=== PATIENT | female | born 1950 | race Caucasian/White ===

== ENCOUNTER 2022-11-22 09:28 | Outpatient (OUT) | payer MEDICARE, SELFPAY ==
--- NOTE | 2022-11-22 09:37 | CT_ITS ---
[address] [address] Patient Name: LEDA MEJIA MRN: [id number] date: 1950 Sex: F Assigned Patient Location: CT Current Patient Location: CT Accession/Order Number: [id number] Exam Date: 11/22/2022 09:48 Report Date: 11/22/2022 10:59 At the request of: CHARLES TAN Procedure: CT chest wo con EXAMINATION: CT chest wo con HISTORY: Lung Cavity Disease J98.4 COMPARISON: CT chest high-resolution 05/24/2022 TECHNIQUE: Multi-planar CT images were obtained without and/or with IV contrast as indicated by examination type. Axial, Coronal, and Sagittal images. Dose reduction techniques were achieved by using automated exposure control and/or adjustment of mA and/or kV according to patient size and/or use of iterative reconstruction technique. FINDINGS: LUNGS: A few tiny cavitary lesions versus cystic bronchiectasis scattered within the lungs, most notable within the lateral right lung base. Scattered areas of mild scarring. A few small patchy opacities which are new since prior study. PLEURA: No mass, effusion, or pneumothorax. VASCULATURE: No abnormality. JENNIFER: No mass or adenopathy. MEDIASTINUM: No mass or adenopathy. CARDIAC: No enlargement, pericardial thickening, or significant calcification. AORTA: No aneurysm or dissection. CHEST WALL: No mass or axillary adenopathy. BONES: No bone lesion or fracture. LIMITED ABDOMEN: No suspicious findings Limited images of the upper abdomen. OTHER: Negative. CT/CT chest wo con IMPRESSION: 1. Stable appearance of the small collections of scattered tiny air-filled cystic structures within the lungs; cavitary lesions versus cystic bronchiectasis. 2. Several new small patchy opacities; infectious etiology versus atelectasis. 3. No lymphadenopathy. Electronically authenticated by: AMBROSIO DUVALL Date: 11/22/2022 10:59
== END 2022-11-22 09:29 | disposition home or self-care (01) ==
LOC: CT 09:28
PROVIDERS: PCP Family Medicine; Visit Provider Internal Medicine
DX: J98.4 Other disorders of lung (principal); B44.89 Other forms of aspergillosis; R91.8 Other nonspecific abnormal finding of lung field
CPT/HCPCS: 71250

== ENCOUNTER 2022-12-10 13:57 | Outpatient (OUT) | payer MEDICARE, SELFPAY ==
--- NOTE | 2022-12-10 14:01 | XR_ITS ---
The [address] [address] Patient Name: LEDA MEJIA MRN: [id number] date: 1950 Sex: F Assigned Patient Location: RAD Current Patient Location: RAD Accession/Order Number: [id number] Exam Date: 12/10/2022 14:05 Report Date: 12/10/2022 14:32 At the request of: CHARLES TAN Procedure: XR chest 2V EXAMINATION: XR chest 2V HISTORY: Pneumonia J18.9 COMPARISON: No relevant comparison available. TECHNIQUE: PA and lateral FINDINGS: LUNGS: No significant pulmonary parenchymal abnormalities. VASCULATURE: No increased pulmonary vasculature. PLEURA: No pneumothorax, effusion, or pleural thickening. CARDIAC: No cardiomegaly or cardiac silhouette abnormality. MEDIASTINUM: No visible mass or adenopathy. Left pacemaker BONES: No fracture or visible bone lesion. OTHER: Negative. XR/XR chest 2V IMPRESSION: No acute cardiopulmonary process Electronically authenticated by: TERRIE ROGERS Date: 12/10/2022 14:32
== END 2022-12-10 13:58 | disposition home or self-care (01) ==
LOC: RAD 13:57
PROVIDERS: PCP Family Medicine; Visit Provider Internal Medicine
DX: J18.9 Pneumonia, unspecified organism (principal)
CPT/HCPCS: 71046

== ENCOUNTER 2022-12-27 08:25 | Outpatient (OUT) | payer MEDICARE, SELFPAY ==
[2022-12-27 08:59] LABS: Basophils Absolute Auto 0.1 10^3/uL (0.0-0.1); Basophils Percent Auto 1.1 % (0.2-2.0); Eosinophils Absolute Auto 0.4 10^3/uL (0.0-0.7); Eosinophils Percent Auto 6.7 % (0.9-7.0); Hematocrit 39.3 % (36.0-48.0); Hemoglobin 12.7 g/dL (12.0-16.0); Immature Granulocytes Abs Auto 0.03 10^3/uL (0.00-0.03); Immature Granulocytes Pct Auto 0.5 % (0.0-0.5); Lymphocytes Absolute Auto 0.8 10^3/uL (1.2-3.8); Lymphocytes Percent Auto 14.7 % (20.5-60.0); Mean Corpuscular HGB Conc 32.3 g/dL (29.9-35.2); Mean Corpuscular Hemoglobin 30.5 pg (26.7-34.0); Mean Corpuscular Volume 94.2 fL (81.0-99.0); Mean Platelet Volume 9.6 fL (9.5-13.5); Monocytes Absolute Auto 0.8 10^3/uL (0.3-0.8); Monocytes Percent Auto 13.8 % (1.7-12.0); Neutrophils Absolute Auto 3.5 10^3/uL (1.4-6.5); Neutrophils Percent Auto 63.2 % (43.0-75.0); Platelet Count 149 10^3/uL (150-450); Red Blood Count 4.17 10^6/uL (4.20-5.40); Red Cell Distribution Width 11.9 % (11.0-15.0); White Blood Count 5.5 10^3/uL (4.0-11.0)
== END 2022-12-27 08:26 | disposition home or self-care (01) ==
LOC: LAB 08:25
PROVIDERS: PCP Family Medicine; Visit Provider Family Medicine
DX: Z79.899 Other long term (current) drug therapy (principal); E78.5 Hyperlipidemia, unspecified
CPT/HCPCS: 36415; 85025

== ENCOUNTER 2022-12-27 08:26 | Outpatient (OUT) | payer MEDICARE, SELFPAY ==
[2022-12-27 09:28] LABS: Alanine Aminotransferase 22 U/L (14-59); Albumin Globulin Ratio 0.8; Albumin Level 3.1 g/dL (3.4-5.0); Alkaline Phosphatase 85 U/L (46-116); Anion Gap 9.5; Aspartate Amino Transferase 21 U/L (15-37); BUN Creatinine Ratio 18.4; Bilirubin Total 0.4 mg/dL (0.2-1.0); Calcium 8.6 mg/dL (8.5-10.1); Carbon Dioxide 29.4 mmol/L (21.0-32.0); Chloride 104 mmol/L (98-107); Chol HDL Ratio 2.3; Cholesterol 214 mg/dL (<=200); Estimated GFR (African America >60 (>=60); Estimated GFR (Non-African Ame >60 (>=60); Globulin 3.7 g/dL; Glucose 85 mg/dL (74-106); HDL Cholesterol 92 mg/dL (40-60); Potassium 3.9 mmol/L (3.5-5.1); Sodium 139 mmol/L (136-145); Total Protein 6.8 g/dL (6.4-8.2); Triglycerides 90 mg/dL (<=150)
== END 2022-12-27 08:27 | disposition home or self-care (01) ==
LOC: LAB 08:27
PROVIDERS: PCP Family Medicine; Visit Provider Nurse Practitioner
DX: Z79.899 Other long term (current) drug therapy (principal); E78.5 Hyperlipidemia, unspecified; I50.22 Chronic systolic (congestive) heart failure
CPT/HCPCS: 36415; 80053; 80061; 83880; 85025

== ENCOUNTER 2023-01-01 14:25 | Outpatient (OUT) | payer MEDICARE, SELFPAY ==
--- NOTE | 2023-01-01 14:27 | MM_ITS ---
Patient: LEDA MEJIA Exam Date: 01/01/2023 : 1950 Gender:F Ordering : DR Angel Griggs . Admission #: [id number] Family : Order #: [id number] CLICK HERE TO VIEW EXAM RADIOLOGY REPORT PROCEDURE: MM TOMOSYNTHESIS SCREENING BI COMPARISON: MG MAMM SCREEN FABBY W CAD, 02/06/2018. MG MAMM SCREEN FABBY W CAD, 02/10/2019. INDICATIONS: Screening Calculator Name NCI Breast Cancer Risk Assessment Tool 5 Year Breast Cancer Risk 3.20% Lifetime Breast Cancer Risk 8.70% Personal Breast Cancer No Personal Ovarian Cancer No Treatments None Family Cancers None LOCATION: The [facility] BREAST COMPOSITION: Heterogeneously dense,which may obscure small masses. FINDINGS: DIAGNOSTIC CATEGORY 2--BENIGN FINDING. NO CHANGE FROM COMPARISON. Scattered benign-appearing nodules are present. Scattered benign-appearing calcifications are present. Scattered benign-appearing lymph nodes are present. RIGHT BREAST: No significant suspicious finding. Linear scar markers LEFT BREAST: No significant suspicious finding. The axillary tail is obscured by a pacemaker RECOMMENDATIONS: ROUTINE MAMMOGRAM AND CLINICAL EVALUATION IN 12 MONTHS. PLEASE NOTE: A NORMAL MAMMOGRAM DOES NOT EXCLUDE THE POSSIBILITY OF BREAST CANCER. A CLINICALLY SUSPICIOUS PALPABLE LUMP SHOULD BE BIOPSIED. Dictated by: Chato Medina MD on 01/01/2023 at 15:42 Approved by: Chato Medina MD on 01/01/2023 at 15:43
--- NOTE | 2023-01-01 14:58 | XR_ITS ---
[address] [address] Patient Name: LEDA MEJIA MRN: [id number] date: 1950 Sex: F Assigned Patient Location: [facility] Current Patient Location: [facility] Accession/Order Number: [id number] Exam Date: 01/01/2023 14:50 Report Date: 01/01/2023 16:00 At the request of: NENA STEWART Procedure: XR DEXA axial skeleton EXAM: XR DEXA axial skeleton HISTORY: Osteopenia Of Multiple Sites M85.89 COMPARISON: None. TECHNIQUE: Routine DEXA scan lumbar spine and bilateral hips. FINDINGS: L2-L4: Bone mineral density 1.014 g/sq cm and T score -1.6 Left femoral neck: Bone mineral density 0.858 g/sq cm and T score -1.3 Left hip total: Bone mineral density 0.843 g/sq cm and T score -1.3 Right femoral neck: Bone density 0.812 g/sq cm and T score -1.6 Right hip total: Bone mineral density 0.863 g/sq cm and T score -1.1 XR/XR DEXA axial skeleton IMPRESSION: Osteopenia. Electronically authenticated by: VASYL BURTON Date: 01/01/2023 16:00
== END 2023-01-01 14:26 | disposition home or self-care (01) ==
LOC: RAD 14:25
PROVIDERS: PCP Family Medicine; Visit Provider Family Medicine
DX: Z12.31 Encounter for screening mammogram for malignant neoplasm of breast (principal); M85.89 Other specified disorders of bone density and structure, multiple sites
CPT/HCPCS: 77063; 77067; 77080

== ENCOUNTER 2023-01-04 14:28 | Outpatient (OUT) | payer MEDICARE, SELFPAY | END 2023-01-04 14:29 | disposition home or self-care (01) | LOC: LAB 14:31 | PROVIDERS: PCP Family Medicine; Visit Provider Internal Medicine | DX: R05.2 Subacute cough (principal) | CPT/HCPCS: 87070; 87205 ==

== ENCOUNTER 2023-01-08 08:03 | Outpatient (OUT) | payer MEDICARE, SELFPAY ==
--- NOTE | 2023-01-08 08:52 | ECG_ITS ---
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
[2023-01-08 09:15] LABS: Basophils Absolute Auto 0.1 10^3/uL (0.0-0.1); Basophils Percent Auto 2.2 % (0.2-2.0); Eosinophils Absolute Auto 0.4 10^3/uL (0.0-0.7); Eosinophils Percent Auto 8.1 % (0.9-7.0); Hematocrit 37.8 % (36.0-48.0); Hemoglobin 12.7 g/dL (12.0-16.0); Immature Granulocytes Abs Auto 0.03 10^3/uL (0.00-0.03); Immature Granulocytes Pct Auto 0.6 % (0.0-0.5); Lymphocytes Absolute Auto 0.7 10^3/uL (1.2-3.8); Lymphocytes Percent Auto 13.2 % (20.5-60.0); Mean Corpuscular HGB Conc 33.6 g/dL (29.9-35.2); Mean Corpuscular Hemoglobin 30.7 pg (26.7-34.0); Mean Corpuscular Volume 91.3 fL (81.0-99.0); Mean Platelet Volume 9.2 fL (9.5-13.5); Monocytes Absolute Auto 0.5 10^3/uL (0.3-0.8); Monocytes Percent Auto 10.8 % (1.7-12.0); Neutrophils Absolute Auto 3.2 10^3/uL (1.4-6.5); Neutrophils Percent Auto 65.1 % (43.0-75.0); Platelet Count 266 10^3/uL (150-450); Red Blood Count 4.14 10^6/uL (4.20-5.40); Red Cell Distribution Width 11.9 % (11.0-15.0); White Blood Count 4.9 10^3/uL (4.0-11.0)
[2023-01-08 09:47] LABS: Anion Gap 10.4; BUN Creatinine Ratio 17.6; Calcium 8.9 mg/dL (8.5-10.1); Carbon Dioxide 31.6 mmol/L (21.0-32.0); Chloride 103 mmol/L (98-107); Estimated GFR (African America >60 (>=60); Estimated GFR (Non-African Ame >60 (>=60); Glucose 61 mg/dL (74-106); Sodium 141 mmol/L (136-145)
[2023-01-08 10:12] LABS: INR 1.05; Partial Thromboplastin Time 33.6 sec (22.3-36.2); Prothrombin Time 11.1 sec (9.0-11.6)
== END 2023-01-08 08:04 | disposition home or self-care (01) ==
LOC: PST 08:06
PROVIDERS: PCP Family Medicine; Visit Provider Internal Medicine
DX: Z01.810 Encounter for preprocedural cardiovascular examination (principal); Z01.812 Encounter for preprocedural laboratory examination; R05.3 Chronic cough; J44.9 Chronic obstructive pulmonary disease, unspecified; I50.9 Heart failure, unspecified
CPT/HCPCS: 80048; 85025; 85610; 85730; 93005

== ENCOUNTER 2023-01-10 10:22 | Day surgery (SDC) | payer MEDICARE, SELFPAY ==
[2023-01-08 09:14] VITALS: BP 111/55; PULSE 76; RESP 20; TEMP 36.4; O2SAT 96; BMI 22.6
[2023-01-10] VITALS (10 sets, daily range): BP systolic 108–133; BP diastolic 56–74; PULSE 70–76; RESP 11–20; TEMP 36–36.5; O2SAT 91–97; BMI 22.3
[2023-01-10] MEDS: LACTATED RINGER'S SOLUTION 1,000 ML 50 ML IV (11:12)
[2023-01-10] MEDS: LIDOCAINE HCL 1% 100 MG/10 ML MDV INJ (11:41)
--- NOTE | 2023-01-10 12:10 | W.PM.PROCNOT ---
Date of procedure: 01/10/23 Pre-op diagnosis: Chronic cough Post-op diagnosis: same as pre-op (No endobronchial lesions or inflammation seen) Procedure: Procedure: Diagnostic flexible bronchoscopy with bronchoalveolar lavage and endobronchial biopsies Description: Informed consent was obtained after risks, benefits, and alternatives were discussed with the patient.? Time out was initiated to confirm the correct patient, site, and procedure with all present voicing in the affirmative. Patient was brought to the operating room suite where noninvasive monitoring was utilized.? Sedation & anesthesia were administered by the anesthesia department-please refer to their records for further information.? Tape was placed over the patient's eyes to prevent spillage of secretions.? A laryngeal mask airway was placed by anesthesia.? The vocal cords were observed without gross evidence of nodules, ulcers, or masses.? 5mL of 1% lidocaine were instilled topically to the vocal cords.? The bronchoscope was then passed between the vocal cords and advanced through the trachea without any gross tracheal lesions. The bronchoscope reached the distal trachea where an additional 5mL of 1% lidocaine were instilled topically to the main cisco.? The main cisco was sharp without splaying or evidence of underlying mass. The bronchoscope was then advanced through the right main bronchus to the right upper lobe, where the apical, posterior, and anterior segments were visualized.? The bronchoscope was advanced through the bronchus intermedius to the right middle lobe or the medial and lateral segments visualized.? The bronchoscope was then advanced to the right lower lobe superior, medial, anterior, lateral, and posterior basilar segments.? No endobronchial lesions, exudate, or other abnormalities were noted. The bronchoscope was retracted to the main cisco and advanced through the left main bronchus to the left upper lobe where the upper division apicoposterior and anterior, as well as lingular superior and inferior segments were visualized.? The bronchoscope was then advanced into the left lower lobe where the superior, anteromedial, lateral, and posterior basilar segments visualized.? No endobronchial lesions, exudate, or other abnormalities were noted. The bronchoscope was then inserted into the right lower lobe where a bronchoalveolar lavage was obtained. There were a few small mucus plugs noted in the lavage fluid. Once an adequate return was obtained, the trap was removed. The bronchoscope was then wedged into the lingula where a second bronchoalveolar lavage was obtained. There were slightly more secretions noted from this area. Once adequate fluid was returned, this second trap was removed. The bronchoscope was then positioned in the right main bronchus where 3 endobronchial biopsies were obtained for pathology. There was minimal bleeding. The bronchoscope was removed. The patient tolerated the procedure well. The was updated on the findings and the patient's condition. Anesthesia: MAC (LMA via anesthesia) and Local (Lidocaine 1%, 10mL topically) Surgeon: Vishnu Allen Estimated blood loss (mL): 0 Pathology: other (Right main bronchus endobronchial biopsies; RLL & lingular BAL) Condition: stable Disposition: PACU
[2023-01-10 16:18] LABS: Clarity Body Fluid CLOUDY; Color Body Fluid LIGHT PINK; RBC Body Fluid 1094 cubic mm; Red Blood Cell BF Side 1 936; Red Blood Cell BF Side 2 1034; WBC Body Fluid 53 cubic mm; White Blood Cell BF Side 1 45; White Blood Cell BF Side 2 52
[2023-01-10 16:19] LABS: Eosinophils Body Fluid 12 %; Lymphocytes Body Fluid 16 %; Monocytes Body Fluid 4 %; Neutrophils Body Fluid 68 %
[2023-01-10 16:20] LABS: Clarity Body Fluid SLIGHTLY CLOUDY; Color Body Fluid COLORLESS; RBC Body Fluid 10 cubic mm; Red Blood Cell BF Side 1 8; Red Blood Cell BF Side 2 11; WBC Body Fluid 43 cubic mm; White Blood Cell BF Side 1 36; White Blood Cell BF Side 2 43
[2023-01-10 16:23] LABS: Lymphocytes Body Fluid 4 %; Monocytes Body Fluid 8 %; Neutrophils Body Fluid 76 %
[2023-01-10 16:24] LABS: Eosinophils Body Fluid 12 %
== END 2023-01-10 13:33 | disposition home or self-care (01) ==
PROVIDERS: PCP Family Medicine; Visit Provider Internal Medicine
PROC: (CPT 31624; principal; 2023-01-10 11:30)
DX: R05.3 Chronic cough (principal); J44.9 Chronic obstructive pulmonary disease, unspecified; Z95.0 Presence of cardiac pacemaker; I50.9 Heart failure, unspecified; Z77.098 Contact with and (suspected) exposure to other hazardous, chiefly nonmedicinal, chemicals; G47.33 Obstructive sleep apnea (adult) (pediatric); J98.4 Other disorders of lung; B44.89 Other forms of aspergillosis; Z86.14 Personal history of Methicillin resistant Staphylococcus aureus infection; Z87.891 Personal history of nicotine dependence; I11.0 Hypertensive heart disease with heart failure; I08.1 Rheumatic disorders of both mitral and tricuspid valves
CPT/HCPCS: 31624; 31625; 36415; 87070; 87075; 87102; 87116; 87205; 87206; 88305; 89051; 99999; J2704

== ENCOUNTER 2023-01-23 14:46 | Outpatient (OUT) | payer MEDICARE, SELFPAY ==
[2023-01-23 15:37] LABS: Erythrocyte Sedimentation Rate 17 mm/hr (<=30)
[2023-01-24 06:09] LABS: Rheumatoid Factor (RF) 11.8 IU/mL (<14.0)
[2023-01-24 13:07] LABS: Anti-CCP Ab, IgG/IgA 3 units (0-19)
[2023-01-24 14:09] LABS: ANA Direct Negative (Negative); Antiscleroderma-70 Antibodies <0.2 AI (0.0-0.9)
[2023-01-27 03:06] LABS: Immunoglobulin E, Total 13 IU/mL (6-495)
== END 2023-01-23 14:47 | disposition home or self-care (01) ==
LOC: LAB 14:48
PROVIDERS: PCP Family Medicine; Visit Provider Internal Medicine
DX: J82.83 Eosinophilic asthma (principal)
CPT/HCPCS: 36415; 82785; 85652; 86036; 86038; 86200; 86235; 86430; 86431

== ENCOUNTER 2023-01-31 11:14 | Outpatient (OUT) | payer MEDICARE, SELFPAY ==
--- NOTE | 2023-01-30 13:30 | RT_ITS ---
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 Findings were considered accurate and reproducible. Both pre- and post-bronchodilator values utilized for spirometry. Due to software limitations, no prior studies (if performed previously) are currently available for comparison. Spirometry (based on pre-bronchodilator values): -FEV1/FVC: Low normal @ 72% -FEV1: Moderately reduced @ 66% -FVC: Moderately reduced @ 69% -There is a partial bronchodilator response in FVC which meets >200mL increase but <12% change. Lung volumes by plethysmography (based on pre-bronchodilator values): -RV: Normal @ 96% -TLC: Normal @ 93% Diffusion capacity: -DLCO: Mild reduction @ 71% when corrected for Hb 12.7g/dL Flow-volume loop: -Moderate obstructive pattern Impressions: -Spirometry trends towards moderate obstruction. Normal lung volumes. Mild diffusion impairment. Study suggests asthma with partial loss of bronchodilator response or asthma-COPD overlap. Clinical correlation required. Electronically Signed On 01-31-2023 13:36:56 EST by Vishnu Allen
[2023-01-30 14:42] VITALS: PULSE 81; RESP 20; O2SAT 98
[2023-01-30] MEDS: ALBUTEROL SULFATE 2.5 MG/3 ML VIAL NEB IH (14:42)
== END 2023-01-31 11:15 | disposition home or self-care (01) ==
LOC: CARD 11:14
PROVIDERS: PCP Family Medicine; Visit Provider Internal Medicine
DX: J82.83 Eosinophilic asthma (principal)
CPT/HCPCS: 94060; 94726; 94729

== ENCOUNTER 2023-03-12 12:07 | Outpatient (OUT) | payer MEDICARE, SELFPAY ==
--- NOTE | 2023-03-12 12:12 | XR_ITS ---
The [address] [address] Patient Name: LEDA MEJIA MRN: [id number] date: 1950 Sex: F Assigned Patient Location: [facility] Current Patient Location: RAD Accession/Order Number: [id number] Exam Date: 03/12/2023 12:13 Report Date: 03/12/2023 12:27 At the request of: CHARLES TAN Procedure: XR chest 2V EXAM: XR chest 2V HISTORY: acute bronchitis J209 . Intermittent cough for 6 months COMPARISON: 12/10/2022 TECHNIQUE: Upright PA and lateral chest x-ray FINDINGS: The heart is not enlarged and the vasculature is not distended. Mild prominence of the central pulmonary vasculature is again noted. The left-sided pacemaker remains in place. There is a very small amount of linear atelectasis in the lower lungs, with the suggestion of a small left pleural effusion. There is no evidence of a pneumothorax. The osseous structures are grossly intact. XR/XR chest 2V IMPRESSION: No apparent acute infiltrate or evidence of cardiac decompensation. A small amount of linear atelectasis is seen in the lower lungs, and there is slight blunting of the left costophrenic angle. The overall appearance of the chest is otherwise unchanged. Electronically authenticated by: VASYL VERA Date: 03/12/2023 12:27
--- OUTSIDE RECORDS SUMMARY | 2023-03-12 12:12 | XMS_ITS | CCD ---
Author Name Unknown Address [address] [facility] [address] [place] [address] Organization [facility] Care Team Providers Care Sap Project Manager Name Role Phone AMADOR RODRIGUEZ Attending Unavailable AMADOR RODRIGUEZ Admitting Unavailable NADEREANGEL Sylvester Referring Unavailable CEDRICERENga, ANGEL Primary Care Unavailable Theron Morales Unavailable OSMEL GARCIA Attending Unavailable OSMEL GARCIA Admitting Unavailable NADVIJAY, DR ANGEL Mathis Primary Care Unavailable JADIEL, DR AMBROSIO Sylvester Consulting Unavailable OSMEL GARCIA Consulting Unavailable NANCY ., BLESSING Attending Unavailable NANCY ., BLESSING Admitting Unavailable OTF RUBALCAVA Consulting Unavailable NADERENga, DR ANGEL Mathis Primary Care Unavailable BLESSNIG DOBSON Consulting Unavailable NADVIJAY, DR ANGEL Mathis Primary Care Unavailable MISC, DR ARNOLD Consulting Unavailable MISC, DR ARNOLD Attending Unavailable MISC, DR ARNOLD Admitting Unavailable SAMSA ., CHARLES Attending Unavailable SAMSA ., CHARLES Admitting Unavailable SAMSA ., CHARLES Consulting Unavailable TERRY, DR ANGEL Mathis Primary Care Unavailable SAMSA ., CHARLES Attending Unavailable SAMSA ., CHARLES Admitting Unavailable NADERENga, DR ANGEL Mathis Primary Care Unavailable KEN, DR TERRIE Cabezas Consulting Unavailable SAMSA ., CHARLES Consulting Unavailable NADERER, DR ANGEL Mathis Primary Care Unavailable NADERENga, DR ANGEL Mathis Attending Unavailable NADERENga, DR ANGEL Mathis Admitting Unavailable NADERENga, DR ANGEL Mathis Consulting Unavailable SAMSA ., CHARLES Attending Unavailable SAMSA ., CHARLES Admitting Unavailable KEN, DR TERRIE Cabezas Consulting Unavailable NADERENga, DR ANGEL Mathis Primary Care Unavailable SAMSA ., CHARLES Consulting Unavailable SAMSA ., CHARLES Attending Unavailable SAMSA ., CHARLES Admitting Unavailable SAMSA ., CHARLES Consulting Unavailable NADERENga, DR ANGEL Mathis Primary Care Unavailable ALEXEY BACON Attending Unavailable ALEXEY BACON Admitting Unavailable ALEXEY BACON Consulting Unavailable DR ANGEL STEWART Primary Care Unavailable CHARLES JOSE Attending Unavailable CHARLES JOSE Admitting Unavailable CHARLES JOSE Consulting Unavailable DR ANGEL STEWART Primary Care Unavailable AMADOR RODRIGUEZ Referring Unavailable ALEXEY BACON Attending Unavailable AMADOR RODRIGUEZ Referring Unavailable ALEXEY BACON Attending Unavailable ALEXEY BACON Attending Unavailable Allergies Allergy Classification Reported Allergen(s) Allergy Type Date of Onset Reaction(s) Facility (3 sources) Benztropine Drug Allergy 2 Unknown [facility] Repository (3 sources) Phenothiazine; 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: [PHENOTHIAZINES] Drug allergy (disorder) 2 [facility] Repository (1 source) Prochlorperazine Drug Allergy Unknown [facility] [employer] Other (1 source) Benztropine; 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: [BENZTROPINE] Drug Allergy 4 [facility] Medications Current Medications Medication Drug Class(es) Dates Sig (Normalized) Sig (Original) aspirin 81 mg delayed release oral tablet (1 source) Platelet Aggregation Inhibitor, Nonsteroidal Anti-inflammatory Drug take 1 tablet by mouth every twenty-four hours Aspirin 81 MG 1 tablet Orally Once a day Active 120 actuat budesonide 0.16 mg/actuat / formoterol fumarate 0.0045 mg/actuat metered dose inhaler (1 source) Corticosteroid, beta2-Adrenergic Agonist take 2 puff(s) by inhalation twice daily Symbicort 160-4.5 MCG/ACT 2 puffs Inhalation Twice a day Active FLUoxetine 40 mg oral capsule (1 source) Serotonin Reuptake Inhibitor take 1 capsule by mouth every twenty-four hours FLUoxetine HCl 40 MG 1 capsule Orally Once a day Active furosemide 20 mg oral tablet (1 source) Loop Diuretic take 1 tablet by mouth every twenty-four hours Lasix 20 MG 1 tablet Orally Once a day Active losartan potassium 25 mg oral tablet (1 source) Angiotensin 2 Receptor Kirit take 1 tablet by mouth every twenty-four hours Losartan Potassium 25 MG 1 tablet Orally Once a day Active 24 hr metoprolol succinate 25 mg extended release oral tablet (1 source) beta-Adrenergic Kirit take 1 tablet by mouth every twenty-four hours Toprol XL 25 MG 1 tablet Orally Once a day Active omeprazole 20 mg delayed release oral capsule (1 source) Proton Pump Inhibitor take 1 capsule by mouth once daily Omeprazole 20 MG 1 capsule 30 minutes before morning meal Orally Once a day Active Spironolactone (1 source) Aldosterone Antagonist Spironolactone Active traZODone hydrochloride 50 mg oral tablet (1 source) Serotonin Reuptake Inhibitor take 1 tablet by mouth every twenty-four hours traZODone HCl 50 MG 1 tablet at bedtime as needed Orally Once a day Active ZOLMitriptan (1 source) Serotonin-1b and Serotonin-1d Receptor Agonist Zomig Active Problems Active Problems Problem Classification Problem Date Documented Date Episodic/Chronic Acute bronchitis (5 sources) Acute bronchitis, unspecified; 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: [ACUTE BRONCHITIS UNSPECIFIED] Onset: 04-03-2022 Episodic Chronic obstructive pulmonary disease and bronchiectasis (6 sources) Chronic obstructive pulmonary disease with (acute) lower respiratory infection; 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: [Chronic obstructive pulmonary disease, unspecified] Onset: 10-02-2021 Chronic Conduction disorders (4 sources) Encounter for adjustment and management of automatic implantable cardiac defibrillator; 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: [Presence of automatic (implantable) cardiac defibrillator] Onset: 02-23-2022 Chronic Congestive heart failure; nonhypertensive (5 sources) Heart failure, unspecified; 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: [Chronic systolic (congestive) heart failure] Onset: 09-28-2021 Chronic Mycoses (4 sources) Other forms of aspergillosis; 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: [OTHER FORMS OF ASPERGILLOSIS] Onset: 05-24-2022 Episodic Other lower respiratory disease (6 sources) Other forms of dyspnea; 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: [OTHER FORMS OF DYSPNEA] Onset: 03-14-2022 Episodic Other screening for suspected conditions (not mental disorders or infectious disease) (1 source) Abnormal microbiological findings in specimens from respiratory organs and thorax Episodic Residual codes; unclassified (2 sources) Obstructive sleep apnea (adult) (pediatric); 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: [Obstructive sleep apnea (adult) (pediatric)] Onset: 02-27-2022 Chronic Residual codes; unclassified (2 sources) Contact with and (suspected) exposure to other hazardous, chiefly nonmedicinal, chemicals; 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: [Contact with and (suspected) exposure to other hazardous, chiefly nonmedicinal, chemicals] Onset: 12-21-2022 Episodic Unclassified (3 sources) CONTACT W/AND (SUSP) EXPOS COVID-19; 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: [CONTACT W/AND (SUSP) EXPOS COVID-19] Onset: 04-04-2022 Unclassified (3 sources) OTHER SPECIFIED COUGH; 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: [OTHER SPECIFIED COUGH] Onset: 10-04-2021 Viral infection (1 source) COVID-19; 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: [COVID-19] Onset: 09-06-2021 Past or Other Problems Problem Classification Problem Date Documented Date Episodic/Chronic Bacterial infection; unspecified site (1 source) Personal history of Methicillin resistant Staphylococcus aureus infection; 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: [PERS HX METHICILLIN RSIST STAPH INF] Onset: 10-04-2021 Episodic E Codes: Natural/environment (2 sources) Struck by dog, initial encounter; 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: [Bitten by cat, initial encounter] Onset: 06-08-2021 Episodic Malaise and fatigue (2 sources) Fatigue; 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: [Fatigue] Onset: 06-11-2022 Episodic Open wounds of extremities (4 sources) Open bite of left index finger without damage to nail, initial encounter; 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: [OPEN BITE LT IF NO DMG NAIL INITIAL] Onset: 06-06-2021 Episodic Other aftercare (1 source) snf (current) use of aspirin; 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: [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] Onset: 09-28-2021 Episodic Other aftercare (1 source) Other assisted (current) drug therapy; 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: [OTH GROUP HOME CURRENT DRUG THERAPY] Onset: 09-28-2021 Episodic Other lower respiratory disease (2 sources) Shortness of breath; 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: [Shortness of Breath] Onset: 06-11-2022 Episodic Other non-traumatic joint disorders (3 sources) Pain in left ankle and joints of left foot; 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: [PAIN IN LEFT ANKLE] Onset: 09-27-2021 Episodic Skin and subcutaneous tissue infections (2 sources) Cellulitis of left finger; 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: [Cellulitis of left upper limb] Onset: 06-07-2021 Episodic Sprains and strains (2 sources) Sprain of unspecified ligament of left ankle, initial encounter; 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: [Sprain of unspecified site of left knee, initial encounter] Onset: 09-28-2021 Episodic Unclassified (1 source) CONTACT W/AND (SUSP) EXPOS COVID-19; 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: [CONTACT W/AND (SUSP) EXPOS COVID-19] Onset: 04-02-2022 Unclassified (1 source) OTHER SPECIFIED COUGH; 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: [OTHER SPECIFIED COUGH] Onset: 10-03-2021 Results Test Name Value Interpretation Reference Range Facility Office Visiton 12-21-2022 Follow-up visit [id number] Leda Lucero 1950 F Date Provider Department Center 12/21/2022 ALEXEY GERONIMO [facility] Family History Problem Relation Age of Onset Osteoporosis Mother Heart disease Mother Heart failure Father Hearing loss Father Family Status - Relation Status Age at Mother Father Level of Service:33344 [place] OFFICE/OUTPATIENT ESTABLISHED MOD MDM 30-39 MIN Normal [facility] Office Visiton 06-11-2022 Follow-up visit [id number] Leda Lucero 1950 F Date Provider Department Center 06/11/2022 ALEXEY GERONIMO [facility] Family History Problem Relation Age of Onset Osteoporosis Mother Heart disease Mother Heart failure Father Hearing loss Father Family Status - Relation Status Age at Mother Father Level of Service:06163 [place] OFFICE/OUTPATIENT ESTABLISHED LOW MDM 20-29 MIN Reason for Visit and Comments: Follow-up [498671] - 3 month & Echo Fatigue [46] - Not new, but mentioned Shortness of Breath [831564] - With exertion, not new Normal [facility] CT CHEST HI RESOLUTIONon CT CHEST HI RESOLUTION EXAMINATION: CT CHEST HI RESOLUTION HISTORY: Aspergillosis COMPARISON: No relevant comparison available. TECHNIQUE: Axial images were obtained at 10 mm intervals during inspiration and expiration in the supine and prone positions. No IV contrast given. Dose reduction techniques were achieved by using automated exposure control and/or adjustment of mA and/or kV according to patient size and/or use of iterative reconstruction technique. FINDINGS: LUNGS: No subpleural honeycombing, interlobular septal thickening or emphysema is observed. No peribronchial thickening or bronchiectasis. Scattered solid, ill-defined and cavitary lesions are noted throughout both lungs. Biapical opacities possibly pleural parenchymal scarring. PLEURA: No mass, effusion, or pneumothorax. JENNIFER: No mass or adenopathy. MEDIASTINUM: No mass or adenopathy. CHEST WALL: No mass or axillary adenopathy left pacemaker LIMITED ABDOMEN: No suspicious findings. Limited images of the upper abdomen. OTHER: Negative. IMPRESSION: Scattered ill-defined solid and cavitary lesions throughout the lungs. These findings are indeterminate but consistent with the provided history of aspergillosis. Electronically authenticated by: TERRIE ROGERS Date: 2022-05-24 13:28 Normal [facility] FUNGAL CULTUREon 05-04-2022 Fungus (Mycology) Culture Final report Abnormal [facility] Comment on above: Performed By: #### C XFUN #### [facility] [address] [address] [address] Vimal Hernandez Fungus Stain Final report Normal [facility] Comment on above: Performed By: #### C XFUN #### [facility] [address] [place] [address] Dr. Vimal Hernandez Result 1 Comment Normal [facility] Comment on above: Result Comment: BAILEY/ Calcofluor preparation: no fungus observed. Performed By: #### C XFUN #### [facility] [address] [place] [address] Dr. Vimal Hernandez Result 1 Rohini albicans Abnormal [facility] Comment on above: Performed By: #### C XFUN #### [facility] [address] [address] [address] Vimal Hernandez Result 2 Comment Abnormal [facility] Comment on above: Result Comment: Aspe rgillus terreus complex Performed By: #### C XFUN #### [facility] [address] [place] [address] Dr. Vimal Hernandez Result 3 Comment Abnormal [facility] Comment on above: Result Comment: Aspe rgillus versicolor Performed By: #### C XFUN #### [facility] [address] [address] [address] Vimal Hernandez Refillon 04-23-2022 Refill [id number] Leda Lucero 1950 F Date Provider Department Center 04/23/2022 AMADOR MCLEOD [facility] Family History Problem Relation Age of Onset Osteoporosis Mother Heart disease Mother Heart failure Father Hearing loss Father Family Status - Relation Status Age at Mother Father Reason for Visit and Comments: Med Refill [[id number]] Normal [facility] CULTURE SPUTUMon 04-06-2022 CULTURE SPUTUM Culture Observations : METHICILLIN RESISTANT STAPH AUREUS ISOLATED. PLEASE FOLLOW APPROPRIATE ISOLATION PROCEDURES. Isolate 1 Staphylococcus aureus Light growth of ORGANISM 1 Staphylococcus aureus ANTIBIOTIC M.I.C RX STATUS Beta-Lactamase Pos POS F Cefoxitin Screen Pos POS F Benzylpenicillin >=0.5 R F Oxacillin >=4 R F Ciprofloxacin >=8 R F Levofloxacin >=8 R F Inducible Clindamycin Resistance Pos POS F Erythromycin 4 R F Clindamycin <=0.25 R F Quinupristin/Dalfopri stin <=0.25 S F Linezolid 2 S F Vancomycin <=0.5 S F Tetracycline 2 S F Rifampicin <=0.5 S F Trimethoprim/Sulfamet hoxazole <=10 S F Normal [facility] Comment on above: Performed By: #### S PUTCX ####[facility] [id number] [address]Dr. Vimal Hernandez SPUTUM GRAM STAINon 04-03-19 23 COMMENTS Normal [facility] Comment on above: Performed By: #### S PUTGS #### [facility] [address] [address] [address] Vimal Hernandez DIPHTHEROIDS Normal [facility] Comment on above: Performed By: #### S PUTGS #### [facility] [address] [address] [address] Vimal Hernandez EPITHELIALS <25 Normal [facility] Comment on above: Performed By: #### S PUTGS #### [facility] [address] [address] [address] Vimal Hernandez FUNGAL ELEMENTS Normal [facility] Comment on above: Performed By: #### S PUTGS #### [facility] [address] [address] [address] Vimal Hernandez GRAM NEG BACILLI Normal [facility] Comment on above: Performed By: #### S PUTGS #### [facility] [address] [address] [address] Vimal Hernandez GRAM NEG DIPPLOCOCCI Normal [facility] Comment on above: Performed By: #### S PUTGS #### [facility] [address] [address] [address] Vimal Hernandez GRAM POS BACILLI Normal [facility] Comment on above: Performed By: #### S PUTGS #### [facility] [address] [address] [address] Vimal Hernandez GRAM POSITIVE COCCI MODERATE Normal [facility] Comment on above: Performed By: #### S PUTGS #### [facility] [address] [address] [address] Vimal Hernandez WBC (Bld) [#/Vol] 10*3/uL Normal [facility] Comment on above: Performed By: #### S PUTGS #### [facility] [address] [place] [address] Dr. Vimal Hernandez Covid-19 PCR (CVDTBH)on SARS-CoV-2 (COVID-19) RNA REGGIE+probe Ql (Unsp spec) Not detected Normal NOT DETECTED [facility] Comment on above: Result Comment: This test is not yet approved or cleared by the [place] FDA. When there are no FDA-approved or cleared tests available, and other criteria are met, FDA can make tests available under an emergency access mechanism called an Emergency Use Authorization (EUA). The EUA for this test is supported by the [place] of Health and Human Service's (HHS's) declaration that circumstances exist to justify the emergency use of in vitro diagnostics for the detection and/or diagnosis of the virus that causes COVID-19. This EUA will remain in effect (meaning this test can be used) for the duration of the COVID-19 declaration justifying emergency of IVDs, unless it is terminated or revoked by FDA (after which the test may no longer be used). When diagnostic testing is negative, the possibility of a false negative should be considered in the context of a patient's recent exposures and the presence of clinical signs and symptoms consistent with SARS-CoV-2. Performed By: #### C VDTBH #### [facility] [address] [place] [address] Dr. Vimal Hernandez INFLUENZA A AND B AGon 04-02 [facility] SEE BELOW Normal [facility] Comment on above: Result Comment: Nega tive for Flu A protein angiten. Infection due to Flu A cannot be ruled out. Flu A angiten in the sample may be below the detection limit of the test. Performed By: #### I NFLUAB #### [facility] [address] [place] [address] Dr. [facility] Normal [facility] Comment on above: Result Comment: Nega tive for Flu B protein antigen. Infection due to Flu B cannot be ruled out. Flu B antigen in the sample may be below the detection limit of the test. Performed By: #### I NFLUAB #### [facility] [address] [place] [address] Dr. Vimal Hernandez INFLUENZA A AG Negative Normal NEGATIVE SEE COMMENT [facility] Comment on above: Performed By: #### I NFLUAB #### [facility] [address] [place] [address] Dr. Vimal Hernandez INFLUENZA B AG Negative Normal NEGATIVE SEE COMMENT [facility] Comment on above: Performed By: #### I NFLUAB #### [facility] [address] [place] [address] Dr. Vimal Hernandez ECHOCARDIO M/2D COMPLETEon 0 03-14-2022 ECHOCARDIO M/2D COMPLETE Patient: LEDA LUCERO Exam Date: 03/14/2022 : 1950 Gender:F Ordering : ALEXEY BACON Admission #: [id number] Family : Order #: [id number] CLICK HERE TO VIEW EXAM ECHOCARDIOGRAM REPORT PROCEDURE: CARDIO PULMONARY ECHOCARDIO M/2D COMP INDICATIONS: Dyspnea on exertion, ICD implant, pacemaker, COPD, emphysema COMPARISON: None. DESCRIPTION: COMPLETE ECHOCARDIOGRAM Real-time transthoracic echocardiography with 2D, M-mode, spectral and color flow Doppler performed. QUALITY: Technical quality was good. 67 138# BP 122/64 LEFT VENTRICLE: Normal chamber size. Normal left ventricular wall thickness. Left ventricular systolic function is mildly reduced. LV EF: Left ventricular ejection fraction is mildly reduced, 45%. DIASTOLIC: ATRIAL SEPTUM: Visually appears intact. LEFT ATRIUM: Normal chamber size. RIGHT ATRIUM: Normal chamber size. RIGHT VENTRICLE: Normal chamber size. Normal systolic function. Pacer wire present. TRICUSPID VALVE: Normal mobility and thickness. No stenosis with mild regurgitation. No evidence of pulmonary hypertension. RVSP 27 mmHg MITRAL VALVE: Normal mobility and thickness. No evidence of mitral valve stenosis. There is no mitral annular calcification. Mild mitral regurgitation. AORTIC VALVE: Normal trileaflet appearance. No visible sclerosis. Normal leaflet mobility. No evidence of aortic valve stenosis. No aortic regurgitation. AORTIC ROOT: Normal diameter and appearance. PULMONIC VALVE: Normal thickness and mobility. No stenosis. Trivial regurgitation. PERICARDIUM: No evidence of pericardial effusion. IVC: Collapses with inspirations. PLEURA: CONCLUSION: 1. Left ventricular systolic function is mildly reduced, LVEF is 45%. 2. Normal right ventricular systolic function. 3. Mild mitral and tricuspid regurgitation. 4. Normal right-sided pressures. 5. No pericardial effusion. Adult Echocardiography Procedure Report Left Ventricle LVEDD (3.7 - 5.6 cm): 3.80 cm LVESD (2.2 - 4.0 cm): 2.18 cm LVIVS thickness (0.6 - 1.2 cm): 0.94 cm LVPW thickness (0.5 - 1.0 cm): 0.70 cm e': 0.08 m/s E - e': 8.15 LVOT Max Gradient: 3.14 mm[Hg] Peak Velocity (LVOT): 0.89 m/s Mean Velocity (LVOT): 0.64 m/s LVOT Diameter 2.05 cm Left Ventricular Ejection Fraction: 45 % Left Atrium LA Volume Index (2D A2C): 26.75 ml, 26.75 ml Left Atrium Systolic Dimension: 3.17 cm Mitral Valve MV E to A Ratio: 0.86 Mitral Valve A-Wave Peak Velocity: 0.78 m/s Mitral Valve E-Wave Peak Velocity: 0.67 m/s Right Ventricle Aorta AO Root Diam: 2.85 cm Aortic Valve AoV Area (Peak Daniel): 2.64 cm2, 2.64 cm2 Peak Velocity(Antegrade Flow): 1.11 m/s Peak Gradient(Antegrade Flow): 4.90 mm[Hg] Tricuspid Valve Peak Velocity (Regurgitant Flow): 2.20 m/s, 1.84 m/s, 2.44 m/s Peak Velocity: 0.82 m/s Pulmonic Valve Peak Velocity: 0.89 m/s, 0.88 m/s Peak Gradient: 3.14 mm[Hg], 3.08 mm[Hg] Right Atrium Right Atrium Systolic Pressure: 31.88 ml, 31.88 ml Dictated by: Travis Amezcua M.D. on 03/15/2022 at 10:38 Approved by: Travis Amezcua M.D. 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 Vimal Hernandez SPUTUM GRAM STAINon 10-03-19 22 COMMENTS Normal [facility] Comment on above: Performed By: #### S PUTGS #### [facility] [address] [address] [address] Vimal Hernandez DIPHTHEROIDS [facility] Comment on above: Performed By: #### S PUTGS #### [facility] [address] [address] [address] Vimal Hernandez EPITHELIALS <25 Normal [facility] Comment on above: Performed By: #### S PUTGS #### [facility] [address] [address] [address] Vimal Hernandez FUNGAL ELEMENTS Normal [facility] Comment on above: Performed By: #### S PUTGS #### [facility] [address] [address] [address] Vimal Hernandez GRAM NEG BACILLI FEW Normal [facility] Comment on above: Performed By: #### S PUTGS #### [facility] [address] [address] [address] Vimal Hernandez GRAM NEG DIPPLOCOCCI Normal [facility] Comment on above: Performed By: #### S PUTGS #### [facility] [address] [address] [address] Vimal Hernandez GRAM POS BACILLI Normal [facility] Comment on above: Performed By: #### S PUTGS #### [facility] [address] [place] [address] Dr. Vimal Hernandez GRAM POSITIVE COCCI FEW Normal [facility] Comment on above: Performed By: #### S PUTGS #### [facility] [address] [place] [address] Dr. Vimal Hernandez WBC (Bld) [#/Vol] 10*3/uL Normal [facility] Comment on above: Performed By: #### S PUTGS #### [facility] [address] [place] [address] Dr. Vimal Hernandez XR CHEST 2 Von 10-02-2021 XR CHEST 2 V EXAMINATION: XR CHES T 2 V HISTORY: Chronic obstructive pulmonary disease with acute lower respiratory infection COMPARISON: 01/11/2020 TECHNIQUE: PA and lateral FINDINGS: LUNGS: No significant pulmonary parenchymal abnormalities. Stable hyperinflation VASCULATURE: No increased pulmonary vasculature. PLEURA: No pneumothorax, effusion, or pleural thickening. CARDIAC: No cardiomegaly or cardiac silhouette abnormality. MEDIASTINUM: No visible mass or adenopathy. Left multipolar pacemaker BONES: No fracture or visible bone lesion. OTHER: Negative. IMPRESSION: Hyperinflation, clear lungs Electronically authenticated by: TERRIE ROGERS Date: 2021-10-02 14:49 Normal [facility] Covid-19 PCR (CVDTB)on 08-25 SARS-CoV-2 (COVID-19) RNA REGGIE+probe Ql (Unsp spec) Detected Critically abnormal NOT DETECTED [facility] Comment on above: Result Comment: This test is not yet approved or cleared by the [place] FDA. When there are no FDA-approved or cleared tests available, and other criteria are met, FDA can make tests available under an emergency access mechanism called an Emergency Use Authorization (EUA). The EUA for this test is supported by the News Clerk of Health and Human Service's declaration that circumstances exist to justify the emergency use of in vitro diagnostics for the detection and/or diagnosis of the virus that causes COVID-19. This EUA will remain in effect for the duration of the COVID-19 declaration justifying emergency of IVDs, unless it is terminated or revoked by the FDA (after which the test may no longer be used). Performed By: #### [facility] ####[facility] [address] [place] [address]Dr. Vimal Hernandez CBC AUTO DIFFon 06-05-2021 BASO # 0.0 103/ul Normal 0.0-0.1 [facility] Comment on above: Performed By: #### C BC #### [facility] [address] [place] [address] Dr. Vimal Hernandez Basophils/100 WBC (Bld) 0.6 % Normal 0.2-2.0 [facility] Comment on above: Performed By: #### C BC #### [facility] [address] [place] [address] Dr. Vimal Hernandez EO # 0.1 103/ul Normal 0.0-0.7 [facility] Comment on above: Performed By: #### C BC #### [facility] [address] [place] [address] Dr. Vimal Hernandez Eosinophils/100 WBC (Bld) 1.4 % Normal 0.9-7.0 [facility] Comment on above: Performed By: #### C BC #### [facility] [address] [place] [address] Dr. Vimal Hernandez Erythrocyte distribution width (RBC) [Ratio] 11.9 % Normal 11.0-15.0 [facility] Comment on above: Performed By: #### C BC #### [facility] [address] [place] [address] Dr. Vimal Hernandez Hematocrit (Bld) [Volume fraction] 39.2 % Normal 36.0-48.0 [facility] Comment on above: Performed By: #### C BC #### [facility] [address] [place] [address] Dr. Vimal Hernandez Hemoglobin (Bld) [Mass/Vol] 13.2 g/dL Normal 12.0-16.0 [facility] Comment on above: Performed By: #### C BC #### [facility] [address] [place] [address] Dr. Vimal Hernandez IG # 0.03 10e3/ul Normal 0.00-0.03 [facility] Comment on above: Performed By: #### C BC #### [facility] [address] [place] [address] Dr. Vimal Hernandez IG % 0.4 % Normal 0.0-0.5 [facility] Comment on above: Performed By: #### C BC #### [facility] [address] [place] [address] Dr. Vimal Hernandez LYMPH # 1.1 103/ul Critically low 1.2-3.8 [facility] Comment on above: Performed By: #### C BC #### [facility] [address] [place] [address] Dr. Vimal Hernandez Lymphocytes/100 WBC (Bld) 15.7 % Critically low 20.5-60.0 [facility] Comment on above: Performed By: #### C BC #### [facility] [address] [place] [address] Dr. Vimal Hernandez MANUAL DIFF REQ NO Normal [facility] Comment on above: Performed By: #### C BC #### [facility] [address] [place] [address] Dr. Vimal Hernandez MCH (RBC) [Entitic mass] 30.4 pg Normal 26.7-34.0 [facility] Comment on above: Performed By: #### C BC #### [facility] [address] [place] [address] Dr. Vimal Hernandez MCHC (RBC) [Mass/Vol] 33.7 g/dL Normal 29.9-35.2 [facility] Comment on above: Performed By: #### C BC #### [facility] [address] [place] [address] Dr. Vimal Hernandez MCV (RBC) [Entitic vol] 90.3 fL Normal 81.0-99.0 [facility] Comment on above: Performed By: #### C BC #### [facility] [address] [place] [address] Dr. Vimal Hernandez MONO # 0.7 103/ul Normal 0.3-0.8 [facility] Comment on above: Performed By: #### C BC #### [facility] [address] [place] [address] Dr. Vimal Hernandez Monocytes/100 WBC (Bld) 9.2 % Normal 1.7-12.0 [facility] Comment on above: Performed By: #### C BC #### [facility] [address] [place] [address] Dr. Vimal Hernandez NEUT # 5.2 103/ul Normal 1.4-6.5 [facility] Comment on above: Performed By: #### C BC #### [facility] [address] [place] [address] Dr. Vimal Hernandez Neutrophils/100 WBC (Bld) 72.7 % Normal 43.0-75.0 [facility] Comment on above: Performed By: #### C BC #### [facility] [address] [place] [address] Dr. Vimal Hernandez Platelet mean volume (Bld) [Entitic vol] 10.0 fL Normal 9.5-13.5 [facility] Comment on above: Performed By: #### C BC #### [facility] [address] [place] [address] Dr. Vimal Hernandez PLT 207 103/ul Normal 150-450 [facility] Comment on above: Performed By: #### C BC #### [facility] [address] [place] [address] Dr. Vimal Hernandez RBC 4.34 106/ul Normal 4.20-5.40 [facility] Comment on above: Performed By: #### C BC #### [facility] [address] [address] [address] Vimal Hernandez WBC 7.1 103/ul Normal 4.0-11.0 [facility] Comment on above: Performed By: #### C BC #### [facility] [address] [address] [address] Vimal Hernandez PROF CHEM 8 (BAS METB)on Anion gap [Moles/Vol] 14.4 mmol/L Normal [facility] Comment on above: Performed By: #### B MP ####[facility] [address] [place] [address]DrNapoleon Hernandez Calcium [Mass/Vol] 9.0 mg/dL Normal 8.5-10.1 [facility] Comment on above: Performed By: #### B MP ####[facility] [address] [place] [address]DrNapoleon Hernandez Chloride [Moles/Vol] 102 mmol/L Normal 98-107 [facility] Comment on above: Performed By: #### B MP ####[facility] [address] [place] [address]Dr. Vimal Hernandez CO2 [Moles/Vol] 25.7 mmol/L Normal 22.0-30.0 [facility] Comment on above: Performed By: #### B MP ####[facility] [address] [place] [address]DrNapoleon Hernandez Creatinine [Mass/Vol] 0.81 mg/dL Normal 0.52-1.04 [facility] Comment on above: Performed By: #### B MP ####[facility] [address] [place] [address]DrNapoleon Hernandez EGFR-AF [place]ORE[place] >60 Normal >=60 [facility] Comment on above: Performed By: #### B MP ####[facility] [address] [place] [address]Dr. Vimal Hernandez EGFR-NON AF [place] >60 Normal >=60 [facility] Comment on above: Performed By: #### B MP ####[facility] [address] [place] [id number]. Vimal Hernandez Glucose [Mass/Vol] 103 mg/dL Normal 74-106 [facility] Comment on above: Performed By: #### B MP ####[facility] [address] [place] [address]Dr. Vimal Hernandez Potassium [Moles/Vol] 4.1 mmol/L Normal 3.4-5.0 [facility] Comment on above: Performed By: #### B MP ####[facility] [address] [place] [address]Dr. Vimal Hernandez Sodium [Moles/Vol] 138 mmol/L Normal 137-145 [facility] Comment on above: Performed By: #### B MP ####[facility] [address] [place] [address]Dr. Vimal Hernandez Urea nitrogen [Mass/Vol] 24.0 mg/dL Critically high 7.0-18.0 [facility] Comment on above: Performed By: #### B MP ####[facility] [address] [place] [address]Dr. Vimal Hernandez Urea nitrogen/Creatinine [Mass ratio] 29.6 mg/mg Normal [facility] Comment on above: Performed By: #### B MP ####[facility] [address] [place] [address]Dr. Vimal Hernandez XR FINGER MIN 2 VIEWSon 05-26 XR FINGER MIN 2 VIEWS IMAGES REVIEWED: XR FINGER MIN 2 VIEWS COMPARISON: None. CLINICAL INDICATION: Cat bite, infection, pain. FINDINGS/IMPRESSION: 1. Soft tissue swelling of the proximal second digit. May suggest cellulitis. If there is concern for a small abscess, consider contrast-enhanced CT or ultrasound. 2. No radiopaque foreign bodies in the soft tissues. 3. No radiographic evidence of acute osseous abnormality. 4. Moderate degenerative change of the first CMC joint. Electronically authenticated by: OTF RUBALCAVA Date: 2021-06-05 17:36 Normal [facility] Cardiovascular Lab Reporton 07-07-2020 Cardiovascular Lab Report [facility] Patient Name: Leda Lucero [facility] MR #: [id number] Physician: Amador Rodriguez MD Department of Service Date: 06/30/2020 Medicine Birthdate: 1950 Division of Room #: 3AB 387189 Cardiology Adult Cardiovascular Services [facility] [address] [place], [place] [address] Cardiovascular Laboratory Report POCKET REVISION PROCEDURE NOTE DATE OF PROCEDURE: 06/30/2020 PERFORMING PHYSICIAN: Dr. Amador Rodriguez CONSENT: Patient LOCATION: EP Lab PROCEDURE PERFORMED: 1. Pocket revision to evaluate for hematoma. INDICATIONS: 1. Pocket swelling/pain. 2. S/p ROLLED HAM LACER-D with underlying chronic AF and RVR. PROCEDURAL SEDATION: Versed and Fentanyl. Moderate sedation was administered by the sedation nurse under my supervision and noted in the CVL log. Intraprocedural face to face sedation time: 90min. Monitoring: Cardiac telemetry, Blood pressure, continuous pulse oxymetry. FLUROSCOPY: 0s PREPARATION: 69-year-old lady with a history of cardiomyopathy with a ROLLED HAM LACER-D [employer] device, had come in for a generator change due to her device having approached ALEJANDRO. This was done and the device pocket was revised and placed subpectoral. There was significant pocket swelling seen within an hour of prior generator change and so plan for evaluating hematoma was done. A procedural pause was performed identifying the patient, the procedure to be performed and the site of implant. The left chest was prepped and draped in the usual sterile fashion. Preoperative antibiotics IV Vancomycin was administered. PROCEDURAL DETAILS: Patient was placed in supine position and I decided to proceed with opening of the pocket. Local infiltration of 1% Lidocaine was performed, and an incision was created in the left upper chest over the previous incision. Dissection was then performed using cautery and with removal of sutures, the 1st layer of submucular layer was seen. Vicryl sutures were removed to release any pressure. It was hard to explain the cause for her discomfort. However, once the device was removed and submuscular area was inspected, there was a small capillary bleeder was noted. This was cauterized and subsequently the subpectoral area was meticulously inspected and no other bleeders were noted and the pocket was meticulously washed with antibiotic this time. Pocket hemostasis was secured and it was then copiously and vigorously irrigated with antibiotic solution. The leads were wrapped under the device and the device was placed in the pocket and tacked to underlying muscle. The pocket was closed in layers: muscular and subcutaneous layer using 2-0 Vicryl and subcuticular using 3-0 Biosyn absorbable monofilament suture. Glue was applied and dressing was placed on top. Lead parameters were then rechecked through the device as noted below. Device info: [employer] [place] CRTD A500Q model Serial #[id number] RAlead: Implanted on 07/14/2012 [employer]ley Tendril STS 2088TC-46 cms Serial # [id number] Sensin.9mV Threshold: 1.25V @ 0.4ms Impedance: 480 Ohms RV ICD lead: Implanted on 07/14/2012 M[employer]ley Durata 7122Q-58 cms lead Serial# [id number] Sensing: >12 mV Threshold: 0.875 @ 0.5 millisecond Impedance: 530 Ohms LV lead: Implanted on 07/14/2012 Moseley quartet 1458Q-86 cms, Serial# [id number] Threshold: 1.125 V @ 0.4 ms Impedance: 1150 ohms. POST PROCEDURE EXAM: Patient was hemodynamically stable. COMPLICATIONS: None. ESTIMATED BLOOD LOSS: 25cc IMPRESSION: 1. Successful pocket revision. RECOMMENDATIONS: 1. Dressing to be removed after 2 weeks 2. Do not wet the incision for 7 days 3. F/u in device clinic 2 weeks from discharge or sooner for any concerns 4. No heavy lifting for 1 week. 5. Follow up in EP clinic in 1 month. 6. Hold anticoagulation. 7. Doxycycline 100mg bid x 2 weeks Amador Rodriguez MD Cardiac Electrophysiology Please do not type below this line Electronically Signed by: Amador Rodriguez MD 07/12/2020 10:02 P Amador Rodriguez MD Date Dict: 06/30/2020/04:37 P/Amador Rodriguez MD Date Trans: 06/30/2020 07:04 P/nixon [id number]_[id number] cc: Angel Stewart M.D. [address] [place] [address] Electronically Signed by: Amador Rodriguez MD 07/13/2020 05:42 P Amador Rodriguez MD Date Dict: 07/07/2020/09:22 A/Amador Rodriguez MD Date Trans: 07/07/2020 09:47 A/nixon [id number] cc: Angel Stewart M.D. [address] [place] [address] Normal [facility] CBC W/DIFFon 07-01-2020 ABS IMM GRANS 0.0 10*3/uL Normal 0.0-0.2 [facility] Comment on above: Order Comment: No: D o not add to previous draw Performed By: #### 5 0103 #### [facility] [address] ABS NEUTROPHILS 9.7 10*3/uL High 1.6-7.6 [facility] Comment on above: Order Comment: No: D o not add to previous draw Performed By: #### 5 0103 #### [facility] [address] [place] [address], [facility] Basophils (Bld) [#/Vol] 0.0 10*3/uL Normal 0.0-0.2 [facility] Comment on above: Order Comment: No: D o not add to previous draw Performed By: #### 5 0103 #### [facility] [address] [place] [address], [facility] Basophils/100 WBC (Bld) 0.2 % Normal 0.0-1.0 [facility] Comment on above: Order Comment: No: D o not add to previous draw Performed By: #### 5 0103 #### [facility] [address] [place] [address], [facility] Eosinophils (Bld) [#/Vol] 0.0 10*3/uL Normal 0.0-0.5 [facility] Comment on above: Order Comment: No: D o not add to previous draw Performed By: #### 5 0103 #### [facility] [address] [place] [address], [facility] Eosinophils/100 WBC (Bld) 0.1 % Normal 0.0-6.0 [facility] Comment on above: Order Comment: No: D o not add to previous draw Performed By: #### 5 0103 #### [facility] [address] [facility] [address] Erythrocyte distribution width (RBC) [Ratio] 11.6 % Normal 11.5-15.0 [facility] Comment on above: Order Comment: No: D o not add to previous draw Performed By: #### 5 0103 #### [facility] [address] [facility] [address] Hematocrit (Bld) [Volume fraction] 32.4 % Low 36.0-45.0 [facility] Comment on above: Order Comment: No: D o not add to previous draw Performed By: #### 5 0103 #### [facility] [address] [facility] [place] [address], [facility] Hemoglobin (Bld) [Mass/Vol] 11.3 g/dL Low 12.0-15.0 [facility] Comment on above: Order Comment: No: D o not add to previous draw Performed By: #### 5 0103 #### [facility] [address] [facility] [place] [address], [facility] IMMATURE GRANS 0.4 % Normal 0.0-1.0 [facility] Comment on above: Order Comment: No: D o not add to previous draw Performed By: #### 5 0103 #### [facility] [address] [facility] [place] [address], [facility] Lymphocytes (Bld) [#/Vol] 0.4 10*3/uL Low 1.2-4.0 [facility] Comment on above: Order Comment: No: D o not add to previous draw Performed By: #### 5 0103 #### [facility] [address] [facility] [place] [address], [facility] Lymphocytes/100 WBC (Bld) 3.9 % Low 20.0-45.0 [facility] Comment on above: Order Comment: No: D o not add to previous draw Performed By: #### 5 0103 #### [facility] [address] [facility] [place] [address], [facility] MCH (RBC) [Entitic mass] 31.0 pg Normal 27.0-33.0 [facility] Comment on above: Order Comment: No: D o not add to previous draw Performed By: #### 5 0103 #### [facility] [address] [facility] [place] [address], [facility] MCHC (RBC) [Mass/Vol] 34.9 g/dL Normal 32.0-35.0 [facility] Comment on above: Order Comment: No: D o not add to previous draw Performed By: #### 5 0103 #### [facility] [address] [facility] [place] [address], [facility] MCV (RBC) [Entitic vol] 89.0 fL Normal 82.0-98.0 [facility] Comment on above: Order Comment: No: D o not add to previous draw Performed By: #### 5 0103 #### [facility] [address] [facility] [place] [address], [facility] Monocytes (Bld) [#/Vol] 0.9 10*3/uL Normal 0.1-1.0 [facility] Comment on above: Order Comment: No: D o not add to previous draw Performed By: #### 5 0103 #### [facility] [address] [place] [address], [place] MONOS 8.2 % Normal 5.0-12.0 [facility] Comment on above: Order Comment: No: D o not add to previous draw Performed By: #### 5 0103 #### [facility] [address] [place] [address], [place] Neutrophils/100 WBC (Bld) 87.2 % High 40.0-72.0 [facility] Comment on above: Order Comment: No: D o not add to previous draw Performed By: #### 5 0103 #### [facility] [address] [place] [address], [place] Nucleated RBC/100 WBC (Bld) [Ratio] 0 % Normal 0-0 [facility] Comment on above: Order Comment: No: D o not add to previous draw Performed By: #### 5 0103 #### [facility] [address] [place] [address], [place] PLAT CNT 174 10*3/uL Normal 150-400 The [facility] Comment on above: Order Comment: No: D o not add to previous draw Performed By: #### 5 0103 #### [facility] [address] [place] [address], [place] RBC (Bld) [#/Vol] 3.64 10*6/uL Low 3.80-5.00 The [facility] Comment on above: Order Comment: No: D o not add to previous draw Performed By: #### 5 0103 #### [facility] [address] [place] [address], [place] WBC (Bld) [#/Vol] 11.16 10*3/uL High 4.00-10.60 [facility] Comment on above: Order Comment: No: D o not add to previous draw Performed By: #### 5 0103 #### [facility] [address] [place] [address], [place] CHEST AND LATERALon 07-02-19 CHEST AND LATERAL [facility] Department of Radiology [address] [place] [address] Patient Name: LEDA LUCERO : 1950 Sex: F Age: Race: White Pt. Location: [id number] Patient Status: O Ordered Date: 07/01/2020 8:40:00 AM Completed Date: 07/01/2020 10:06 AM Requesting Provider: ELISE GUTHRIE Attending Provider: AMADOR RODRIGUEZ Report Copy To: Signs & Symptoms: Post Pacemaker/AICD Placement History: Comments: Check Pacemaker/AICD Lead Position Exam: CHEST AND LATERAL CHEST AND LATERAL 07/01/2020 10:06 AM CLINICAL INDICATIONS: Post Pacemaker/AICD Placement TECHNOLOGIST COMMENTS: s/p pacemaker check leads QUESTION FOR THE RADIOLOGIST: Check Pacemaker/AICD Lead Position PROTOCOL: AP(PA) and Lateral views were obtained. COMPARISON: August 05, 2012 FINDINGS: New pacemaker power unit. Leads essentially unchanged. No pneumothorax. Heart mediastinum unchanged. Lungs clear bilaterally. Nodular density projected over the right lower lobe felt to represent nipple shadow. IMPRESSION: New pacemaker power unit. Leads essentially unchanged. No pneumothorax. Electronically signed: Rossy Butts. Transcribed by: [id number], User Resident: Electronically Signed by: ROSSY BUTTS @ 07/01/2020 10:14 AM Normal [facility] Comment on above: Order Comment: Check Pacemaker/AICD Lead Position CBC W/DIFFon 06-30-2020 ABS IMM GRANS 0.0 10*3/uL Normal 0.0-0.2 [facility] Comment on above: Order Comment: No: D o not add to previous draw Performed By: #### 5 0103 #### [facility] [address] [place] [address], [facility] ABS NEUTROPHILS 9.3 10*3/uL High 1.6-7.6 The [facility] Comment on above: Order Comment: No: D o not add to previous draw Performed By: #### 5 0103 #### [facility] [address] [facility] [place] [address], [facility] Basophils (Bld) [#/Vol] 0.0 10*3/uL Normal 0.0-0.2 [facility] Comment on above: Order Comment: No: D o not add to previous draw Performed By: #### 5 0103 #### [facility] [address] [place] [address], [facility] Basophils/100 WBC (Bld) 0.4 % Normal 0.0-1.0 [facility] Comment on above: Order Comment: No: D o not add to previous draw Performed By: #### 5 0103 #### [facility] [address] [facility] [place] [address], [facility] Eosinophils (Bld) [#/Vol] 0.0 10*3/uL Normal 0.0-0.5 [facility] Comment on above: Order Comment: No: D o not add to previous draw Performed By: #### 5 0103 #### [facility] [address] [facility] [place] [id number], [facility] Eosinophils/100 WBC (Bld) 0.1 % Normal 0.0-6.0 [facility] Comment on above: Order Comment: No: D o not add to previous draw Performed By: #### 5 0103 #### [facility] [address] Erythrocyte distribution width (RBC) [Ratio] 11.7 % Normal 11.5-15.0 [facility] Comment on above: Order Comment: No: D o not add to previous draw Performed By: #### 5 0103 #### [facility] [address] [place] [id number], [facility] Hematocrit (Bld) [Volume fraction] 34.8 % Low 36.0-45.0 [facility] Comment on above: Order Comment: No: D o not add to previous draw Performed By: #### 5 0103 #### [facility] [address] [facility] [place] [address], [facility] Hemoglobin (Bld) [Mass/Vol] 12.0 g/dL Normal 12.0-15.0 [facility] Comment on above: Order Comment: No: D o not add to previous draw Performed By: #### 5 0103 #### [facility] [address] [facility] [place] [address], [facility] IMMATURE GRANS 0.3 % Normal 0.0-1.0 [facility] Comment on above: Order Comment: No: D o not add to previous draw Performed By: #### 5 0103 #### [facility] [address] [facility] [place] [address], [facility] Lymphocytes (Bld) [#/Vol] 0.5 10*3/uL Low 1.2-4.0 [facility] Comment on above: Order Comment: No: D o not add to previous draw Performed By: #### 5 0103 #### [facility] [address] [facility] [place] [address], [facility] Lymphocytes/100 WBC (Bld) 4.3 % Low 20.0-45.0 [facility] Comment on above: Order Comment: No: D o not add to previous draw Performed By: #### 5 0103 #### [facility] [address] [place] [address], [facility] MCH (RBC) [Entitic mass] 30.8 pg Normal 27.0-33.0 [facility] Comment on above: Order Comment: No: D o not add to previous draw Performed By: #### 5 0103 #### [facility] [address] [place] [id number], [facility] MCHC (RBC) [Mass/Vol] 34.5 g/dL Normal 32.0-35.0 [facility] Comment on above: Order Comment: No: D o not add to previous draw Performed By: #### 5 0103 #### [facility] [address] [place] [address], [facility] MCV (RBC) [Entitic vol] 89.5 fL Normal 82.0-98.0 [facility] Comment on above: Order Comment: No: D o not add to previous draw Performed By: #### 5 0103 #### [facility] [address] [place] [address], [facility] Monocytes (Bld) [#/Vol] 0.7 10*3/uL Normal 0.1-1.0 [facility] Comment on above: Order Comment: No: D o not add to previous draw Performed By: #### 5 0103 #### [facility] [address] [place] [address], [facility] MONOS 6.8 % Normal 5.0-12.0 [facility] Comment on above: Order Comment: No: D o not add to previous draw Performed By: #### 5 0103 #### [facility] [address] [place] [address], [facility] Neutrophils/100 WBC (Bld) 88.1 % High 40.0-72.0 [facility] Comment on above: Order Comment: No: D o not add to previous draw Performed By: #### 5 0103 #### [facility] [address] Nucleated RBC/100 WBC (Bld) [Ratio] 0 % Normal 0-0 [facility] Comment on above: Order Comment: No: D o not add to previous draw Performed By: #### 5 0103 #### [facility] [address] [place] [address], [facility] PLAT CNT 179 10*3/uL Normal 150-400 [facility] Comment on above: Order Comment: No: D o not add to previous draw Performed By: #### 5 0103 #### [facility] [address] [place] [address], [facility] RBC (Bld) [#/Vol] 3.89 10*6/uL Normal 3.80-5.00 [facility] Comment on above: Order Comment: No: D o not add to previous draw Performed By: #### 5 0103 #### [facility] [address] WBC (Bld) [#/Vol] 10.57 10*3/uL Normal 4.00-10.60 [facility] Comment on above: Order Comment: No: D o not add to previous draw Performed By: #### 5 0103 #### [facility] [address] Cardiovascular Lab Reporton 06-30-2020 Cardiovascular Lab Report [facility] Patient Name: Evan, [facility] MR #: [id number] Physician: Amador Rodriguez MD Department of Service Date: 06/30/2020 Medicine Birthdate: 1950 Division of Room #: CC Cardiology Adult Cardiovascular Services [place] [address] Cardiovascular Laboratory Report PACEMAKER GENERATOR CHANGE POCKET REVISION PROCEDURE NOTE DATE OF PROCEDURE: 06/30/2020 PERFORMING PHYSICIAN: Dr. Amador Rodriguez CONSENT: Patient LOCATION: EP Lab PROCEDURE PERFORMED: 1. Implant of new ROLLED HAM LACER-D generator (Moseley/[employer]). 2. Explant of ROLLED HAM LACER-D generator ([employer]oseley/ [employer] [place]). 3. Pocket Revision to sub muscular implant. INDICATIONS: 1. S/p ROLLED HAM LACER-D with underlying chronic AF and RVR. 2. Device at EOL PROCEDURAL SEDATION: Versed and Fentanyl. Moderate sedation was administered by the sedation nurse under my supervision and noted in the CVL log. Intraprocedural face to face sedation time: 83min. Monitoring: Cardiac telemetry, Blood pressure, continuous pulse oxymetry. FLUROSCOPY: 31s/ 1mGray PREPARATION: 69-year-old lady with a history of cardiomyopathy with a ROLLED HAM LACER-D [employer] device, has come in for a generator change due to her device having approached ALEJANDRO. A procedural pause was performed identifying the patient, the procedure to be performed and the site of implant. The left chest was prepped and draped in the usual sterile fashion. Preoperative antibiotics IV Ancef was administered. PROCEDURAL DETAILS: Patient was placed in supine position and I decided to proceed with opening of the pocket. Local infiltration of 1% Lidocaine was performed, and an incision was created in the left upper chest over the previous incision scar. Dissection was then performed using cautery down to the capsule of the previously implanted pacemaker device. Capsulotomy was performed and it was noted that her LV lead sleeve had actually been along the distal suture sleeve area. The old leads were freed from the capsule and the device was exteriorized. Once the lead was freed after dissection, unhealthy tissue was removed. I used fluoroscopy to identify whether the suture sleeve had embolized, however, it was noted that it was still buried in the tissue. I proceeded to identify the sleeve and anchored it to the underlying tissue to prevent embolization and to secure the lead. Following this, I ended up actually proceeding with a subpectoral implant. The pectoralis belly was identified and dissected. Using blunt dissection, the tissue planes identified until a subpectoral plane was noted and a pocket created to accommodate the device. Surgicel powder was used for hemostasis. The leads were then attached to a new [place]ley/ [employer] [place] ROLLED HAM LACER-D generator and the leads tug tested. Pocket hemostasis was secured and it was then copiously and vigorously irrigated with antibiotic solution. The leads were wrapped under the device and the device was placed in the pocket and tacked to underlying muscle. The pocket was closed in layers: muscular and subcutaneous layer using 2-0 Vicryl and subcuticular using 3-0 Biosyn absorbable monofilament suture. Glue was applied and dressing was placed on top. Lead parameters were then rechecked through the device as noted below. [employer] Moseley [place] CRTD A500Q model, serial #[id number]. The atrial lead is Moseley Tendril STS 2088TC 46 cm, serial number [id number], implanted on July 14, 2012. Atrial sensing is 1.9 mV, capture was 1.25 V at 0.4 milliseconds. Impedance was 480 ohms. The RV ICD lead is a Durata 7122Q 58 cm lead, serial number is [id number], implanted on July 14, 2012. The RV sensing is at a greater than 12 mV with RV threshold of 0.875 at 4.5 millisecond, impedance of 530 ohms. The LV lead is Moseley quartet 1458Q 86 cm lead, serial number [id number], implanted on july 14, 2012. Lead threshold was 1.125 V at 0.4 millisecond with the impedance of 1150 ohms. The various thresholds were checked and was noted the LV 1-2 had Device info: [employer] Moseley [place] CRTD A500Q model Serial #[id number] RAlead: Implanted on 07/14/2012 Moseley Tendril STS 2088TC-46 cms Serial # [id number] Sensin.9mV Threshold: 1.25V @ 0.4ms Impedance: 480 Ohms RV ICD lead: Implanted on 07/14/2012 Moseley Durata 7122Q-58 cms lead Serial# [id number] Sensing: >12 mV Threshold: 0.875 @ 0.5 millisecond Impedance: 530 Ohms LV lead: Implanted on 07/14/2012 Moseley quartet 1458Q-86 cms, Serial# [id number] Threshold: 1.125 V @ 0.4 ms Impedance: 1150 ohms. The various thresholds were checked and was noted the LV 1-2 had the best thresholds. The RV to LV 1-2 delay at that time was 125 milliseconds. We further decided to check for optimized pacing configuration to get the narrow QRS. With LV pacing alone and various configurations were done from 80 milliseconds to 30 milliseco (more content not included)... Normal [facility] Consent Formson 01-20-2020 Consent Forms [id number] [facility] 01-19 History and Physical [id number]#1 [facility] Coding Summaryon 01-15-2020 Coding Summary CODING DATE: 01/15/2020 [facility] STATUS: Home PAYOR: Medicare MC ADMIT DX: REASON FOR VISIT DX: Z01.812 Encounter for preprocedural laboratory examination FINAL DX: PRINCIPAL: Z01.812 Encounter for preprocedural laboratory examination SECONDARY: M24.812 Other specific joint derangements of left shoulder, not elsewhere classified J43.9 Emphysema, unspecified PYMT PROC APC STAT DESCRIPTION DOCTOR NAME DATE NOTE: The code number assigned matches the documented diagnosis and / or procedure in the patient's chart. However, the narrative phrase printed from the coding software may appear abbreviated, or result in slightly different terminology. Coded By: Michelle Uribe Date Saved: 01/15/2020 12:41 pm [facility] Coding Summaryon 01-13-2020 Coding Summary CODING DATE: 01/13/2020 [facility] STATUS: Home PAYOR: Medicare MC APC DESCRIPTION 5114 Level 4 Musculoskeletal Procedures ADMIT DX: REASON FOR VISIT DX: M24.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, left shoulder FINAL DX: PRINCIPAL: M19.012 Primary osteoarthritis, left shoulder SECONDARY: M25.812 Other specified joint disorders, left shoulder PYMT PROC APC STAT DESCRIPTION DOCTOR NAME DATE 29764 Arthroscopy, shoulder, Jose Mcgraw And 01/11/2020 surgical; distal claviculectomy including distal articular surface (Nicole procedure) LT Left side (used to identify procedures performed on the left side of the body) 62749 Arthroscopy, shoulder, Jose Mcgraw And 01/11/2020 surgical; debridement, limited LT Left side (used to identify procedures performed on the left side of the body) 79686 Injection(s), anesthetic Jose Mcgraw And 01/11/2020 agent(s) and/or steroid; brachial plexus 59 Distinct Procedural Service LT Left side (used to identify procedures performed on the left side of the body) NOTE: The code number assigned matches the documented diagnosis and / or procedure in the patient's chart. However, the narrative phrase printed from the coding software may appear abbreviated, or result in slightly different terminology. Revised Coded By: Kirsten Mejia Revised Date Saved: 01/13/2020 07:44 am [facility] Consent Formson 01-12-2020 Consent Forms [id number] .00[facility] Discharge Instructionson Discharge Instructions [id number] .00[facility] Medication Managementon 12-26 Medication Management [id number]#1 .00[facility] Outside Recordson 01-12-2020 Outside Records [id number] .00[facility] Telemetry Stripson 0 Telemetry Strips [id number] .00[facility] Anesthesia Noteon 01-11-2020 Anesthesia Note Patient: LEDA LUCERO Age: 69 years Sex: FEMALE : 1950 Associated Diagnoses: None Author: Yanick Edward MD Preoperative Information Anesthesia history: Patient history: Nausea and vomiting with anesthesia, PONV after several procedures that would likely have been MAC as well, No difficult intubation, No malignant hyperthermia. Family history: No malignant hyperthermia. Review of Systems Constitutional: Negative. Respiratory: Negative, dyspnea on exertion, but can walk 3 miles on flat ground. Able to climb 1 flight of stairs, but then very winded, No shortness of breath. Cardiovascular: No chest pain. Neurologic: Alert and oriented X4. Health Status Allergies: Allergic Reactions (All) Severe Cogentin- Hallucinations. Moderate Phenothiazine- Nausea. Current medications: Home Medications (14) Active aspirin 81 mg oral delayed release tablet 81 mg = 1 tab(s), PO, Daily calcium (as carbonate) 600 mg oral tablet 600 mg = 1 tab(s), PO, BID CoQ10 300 mg oral capsule 300 mg, PO, Daily D3 5000 intl units (125 mcg) oral capsule 5,000 International_Unit = 1 cap(s), PO, Daily furosemide 20 mg oral tablet 20 mg = 1 tab(s), PO, Daily ICaps with Lutein and Zeaxan oral tablet 1 tab(s), PO, Daily losartan 25 mg oral tablet 25 mg = 1 tab(s), PO, Daily Metoprolol Succinate ER 25 mg oral tablet, extended release 25 mg = 1 tab(s), PO, Daily PriLOSEC 20 mg oral delayed release capsule 20 mg = 1 cap(s), PO, Daily PROzac 40 mg oral capsule 40 mg = 1 cap(s), PO, Daily spironolactone 25 mg oral tablet 12.5 mg = 0.5 tab(s), PO, Daily Symbicort 160 mcg-4.5 mcg/inh 2 puff(s), INH, BID traZODone 50 mg oral tablet 25 mg = 0.5 tab(s), PO, Once a day (at bedtime) Zomig-ZMT 2.5 mg oral tablet, disintegrating 2.5 mg = 1 tab(s), PRN, PO, Daily Problem list (past medical history): All Problems COPD (chronic obstructive pulmonary disease) case management patient / SNOMED CT 823055239 / Confirmed CHF (congestive heart failure) / SNOMED CT 90814270 / Confirmed Myopathy / SNOMED CT 549835042 / Confirmed Ventricular dysfunction / SNOMED CT 784452006 / Confirmed Histories Family History: No family history items have been selected or recorded. Procedure history: Anesthesia for transvenous insertion or replacement of pacing cardioverter-defibril lator (50620) on 07/14/2012 at 61 Years. Cardiac pacemaker (27886180). Comments: 12/30/2019 13:18 Veronique Membreno RN 2012 Carpal tunnel release (426304112). Tonsillectomy (682547099). Comments: 12/30/2019 13:23 Veronique Membreno RN 1949's Biopsy of breast (323279028). Comments: 12/30/2019 13:24 GLADIS Kaminski RN, Veronique X3 Social History Electronic Cigarette/Vaping Assessment Electronic Cigarette Use: Never. Alcohol Assessment Use: Current. Wine, 1-2 times per week Tobacco Assessment Former smoker, quit more than 30 days ago Tobacco Use:. 30 years ago 1 pk/week per day. Substance Abuse Assessment Substance use: Never. 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 Home/Environment Assessment Lives with Spouse. Home equipment: CPAP/BiPAP. . 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 Physical Examination VS/Measurements Vital Signs (last 24 hrs) Last Charted Heart Rate Peripheral 70 bpm (JAN 10 09:45) Resp Rate L 12br/min (JAN 10 09:45) SBP 121 mmHg (JAN 10 08:47) DBP 73 mmHg (JAN 10 08:47) SpO2 98 % (JAN 10 09:45) Airway: Mallampati classification: II (soft palate, fauces, uvula visible). Temporomandibular joint mobility: Good. Mouth: Adequate opening, Teeth ( Within normal limits ). Neck: Full range of motion. Respiratory: Lungs are clear to auscultation. Cardiovascular: Regular rhythm. Neurologic: Alert, Oriented. Review / Management Laboratory Results Plan [place] [employer] Anesthesiologists#( A) physical status classification: Class III. Anesthetic Preoperative Plan Anesthesia: General. , Regional (Interscalene Block, for post op pain control). Anesthetic plan, risks, benefits, and alternatives discussed with the patient and/or family. Patient verbalized understanding. Informed consent was given. Consent was signed by the patient. very lengthy discussion with pt regarding PONV and pt decided to try transderm scop patch. Also agrees to interscalene block for post op pain control after discussion of risks and benefits of both were had.. [Electronically Signed on: 01/11/2020 10:45 EST] Yanick Edward MD [Verified on: 01/11/2020 10:45 EST] Yanick Edward MD [facility] Coding Summaryon 01-11-2020 Coding Summary CODING DATE: 01/11/2020 [facility] STATUS: Home PAYOR: Medicare MC ADMIT DX: REASON FOR VISIT DX: Z01.812 Encounter for preprocedural laboratory examination FINAL DX: PRINCIPAL: Z01.812 Encounter for preprocedural laboratory examination SECONDARY: Z20.828 Contact with and (suspected) exposure to other viral communicable diseases PYMT PROC APC STAT DESCRIPTION DOCTOR NAME DATE NOTE: The code number assigned matches the documented diagnosis and / or procedure in the patient's chart. However, the narrative phrase printed from the coding software may appear abbreviated, or result in slightly different terminology. Coded By: Michelle Uribe Date Saved: 01/11/2020 02:18 pm [facility] Inpatient Patient Summaryon 01-11-2020 [place] [address] Patient Discharge Instructions Name: LEDA LUCERO : 1950 Patient Address: [address] [place] [address] Primary Care Provider: Name: ANGEL STEWART After you are discharged if you find you have any questions, please, call [phone] ext [phone] to speak to a nurse. Discharge Diagnosis: Internal derangement of left shoulder Prescription Information: If you have been given a prescription for narcotics, seek immediate medical attention if you have any difficulty breathing or any sudden status changes such as confusion and sleepiness. If you or anyone you know is experiencing suicidal thoughts, mental health, alcohol and/or drug addiction problems; contact the [facility] 17/09 Crisis Hotline -Text 4HOPE to 284729. If you received any narcotics, sedation, or any other medication that causes drowsiness for the next 24 hours, unless otherwise directed: ? Do not drive a car. ? Do not operate machinery such as power tools, lawn mowers, drills, sewing machines, or stoves ? Avoid alcoholic beverages and drugs for allergies, nerves, or sleep ? Do not make important personal or business decisions or sign any legal documents [facility] would like to thank you for allowing us to assist you with your healthcare needs. The following includes patient education materials and information regarding your injury/illness. LEDA LUCERO has been given the following list of follow-up instructions, prescriptions, and patient education materials: Follow-up Instructions With: Address: When: CECY CALIX [address] [facility], [address] [place] [address] Business (1) 01/20/2020 8:30 AM With: Address: When: ANGEL STEWART [facility] [place], [place] [id number] [facility] (1) Medications During the course of your visit, your medication list was updated with the most current information. The details of those changes are reflected below: Medications to Continue That Have Not Changed Other Medications aspirin (aspirin 81 mg oral delayed release tablet) 1 tab(s) Oral every day. budesonide-formoterol (Symbicort 160 mcg-4.5 mcg/inh) 2 puff(s) Inhalation 2 times a day. calcium carbonate (calcium (as carbonate) 600 mg oral tablet) 1 tab(s) Oral 2 times a day. cholecalciferol (D3 5000 intl units (125 mcg) oral capsule) 1 cap(s) Oral every day. with food. FLUoxetine (PROzac 40 mg oral capsule) 1 cap(s) Oral every day. furosemide (furosemide 20 mg oral tablet) 1 tab(s) Oral every day. losartan (losartan 25 mg oral tablet) 1 tab(s) Oral every day. metoprolol (Metoprolol Succinate ER 25 mg oral tablet, extended release) 1 tab(s) Oral every day. multivitamin with minerals (ICaps with Lutein and Zeaxan oral tablet) 1 tab(s) Oral every day. omeprazole (PriLOSEC 20 mg oral delayed release capsule) 1 cap(s) Oral every day. spironolactone (spironolactone 25 mg oral tablet) 0.5 tab(s) Oral every day. traZODone (traZODone 50 mg oral tablet) 0.5 tab(s) Oral once a day (at bedtime). ubiquinone (CoQ10 300 mg oral capsule) 300 Milligram Oral every day. ZOLMitriptan (Zomig-ZMT 2.5 mg oral tablet, disintegrating) 1 tab(s) Oral every day as needed for migraine headache. may repeat dose after 2 hours up to a maximum of 10 mg in 24 hours. It is important to always keep an active list of medications available so that you can share with other providers and manage your medications appropriately. As an additional courtesy, we are also providing you with your final active medications list that you can keep with you. aspirin (aspirin 81 mg oral delayed release tablet) 1 tab(s) Oral every day. budesonide-formoterol (Symbicort 160 mcg-4.5 mcg/inh) 2 puff(s) Inhalation 2 times a day. calcium carbonate (calcium (as carbonate) 600 mg oral tablet) 1 tab(s) Oral 2 times a day. cholecalciferol (D3 5000 intl units (125 mcg) oral capsule) 1 cap(s) Oral every day. with food. FLUoxetine (PROzac 40 mg oral capsule) 1 cap(s) Oral every day. furosemide (furosemide 20 mg oral tablet) 1 tab(s) Oral every day. losartan (losartan 25 mg oral tablet) 1 tab(s) Oral every day. metoprolol (Metoprolol Succinate ER 25 mg oral tablet, extended release) 1 tab(s) Oral every day. multivitamin with minerals (ICaps with Lutein and Zeaxan oral tablet) 1 tab(s) Oral every day. omeprazole (PriLOSEC 20 mg oral delayed release capsule) 1 cap(s) Oral every day. spironolactone (spironolactone 25 mg oral tablet) 0.5 tab(s) Oral every day. traZODone (traZODone 50 mg oral tablet) 0.5 tab(s) Oral once a day (at bedtime). ubiquinone (CoQ10 300 mg oral capsule) 300 Milligram Oral every day. ZOLMitriptan (Zomig-ZMT 2.5 mg oral tablet, disintegrating) 1 tab(s) Oral every day as needed for migraine headache. may repeat dose after 2 hours up to a maximum of 10 mg in 24 hours. Take only the medications listed above. Contact your doctor prior to taking any medications not on this list. Diet & Activity Patient Activity Level: Patient Diet: Regular Patient Activity Restrictions: Comment: Patient education materials, if any, will display below DR. SANDERS POST OPERATIVE SHOULDER INSTRUCTIONS SURGEONS WRITTEN INSTRUTCTIONS: -If you have been given a cryo cuff after surgery you should use it as much as possible for the first 24-48 hours. After that it is optional. TIP: Many patients prefer to use it a little longer because it helps reduce pain -You should wiggle your fingers frequently -Change your dressings in 1 day. If steri-strips have been applied DO NOT remove them. When the wound is clean and dry you may leave it open to air but again DO NOT remove any steri-strips that have been applied -You may shower in 1 day but do not let the water stream directly strike the wound -Do pendulum exercises for at least 10 minutes twice a day -If you have any problems or concerns, please call the office at [phone] -Follow up as scheduled Viruses or Bacteria What?s got you sick? Antibiotics only treat bacterial infections. Viral illnesses cannot be treated with antibiotics. When an antibiotic is not prescribed, ask your healthcare professional for tips on how to relieve symptoms and feel better. Usual Cause Illness Viruses Bacteria Antibiotic Needed Cold/Runny Nose NO Bronchitis/Chest Cold (in otherwise healthy children and adults) NO Whooping Cough Yes Flu NO Strep Throat Yes Sore Throat (except strep) NO Fluid in the middle ear (otitis media with effusion) NO Urinary Tract Infection Yes Antibiotics Aren?t Always the Answer www.cdc.gov/getsmart GET SMART Know When Antibiotics Work U.S. Department of Health and Human Services Centers for Disease Control and Prevention October [facility] Intraoperative Record [facility] Intra-Op Record Summary Primary Physician: Jose Mcgraw DO Finalized Date/Time: 01/11/20 13:13:05 Pt. Name: LEDA LUCERO Hubert/Sex: 1950 FEMALE Med Rec #: [id number] Physician: Jose Mcgraw DO Financial #: [id number] Pt. Type: D Room/Bed: / Admit/Disch: 01/11/20 07:00:00 - Institution: Case Times [facility] Entry 1 Patient In Room Time 01/11/20 09:47:00 Out Room Time 01/11/20 11:18:00 Anesthesia Start Time 01/11/20 09:47:00 Stop Time 01/11/20 11:20:00 Surgery Start Time 01/11/20 10:18:00 Stop Time 01/11/20 11:03:00 Last Modified By: Michelle Sanabria RN 01/11/20 11:35:08 Case Attendance [facility] Entry 1 Entry 2 Entry 3 Case Attendee Jose Mcgraw Robert M MD McKenna RN, Michelle Holland DO Role Performed Surgeon - Primary Anesthesiologist of [place]all[place] Raker Record Time In 01/11/20 09:47:00 01/11/20 09:47:00 01/11/20 09:47:00 Time Out 01/11/20 11:18:00 01/11/20 11:18:00 01/11/20 11:18:00 Procedure Arthroscopy Arthroscopy Arthroscopy Shoulder(Left, Shoulder) Shoulder(Left, Shoulder) Shoulder(Left, Shoulder) Last Modified By: Daniele SWANSON, Michelle Sanabria RN, Michelle Abel RN 01/11/20 11:35:12 01/11/20 11:35:12 01/11/20 11:35:12 Entry 4 Entry 5 Case Attendee Cathryn CABALLERO, Mackenzie Fernandes CST, Maru Role Performed Scrub Personnel Sql Data Analyst Time In 01/11/20 09:47:00 01/11/20 09:47:00 Time Out 01/11/20 11:18:00 01/11/20 11:18:00 Procedure Arthroscopy Arthroscopy Shoulder(Left, Shoulder) Shoulder(Left, Shoulder) Last Modified By: Michelle Sanabria RN, RN, Jennifer 01/11/20 11:35:12 01/11/20 11:35:12 Surgical Procedures MAGR Pre-Care Text: A.20 Verifies operative procedure, surgical site, and laterality Im.150 Develops individualized plan of care Entry 1 Procedure Arthroscopy Shoulder Primary Procedure Yes Primary Surgeon Jose Mcgraw Left, Shoulder Skyler DO Surgeon Comment LEFT SHOULDER Start 01/11/20 10:18:00 ARTHROSCOPY, DISTAL CLAVICLE RESCETION AND SUBACROMIAL DECOMPRESSION Stop 01/11/20 11:03:00 Anesthesia Type General Surgical Service Orthopedics Wound Class Clean Technique Details Closure Technique Primary Entire procedure No was performed via laparoscope or robotic assistance Last Modified By: Michelle Sanabria RN 01/11/20 13:12:59 Post-Care Text: O.730 The patient's care is consistent with the individualized perioperative plan of care General Case Data MAGR Pre-Care Text: A.350.1 Classifies surgical wound Entry 1 Case Information OR MAGR OR 01 Case Level Level 4 Wound Class Clean Specialty Orthopedics ASA Class 3 Diagnosis Preop Diagnosis INTERNAL DERANGEMENT Postop Same As Preop Yes Postop Diagnosis INTERNAL DERANGEMENT Blunt or No Is the procedure No penetrating injury considered occured prior to Emergent/Urgent? the start of the procedure: Last Modified By: Michelle Sanabria RN 01/11/20 11:35:23 Post-Care Text: O.760 Patient receives consistent and comparable care regardless of the setting Time Out MAGR Entry 1 Time out date/time 01/11/20 10:15:00 All team members Yes have introduced themselves by name and role Surgeon, Yes Surgeon reviews Yes anesthesia, nurse critical or confirm patient, unexpected steps, site, procedure operative duration, anticipated blood loss Anesthesia team Yes Nursing team Yes reviews any reviews sterility patient-specific (including concerns indicator results) and equipment issues/concerns Antibiotic Antibiotic Yes Administration Time 09:45 prophylaxis given within the last 60 minutes Is essential N/A imaging displayed? Last Modified By: Michelle Sanabria RN 01/11/20 10:24:54 Patient Positioning MAGR Pre-Care Text: A.280 Identifies baseline musculoskeletal status Im.40 Positions the patient Im.80 Applies safety devices Entry 1 Procedure Arthroscopy Body Position Lateral Shoulder(Left, Shoulder) Left Arm Position Extended on padded arm Right Arm Position Extended board Left Leg Position Extended Right Leg Position Extended Feet Uncrossed? Yes Press Points Checked Yes Positioning Device Arm Boards, Arm Strap, Outcome Met (O.80) Yes Pillow, Safety Strap, Peg Board Last Modified By: Michelle Sanabria RN 01/11/20 10:25:25 Post-Care Text: E.290 Evaluates musculoskeletal status O.80 Patient is free from signs and symptoms of injury related to positioning Skin Prep MAGR Pre-Care Text: A.30 Verifies allergies Im.270 Performs skin preparation Im.270.1 Implements protective measures to prevent skin and tissue injury due to chemical sources Entry 1 Skin Prep Syntegrity Prep Agents (Im.270) Chlorhexidine Gluconate Prep By Michelle Sanabria RN and Alcohol Prep Area (Im.270) Shoulder, Arm, Hand Prep Area Details Left Skin Prep Agent Dry Yes Without Pooling Hair Removal Syntegrity Hair Removal Methods No hair removal performed Outcome Met (O.100) Yes Last Modified By: Michelle Sanabria RN 01/11/20 10:25:49 Post-Care Text: E.10 Evaluates for signs and symptoms of physical injury to skin and tissue O.100 Patient is free from signs and symptoms of chemical injury Counts Verification MAGR Pre-Care Text: A.20 Verifies operative procedure, surgical site, and laterality A.20.2 Assesses the risk for unintended retained foreign body Im.20 Performs required counts Entry 1 Procedure Arthroscopy Shoulder(Left, Shoulder) Counts Verification Initial Counts Items included in Sponges, Sharps Initial Counts Michelle Sanabria RN, the Initial Count Performed By Mackenzie Lockett CST Initial Count Time 01/11/20 09:30:00 Counts Verification Final Counts Items Included in Sponges, Sharps Final Count Method Manual Final Count Final Count Status Correct Final Counts Michelle Sanabria RN, Performed By Mackenzie Lockett CST Final Count Time 01/11/20 11:00:00 Surgeon notified of Yes final counts status Outcome Met (O.20) Yes Last Modified By: Michelle Sanabria RN 01/11/20 11:35:52 Post-Care Text: E.50 Evaluates results of the surgical count O.20 Patient is free from unintended retained foreign objects Patient Care Devices MAGR Pre-Care Text: A.200 Assesses risk for normothermia regulation A.40 Verifies presence of prosthetics or corrective devices Im.280 Implements thermoregulation measures Im.60 Uses supplies and equipment within safe parameters Entry 1 Entry 2 Equipment Type FLOWTRON CALF CUFF REG- BLANKET LOWER BODY OR bilateral Serial ?# [id number] Equipment Setting per factory settings 43 deg anuradha Last Modified By: Michelle Sanabria RN, RN, Jennifer 01/11/20 10:27:27 01/11/20 10:27:27 Post-Care Text: E.10 Evaluates signs and symptoms of physical injury to skin and tissue O.700 Patient is free from signs and symptoms of injury caused by extraneous objects Medication Administration MAGR Pre-Care Text: A.210 Identifies physiological status Im.220 Administers prescribed medications Entry 1 Time Administered 01/11/20 11:00:00 Medication 3 amps Epi 1:1000 added to 0.9%NS 3000ml Route of Admin IRRIG Dose 12 amp Volume 12 amp By Jose Mcgraw DO Outcome Met (O.130) Yes Last Modified By: Michelle Sanabria RN 01/11/20 11:37:42 Post-Care Text: E.20 Evaluates response to medications O.130 Patient receives appropriately administered medication(s) Dressing/Packing MAGR Pre-Care Text: A.350 Assesses susceptibility for infection Im.290 Administer care to wound sites Entry 1 Skin Prep Agent Yes Site Shoulder Removed Prior to Dressing? Site Details Left Dressing Item Details Dressing Item 4x4's, ABD Tape (Im.290) Foam (Im.290) Outcome Met Yes Last Modified By: Michelle Sanabria RN 01/11/20 10:31:46 Post-Care Text: E.200 Evaluates progress of wound healing O.200 Patient's wound perfusion is consistent with or improved from baseline levels Departure from OR MAGR Entry 1 Present on Depart Oxygen Via Stretcher Post-op Destination PACU Skin DFO Condition Dry Description Condition Intact Description Report Given To Naheed Ortega RN Airway Maintenance Patient Status Stable Oxygen in Use? Yes Airway Device Nasal cannula Flow Rate 3 L/min Last Modified By: Michelle Sanabria RN 01/11/20 11:37:29 Case Comments Finalized By: Michelle Sanabria RN Document Signatures Signed By: Michelle Sanabria RN 01/11/20 11:38 Michelle Sanabria RN 01/11/20 13:13 Unfinalized History Date/Time Username Reason for Unfinalizing Freetext Reason for Unfinalizing 01/11/20 13:12 RIYA Barry Documentation Normal [facility] MAGR Intraoperative Record MAGR Intra-Op Record Summary Primary Physician: Finalized Date/Time: 01/11/20 09:50:05 Pt. Name: EVANLEDA/Sex: 1950 FEMALE Med Rec #: [id number] Physician: Jose Mcgraw DO Financial #: [id number] Pt. Type: D Room/Bed: / Admit/Disch: 01/11/20 07:00:00 - Institution: Case Times MAGR Entry 1 Patient In Room Time 01/11/20 09:18:00 Out Room Time 01/11/20 09:47:00 Anesthesia Start Time 01/11/20 09:18:00 Stop Time 01/11/20 09:30:00 Surgery Start Time 01/11/20 09:23:00 Stop Time 01/11/20 09:29:00 Last Modified By: Veronique Kaminski RN 01/11/20 09:49:58 General Comments: Versed 2mg IVP @ 0919 Versed 2mg IVP @ 0922 Case Attendance MAGR Entry 1 Entry 2 Entry 3 Case Attendee Yanick Edward MD, RN, Veronique Cooper RN Role Performed Anesthesiologist of Scallop Raker Scallop Raker Record Time In 01/11/20 09:18:00 01/11/20 09:18:00 01/11/20 09:18:00 Time Out 01/11/20 09:47:00 01/11/20 09:47:00 01/11/20 09:47:00 Procedure Interscalene Interscalene Interscalene Block(Left, Shoulder) Block(Left, Shoulder) Block(Left, Shoulder) Last Modified By: Veronique Kaminski RN 01/11/20 Veronique Kaminski RN 01/11/20 Veronique Kaminski RN 01/11/20 09:49:59 09:49:59 09:49:59 Surgical Procedures MAGR Pre-Care Text: A.20 Verifies operative procedure, surgical site, and laterality Im.150 Develops individualized plan of care Entry 1 Procedure Interscalene Block Primary Procedure Yes Primary Surgeon Yanick Edward MD Modifiers Left, Shoulder Surgeon Comment INTERSCALENE BLOCK Start 01/11/20 09:23:00 PRIOR TO LEFT SHOULDER ARTHROSCOPY Stop 01/11/20 09:29:00 Anesthesia Type Regional Block Surgical Service Anesthesia Wound Class Clean Technique Details Closure Technique N/A Entire procedure No was performed via laparoscope or robotic assistance Last Modified By: Veronique Kaminski RN 01/11/20 09:39:03 Post-Care Text: O.730 The patient's care is consistent with the individualized perioperative plan of care General Case Data MAGR Pre-Care Text: A.350.1 Classifies surgical wound Entry 1 Case Information OR MAGR Proc Room Case Level None Wound Class Clean Specialty Anesthesia ASA Class 3 Diagnosis Preop Diagnosis INTERSCALENE BLOCK Postop Same As Preop Yes PRIOR TO LEFT SHOULDER ARTHROSCOPY Postop Diagnosis INTERSCALENE BLOCK PRIOR TO LEFT SHOULDER ARTHROSCOPY Blunt or No Is the procedure No penetrating injury considered occured prior to Emergent/Urgent? the start of the procedure: Last Modified By: Veronique Kaminski RN 01/11/20 09:39:43 Post-Care Text: O.760 Patient receives consistent and comparable care regardless of the setting Time Out MAGR Entry 1 Time out date/time 01/11/20 09:22:00 All team members Yes have introduced themselves by name and role Surgeon, Yes Surgeon reviews Yes anesthesia, nurse critical or confirm patient, unexpected steps, site, procedure operative duration, anticipated blood loss Anesthesia team Yes Nursing team Yes reviews any reviews sterility patient-specific (including concerns indicator results) and equipment issues/concerns Antibiotic Antibiotic N/A prophylaxis given within the last 60 minutes Is essential Yes imaging displayed? Last Modified By: Veronique Kaminski RN 01/11/20 09:41:02 Patient Positioning MAGR Pre-Care Text: A.280 Identifies baseline musculoskeletal status Im.40 Positions the patient Im.80 Applies safety devices Entry 1 Procedure Interscalene Body Position Supine Block(Left, Shoulder) Left Arm Position Resting at Side Right Arm Position Resting at Side Left Leg Position Extended Right Leg Position Extended Feet Uncrossed? Yes Press Points Checked Yes Outcome Met (O.80) Yes Last Modified By: Veronique Kaminski RN 01/11/20 09:41:51 Post-Care Text: E.290 Evaluates musculoskeletal status O.80 Patient is free from signs and symptoms of injury related to positioning Skin Prep MAGR Pre-Care Text: A.30 Verifies allergies Im.270 Performs skin preparation Im.270.1 Implements protective measures to prevent skin and tissue injury due to chemical sources Entry 1 Skin Prep Syntegrity Prep Agents (Im.270) Chlorhexidine Gluconate Prep By Yanick Edward MD and Alcohol Prep Area (Im.270) Shoulder, Neck Skin Prep Agent Dry Yes Without Pooling Hair Removal Syntegrity Hair Removal Methods No hair removal performed Outcome Met (O.100) Yes Last Modified By: Veronique Kaminski RN 01/11/20 09:42:40 Post-Care Text: E.10 Evaluates for signs and symptoms of physical injury to skin and tissue O.100 Patient is free from signs and symptoms of chemical injury Departure from OR MAGR Entry 1 Present on Depart Oxygen Via Stretcher Post-op Destination [place] Skin DFO Condition Dry Description Stable Report Given To Michelle Sanabria RN Airway Maintenance Patient Status Stable Oxygen in Use? Yes Airway Device Nasal cannula Flow Rate 2 L/min Last Modified By: Veronique Kaminski RN 01/11/20 09:44:40 Case Comments Finalized By: Veronique Kaminski RN Document Signatures Signed By: Veronique Kaminski RN 01/11/20 09:50 [facility] MAGR PACU Record Summary Primary Physician: Jose Mcgraw DO Finalized Date/Time: 01/11/20 12:14:58 Pt. Name: LEDA LUCERO/Sex: 1950 FEMALE Med Rec #: [id number] Physician: Jose Mcgraw DO Financial #: [id number] Pt. Type: D Room/Bed: / Admit/Disch: 01/11/20 07:00:00 - Institution: PACU Case Times MAGR Entry 1 In PACU I 01/11/20 11:17:00 Discharge from PACU 01/11/20 12:13:00 I Last Modified By: Naheed Ortega RN 01/11/20 12:12:54 Finalized By: Naheed Ortega RN Document Signatures Signed By: Naheed Ortega RN 01/11/20 12:14 [facility] MAGR Postoperative Recordon 01-11-2020 MAGR Postoperative Record MAGR Phase II Record Summary Primary Physician: Jose Mcgraw DO Finalized Date/Time: 01/11/20 13:34:54 Pt. Name: LEDA LUCERO/Sex: 1950 FEMALE Med Rec #: [id number] Physician: Jose Mcgraw DO Financial #: [id number] Pt. Type: D Room/Bed: / Admit/Disch: 01/11/20 07:00:00 - Institution: Phase II Case Times MAGR Pre-Care Text: Patient is free from s/s of injury. Patient remains free from compromised physical state related to surgery or anesthesia. Patient comfort maintained. Patient/family verbalize understanding of discharge instructions. Entry 1 In PACU II 01/11/20 12:15:00 Discharge from PACU 01/11/20 13:32:00 II Last Modified By: Veronique Kaminski RN 01/11/20 13:34:48 Post-Care Text: The patient remains free from s/s of injury. Patient's vital signs stable, circulation maintained, return to preop mental and physical status, opsite/dressing intact, minimal or absent nausea and vomiting, tolerates po intake. Patient verbalizes adequate pain control. Patient/family express understanding of discharge instructions. Finalized By: Veronique Kaminski RN Document Signatures Signed By: Veronique Kaminski RN 01/11/20 13:34 [facility] MAGR Preoperative Recordon 1 03-12-2019 MAGR Preoperative Record MAGR Pre-Op Record Summary Primary Physician: Jose Mcgraw DO Finalized Date/Time: 01/11/20 09:56:53 Pt. Name: LEDA LUCERO/Sex: 1950 FEMALE Med Rec #: [id number] Physician: Jose Mcgraw DO Financial #: [id number] Pt. Type: D Room/Bed: / Admit/Disch: 01/11/20 07:00:00 - Institution: Pre-Op Case Times MAGR Pre-Care Text: Patient will be optimally prepared for surgery. Patient is free from s/s of injury. Provide information to patient/family related to plan of care. Verify patient allergies. Confirm identity and verify consent before the operative or invasive procedure. Entry 1 Patient Arrival Time 01/11/20 08:00:00 Preop Departure 01/11/20 09:47:00 Last Modified By: Veronique Kaminski RN 01/11/20 09:50:35 Post-Care Text: Patient is prepared mentally and physically and is ready for surgery. The patient remains free from s/s of injury. Patient/family express understanding of plan of care and participate in decisions affecting his or her perioperrative plan of care. Allergies documented appropriately. Patient identifiers and consent correct. General Comments: Pt arrives amb to OPS room 203. Denies cough, CoVid or flu-like S/Sx. Has a pacemaker/defibrillat or. Denies sleep apnea. Talked to CLinical coordinator Rep for Pacemaker/defib will be here by 9:30a. 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 Anesthesia: General with a preoperative interscalene block Indications for surgery: The patient had progressive symptoms and debilitation findings consistent with impingement arthritis of the acromioclavicular joint and possible cuff tear. She had failed conservative treatment. She was not able to have an MRI due to the fact that she had a pacemaker defibrillator. Options were discussed. I recommended a diagnostic operative arthroscopy. She agreed and informed consent was obtained Estimated blood loss: Scant Complications: There were no complications Findings: Type II bordering type III acromium with impingement on the rotator cuff at the acromioclavicular joint Procedure summary: After administration of anesthesia the shoulder was examined. There is no obvious instability the patient was then placed in the lateral decubitus position and the left shoulder was sterilely prepped and draped in usual fashion. A timeout was taken. Posterior portal was established. Upon entering the glenohumeral joint I noted no obvious tears. There was a small amount of pseudogout or crystalline formation and the labrum at the biceps anchor. I passed the scope beneath the biceps and established an anterior port I placed a grasper on the biceps and pulled the slack out of the tendon and found the tendon to have a normal appearance. I hooked the labrum and noted no tears or detachment. There was a small amount of fraying on the articular side very thin layer of the supraspinatus. Passed a spinal needle through the defect or the area of an suspicion. I noted that there was no footprint exposure. I repositioned the scope into the subacromial space and the anterior cannula into the subacromial space. I took down the bursa with radiofrequency bipolar ablation. I examined the cuff from above where the spinal needle penetrated the cuff I did not detect fraying or detachment. I then inspected the subacromial space and noted the medial edge of the acromion was developing a ridge which was clearly was impinging into the rotator cuff and obstructing the view of the acromioclavicular joint. Through an anterior portal and I used a 4 mm barrel bur and I reshape the undersurface of the acromium to be a type I acromium and I visualized the acromioclavicular joint there were arthritic changes in the acromioclavicular joint there were no spurs on the undersurface of the clavicle distally. Utilizing an ablator and then a 4 mm barrel bur I resected the distal portion of the clavicle ensuring that there was about a centimeter space between the 2 bones. The joint was irrigated and evacuated and the portals were closed with nylon suture. Sterile dressings were applied [Electronically Signed on: 01/11/2020 11:11 EST] Jose Mcgraw DO [Verified on: 01/11/2020 11:11 EST] Jose Mcgraw DO [facility] Patient Handouton 01-11-[address] SANDERS POST OPERATIVE SHOULDER INSTRUCTIONS SURGEONS WRITTEN INSTRUTCTIONS: -If you have been given a cryo cuff after surgery you should use it as much as possible for the first 24-48 hours. After that it is optional. TIP: Many patients prefer to use it a little longer because it helps reduce pain -You should wiggle your fingers frequently -Change your dressings in 1 day. If steri-strips have been applied DO NOT remove them. When the wound is clean and dry you may leave it open to air but again DO NOT remove any steri-strips that have been applied -You may shower in 1 day but do not let the water stream directly strike the wound -Do pendulum exercises for at least 10 minutes twice a day -If you have any problems or concerns, please call the office at [phone] -Follow up as scheduled [facility] 2019 Novel Coronavirus (CoVI D-19), REGGIE LCon 01-08-2020 SARS-CoV-2, REGGIE (COVID-19) LC Not Detected Not Detected [facility] Comment on above: Order Comment: [id number] [phone] Result Comment: This nucleic acid amplification test was developed and its performance characteristics determined by [employer]. Nucleic acid amplification tests include PCR and TMA. This test has not been FDA cleared or approved. This test has been authorized by FDA under an Emergency Use Authorization (EUA). This test is only authorized for the duration of time the declaration that circumstances exist justifying the authorization of the emergency use of in vitro diagnostic tests for detection of SARS-CoV-2 virus and/or diagnosis of COVID-19 infection under section 564(b)(1) of the Act, 21 U.S.C. 360bbb-3(b) (1), unless the authorization is terminated or revoked sooner. When diagnostic testing is negative, the possibility of a false negative result should be considered in the context of a patient's recent exposures and the presence of clinical signs and symptoms consistent with COVID-19. An individual without symptoms of COVID-19 and who is not shedding SARS-CoV-2 virus would expect to have a negative (not detected) result in this assay. Performed At: [facility] [address] [facility] [place] [id number] Solitario Mathis MD Ph:[phone] Performed By: #### 6 [id number] ####[facility] (DEFAULT)[address] [place] [address] Progress Note - Nurseon - TSH Qn Spoke with pt and informed her to be here at 7am and NPO after MN, pt was also informed that she can not have any visitor or family with her at this point. Pt verbalizes understanding. [Electronically Signed on: 01/08/2020 12:36 EST] Leora Lemus RN [Verified on: 01/08/2020 12:36 EST] Leora Lemus RN [facility] Progress Note - Nurseon - Progress Note - Nurse Nasal swab performed without complication. Patient tolerated well. Education given. Patient verbalized understanding. [Electronically Signed on: 01/07/2020 14:54 EST] Alisha Vidales RN [Verified on: 01/07/2020 14:54 EST] Alisha Vidales RN [facility] Progress Note - Nurseon 11-0 5-2020 Progress Note - Nurse Dr. Gonzalez reviewed chart and no new orders received. [Electronically Signed on: 12/31/2019 10:53 EST] Brodie RN, Cha Mathis [Verified on: 12/31/2019 10:53 EST] Brodie RN, Cha Mathis Will need pacemaker rep here day of surgery. Alisha shah. [Electronically Signed on: 12/31/2019 10:54 EST] Brodie RN, Cha Mathis Normal [facility] .Auto Diff 1on 12-30-2019 Auto Fajardo % 10 % Normal 1-12 [facility] Comment on above: Performed By: #### 7 [id number] ####[facility] (DEFAULT)[address] [place] [id number] Baso Abs# 0.0 x10 Normal 0.0-0.2 [facility] Comment on above: Performed By: #### 7 [id number] ####[facility] (DEFAULT)[address] [place] [address] 47990 Basophils/100 WBC (Bld) 0.7 % Normal 0.2-2.0 [facility] Comment on above: Performed By: #### 7 [id number], [id number] ####[facility] (DEFAULT)[address] [place] [address] 83460 Eos Abs# 0.1 x10 Normal 0.0-0.4 [facility] Comment on above: Performed By: #### 7 [id number], [id number] ####[facility] (DEFAULT)[address] [place] [address] 83507 Eosinophils/100 WBC (Bld) 1.7 % Normal 0.9-4.0 [facility] Comment on above: Performed By: #### 7 [id number] ####[facility] (DEFAULT)[address] [place] [address] 86638 Lymphocytes (Bld) [#/Vol] 0.9 x10 Low 1.3-2.9 [facility] Comment on above: Performed By: #### 7 [id number], [id number] ####[facility] (DEFAULT)[address] [place] [address] 58955 Lymphocytes/100 WBC (Bld) 18 % Normal 14-48 [facility] Comment on above: Performed By: #### 7 [id number] ####[facility] (DEFAULT)[address] [place] [address] Fajardo Abs# 0.5 x10 Normal 0.0-0.8 [facility] Comment on above: Performed By: #### 7 [id number], [id number] ####[facility] (DEFAULT)[address] [place] [address] Neut Abs# 3.8 x10 Normal 1.5-9.2 [facility] [facility] Comment on above: Performed By: #### 7 [id number], [id number] ####[facility] (DEFAULT)[address] [place] [address] 26369 Neutrophils/100 WBC (Bld) 70 % Normal 44-88 [facility] Comment on above: Performed By: #### 7 [id number] ####[facility] (DEFAULT)[address] [place] [address] Standardon 12-30-2019 eGFR Non AA >60 [facility] Comment on above: Performed By: #### 1 [id number] ####[facility] (DEFAULT)[address] [place] [address] eGFR AA >60 [facility] Comment on above: Result Comment: Manager Apple freddy Kidney disease could be indicated at eGFRs of less than 60 ml/min/1.73m2. Kidney Failure is indicated at less than 15 ml/min/1.73m2 Performed By: #### 1 [id number] ####[facility] (DEFAULT)[address] [place] [address] 24456 Anion gap [Moles/Vol] 13.0 mmol/L Normal 5.0-19.0 [facility] Comment on above: Performed By: #### 1 [id number] ####[facility] (DEFAULT)[address] [place] [address] 84917 Calcium [Mass/Vol] 9.3 mg/dL Normal 8.9-10.3 [facility] Comment on above: Performed By: #### 1 [id number] ####[facility] (DEFAULT)[address] [place] [address] 02812 Chloride [Moles/Vol] 100 mmol/L Low 101-111 [facility] Comment on above: Performed By: #### 1 [id number] ####[facility] (DEFAULT)[address] [place] [address] 27123 CO2 [Moles/Vol] 28 mmol/L Normal 21-32 [facility] Comment on above: Performed By: #### 1 [id number] ####[facility] (DEFAULT)[address] [place] [address] 59188 Creatinine [Mass/Vol] 0.69 mg/dL Normal 0.60-1.30 [facility] Comment on above: Performed By: #### 1 [id number] ####[facility] (DEFAULT)[address] [place] [address] 43809 Glucose [Mass/Vol] 87.0 mg/dL Normal 74.0-118.0 [facility] Comment on above: Performed By: #### 1 [id number] ####[facility] (DEFAULT)[address] [place] [address] 17359 Osmolality [Osmolality] 277 mOsm/L [facility] Comment on above: Performed By: #### 1 [id number] ####[facility] (DEFAULT)[address] [place] [address] 09567 Potassium [Moles/Vol] 3.9 mmol/L Normal 3.6-5.1 [facility] Comment on above: Performed By: #### 1 [id number] ####[facility] (DEFAULT)[address] [place] [address] 48194 Sodium [Moles/Vol] 137.0 mmol/L Normal 136.0-144.0 [facility] Comment on above: Performed By: #### 1 [id number] ####[facility] (DEFAULT)[address] [place] [address] Urea nitrogen [Mass/Vol] 23 mg/dL Normal 8-26 [facility] Comment on above: Performed By: #### 1 [id number] ####[facility] (DEFAULT)[address] [place] [address] Urea nitrogen/Creatinine [Mass ratio] 33.0 mg/mg High 4.6-16.2 [facility] Comment on above: Performed By: #### 1 [id number] ####[facility] (DEFAULT)[address] [place] [address] CBC w/ Auto Diffon 0 Erythrocyte distribution width (RBC) [Ratio] 12.0 % Normal 11.5-15.0 [facility] Comment on above: Performed By: #### 7 [id number] ####[facility] (DEFAULT)[address] [place] [address] Hematocrit (Bld) [Volume fraction] 39.2 % Normal 33.7-40.4 [facility] Comment on above: Performed By: #### 7 [id number], [id number] ####[facility] (DEFAULT)[address] [place] [address] Hemoglobin (Bld) [Mass/Vol] 13.4 g/dL Normal 11.3-15.9 [facility] Comment on above: Performed By: #### 7 [id number], [id number] ####[facility] (DEFAULT)[address] [place] [address] Man Diff? Auto Normal [facility] Comment on above: Performed By: #### 7 [id number], [id number] ####[facility] (DEFAULT)[address] [place] [address] MCH (RBC) [Entitic mass] 31 pg Normal 24-34 [facility] Comment on above: Performed By: #### 7 [id number], [id number] ####[facility] (DEFAULT)[address] [place] [address] 98018 MCHC (RBC) [Mass/Vol] 34 g/dL Normal 26-37 [facility] Comment on above: Performed By: #### 7 [id number], [id number] ####[facility] (DEFAULT)[address] [place] [address] 14776 MCV (RBC) [Entitic vol] 90 fL Normal 81-100 [facility] Comment on above: Performed By: #### 7 [id number], [id number] ####[facility] (DEFAULT)[address] [place] [address] 78391 Platelet mean volume (Bld) [Entitic vol] 9.6 fL Normal 6.3-10.2 [facility] Comment on above: Performed By: #### 7 [id number], [id number] ####[facility] (DEFAULT)[address] [place] [address] 85950 Platelets (Bld) [#/Vol] 220 x10 Normal 138-427 [facility] Comment on above: Performed By: #### 7 [id number], [id number] ####[facility] (DEFAULT)[address] [place] [address] 48995 RBC (Bld) [#/Vol] 4.36 x10 Normal 3.70-5.30 [facility] Comment on above: Performed By: #### 7 [id number], [id number] ####[facility] (DEFAULT)[address] [place] [address] 89944 WBC (Bld) [#/Vol] 5.4 x10 Normal 3.5-10.5 [facility] Comment on above: Performed By: #### 7 [id number], [id number] ####[facility] (DEFAULT)[address] [place] [address] 47403 Vital Signs Date Time Vital Sign Value Performing Clinician Facility 05-16-2022 15:30-0400 Body height 170.18 cm Theron Morales Other [facility] Other 05-16-2022 15:30-0400 Body mass index (BMI) [Ratio] 21.61 kg/m2 Theron Morales Other [facility] Other 05-16-2022 15:30-0400 Body temperature 97.3 [degF] Theron Morales Other [facility] Other 05-16-2022 15:30-0400 Body weight 62.6 kg Theron Carmen Other [facility] Other 05-16-2022 15:30-0400 Diastolic blood pressure 62 mm[Hg] Theron Morales Other [facility] Other 05-16-2022 15:30-0400 Systolic blood pressure 117 mm[Hg] Theron Carmen Other [facility] Other Encounters Encounter Date Encounter Type Care Provider Facility Start: 12-21-2022 End: 12-21-2022 ambulatory [facility] Start: 10-30-2022 End: 10-30-2022 ambulatory [facility] Start: 06-11-2022 End: 06-11-2022 ambulatory [facility] Start: 05-24-2022 End: 05-25-2022 ambulatory CHARLES TAN . Facility:[facility] Start: 05-16-2022 End: 05-16-2022 ambulatory Theron Carmen Other [facility] Other Start: 05-16-2022 Office outpatient ne w 45 minutes Theron Morales [facility] Start: 04-03-2022 End: 04-03-2022 ambulatory CHARLES SAMSA . Facility:[facility] Start: 04-02-2022 End: 04-03-2022 ambulatory CHARLES TAN . Facility:[facility] Start: 03-27-2022 End: 03-27-2022 ambulatory [facility] Start: 03-14-2022 End: 03-15-2022 [facility] Start: 02-27-2022 End: 02-27-2022 ambulatory ALEXEY JORDI [facility] Start: 10-03-2021 End: 10-03-2021 ambulatory CHARLES TAN . Facility:[facility] Start: 10-02-2021 End: 10-03-2021 ambulatory CHARLES TAN . Facility:[facility] Start: 09-27-2021 End: 09-27-2021 ambulatory OSMEL GARCIA Facility:[facility] Start: 09-04-2021 End: 09-05-[address] ANGEL STEWART Facility:[facility] Start: 06-06-2021 End: 06-07-[address] ANGEL STEWART Facility:[facility] Start: 06-05-2021 End: 06-05-2021 ambulatory BLESSING CRUZ . Facility:[facility] Start: 06-30-2020 End: 07-01-2020 ambulatory AMADOR RODRIGUEZ Facility:[facility] Procedures Date Procedure Procedure Detail Performing Clinician Start: 06-11-2022 Follow-up visit Follow-up ALEXEY MCNEIL Payers Date Payer Category Payer Medicare [id number] 2. [id number] 1950 Unknown [id number] 2.16.8 [id number] 1950 Unknown [id number] 2.16.84 [id number] 1950 Unknown [id number] 2.16.84 [id number] 1950 Unknown [id number] 2.16.84 [id number] 1950 Unknown [id number] 2.16.84 [id number] 1950 Unknown [id number] 2.16.84 [id number] 1950 Unknown [id number] 2.16.84 [id number] 1950 Unknown [id number] 2.16.84 [id number] 1950 Unknown [id number] 2.16.84 [id number] 1950 Unknown [id number] 2.16.84 [id number] 1950 Unknown [id number] 2.16.84 [id number] Private Health Insurance [id number] Social History Date Type Detail Facility Unknown if ever smoked [facility] Other Sex Assigned At Sex Assigned At Bir th [facility] Other Clinical Notes 07-02-2020 to 12-21-2022 Note Date & Type Note Facility 12-21-2022 Note ID Cardiology Note [facility] Reason for visit: ECHO follow up 12/21/22: Patient for 6-month follow-up she has been doing well with no complaints of chest pain, lightness, dizziness, palpitations> she was exposed to some cleaning product which she thinks is likely chlorine when 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 She does have COPD and was seen by her monogram operator and she has been dealing with this cough since exposed several weeks ago. she still able to tolerate exercise without any chest pain or shortness of breath but continues to have a persistent cough. we discussed checking lab work to rule out any exacerbation of her CHF Device check 10/30/2022 shows normal device function and stable lead thresholds, a paced 57%, BiV paced 99%, she had one 8-second episode of A-fib was the first episode as noted in any of device checks have available to me [id number]: At least 3 for age, gender, CHF which would recommend lifelong anticoagulation. Given this was a very short episode in the first 1, patient would like to hold off on blood thinners which I find reasonable 06/11/22 HPI: Follow-up with echo results. LVEF 45%, mild MR and TR, normal right-sided pressures, otherwise unremarkable echo. 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 Has had some sob which is not new for her; has been recently diagnosed with aspergillosis 02/2022 HPI: Leda Lucero is a 72 y.o. year old with past medical history of CHF NYHA III who has Biv ROLLED HAM LACER-D in place for severely reduced EF in 2011 d/t NICM which did not respond to medication therapy , device placement 06/2012. 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 Rodriguez 05/2021: Date of phone call: 2021 Total time spent in Medical Discussion including obtaining history from the patient, review of labs, tests with the patient, discussion of assessment and plan 25min . The visit was initiated by the patient and conducted [id number]-face with use of audio-only real time telephone communication between patient and provider for a virtual visit. Verbal consent to provide and bill this service was obtained on: 2021 No signature was obtained due to the COVID-19 pandemic. cc: f/u Pt had gen change and pocket reviosn on 06/30/20 with submuscular implant. She had immediate post op pain and so the pocket was reopened and noted to have a capillary bleed that resulted in hematoma. Since then she has done well. She is active and does well. Had a cat bite and her hand got infected. She is on Abx for this. No fever now. Device check performed on April 09, 2021 shows a [place] ROLLED HAM LACER-D that underwent generator change on June 30, 2020. The atrial threshold is 1.125 V at 1.4 ms, RV threshold is 0.75 V@0.4 ms and the LV threshold is 1.125 V@0.4 ms based on auto capture. She is BiV paced 99% of the time and atrially paced 50%. There is no evidence of mode switch or any AF burden Prior HPI: 69-year-old lady with a history of BiV ICD has been doing well and has noted that the device is in end-of-life. Given this she is being scheduled for a generator change. Patient had significant improvement in the EF since she had her device. Denies any CP, SOB at rest, orthopnea, PND, LE edema, palpitations. Weight has been stable. ------ Testing/Procedures: ECHO 10/24/2017 Global left ventricular systolic function is mildly reduced (Visually estimated EF 45-50%). The left ventricle is normal size. Left ventricular wall thickness is normal. Normal right ventricular systolic function. A pacemaker wire is seen in the right ventricle. Mild tricuspid regurgitation. Doppler studies suggest normal right sided pressures. Compared to 03/2016 there is a global decline in LV function from 55% to 45 to 50%. ECHO 06/15/2014 Global left ventricular systolic function is mildly reduced (EF 45 %). Grade 1, mild diastolic dysfunction (abnormal relaxation). Normal right ventricular systolic function. A ICD lead is seen in the right ventricle. Mild mitral regurgi (more content not included)... [facility] 12-21-2022 Note Review of Systems Cardiovascular: Positive for dyspnea on exertion. Negative for irregular heartbeat. Inhaled bleach and has sob [facility] 06-11-2022 Note ID Cardiology Note [facility] Reason for visit: ECHO follow up HPI: Follow-up with echo results. LVEF 45%, mild MR and TR, normal right-sided pressures, otherwise unremarkable echo. 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 Has had some sob which is not new for her; has been recently diagnosed with aspergillosis 02/2022 HPI: Leda Lucero is a 71 y.o. year old with past medical history of CHF NYHA III who has Biv ROLLED HAM LACER-D in place for severely reduced EF in 2011 d/t NICM which did not respond to medication therapy , device placement 06/2012. 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 Rodriguez 05/2021: Date of phone call: 2021 Total time spent in Medical Discussion including obtaining history from the patient, review of labs, tests with the patient, discussion of assessment and plan 25min . The visit was initiated by the patient and conducted [id number]-face with use of audio-only real time telephone communication between patient and provider for a virtual visit. Verbal consent to provide and bill this service was obtained on: 2021 No signature was obtained due to the COVID-19 pandemic. cc: f/u Pt had gen change and pocket reviosn on 06/30/20 with submuscular implant. She had immediate post op pain and so the pocket was reopened and noted to have a capillary bleed that resulted in hematoma. Since then she has done well. She is active and does well. Had a cat bite and her hand got infected. She is on Abx for this. No fever now. Device check performed on April 09, 2021 shows a [place] ROLLED HAM LACER-D that underwent generator change on June 30, 2020. The atrial threshold is 1.125 V at 1.4 ms, RV threshold is 0.75 V@0.4 ms and the LV threshold is 1.125 V@0.4 ms based on auto capture. She is BiV paced 99% of the time and atrially paced 50%. There is no evidence of mode switch or any AF burden Prior HPI: 69-year-old lady with a history of BiV ICD has been doing well and has noted that the device is in end-of-life. Given this she is being scheduled for a generator change. Patient had significant improvement in the EF since she had her device. Denies any CP, SOB at rest, orthopnea, PND, LE edema, palpitations. Weight has been stable. ------ Testing/Procedures: ECHO 10/24/2017 Global left ventricular systolic function is mildly reduced (Visually estimated EF 45-50%). The left ventricle is normal size. Left ventricular wall thickness is normal. Normal right ventricular systolic function. A pacemaker wire is seen in the right ventricle. Mild tricuspid regurgitation. Doppler studies suggest normal right sided pressures. Compared to 03/2016 there is a global decline in LV function from 55% to 45 to 50%. ECHO 06/15/2014 Global left ventricular systolic function is mildly reduced (EF 45 %). Grade 1, mild diastolic dysfunction (abnormal relaxation). Normal right ventricular systolic function. A ICD lead is seen in the right ventricle. Mild mitral regurgitation. Doppler studies suggest normal right sided pressures. Regional wall motion abnormalities Cardiac cath 12/2011 Summary Of The Findings: 1. Normal coronary angiogram. 2. Mildly to moderately elevated left filling pressures. 3. Preserved cardiac output and cardiac index. 4. Normal systemic and pulmonary vascular resistance. 5. No evidence of aortic stenosis. Recommendations: Medical therapy and treatment of nonischemic cardiomyopathy per cardiology ------ ----- PMH: Past Medical History: Diagnosis Date Allergies Cardiomyopathy (CMS/HCC) CHF (congestive heart failure) (CMS/HCC) COPD (chronic obstructive pulmonary disease) (CMS/HCC) GERD (gastroesophageal reflux disease) Migraines Osteopenia Pacemaker PSH: Past Surgical History: Procedure Laterality Date ADENOIDECTOMY BREAST BIOPSY CARDIAC CATHETERIZATION CARPAL TUNNEL RELEASE DILATION AND CURETTAGE OF UTERUS SH: Social Determinants of Health Tobacco Use: Medium Risk Smoking Tobacco Use: Former Smokeless Tobacco Use: Never Passive Exposure: No (more content not included)... [facility] 06-11-2022 Note Review of Systems Constitutional: Positive for malaise/fatigue. Cardiovascular: Positive for dyspnea on exertion. Leda is here today for a 3 month follow up and to discuss the results of her recent Echocardiogram. No new symptoms or complaints. [facility] 05-16-2022 Evaluation note Encounter Date Diagnosis Assessment Notes Apr, Positive culture findings in sputum (ICD-10 - R84.5) Patient is not considered immunosuppressed. She does not appear at risk for an Aspergillus invasive infection. Clinical symptomatology has not really demonstrated signs of an invasive aspergillus infection given the lack of blood colored sputum. Chest x-ray reviewed however no CT scan available. Discussed with her monogram operator that CT scan of the chest may be helpful at least to further evaluate her lung parenchyma given the lack of progression over the length of time the sputum cultures have been collected I do not think there is a significant Aspergillus infection that warrants treatment. Of note back in 2011 she did get 30 days of voriconazole by her older monogram operator from [place]. Each time she has been sick in the fall and then in February to March she has responded to antibiotics based on the bacterial organisms recovered and cultured and then treated. Upon further questioning she does have a CPAP machine for which she admits that she does not clean the tubes really at all and instead of changing the distilled water she simply adds to it when needed I urged her to make changes to these practices as I feel by not cleaning these tubes this could contribute to her repeated colonization. Discussed with her monogram operator that a CT scan may be of some benefit. She is to monitor her clinical symptoms for any type of worsening and if change in sputum character does occur especially with bloody colored sputum or to arise she is to notify me. [facility] Other 01-03-2023 Note-controlled, continue medications [facility]01-03-2023 Note-BiV ROLLED HAM LACER-D -has device check in 2 weeks, will follow up if anything is abnormal or arrhythmias foundUnOhio[facility]01-[facility] NoteCongestive heart failure due to NICM, she states in the past when diagnosed she was told it could have been from a virus -last EF40%, mild diastolic dysfunction -follow up with echo in 3 months -continue gdmt: aldactone, toprol, lasix, losartan, will consider SGLT2i pending echo results, she would like to wait for echo before beginning new medication which is reasonableUnOhio[facility]01-03-2023 Note-has noticed this more with going up stairs which is new for her -will evaluate with echo, last one was 01/2020 (refer to above)[facility]01-03-2023 NoteCOPD is stable, has had more of a cough with more phlegm recently -will follow up with echo assess heart function -continue management with pulmonologistUnOhio[facility] 02-27-2022 Note-uses cpap machine nightly, continue useUnOhio[facility]01-03-2023 NotePatient here for 9 mo follow up cardiomyopathy and CHF. She is scheduled for a device check in a few weeks. She is still very active and works out 3 times a week. Denies chest pain. Says her SOB with exertion remains unchanged. Review of Systems Cardiovascular: Positive for dyspnea on exertion. Neurological: Positive for headaches. All other systems reviewed and are negative.[facility] 02-27-2022 NoteUT Cardiology Note [facility] Reason for visit: 9 month follow up HPI: Leda Lucero is a 71 y.o. year old with past medical history of CHF NYHA III who has Biv ROLLED HAM LACER-D in place for severely reduced EF in 2011 d/t NICM which did not respond to medication therapy , device placement 06/2012. 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 Eyes: Negative for blurred vision. Cardiovascular: Positive for dyspnea on exertion (has noticed this when going up stairs which is new for her). Negative for chest pain, leg swelling, near-syncope, orthopnea, palpitations and syncope. Respiratory: Negative for shortness of breath and sleep disturbances due to breathing. Neurological: Positive for light-headedness (has noticed it when has HEIN going up stairs). Negative for dizziness. Previous HPI per Dr. Rodriguez 05/2021: Date of phone call: 2021 Total time spent in Medical Discussion including obtaining history from the patient, review of labs, tests with the patient, discussion of assessment and plan 25min . The visit was initiated by the patient and conducted [id number] with use of audio-only real time telephone communication between patient and provider for a virtual visit. Verbal consent to provide and bill this service was obtained on: 2021 No signature was obtained due to the COVID-19 pandemic. cc: f/u Pt had gen change and pocket reviosn on 06/30/20 with submuscular implant. She had immediate post op pain and so the pocket was reopened and noted to have a capillary bleed that resulted in hematoma. Since then she has done well. She is active and does well. Had a cat bite and her hand got infected. She is on Abx for this. No fever now. Device check performed on April 09, 2021 shows a [employer] LACER-D that underwent generator change on June 30, 2020. The atrial threshold is 1.125 V at 1.4 ms, RV threshold is 0.75 V@0.4 ms and the LV threshold is 1.125 V@0.4 ms based on auto capture. She is BiV paced 99% of the time and atrially paced 50%. There is no evidence of mode switch or any AF burden Prior HPI: 69-year-old lady with a history of BiV ICD has been doing well and has noted that the device is in end-of-life. Given this she is being scheduled for a generator change. Patient had significant improvement in the EF since she had her device. Denies any CP, SOB at rest, orthopnea, PND, LE edema, palpitations. Weight has been stable. Testing/Procedures: ECHO 10/24/2017 Global left ventricular systolic function is mildly reduced (Visually estimated EF 45-50%). The left ventricle is normal size. Left ventricular wall thickness is normal. Normal right ventricular systolic function. A pacemaker wire is seen in the right ventricle. Mild tricuspid regurgitation. Doppler studies suggest normal right sided pressures. Compared to 03/2016 there is a global decline in LV function from 55% to 45 to 50%. ECHO 06/15/2014 Global left ventricular systolic function is mildly reduced (EF 45 %). Grade 1, mild diastolic dysfunction (abnormal relaxation). Normal right ventricular systolic function. A ICD lead is seen in the right ventricle. Mild mitral regurgitation. Doppler studies suggest normal right sided pressures. Regional wall motion abnormalities Cardiac cath 12/2011 Summary Of The Findings: 1. Normal coronary angiogram. 2. Mildly to moderately elevated left filling pressures. 3. Preserved cardiac output and cardiac index. 4. Normal systemic and pulmonary vascular resistance. 5. No evidence of aortic stenosis. Recommendations: Medical therapy and treatment of nonischemic cardiomyopathy per cardiology ----- PMH: Past Medical History: Diagnosis Date Allergies Cardiomyopathy ([facility]) CHF (congestive heart failure) ([facility]) COPD (chronic obstructive pulmonary disease) ([facility]) GERD (gastroesophageal reflux disease) Migraines Osteopenia Pacemaker PSH: Past Surgical History: Procedure Laterality Date ADENOIDECTOMY BREAST BIOPSY CARDIAC CATHETERIZATION CARPAL TUNNEL RELEA (more content not included)...[facility]08-03-2022 NotePROCEDURE: XR KNEE LT 4V or >, XR ANKLE LT MIN 3 V HISTORY: Pain ; acute left knee and ankle pain following injury COMPARISON: None. FINDINGS: BONES:No fracture, acute abnormality, or significant arthropathy. SOFT TISSUES:Mild soft tissue swelling lateral to the ankle. EFFUSION:None visible. OTHER: Negative. IMPRESSION: 1. No acute bone abnormality or suspicious findings of the knee. 2. No acute bone abnormality of ankle. Lateral swelling suggesting soft tissue injury. Electronically authenticated by: AMBROSIO DUVALL Date: 2021-09-27 09:[address] [place], [place] [id number] NotePROCEDURE: XR KNEE LT 4V or >, XR ANKLE LT MIN 3 V HISTORY: Pain ; acute left knee and ankle pain following injury COMPARISON: None. FINDINGS: BONES:No fracture, acute abnormality, or significant arthropathy. SOFT TISSUES:Mild soft tissue swelling lateral to the ankle. EFFUSION:None visible. OTHER: Negative. IMPRESSION: 1. No acute bone abnormality or suspicious findings of the knee. 2. No acute bone abnormality of ankle. Lateral swelling suggesting soft tissue injury. Electronically authenticated by: AMBROSIO DUVALL Date: 2021-09-27 09:[address] [place], [place] [id number] NoteMR#: [id number] [facility] Pt. Name: Leda Lucero Admitted: 06/30/2020 Discharged: 07/01/2020 Date of : 1950 Physician: Amador Rodriguez MD DISCHARGE SUMMARY COURSE OF HOSPITALIZATION: The patient is a 69-year-old female who presented to [facility] yesterday for elective Bi-V ICD generators change related to known AICD was approaching ALEJANDRO. The patient has known history of systolic heart failure with ejection fraction of 15%-20% and CRTD was previously implanted for optimization and biventricular synchronization. Currently, she is class II heart failure symptoms. Known past medical history of COPD, primary cardiomyopathy, chronic systolic heart failure with CRTD. Currently, the patient denies shortness of breath, orthopnea, chest pain, although she does admit some tenderness in surgical site, but states is tolerable. PROCEDURES DURING HOSPITALIZATION: On 06/30/2020, Bi-V CRTD generator exchange. She had [facility] [employer] [place] CRTD A500Q model, serial #[id number] was implanted and connected to already existing leads. Please see CVL report for further description. The patient tolerated the procedure well. She was then transferred to step down CVU. Overnight, she did well. No acute events. HOME MEDICATIONS: She is to resume Coenzyme Q10 1 daily. She is going to start doxycycline 100 mg p.o. b.i.d. for a total of 14 days. She is to resume losartan 25 mg daily, metoprolol succinate 25 mg daily, Lasix 20 mg daily, spironolactone 25 mg tablet, she is going to take half tablet daily, trazodone 50 mg at bedtime, fluoxetine 40 mg daily, zolmitriptan 5 mg as needed, calcium carbonate 600 mg daily, vitamin D3 2000 units or 50 mcg daily, multivitamin daily, omeprazole 20 mg daily, aspirin 81 mg daily, albuterol multidose inhaler as needed, Symbicort inhalation daily. DISCHARGE INSTRUCTIONS: Reviewed chest x-ray today and vitals of Dr. Rodriguez, he was agreeable with the patient to discharge home today. He recommends doxycycline 100 mg p.o. b.i.d. x14 days for infection and therefore, prescription was given to the patient. CVL device discharge instructions were reviewed with the patient and she voiced understanding. She is to discharge home in good condition. She has followup in [facility] for wound check on July 08 at 01:20 p.m. with Aysha Nair CNP. Then in one month on August 09 at 11 a.m. for pacemaker device, interrogation was [facility] at [facility] and she is to follow up with Dr. Rodriguez within 3 months. She is to followup with her PCP within one month for further evaluation and check up. Electronically Signed by: Amador Rodriguez MD 07/04/2020 09:54 P Amador Rodriguez MD I personally saw this patient on the day of the encounter, performed the vargas portion(s) of the service and participated in the management and confirm the resident's documentation. Please note there may be an additional personal documentation from me. Date Dict: 07/01/2020/11:26 A/DELILAH Santiago, DENTAL ASSISTANT TEACHER-C Date Trans: 07/02/2020 09:40 A/nixon [id number] cc: Amador Rodriguez MD Dept Of Cardiology [address] [place] [id number] Angel Stewart M.D. [address] [facility] [id number] Memorial[facility] general Narrative - Reported* Type Description Date Medical History osteopenia Medical History insomnia Medical History depression Medical History migraines Medical History cardiomyopathy Medical History copd Medical History yoon Medical History dyslipidemia Medical History gerd [place] [employer] Other Summary Purpose Family History No Family History Records FoundNo Family History Records FoundNo Family History Records FoundNo Family History Records Found Advance Directives No Advanced Directives Records FoundNo Advanced Directives Records FoundNo Advanced Directives Records FoundNo Advanced Directives Records Found Hospital Course Note [facility] SURGERY Clinical Discharge Summary PERSON INFORMATION Name LEDA LUCERO Age 69 Years 1950 Sex FEMALE Language Botswanan PCP ANGEL STEWART Marital Status Med Service Ambulatory Surgery Acct# Arrival 01/11/2020 07:00:00 Visit Reason SURGERY-LEFT SHOULDER ARTHROSCOPY Acuity LOS 017 05:53 Address: [address] [place], [place] [id number] Comment: PROVIDER INFORMATION VITALS INFORMATION Vital Sign Triage Latest Temp Oral Temp Temporal Temp Intravascular Temp Axillary Temp Rectal 02 Sat 100 % 96 % Respiratory Rate Peripheral Pulse Rate Apical Heart Rate Blood Pressure / 65 mmHg / 63 mmHg Comment: MEDICAL INFORMATION Allergy Info: Cogentin; phenothiazine Prescriptions Given: aspirin (aspirin 81 mg oral delayed release tablet) 1 tab(s) Oral every day. budesonide-formoterol (Symbicort 160 mcg-4.5 mcg/inh) 2 puff(s) Inhalation 2 times a day. calcium carbonate (calcium (as carbonate) 600 mg oral tablet) 1 tab(s) Oral 2 times a (more content not included)... Note Patient: LEDA LUCERO MRN: [id number] Age: 69 years Sex: FEMALE : 1950 Associated Diagnoses: None Author: Yanick Edward MD Postoperative Information Post Operative Note: Operative Day. Anesthetic utilized: General. Health Status Allergies: Allergic Reactions (All) Severe Cogentin- Hallucinations. Moderate Phenothiazine- Nausea. Problem list (past medical history): All Problems COPD (chronic obstructive pulmonary disease) case management patient / SNOMED CT 801299365 / Confirmed CHF (congestive heart failure) / SNOMED CT 66867732 / Confirmed Myopathy / SNOMED CT 836235437 / Confirmed Ventricular dysfunction / SNOMED CT 308721038 / Confirmed Physical Examination VS/Measurements Vital Signs (last 24 hrs) Last Charted Heart Rate Peripheral 70 bpm (JAN 10 09:45) Resp Rate 16 br/min (JAN 10:) SBP 123 mmHg (JAN 10:) DBP 73 mmHg (JAN 10:) SpO2 100 % (JAN 10:) Review / Management Condition: Stable. Assessment Anesthetic outcome No (more content not included)... Procedure Findings Note Patient: LEDA LUCERO Age: 69 years Sex: FEMALE : 1950 Associated Diagnoses: None Author: Yanick Edward MD Postoperative Information Post Operative Note: Operative Day. Anesthetic utilized: General. Health Status Allergies: Allergic Reactions (All) Severe Cogentin- Hallucinations. Moderate Phenothiazine- Nausea. Problem list (past medical history): All Problems COPD (chronic obstructive pulmonary disease) case management patient / SNOMED CT 218269209 / Confirmed CHF (congestive heart failure) / SNOMED CT 34001453 / Confirmed Myopathy / SNOMED CT 672438857 / Confirmed Ventricular dysfunction / SNOMED CT 468068039 / Confirmed Physical Examination VS/Measurements Vital Signs (last 24 hrs) Last Charted Heart Rate Peripheral 70 bpm (JAN 10 09:45) Resp Rate 16 br/min (JAN 10:) SBP 123 mmHg (JAN 10:) DBP 73 mmHg (JAN 10:) SpO2 100 % (JAN 10:) Review / Management Condition: Stable. Assessment Anesthetic outcome No (more content not included)... Additional Source Comments INFORMATION SOURCE (unrecogn ized section and content) DATE CREATED AUTHOR 01/20/2020 [facility] DATE CREATED AUTHOR AUTHOR'S ORGANIZ ATION 06/10/[address] [facility] DATE CREATED AUTHOR AUTHOR'S ORGANIZ ATION 06/01/2022 [facility] DATE CREATED AUTHOR AUTHOR'S ORGANIZ ATION 01/10/2023 [facility] FOR RECORDS PERTAINING TO PATIENTS WHO ARE OR HAVE BEEN ENROLLED IN A CHEMICAL DEPENDENCY/SUBSTANCEABUSE PROGRAM, SOME INFORMATION MAY BE OMITTED. This clinical summary was aggregated from multiple sources. Caution should be exercised in using it in the provision of clinical care. This summary normalizes information from multiple sources, and as a consequence, information in this document may materially change the coding, format and clinical context of patient data. In addition, data may be omitted in some cases. CLINICAL DECISIONS SHOULD BE BASED ON THE PRIMARY CLINICAL RECORDS. [employer] [facility]. provides no warranty or guarantee of the accuracy or completeness of information in this document.
== END 2023-03-12 12:08 | disposition home or self-care (01) ==
LOC: RAD 12:08
PROVIDERS: PCP Family Medicine; Visit Provider Internal Medicine
DX: J20.9 Acute bronchitis, unspecified (principal)
CPT/HCPCS: 71046

== ENCOUNTER 2023-03-15 15:43 | Outpatient (OUT) | payer MEDICARE, SELFPAY ==
--- OUTSIDE RECORDS SUMMARY | 2023-03-15 15:48 | XMS_ITS | CCD ---
Author Name Unknown Address [address] [place] [address] Organization [facility] Team Providers Care Econometrics Professor Name Role Phone AMADOR RODRIGUEZ Attending Unavailable AMADOR RODRIGUEZ Admitting Unavailable CEDRICEREANGEL Sylvester Referring Unavailable ANGEL STEWART Primary Care Unavailable Theron Morales Unavailable OSMEL GARCIA Attending Unavailable OSMEL GARCIA Admitting Unavailable NADVIJAY, DR ANGEL Mathis Primary Care Unavailable JADIEL, DR AMBROSIO Sylvester Consulting Unavailable OSMEL GARCIA Consulting Unavailable NANCY .BLESSING Attending Unavailable NANCY ., BLESSING Admitting Unavailable OTF RUBALCAVA Consulting Unavailable TERRY, DR ANGEL Mathis Primary Care Unavailable BLESSING DOBSON Consulting Unavailable TERRY, DR ANGEL Mathis Primary Care Unavailable MISC, DR ARNOLD Consulting Unavailable MISC, DR ARNOLD Attending Unavailable MISC, DR ARNOLD Admitting Unavailable SAMSA ., CHARLES Attending Unavailable SAMSA ., CHARLES Admitting Unavailable SAMSA ., CHARLES Consulting Unavailable TERRY, DR ANGEL Mathis Primary Care Unavailable SAMSA ., CHARLES Attending Unavailable SAMSA ., CHARLES Admitting Unavailable NADVIJAY, DR ANGEL Mathis Primary Care Unavailable KEN, DR TERRIE Cabezas Consulting Unavailable SAMSA ., CHARLES Consulting Unavailable TERRY, DR ANGEL Mathis Primary Care Unavailable TERRY, DR ANGEL Mathis Attending Unavailable NADVIJAY, DR ANGEL Mathis Admitting Unavailable NADERENga, DR ANGEL Mathis Consulting Unavailable SAMSA ., CHARLES Attending Unavailable SAMSA ., CHARLES Admitting Unavailable KEN, DR TERRIE Cabezas Consulting Unavailable TERRY, DR ANGEL Mathis Primary Care Unavailable SIRENASA ., CHARLES Consulting Unavailable SAMSA ., CHARLES Attending Unavailable SAMSA ., CHARLES Admitting Unavailable SAMSA ., CHARLES Consulting Unavailable NADERER, DR ANGEL A Primary Care Unavailable ALEXEY BACON Attending Unavailable ALEXEY BACON Admitting Unavailable ALEXEY BACON Consulting Unavailable DR ANGEL STEWART Primary Care Unavailable DOMINICK .CHARLES Attending Unavailable DOMINICK ., CHARLES Admitting Unavailable DOMINICK .CHARLES Consulting Unavailable DR ANGEL STEWART Primary Care Unavailable ALEXEY BACON Attending Unavailable AMADOR RODRIGUEZ Referring Unavailable ALEXEY BACON Attending Unavailable AMADOR RODRIGUEZ Referring Unavailable BRIANNE SANTOS Attending Unavailable Allergies Allergy Classification Reported Allergen(s) Allergy Type Date of Onset Reaction(s) Facility (3 sources) Benztropine Drug Allergy 2 Unknown [facility] Repository (3 sources) Phenothiazine; 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: [PHENOTHIAZINES] Drug allergy (disorder) 2 [facility] Repository (1 source) Prochlorperazine Drug Allergy Unknown [employer] Other (1 source) Benztropine; 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: [BENZTROPINE] Drug Allergy 4 [facility] Repository Medications Current Medications Medication Drug [...] Episodic Chronic obstructive pulmonary disease and bronchiectasis (4 sources) Chronic obstructive pulmonary disease with (acute) lower respiratory infection; 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: [COPD W/(ACUTE) LOWER RESP INFEC] Onset: 10-02-2021 Chronic Conduction disorders (2 sources) Encounter for adjustment and management of automatic implantable cardiac defibrillator; 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: [Encounter for adjustment and management of automatic implantable cardiac defibrillator] Onset: 10-30-2022 Chronic Congestive heart failure; nonhypertensive (3 sources) Heart failure, unspecified; 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: [Chronic systolic (congestive) heart failure] Onset: 09-28-2021 Chronic Mycoses (4 sources) Other forms of aspergillosis; 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: [OTHER FORMS OF ASPERGILLOSIS] Onset: 05-24-2022 Episodic Other lower respiratory disease (6 sources) Other forms of dyspnea; 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: [OTHER FORMS OF DYSPNEA] Onset: 03-14-2022 Episodic Other lower respiratory disease (2 sources) Chronic cough; 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: [Chronic cough] Onset: 02-23-2022 Episodic Other screening for suspected conditions (not mental disorders or infectious disease) (1 source) Abnormal microbiological findings in specimens from respiratory organs and thorax Episodic Residual codes; unclassified (2 sources) Contact with [...] Onset: 06-06-2021 Episodic Other aftercare (1 source) assisted (current) use of aspirin; 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: [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] Onset: 09-28-2021 Episodic Other aftercare (1 source) Other extermination inspector (current) drug therapy; 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: [OTH SENIOR CARE CURRENT DRUG THERAPY] Onset: 09-28-2021 Episodic Other [...] Value Interpretation Reference Range Facility Office Visiton 03-14-2023 Follow-up visit [id number] Leda Lucero 1950 Provider Department Center 03/14/2023 BRIANNE MCDERMOTT CARD [facility] Family History Problem Relation Age of Onset Osteoporosis Mother Heart disease Mother Heart failure Father Hearing loss Father Family Status - Relation Status Age at Mother Father Level of Service:86658 UT OFFICE/OUTPATIENT ESTABLISHED HIGH MDM 40 MIN Normal [facility] Office Visiton 12-21-2022 Follow-up visit [id number] Leda Lucero 1950 Provider Department Center 12/21/2022 ALEXEY GERONIMO [facility] Family History Problem Relation Age of Onset Osteoporosis Mother Heart disease Mother Heart failure Father Hearing loss Father Family Status - Relation Status Age at Mother Father Level of Service:61935 UT OFFICE/OUTPATIENT ESTABLISHED MOD MDM 30-39 MIN Normal [facility] Office Visiton 06-11-2022 Follow-up visit [id number] Leda Lucero 1950 Provider Department Center 06/11/2022 ALEXEY GERONIMO [facility] Family History Problem Relation Age of Onset Osteoporosis Mother Heart disease Mother Heart failure Father Hearing loss Father Family Status - Relation Status Age at Mother Father Level of Service:88200 UT OFFICE/OUTPATIENT ESTABLISHED LOW MDM 20-29 MIN Reason for Visit and Comments: Follow-up [498749] - 3 month & Echo Fatigue [46] - Not new, but mentioned Shortness of Breath [745946] - With exertion, not new Normal [facility] CT CHEST HI RESOLUTIONon CT CHEST [...] TERRIE ROGERS Date: 2022-05-24 13:28 Normal [facility] FUNGAL CULTUREon 05-04-2022 Fungus (Mycology) Culture Final report Abnormal [facility] Comment on above: Performed By: #### C XFUN #### [facility] [address] [place] [address] Dr. Vimal Hernandez Fungus Stain Final report Normal [facility] Comment on above: Performed By: #### C XFUN #### [facility] [address] [place] [address] Dr. Vimal Hernandez Result 1 Comment Normal [facility] Comment on above: Result Comment: BAILEY/ Calcofluor preparation: no fungus observed. Performed By: #### C XFUN #### [facility] [address] [place] [address] Dr. Vimal Hernandez Result 1 Rohini albicans Abnormal [facility] Comment on above: Performed By: #### C XFUN #### [facility] [address] [place] [address] Dr. Vimal Hernandez Result 2 Comment Abnormal [facility] Comment on above: Result Comment: Aspe rgillus terreus complex Performed By: #### C XFUN #### [facility] [address] [place] [address] Dr. Vimal Hernandez Result 3 Comment Abnormal [facility] Comment on above: Result Comment: Aspe rgillus versicolor Performed By: #### C XFUN #### [facility] [address] [address] [address] Vimal Hernandez Refillon 04-23-2022 Refill [id number] Leda Lucero Isidro 1950 F Date Provider Department Center 04/23/2022 AMADOR MC[facility]OD [facility] Family History Problem Relation Age of Onset Osteoporosis Mother Heart disease Mother Heart failure Father Hearing loss Father Family Status - Relation Status Age at Mother Father Reason for Visit and Comments: Med Refill [696326] Normal [facility] CULTURE SPUTUMon 04-06-2022 CULTURE SPUTUM Culture [...] F Trimethoprim/Sulfamet hoxazole <=10 S F Normal [facility] Comment on above: Performed By: #### S PUTCX ####[facility] [address] [address]Dr. Vimal Hernandez SPUTUM GRAM STAINon 04-03-19 23 COMMENTS Normal [facility] Comment on above: Performed By: #### S PUTGS #### [facility] [address] [address] [address] Vimal Hernandez DIPHTHEROIDS [facility] Comment on above: Performed By: #### S PUTGS #### [facility] [address] [address] [address] Vimal Hernandez EPITHELIALS <25 [facility] Comment on above: Performed By: #### S PUTGS #### [facility] [address] [address] [address] Vimal Hernandez FUNGAL ELEMENTS Normal [facility] Comment on above: Performed By: #### S PUTGS #### [facility] [address] [address] [address] Vimal Hernandez GRAM NEG BACILLI Normal [facility] Comment on above: Performed By: #### S PUTGS #### [facility] [address] [address] [address] Vimal Hernandez GRAM NEG DIPPLOCOCCI Normal [facility] Comment on above: Performed By: #### S PUTGS #### [facility] [address] [address] [address] Vimal Hernandez GRAM POS BACILLI Normal [facility] Comment on above: Performed By: #### S PUTGS #### [facility] [address] [address] [address] Vimal MORGAN POSITIVE COCCI MODERATE Normal [facility] Comment on above: Performed By: #### S PUTGS #### [facility] [address] [address] [address] Vimal Hernandez WBC (Bld) [#/Vol] 10*3/uL Normal [facility] Comment on above: Performed By: #### S PUTGS #### [facility] [address] [address] [address] Vimal Hernandez Covid-19 PCR (CVDTB)on SARS-CoV-2 (COVID-19) RNA REGGIE+probe Ql (Unsp spec) Not detected Normal NOT DETECTED [facility] Comment on above: Result Comment: This test is not yet approved or cleared by the [place] FDA. When there are no FDA-approved or cleared tests available, and other criteria are met, FDA can make tests available under an emergency access mechanism called an Emergency Use Authorization (EUA). The EUA for this test is supported by the [place] of Health and Human Service's (HHS's) declaration [...] consistent with SARS-CoV-2. Performed By: #### C VDTB #### [facility] [address] [place] [address] Dr. Vimal Hernandez INFLUENZA A AND B AGon 04-[facility] BELOW Normal [facility] Comment on above: Result Comment: Nega tive for Flu A protein angiten. Infection due to Flu A cannot be ruled out. Flu A angiten in the sample may be below the detection limit of the test. Performed By: #### I NFLUAB #### [facility] [address] [place] [address] Dr. Vimal [facility] SEE BEL[facility] Normal [facility] Comment on above: Result Comment: Nega tive for Flu B protein antigen. Infection due to Flu B cannot be ruled out. Flu B antigen in the sample may be below the detection limit of the test. Performed By: #### I NFLUAB #### [facility] [address] [place] [address] Dr. Vimal Hernandez INFLUENZA A AG Negative Normal NEGATIVE SEE COMMENT [facility] Comment on above: Performed By: #### I NFLUAB #### [facility] [address] [place] [address] Dr. Vimal Hernandez INFLUENZA B AG Negative Normal NEGATIVE SEE COMMENT [facility] Comment on above: Performed By: #### I NFLUAB #### [facility] [address] [place] [address] Dr. Vimal Hernandez ECHOCARDIO M/2D COMPLETEon 0 03-14-2022 ECHOCARDIO M/2D COMPLETE Patient: LEDA LUCERO Exam Date: 03/14/2022 : 1950 Gender:F Ordering : ALEXEY BACON Admission #: [id number] Family : Order #: [id number] CLICK HERE TO VIEW EXAM ECHOCARDIOGRAM REPORT [...] Pressure: 31.88 ml, 31.88 ml Dictated by: Brianne Santos M.D. on 03/15/2022 at 10:38 Approved by: Brianne Santos M.D. on 03/15/2022 at 10:43 Normal [facility] CULTURE SPUTUMon 10-02-2021 CULTURE SPUTUM Culture Observations : Mold identified by [facility] Isolate 1 Haemophilus Influenzae Heavy growth of Isolate 2 Aspergillus Fumigatus Light growth of Normal [facility] Comment on above: Result Comment: Beta Lactamase - Performed By: #### S PUTCX ####[facility] [address] [address]Dr. Vimal Hernandez SPUTUM GRAM STAINon 10-03-19 22 COMMENTS Normal [facility] Comment on above: Performed By: #### S PUTGS #### [facility] [address] [address] [address] Vimal Hernandez DIPHTHEROIDS Normal [facility] Comment on above: Performed By: #### S PUTGS #### [facility] [address] [address] [address] Vimal Hernandez EPITHELIALS <25 Normal [facility] Comment on above: Performed By: #### S PUTGS #### [facility] [address] [address] [address] Vimal Hernandez FUNGAL ELEMENTS Normal [facility] Comment on above: Performed By: #### S PUTGS #### [facility] [address] [place] [address] Dr. Vimal Hernandez GRAM NEG BACILLI FEW Normal [facility] Comment on above: Performed By: #### S PUTGS #### [facility] [address] [place] [address] Dr. Vimal Hernandez GRAM NEG DIPPLOCOCCI Normal [facility] Comment on above: Performed By: #### S PUTGS #### [facility] [address] [place] [address] Dr. Vimal Hernandez GRAM POS BACILLI Normal [facility] Comment on above: Performed By: #### S PUTGS #### [facility] [address] [place] [address] Dr. Vimal Hernandez GRAM POSITIVE COCCI FEW Normal [facility] Comment on above: Performed By: #### S PUTGS #### [facility] [address] [place] [address] Dr. Vimal Hernandez WBC (Bld) [#/Vol] 10*3/uL Normal [facility] Comment on above: Performed By: #### S PUTGS #### [facility] [address] [place] [address] Dr. Vimal Hernandez XR CHEST 2 Von [...] TERRIE ROGERS Date: 2021-10-02 14:49 Normal [facility] Covid-19 PCR (CVDTBH)on 08-25 SARS-CoV-2 (COVID-19) RNA REGGIE+probe Ql (Unsp spec) Detected Critically abnormal NOT DETECTED [facility] Comment on above: Result Comment: This test is not yet approved or cleared by the [place] FDA. When there are no FDA-approved or cleared tests available, and other criteria are met, FDA can make tests available under an emergency access mechanism called an Emergency Use Authorization (EUA). The EUA for this test is supported by the [place] of Health and Human Service's declaration that [...] longer be used). Performed By: #### C VDTBH ####[facility] [address] [address]Dr. Vimal Hernandez CBC AUTO DIFFon 06-05-2021 BASO # 0.0 103/ul Normal 0.0-0.1 [facility] Comment on above: Performed By: #### C BC #### [facility] [address] [place] [address] Dr. Vimal Hernandez Basophils/100 WBC (Bld) 0.6 % Normal 0.2-2.0 [facility] Comment on above: Performed By: #### C BC #### [facility] [address] [place] [address] Dr. Vimal Hernandez EO # 0.1 103/ul Normal 0.0-0.7 [facility] Comment on above: Performed By: #### C BC #### [facility] [address] [address] [address] Vimal Hernandez Eosinophils/100 WBC (Bld) 1.4 % Normal 0.9-7.0 [facility] Comment on above: Performed By: #### C BC #### [facility] [address] [place] [address] Dr. Vimal Hernandez Erythrocyte distribution width (RBC) [Ratio] 11.9 % Normal 11.0-15.0 [facility] Comment on above: Performed By: #### C BC #### [facility] [address] [place] [address] Dr. Vimal Hernandez Hematocrit (Bld) [Volume fraction] 39.2 % Normal 36.0-48.0 [facility] Comment on above: Performed By: #### C BC #### [facility] [address] [place] [address] Dr. Vimal Hernandez Hemoglobin (Bld) [Mass/Vol] 13.2 g/dL Normal 12.0-16.0 [facility] Comment on above: Performed By: #### C BC #### [facility] [address] [place] [address] Dr. Vimal Hernandez IG # 0.03 10e3/ul Normal 0.00-0.03 [facility] Comment on above: Performed By: #### C BC #### [facility] [address] [place] [address] Dr. Vimal Hernandez IG % 0.4 % Normal 0.0-0.5 [facility] Comment on above: Performed By: #### C BC #### [facility] [address] [place] [address] Dr. Vimal Hernandez LYMPH # 1.1 103/ul Critically low 1.2-3.8 [facility] Comment on above: Performed By: #### C BC #### [facility] [address] [place] [address] Dr. Vimal Hernandez Lymphocytes/100 WBC (Bld) 15.7 % Critically low 20.5-60.0 [facility] Comment on above: Performed By: #### C BC #### [facility] [address] [place] [address] Dr. Vimal Hernandez MANUAL DIFF REQ NO Normal [facility] Comment on above: Performed By: #### C BC #### [facility] [address] [place] [address] Dr. Vimal Hernandez MCH (RBC) [Entitic mass] 30.4 pg Normal 26.7-34.0 [facility] Comment on above: Performed By: #### C BC #### [facility] [address] [place] [address] Dr. Vimal Hernandez MCHC (RBC) [Mass/Vol] 33.7 g/dL Normal 29.9-35.2 [facility] Comment on above: Performed By: #### C BC #### [facility] [address] [address] [address] Vimal Hernandez MCV (RBC) [Entitic vol] 90.3 fL Normal 81.0-99.0 [facility] Comment on above: Performed By: #### C BC #### [facility] [address] [address] [address] Vimal Hernandez MONO # 0.7 103/ul Normal 0.3-0.8 [facility] Comment on above: Performed By: #### C BC #### [facility] [address] [place] [address] Dr. Vimal Hernandez Monocytes/100 WBC (Bld) 9.2 % Normal 1.7-12.0 [facility] Comment on above: Performed By: #### C BC #### [facility] [address] [place] [address] Dr. Vimal Hernandez NEUT # 5.2 103/ul Normal 1.4-6.5 [facility] Comment on above: Performed By: #### C BC #### [facility] [address] [place] [address] Dr. Vimal Hernandez Neutrophils/100 WBC (Bld) 72.7 % Normal 43.0-75.0 [facility] Comment on above: Performed By: #### C BC #### [facility] [address] [place] [address] Dr. Vimal Hernandez Platelet mean volume (Bld) [Entitic vol] 10.0 fL Normal 9.5-13.5 [facility] Comment on above: Performed By: #### C BC #### [facility] [address] [place] [address] Dr. Vimal Hernandez PLT 207 103/ul Normal 150-450 [facility] Comment on above: Performed By: #### C BC #### [facility] [address] [place] [address] Dr. Vimal Hernandez RBC 4.34 106/ul Normal 4.20-5.40 [facility] Comment on above: Performed By: #### C BC #### [facility] [address] [address] [address] Vimal Hernandez WBC 7.1 103/ul Normal 4.0-11.0 [facility] Comment on above: Performed By: #### C BC #### [facility] [address] [address] [address] Vimal Hernandez PROF CHEM 8 (BAS METB)on Anion gap [Moles/Vol] 14.4 mmol/L Normal [facility] Comment on above: Performed By: #### B MP ####[facility] [address] [address]Dr. Vimal Hernandez Calcium [Mass/Vol] 9.0 mg/dL Normal 8.5-10.1 [facility] Comment on above: Performed By: #### B MP ####[facility] [address] [address]Dr. Vimal Hernandez Chloride [Moles/Vol] 102 mmol/L Normal 98-107 [facility] Comment on above: Performed By: #### B MP ####[facility] [address] [address]Dr. Vimal Hernandez CO2 [Moles/Vol] 25.7 mmol/L Normal 22.0-30.0 [facility] Comment on above: Performed By: #### B MP ####[facility] [address] [address]Dr. Vimal Hernandez Creatinine [Mass/Vol] 0.81 mg/dL Normal 0.52-1.04 [facility] Comment on above: Performed By: #### B MP ####[facility] [address] [address]Dr. Vimal Hernandez EGFR-AF NICARAGUAN >60 Normal >=60 [facility] Comment on above: Performed By: #### B MP ####[facility] [address] [address]Dr. Vimal Hernandez EGFR-NON AF NICARAGUAN >60 Normal >=60 [facility] Comment on above: Performed By: #### B MP ####[facility] [address] [id number]. Vimal Hernandez Glucose [Mass/Vol] 103 mg/dL Normal 74-[address] [facility] Comment on above: Performed By: #### B MP ####[facility] [address] [address]Dr. Vimal Hernandez Potassium [Moles/Vol] 4.1 mmol/L Normal 3.4-5.0 [facility] Comment on above: Performed By: #### B MP ####[facility] [address] [address]Dr. Vimal Hernandez Sodium [Moles/Vol] 138 mmol/L Normal 137-[address] [facility] Comment on above: Performed By: #### B MP ####[facility] [address] [address]Dr. Vimal Hernandez Urea nitrogen [Mass/Vol] 24.0 mg/dL Critically high 7.0-18.0 [facility] Comment on above: Performed By: #### B MP ####[facility] [address] [address]Dr. Vimal Hernandez Urea nitrogen/Creatinine [Mass ratio] 29.6 mg/mg Normal [facility] Comment on above: Performed By: #### B MP ####[facility] [address] [address]Dr. Vimal Hernandez XR FINGER MIN 2 VIEWSon [...] OTF RUBALCAVA Date: 2021-06-05 17:36 Normal [facility] Cardiovascular Lab Reporton 07-07-2020 Cardiovascular Lab Report [facility] Patient Name: [facility] MR #: [id number] Physician: Amador Rodirguez MD Department of Service Date: 06/30/2020 Medicine Birthdate: 1950 Division of Room #: 3AB [id number] Cardiology Adult Cardiovascular Services [facility] [address] [id number] Cardiovascular Laboratory Report POCKET REVISION PROCEDURE NOTE DATE OF PROCEDURE: 06/30/2020 PERFORMING PHYSICIAN: Dr. Amador Rodriguez CONSENT: Patient LOCATION: EP Lab PROCEDURE PERFORMED: 1. Pocket revision to evaluate for hematoma. INDICATIONS: 1. Pocket swelling/pain. 2. S/p DIVISION LEADER-D with underlying chronic AF and RVR. PROCEDURAL SEDATION: Versed and Fentanyl. Moderate sedation was administered by the sedation nurse under my supervision and noted in the CVL log. Intraprocedural face to face sedation time: 90min. Monitoring: Cardiac telemetry, Blood pressure, continuous pulse oxymetry. FLUROSCOPY: 0s PREPARATION: 69-year-old lady with a history of cardiomyopathy with a DIVISION LEADER-D [employer] device, had come in for [...] noted below. Device info: [employer] [place] CRTD A500Q model Serial #[id number] RAlead: Implanted on 07/14/2012 [employer] Tendril STS 2088TC-46 cms Serial # [id number] Sensin.9mV Threshold: 1.25V @ 0.4ms Impedance: 480 Ohms RV ICD lead: Implanted on 07/14/2012 [employer] Durata 7122Q-58 cms lead Serial# [id number] Sensing: >12 mV Threshold: 0.875 @ 0.5 millisecond Impedance: 530 Ohms LV lead: Implanted on 07/14/2012 Moseley quartet 1458Q-86 cms, Serial# [id number] Threshold: 1.125 V @ 0.4 ms Impedance: [...] Rodriguez MD Date Trans: 06/30/2020 07:04 P/nixon DN_[id number] cc: Angel Stewart M.D. [address] [facility] [address] Electronically Signed by: Amador Rodriguez MD 07/13/2020 05:42 P Amador Rodriguez MD Date Dict: 07/07/2020/09:22 A/Amador Rodriguez MD Date Trans: 07/07/2020 09:47 A/nixon [id number] cc: Angel Stewart M.D. [address] [facility] [address] Normal The [facility] CBC W/DIFFon 07-01-2020 ABS IMM GRANS 0.0 10*3/uL Normal 0.0-0.2 The [facility] Comment on above: Order Comment: No: D o not add to previous draw Performed By: #### 5 0103 #### [facility] [address] ABS NEUTROPHILS 9.7 10*3/uL High 1.6-7.6 The [facility] Comment on above: Order Comment: No: D o not add to previous draw Performed By: #### 5 0103 #### [facility] [address] [place] [address], [facility] Basophils (Bld) [#/Vol] 0.0 10*3/uL Normal 0.0-0.2 [facility] Comment on above: Order Comment: No: D o not add to previous draw Performed By: #### 5 0103 #### [facility] [address] [place] [address], [facility] Basophils/100 WBC (Bld) 0.2 % Normal 0.0-1.0 [facility] Comment on above: Order Comment: No: D o not add to previous draw Performed By: #### 5 0103 #### [facility] [address] [place] [address], [facility] Eosinophils (Bld) [#/Vol] 0.0 10*3/uL Normal 0.0-0.5 [facility] Comment on above: Order Comment: No: D o not add to previous draw Performed By: #### 5 0103 #### [facility] [address] [place] [address], [facility] Eosinophils/100 WBC (Bld) 0.1 % Normal 0.0-6.0 [facility] Comment on above: Order Comment: No: D o not add to previous draw Performed By: #### 5 0103 #### [facility] [address] Erythrocyte distribution width (RBC) [Ratio] 11.6 % Normal 11.5-15.0 [facility] Comment on above: Order Comment: No: D o not add to previous draw Performed By: #### 5 0103 #### [facility] [address] Hematocrit (Bld) [Volume fraction] 32.4 % Low 36.0-45.0 [facility] Comment on above: Order Comment: No: D o not add to previous draw Performed By: #### 5 0103 #### [facility] [address] [place] [address], [facility] Hemoglobin (Bld) [Mass/Vol] 11.3 g/dL Low 12.0-15.0 [facility] Comment on above: Order Comment: No: D o not add to previous draw Performed By: #### 5 0103 #### [facility] [address] [place] [address], [facility] IMMATURE GRANS 0.4 % Normal 0.0-1.0 [facility] Comment on above: Order Comment: No: D o not add to previous draw Performed By: #### 5 0103 #### [facility] [address] [place] [address], [facility] Lymphocytes (Bld) [#/Vol] 0.4 10*3/uL Low 1.2-4.0 [facility] Comment on above: Order Comment: No: D o not add to previous draw Performed By: #### 5 0103 #### [facility] [address] [place] [address], [facility] Lymphocytes/100 WBC (Bld) 3.9 % Low 20.0-45.0 [facility] Comment on above: Order Comment: No: D o not add to previous draw Performed By: #### 5 0103 #### [facility] [address] [place] [address], [facility] MCH (RBC) [Entitic mass] 31.0 pg Normal 27.0-33.0 [facility] Comment on above: Order Comment: No: D o not add to previous draw Performed By: #### 5 0103 #### [facility] [address] [place] [address], [facility] MCHC (RBC) [Mass/Vol] 34.9 g/dL Normal 32.0-35.0 [facility] Comment on above: Order Comment: No: D o not add to previous draw Performed By: #### 5 0103 #### [facility] [address] [place] [address], [facility] MCV (RBC) [Entitic vol] 89.0 fL Normal 82.0-98.0 [facility] Comment on above: Order Comment: No: D o not add to previous draw Performed By: #### 5 0103 #### [facility] [address] [place] [address], [facility] Monocytes (Bld) [#/Vol] 0.9 10*3/uL Normal 0.1-1.0 [facility] Comment on above: Order Comment: No: D o not add to previous draw Performed By: #### 5 0103 #### [facility] [address] [place] [address], [place] MONOS 8.2 % Normal 5.0-12.0 [facility] Comment on above: Order Comment: No: D o not add to previous draw Performed By: #### 5 0103 #### [facility] [address] [place] [address], [facility] Neutrophils/100 WBC (Bld) 87.2 % High 40.0-72.0 [facility] Comment on above: Order Comment: No: D o not add to previous draw Performed By: #### 5 0103 #### [facility] [address] [place] [address], [facility] Nucleated RBC/100 WBC (Bld) [Ratio] 0 % Normal 0-0 [facility] Comment on above: Order Comment: No: D o not add to previous draw Performed By: #### 5 0103 #### [facility] [address] [place] [address], [place] PLAT CNT 174 10*3/uL Normal 150-400 The [facility] Comment on above: Order Comment: No: D o not add to previous draw Performed By: #### 5 0103 #### [facility] [address] [place] [address], [facility] RBC (Bld) [#/Vol] 3.64 10*6/uL Low 3.80-5.00 The [facility] Comment on above: Order Comment: No: D o not add to previous draw Performed By: #### 5 0103 #### [facility] [address] [place] [address], [place] WBC (Bld) [#/Vol] 11.16 10*3/uL High 4.00-10.60 [facility] Comment on above: Order Comment: No: D o not add to previous draw Performed By: #### 5 0103 #### [facility] [address] [place] [address], [facility] CHEST AND LATERALon 07-02-19 CHEST AND LATERAL [facility] Department of Radiology [address] [place] [id number] Patient Name: LEDA LUCERO : 1950 Sex: F Age: Race: White Pt. Location: [address] [place] [address] Patient Status: O Ordered Date: 07/01/2020 8:40:00 [...] pneumothorax. Electronically signed: Rossy Butts. Transcribed by: [email or web address], User Resident: Electronically Signed by: ROSSY BUTTS @ 07/01/2020 10:14 AM Normal [facility] Comment on above: Order Comment: Check Pacemaker/AICD Lead Position CBC W/DIFFon 06-30-2020 ABS IMM GRANS 0.0 10*3/uL Normal 0.0-0.2 [facility] Comment on above: Order Comment: No: D o not add to previous draw Performed By: #### 5 0103 #### [facility] [address] [place] [address], [facility] ABS NEUTROPHILS 9.3 10*3/uL High 1.6-7.6 The [facility] Comment on above: Order Comment: No: D o not add to previous draw Performed By: #### 5 0103 #### [facility] [address] [place] [address], [facility] Basophils (Bld) [#/Vol] 0.0 10*3/uL Normal 0.0-0.2 [facility] Comment on above: Order Comment: No: D o not add to previous draw Performed By: #### 5 0103 #### [facility] [address] [place] [address], [facility] Basophils/100 WBC (Bld) 0.4 % Normal 0.0-1.0 [facility] Comment on above: Order Comment: No: D o not add to previous draw Performed By: #### 5 0103 #### [facility] [address] [place] [address], [facility] Eosinophils (Bld) [#/Vol] 0.0 10*3/uL Normal 0.0-0.5 [facility] Comment on above: Order Comment: No: D o not add to previous draw Performed By: #### 5 0103 #### [facility] [address] [place] [address], [facility] Eosinophils/100 WBC (Bld) 0.1 % Normal 0.0-6.0 [facility] Comment on above: Order Comment: No: D o not add to previous draw Performed By: #### 5 0103 #### [facility] [address] [place] [address] [place] [address] Erythrocyte distribution width (RBC) [Ratio] 11.7 % Normal 11.5-15.0 [facility] Comment on above: Order Comment: No: D o not add to previous draw Performed By: #### 5 0103 #### [facility] [address] [place] [address], [facility] Hematocrit (Bld) [Volume fraction] 34.8 % Low 36.0-45.0 [facility] Comment on above: Order Comment: No: D o not add to previous draw Performed By: #### 5 0103 #### [facility] [address] [place] [address], [facility] Hemoglobin (Bld) [Mass/Vol] 12.0 g/dL Normal 12.0-15.0 [facility] Comment on above: Order Comment: No: D o not add to previous draw Performed By: #### 5 0103 #### [facility] [address] [facility] [place] [address], [facility] IMMATURE GRANS 0.3 % Normal 0.0-1.0 [facility] Comment on above: Order Comment: No: D o not add to previous draw Performed By: #### 5 0103 #### [facility] [address] [facility] [place] [address], [facility] Lymphocytes (Bld) [#/Vol] 0.5 10*3/uL Low 1.2-4.0 [facility] Comment on above: Order Comment: No: D o not add to previous draw Performed By: #### 5 0103 #### [facility] [address] [place] [address], [facility] Lymphocytes/100 WBC (Bld) 4.3 % Low 20.0-45.0 [facility] Comment on above: Order Comment: No: D o not add to previous draw Performed By: #### 5 0103 #### [facility] [address] [place] [address], [facility] MCH (RBC) [Entitic mass] 30.8 pg Normal 27.0-33.0 [facility] Comment on above: Order Comment: No: D o not add to previous draw Performed By: #### 5 0103 #### [facility] [address] [place] [address], [facility] MCHC (RBC) [Mass/Vol] 34.5 g/dL Normal 32.0-35.0 [facility] Comment on above: Order Comment: No: D o not add to previous draw Performed By: #### 5 0103 #### [facility] [address] [place] [address], [facility] MCV (RBC) [Entitic vol] 89.5 fL Normal 82.0-98.0 [facility] Comment on above: Order Comment: No: D o not add to previous draw Performed By: #### 5 0103 #### [facility] [address] [place] [address], [facility] Monocytes (Bld) [#/Vol] 0.7 10*3/uL Normal 0.1-1.0 [facility] Comment on above: Order Comment: No: D o not add to previous draw Performed By: #### 5 0103 #### [facility] [address] [place] [address], [facility] MONOS 6.8 % Normal 5.0-12.0 [facility] Comment on above: Order Comment: No: D o not add to previous draw Performed By: #### 5 0103 #### [facility] [address] [place] [address], [facility] Neutrophils/100 WBC (Bld) 88.1 % High 40.0-72.0 [facility] Comment on above: Order Comment: No: D o not add to previous draw Performed By: #### 5 0103 #### [facility] [address] [place] [address], [facility] Nucleated RBC/100 WBC (Bld) [Ratio] 0 % Normal 0-0 [facility] Comment on above: Order Comment: No: D o not add to previous draw Performed By: #### 5 0103 #### [facility] [address] [place] [address], [facility] PLAT CNT 179 10*3/uL Normal 150-400 [facility] Comment on above: Order Comment: No: D o not add to previous draw Performed By: #### 5 0103 #### [facility] [address] [place] [address], [facility] RBC (Bld) [#/Vol] 3.89 10*6/uL Normal 3.80-5.00 [facility] Comment on above: Order Comment: No: D o not add to previous draw Performed By: #### 5 0103 #### [facility] [address] [place] [address], [facility] WBC (Bld) [#/Vol] 10.57 10*3/uL Normal 4.00-10.60 [facility] Comment on above: Order Comment: No: D o not add to previous draw Performed By: #### 5 0103 #### [facility] [address] Cardiovascular Lab Reporton 06-30-2020 Cardiovascular Lab Report [facility] Patient Name: Evan, [facility] MR #: [id number] Physician: Amador Rodriguez MD Department of Service Date: 06/30/2020 Medicine Birthdate: 1950 Division of Room #: CC Cardiology Adult Cardiovascular Services [place] [address] Cardiovascular Laboratory Report PACEMAKER GENERATOR CHANGE POCKET REVISION PROCEDURE NOTE DATE OF PROCEDURE: 06/30/2020 PERFORMING PHYSICIAN: Dr. Amador Rodriguez CONSENT: Patient LOCATION: EP Lab PROCEDURE PERFORMED: 1. Implant of new DIVISION LEADER-D generator ([employer]ley/[employer]). 2. Explant of DIVISION LEADER-D generator (Moseley/ [employer]). 3. Pocket Revision to sub muscular implant. INDICATIONS: 1. S/p DIVISION LEADER-D with underlying chronic AF and RVR. 2. Device at EOL PROCEDURAL SEDATION: Versed and Fentanyl. Moderate sedation was administered by the sedation nurse under my supervision and noted in the CVL log. Intraprocedural face to face sedation time: 83min. Monitoring: Cardiac telemetry, Blood pressure, continuous pulse oxymetry. FLUROSCOPY: 31s/ 1mGray PREPARATION: 69-year-old lady with a history of cardiomyopathy with a DIVISION LEADER-D [employer] device, has come in for [...] attached to a new [employer]oseley/ [employer] DIVISION LEADER-D generator and the leads tug tested. Pocket [...] device as noted below. [employer] Moseley Kalona CRTD A500Q model, serial #[id number]. The atrial lead is Moseley Tendril STS 2088TC 46 cm, serial number [id number], implanted on July 14, 2012. Atrial sensing is 1.9 mV, capture was 1.25 V at 0.4 milliseconds. Impedance was 480 ohms. The RV ICD lead is a Durata 7122Q 58 cm lead, serial number is [id number], implanted on July 14, 2012. The RV sensing is at a greater than 12 mV with RV threshold of 0.875 at 4.5 millisecond, impedance of 530 ohms. The LV lead is Moseley quartet 1458Q 86 cm lead, serial number [id number], implanted on july 14, 2012. Lead threshold was 1.125 V at 0.4 millisecond with the impedance of 1150 ohms. The various thresholds were checked and was noted the LV 1-2 had Device info: [employer] Moseley Kalona CRTD A500Q model Serial #[id number] RAlead: Implanted on 07/14/2012 Moseley Tendril STS 8TC-46 cms Serial # [id number] Sensin.9mV Threshold: 1.25V @ 0.4ms Impedance: 480 Ohms RV ICD lead: Implanted on 07/14/2012 Moseley Durata 7122Q-58 cms lead Serial# [id number] Sensing: >12 mV Threshold: 0.875 @ 0.5 millisecond Impedance: 530 Ohms LV lead: Implanted on 07/14/2012 Moseley quartet 1458Q-86 cms, Serial# [id number] Threshold: 1.125 V @ 0.4 ms Impedance: [...] milliseco (more content not included)... Normal [facility] Consent Formson 01-20-2020 Consent Forms [id number] [facility] Physical[facility] 01-19 History and Physical [id number] [facility] Coding Summaryon 01-15-2020 Coding Summary CODING DATE: 01/15/2020 [facility] STATUS: Home PAYOR: Medicare MC ADMIT DX: [...] Michelle Uribe Date Saved: 01/15/2020 12:41 pm [facility] Coding Summaryon 01-13-2020 Coding Summary CODING DATE: 01/13/2020 [facility] STATUS: Home PAYOR: Medicare MC APC DESCRIPTION 5114 Level 4 Musculoskeletal Procedures ADMIT DX: REASON FOR VISIT DX: M24.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, left shoulder FINAL DX: PRINCIPAL: M19.012 Primary osteoarthritis, left shoulder SECONDARY: M25.812 Other specified joint disorders, left shoulder PYMT PROC APC STAT DESCRIPTION DOCTOR NAME DATE 32370 Arthroscopy, shoulder, Jose Mcgraw And 01/11/2020 surgical; distal claviculectomy including distal articular surface (Nicole procedure) LT Left side (used to identify procedures performed on the left side of the body) 99399 Arthroscopy, shoulderMariluz James And 01/11/2020 surgical; debridement, limited LT Left side (used to identify procedures performed on the left side of the body) 04826 Injection(s), anesthetic Jose Mcgraw And 01/11/2020 agent(s) [...] Mejia Revised Date Saved: 01/13/2020 07:44 am [facility] Consent Formson 01-12-2020 Consent Forms [id number] Discharge Instructionson Discharge Instructions [id number] .[facility] Medication Managementon 12-26 Medication Management [id number] Outside Recordson 01-12-2020 Outside Records [id number] Telemetry Stripson 0 Telemetry Strips [id number] Anesthesia Noteon 01-11-2020 Anesthesia Note Patient: [...] disease) case management patient / SNOMED CT 047635539 / Confirmed CHF (congestive heart failure) / SNOMED CT 05218174 / Confirmed Myopathy / SNOMED CT 278831785 / Confirmed Ventricular dysfunction / SNOMED CT 036970857 / Confirmed Histories Family History: No family history items have been selected or recorded. Procedure history: Anesthesia for transvenous insertion or replacement of pacing cardioverter-defibril lator (66399) on 07/14/2012 at 61 Years. Cardiac pacemaker (46393977). Comments: 12/30/2019 13:18 Veronique Membreno RN 2013 Carpal tunnel release (749063159). Tonsillectomy (569566426). Comments: 12/30/2019 13:23 Veronique Membreno RN 1949's Biopsy of breast (625456811). Comments: 12/30/2019 13:24 Veronique Membreno RN X3 Social History Electronic Cigarette/Vaping Assessment Electronic Cigarette Use: Never. Alcohol Assessment Use: Current. Wine, 1-2 times per week Tobacco Assessment Former smoker, quit more than 30 days ago Tobacco Use:. 30 years ago 1 pk/week per day. Substance Abuse Assessment Substance use: Never. 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 Home/Environment Assessment Lives with Spouse. Home equipment: CPAP/BiPAP. . 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 Temporomandibular joint mobility: Good. Mouth: Adequate opening, Teeth ( Within normal limits ). Neck: Full range of motion. Respiratory: Lungs are clear to auscultation. Cardiovascular: Regular rhythm. Neurologic: Alert, Oriented. Review / Management Laboratory Results Plan [place] [employer] Anesthesiologists#( A) physical status classification: [...] on: 01/11/2020 10:45 EST] Yanick Edward MD [facility] Coding Summaryon 01-11-2020 Coding Summary CODING DATE: 01/11/2020 [facility] STATUS: Home PAYOR: Medicare MC ADMIT DX: [...] Michelle Uribe Date Saved: 01/11/2020 02:18 pm [facility] Inpatient Patient Summaryon 01-11-2020 Inpatient [place] [address] Patient Discharge Instructions Name: EVANLEDA : 1950 Patient Address: [address] [place] [address] Primary Care Provider: Name: ANGEL STEWART After you are discharged if you find you have any questions, please, call [phone] ext [phone] to speak to a nurse. Discharge Diagnosis: Internal derangement of left shoulder Prescription Information: If you have been given a prescription for narcotics, seek immediate medical attention if you have any difficulty breathing or any sudden status changes such as confusion and sleepiness. If you or anyone you know is experiencing suicidal thoughts, mental health, alcohol and/or drug addiction problems; contact the Mental Health & Recovery Board [facility] 17/09 Crisis Hotline -Text 4HHKI hy 992260. If you received any narcotics, sedation, or [...] business decisions or sign any legal documents [facility] would like to thank you for allowing us to assist you with your healthcare needs. The following includes patient education materials and information regarding your injury/illness. LEDA LUCERO has been given the following list of follow-up instructions, prescriptions, and patient education materials: Follow-up Instructions With: Address: When: CECY CALIX [address] [facility], [address] [place], [place] [address] Business (1) 01/20/2020 8:30 AM With: Address: When: ANGEL STEWART [facility] [place], [place] [id number] Business (1) Medications During the course of your [...] or concerns, please call the office at [phone] -Follow up as scheduled Viruses or Bacteria [...] for Disease Control and Prevention [facility] Intra-Op Record Summary Primary Physician: Jose Mcgraw DO Finalized Date/Time: 01/11/20 13:13:05 Pt. Name: LEDA LUCERO /Sex: 1950 FEMALE Med Rec #: [id number] Physician: Jose Mcgraw DO Financial #: [id number] Pt. Type: D Room/Bed: / Admit/Disch: 01/11/20 [...] Role Performed Surgeon - Primary Anesthesiologist of Mechanical Integrity Engineer Record Time In 01/11/20 09:47:00 01/11/20 09:47:00 01/11/20 09:47:00 Time Out 01/11/20 11:18:00 01/11/20 11:18:00 01/11/20 11:18:00 Procedure Arthroscopy Arthroscopy Arthroscopy Shoulder(Left, Shoulder) Shoulder(Left, Shoulder) Shoulder(Left, Shoulder) Last Modified By: Daniele SWANSON, Michelle Sanabria RN, Michelle Abel RN 01/11/20 11:35:12 01/11/20 11:35:12 01/11/20 11:35:12 Entry 4 Entry 5 Case Attendee Cathryn CABALLERO, Maru Yun CST Role Performed Scrub Personnel Em Physician Time In 01/11/20 09:47:00 01/11/20 09:47:00 Time Out 01/11/20 11:18:00 01/11/20 11:18:00 Procedure Arthroscopy Arthroscopy Shoulder(Left, Shoulder) Shoulder(Left, Shoulder) Last Modified By: Michelle Sanabria RN, RN, Jennifer 01/11/20 11:35:12 01/11/20 11:35:12 Surgical Procedures MAGR Pre-Care Text: A.20 Verifies operative procedure, surgical site, and laterality Im.150 Develops individualized plan of care Entry 1 Procedure Arthroscopy Shoulder Primary Procedure Yes Primary Surgeon Jose Mcgraw Modifiers Left, Shoulder Skyler DO Surgeon Comment LEFT [...] Freetext Reason for Unfinalizing 01/11/20 13:12 RIYA Finish Documentation Normal [facility] MAGR Intraoperative Record MAGR Intra-Op Record Summary Primary Physician: Finalized Date/Time: 01/11/20 09:50:05 Pt. Name: EVAN LEDA Isidro Gaspar/Sex: 1950 FEMALE Med Rec #: [id number] Physician: Jose Mcgraw DO Financial #: [id number] Pt. Type: D Room/Bed: / Admit/Disch: 01/11/20 [...] Veronique Cooper RN Role Performed Anesthesiologist of Mechanical Integrity Engineer Mechanical Integrity Engineer Record Time In 01/11/20 09:18:00 01/11/20 09:18:00 01/11/20 09:18:00 Time Out 01/11/20 09:47:00 01/11/20 09:47:00 01/11/20 09:47:00 Procedure Interscalene Interscalene Interscalene Block(Left, Shoulder) Block(Left, Shoulder) Block(Left, Shoulder) Last Modified By: Veronique Kaminski RN 01/11/20 Veronique Kaminski RN 01/11/20 Gordy SWANSON, Veronique 01/11/20 09:49:59 09:49:59 09:49:59 Surgical Procedures MAGR [...] Signed By: Veronique Kaminski RN 01/11/20 09:50 Normal [facility] PACU Recordon 0 [facility] PACU Record [facility] PACU Record Summary Primary Physician: Jose Mcgraw DO Finalized Date/Time: 01/11/20 12:14:58 Pt. Name: LEDA LUCERO/Sex: 1950 FEMALE Med Rec #: [id number] Physician: Jose Mcgraw DO Financial #: [id number] Pt. Type: D Room/Bed: / Admit/Disch: 01/11/20 07:00:00 - Institution: PACU Case Times MAGR Entry 1 In PACU I 01/11/20 11:17:00 Discharge from PACU 01/11/20 12:13:00 I Last Modified By: Naheed Ortega RN 01/11/20 12:12:54 Finalized By: Naheed Ortega RN Document Signatures Signed By: Naheed Ortega RN 01/11/20 12:14 [facility] MAGR Postoperative Recordon 01-11-2020 MAGR Postoperative Record MAGR Phase II Record Summary Primary Physician: Jose Mcgraw DO Finalized Date/Time: 01/11/20 13:34:54 Pt. Name: LEDA LUCERO/Sex: 1950 FEMALE Med Rec #: [id number] Physician: Jose Mcgraw DO Financial #: [id number] Pt. Type: D Room/Bed: / Admit/Disch: 01/11/20 [...] Signed By: Veronique Kaminski RN 01/11/20 13:34 [facility] MAGR Preoperative Recordon 1 03-12-2019 MAGR Preoperative Record MAGR Pre-Op Record Summary Primary Physician: Jose Mcgraw DO Finalized Date/Time: 01/11/20 09:56:53 Pt. Name: LEDA LUCERO/Sex: 1950 FEMALE Med Rec #: [id number] Physician: Jose Mcgraw DO Financial #: [id number] Pt. Type: D Room/Bed: / Admit/Disch: 01/11/20 [...] be here by 9:30a. Finalized By: Veronique Kmainski RN Document Signatures Signed By: Veronique Kaminski RN 01/11/20 09:50 Veronique Kaminski RN 01/11/20 09:56 Unfinalized History Date/Time Username Reason for Unfinalizing Freetext Reason for Unfinalizing 01/11/20 09:55 [facility] Normal [facility] Operative Report - Surgeon/P feliz 01-11-2020 Operative Report - Surgeon/Physician Preoperative diagnosis: Internal derangement left shoulder Postoperative diagnosis: Arthritis acromioclavicular joint with subacromial impingement Procedure: Arthroscopic distal clavicle resection and subacromial decompression shoulder Surgeon: Guerrero Mcgraw D.O. Anesthesia: General [...] on: 01/11/2020 11:11 EST] Jose Mcgraw DO [facility] Patient Handouton 01-11-[address] [...] or concerns, please call the office at [phone] -Follow up as scheduled Normal [facility] 2019 Novel Coronavirus (CoVI D-19), REGGIE LCon 01-08-2020 SARS-CoV-2, REGGIE (COVID-19) LC Not Detected Not Detected [facility] Comment on above: Order Comment: [id number] [phone] Result Comment: This nucleic acid amplification test was developed and its performance characteristics determined by [employer]. Nucleic acid amplification tests include PCR and [...] detected) result in this assay. Performed At: [facility] [address] [facility] [place] [id number] Solitario Mathis MD Ph:[phone] Performed By: #### 6 [id number] ####[facility] (DEFAULT)[address] [place] [address] Progress Note - Nurseon 11- TSH Qn Spoke with pt and informed her to be here at 7am and NPO after MN, pt was also informed that she can not have any visitor or family with her at this point. Pt verbalizes understanding. [Electronically Signed on: 01/08/2020 12:36 EST] Leora Lemus RN [Verified on: 01/08/2020 12:36 EST] Leora Lemus RN [facility] Progress Note - Nurseon 11- Progress Note - Nurse Nasal swab performed without complication. Patient tolerated well. Education given. Patient verbalized understanding. [Electronically Signed on: 01/07/2020 14:54 EST] Alisha Vidales RN [Verified on: 01/07/2020 14:54 EST] Alisha Vidales RN [facility] Progress Note - Nurseon 11-0 Progress Note - Nurse Dr. Gonzalez reviewed chart and no new orders received. [Electronically Signed on: 12/31/2019 10:53 EST] Brodie RN, Cha Mathis [Verified on: 12/31/2019 10:53 EST] Brodie RN, Cha Mathis Will need pacemaker rep here day of surgery. Alisha aware. [Electronically Signed on: 12/31/2019 10:54 EST] Brodie RNCha Normal [facility] .Auto Diff 1on 12-30-2019 Auto Craig % 10 % Normal 1-12 [facility] Comment on above: Performed By: #### 7 [id number] ####[facility] (DEFAULT)[address] [place] [address] 47573 Baso Abs# 0.0 x10 Normal 0.0-0.2 [facility] Comment on above: Performed By: #### 7 [id number], [id number] ####[facility] (DEFAULT)[address] [place] [address] 50743 Basophils/100 WBC (Bld) 0.7 % Normal 0.2-2.0 [facility] Comment on above: Performed By: #### 7 [id number], [id number] ####[facility] (DEFAULT)[address] [place] [address] 39505 Eos Abs# 0.1 x10 Normal 0.0-0.4 [facility] Comment on above: Performed By: #### 7 [id number], [id number] ####[facility] (DEFAULT)[address] [place] [address] 28242 Eosinophils/100 WBC (Bld) 1.7 % Normal 0.9-4.0 [facility] Comment on above: Performed By: #### 7 [id number], [id number] ####[facility] (DEFAULT)[address] [place] [address] 88763 Lymphocytes (Bld) [#/Vol] 0.9 x10 Low 1.3-2.9 [facility] Comment on above: Performed By: #### 7 [id number], [id number] ####[facility] (DEFAULT)[address] [place] [address] 04733 Lymphocytes/100 WBC (Bld) 18 % Normal 14-48 [facility] Comment on above: Performed By: #### 7 [id number], [id number] ####[facility] (DEFAULT)[address] [place] [address] 99769 Craig Abs# 0.5 x10 Normal 0.0-0.8 [facility] Comment on above: Performed By: #### 7 [id number], [id number] ####[facility] (DEFAULT)[address] [place] [address] 65660 Neut Abs# 3.8 x10 Normal 1.5-9.2 [facility] Comment on above: Performed By: #### 7 [id number], [id number] ####[facility] (DEFAULT)[address] [place] [address] 68101 Neutrophils/100 WBC (Bld) 70 % Normal 44-88 [facility] Comment on above: Performed By: #### 7 [id number], [id number] ####[facility] (DEFAULT)[address] [place] [address]61 [facility] Standardon 12-30-2019 eGFR Non AA >60 [facility] Comment on above: Performed By: #### 1 [id number] ####[facility] (DEFAULT)[address] [place] [address] 03672 eGFR AA >60 [facility] Comment on above: Result Comment: Sweater Operator freddy Kidney disease could be indicated at eGFRs of less than 60 ml/min/1.73m2. Kidney Failure is indicated at less than 15 ml/min/1.73m2 Performed By: #### 1 [id number] ####[facility] (DEFAULT)[address] [place] [address] 44998 Anion gap [Moles/Vol] 13.0 mmol/L Normal 5.0-19.0 [facility] Comment on above: Performed By: #### 1 [id number] ####[facility] (DEFAULT)[address] [place] [address] 27117 Calcium [Mass/Vol] 9.3 mg/dL Normal 8.9-10.3 [facility] Comment on above: Performed By: #### 1 [id number] ####[facility] (DEFAULT)[address] [place] [address] 43754 Chloride [Moles/Vol] 100 mmol/L Low 101-111 [facility] Comment on above: Performed By: #### 1 [id number] ####[facility] (DEFAULT)[address] [place] [address] 48616 CO2 [Moles/Vol] 28 mmol/L Normal 21-32 [facility] Comment on above: Performed By: #### 1 [id number] ####[facility] (DEFAULT)[address] [place] [address] 22090 Creatinine [Mass/Vol] 0.69 mg/dL Normal 0.60-1.30 [facility] Comment on above: Performed By: #### 1 [id number] ####[facility] (DEFAULT)[address] [place] [address] 72372 Glucose [Mass/Vol] 87.0 mg/dL Normal 74.0-118.0 [facility] Comment on above: Performed By: #### 1 [id number] ####[facility] (DEFAULT)[address] [place] [address] 31632 Osmolality [Osmolality] 277 mOsm/L [facility] Comment on above: Performed By: #### 1 [id number] ####[facility] (DEFAULT)[address] [place] [address] 95116 Potassium [Moles/Vol] 3.9 mmol/L Normal 3.6-5.1 [facility] Comment on above: Performed By: #### 1 [id number] ####[facility] (DEFAULT)[address] [place] [address] 45392 Sodium [Moles/Vol] 137.0 mmol/L Normal 136.0-144.0 [facility] Comment on above: Performed By: #### 1 [id number] ####[facility] (DEFAULT)[address] [place] [address] 66543 Urea nitrogen [Mass/Vol] 23 mg/dL Normal 8-26 [facility] Comment on above: Performed By: #### 1 [id number] ####[facility] (DEFAULT)[address] [place] [address] 20175 Urea nitrogen/Creatinine [Mass ratio] 33.0 mg/mg High 4.6-16.2 [facility] Comment on above: Performed By: #### 1 [id number] ####[facility] (DEFAULT)[address] [place] [address] CBC w/ Auto Diffon 0 Erythrocyte distribution width (RBC) [Ratio] 12.0 % Normal 11.5-15.0 [facility] Comment on above: Performed By: #### 7 [id number], [id number] ####[facility] (DEFAULT)[address] [place] [address] Hematocrit (Bld) [Volume fraction] 39.2 % Normal 33.7-40.4 [facility] Comment on above: Performed By: #### 7 [id number], [id number] ####[facility] (DEFAULT)[address] [place] [address] Hemoglobin (Bld) [Mass/Vol] 13.4 g/dL Normal 11.3-15.9 [facility] Comment on above: Performed By: #### 7 [id number], [id number] ####[facility] (DEFAULT)[address] [place] [address] Man Diff? Auto Normal [facility] Comment on above: Performed By: #### 7 [id number], [id number] ####[facility] (DEFAULT)[address] [place] [address] 44908 MCH (RBC) [Entitic mass] 31 pg Normal 24-34 [facility] Comment on above: Performed By: #### 7 [id number], [id number] ####[facility] (DEFAULT)[address] [place] [address] 16007 MCHC (RBC) [Mass/Vol] 34 g/dL Normal 26-37 [facility] Comment on above: Performed By: #### 7 [id number], [id number] ####[facility] (DEFAULT)[address] [place] [address] 38283 MCV (RBC) [Entitic vol] 90 fL Normal 81-100 [facility] Comment on above: Performed By: #### 7 [id number], [id number] ####[facility] (DEFAULT)[address] [place] [address] 99596 Platelet mean volume (Bld) [Entitic vol] 9.6 fL Normal 6.3-10.2 [facility] Comment on above: Performed By: #### 7 [id number], [id number] ####[facility] (DEFAULT)[address] [place] [address] 31750 Platelets (Bld) [#/Vol] 220 x10 Normal 138-427 [facility] Comment on above: Performed By: #### 7 [id number], [id number] ####[facility] (DEFAULT)[address] [place] [address] 27086 RBC (Bld) [#/Vol] 4.36 x10 Normal 3.70-5.30 [facility] Comment on above: Performed By: #### 7 [id number], [id number] ####[facility] (DEFAULT)[address] [place] [address] 90179 WBC (Bld) [#/Vol] 5.4 x10 Normal 3.5-10.5 [facility] Comment on above: Performed By: #### 7 [id number], [id number] ####[facility] (DEFAULT)[address] [place] [address] 65685 Vital Signs Date Time Vital Sign Value Performing Clinician Facility 05-16-2022 15:30-0400 Body height 170.18 cm Theron Morales Other [facility] Other 05-16-2022 15:30-0400 Body mass index (BMI) [Ratio] 21.61 kg/m2 Theron Morales Other [facility] Other 05-16-2022 15:30-0400 Body temperature 97.3 [degF] Theron Morales Other [facility] Other 05-16-2022 15:30-0400 Body weight 62.6 kg Theron Morales Other [facility] Other 05-16-2022 15:30-0400 Diastolic blood pressure 62 mm[Hg] Theron Morales Other [facility] Other 05-16-2022 15:30-0400 Systolic blood pressure 117 mm[Hg] Theron Morales Other [facility] Other Encounters Encounter Date Encounter Type Care Provider Facility Start: 03-14-2023 End: 03-14-2023 ambulatory [facility] Start: 12-21-2022 End: 12-21-2022 ambulatory [facility] Start: 10-30-2022 End: 10-30-2022 ambulatory [facility] Start: 06-11-2022 End: 06-11-2022 ambulatory [facility] Start: 05-24-2022 End: 05-25-2022 ambulatory CHARLES TAN . Facility:[facility] Start: 05-16-2022 End: 05-16-2022 ambulatory Theron Morales Other [facility] Other Start: 05-16-2022 Office outpatient ne w 45 minutes Theron Morales [facility] Start: 04-03-2022 End: 04-03-2022 ambulatory CHARLES TAN . Facility:[facility] Start: 04-02-2022 End: 04-03-2022 ambulatory CHARLES TAN . Facility:[facility] Start: 03-27-2022 End: 03-27-2022 ambulatory [facility] Start: 03-14-2022 End: 01-19-2023 ambulatory ALEXEY BACON Facility:[facility] Start: 10-03-2021 End: 10-03-2021 ambulatory CHARLES TAN . Facility:[facility] Start: 10-02-2021 End: 10-03-2021 ambulatory CHARLES TAN . Facility:[facility] Start: 09-27-2021 End: 09-27-2021 ambulatory OSMEL GARCIA Facility:[facility] Start: 09-04-2021 End: 09-05-[address] ANGEL STEWART Facility:[facility] Start: 06-06-2021 End: 06-07-[address] ANGEL STEWART Facility:[facility] Start: 06-05-2021 End: 06-05-2021 ambulatory BLESSING CRUZ . Facility:[facility] Start: 06-30-2020 End: 07-01-2020 ambulatory AMADOR RODRIGUEZ Facility:[facility] Procedures Date Procedure Procedure Detail Performing Clinician Start: 06-11-2022 Follow-up visit Follow-up ALEXEY MCNEIL Payers Date Payer Category Payer Medicare [id number] 2. [id number] 1950 Unknown [id number] 2.16.8 [id number] 1950 Unknown [id number] 2.16.84 [id number] 1950 Unknown [id number] 2.16.84 [id number] 1950 Unknown [id number] 2.16.84 [id number] 1950 Unknown [id number] 2.16.84 [id number] 1950 Unknown [id number] 2.16.84 [id number] 1950 Unknown [id number] 2.16.84 [id number] 1950 Unknown [id number] 2.16.84 [id number] 1950 Unknown [id number] 2.16.84 [id number] 1950 Unknown [id number] 2.16.84 [id number] 1950 Unknown [id number] 2.16.84 [id number] Private Health Insurance [id number] Social History Date Type Detail Facility Unknown if ever smoked [facility] Other Sex Assigned At Sex Assigned At Bir th [employer] Other Progress note 03-14-2023 Note Date & Type Note Facility 03-14-2023 [facility] Subjective Leda Lucero is a 72 y.o. year old female patient being seen for second opinion CHF and cough. She has taken several different antibiotics and steroids with no improvement. She denies LE edema, SOB, and chest pain. Dr. Tan has performed bronchoscopy and hasn't found anything to treat her for. He wanted her to see cardiology for possible CHF treatment/med adjustments. 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 She is a 72-year-old woman with history of nonischemic cardiomyopathy, chronic systolic heart failure, status post DIVISION LEADER D placement with improvement in ejection fraction on subsequent follow-up. Last echocardiogram in February 2022 showed that the ejection fraction was about 45%. At that time her right-sided pressures were within normal limits. She did not have any significant valvular dysfunction. Her major issue recently is that she has been having significant cough over the past 6 months. She has been evaluated by pulmonary repeatedly with extensive evaluation including pulmonary function testing and bronchoscopy, as well as repeated cultures without any evidence of a clear etiology. Her has not had any similar symptoms. She denies chest pain. She has shortness of breath on exertion NYHA class II-III. Noteworthy she had a BNP level that was normal in December 2022. Review of Systems Cardiovascular: Positive for dyspnea on exertion. Respiratory: Positive for cough. All other systems reviewed and are negative. Objective Visit Vitals BP 118/74 (BP Location: Right arm, Patient Position: Sitting) Pulse 70 Ht 1.702 m (5' 7 ) Wt 63.5 kg (140 lb) SpO2 95% BMI 21.93 kg/m??? Smoking Status Former BSA 1.73 m??? Physical Exam Constitutional: Appearance: She is well-developed. She is not ill-appearing. HENT: Head: Normocephalic and atraumatic. Nose: Nose normal. Eyes: General: No scleral icterus. Pupils: Pupils are equal, round, and reactive to light. Neck: Thyroid: No thyromegaly. Vascular: No JVD. Cardiovascular: Rate and Rhythm: Normal rate and regular rhythm. Pulses: Radial pulses are 2+ on the right side and 2+ on the left side. Heart sounds: Normal heart sounds. No murmur heard. No friction rub. No gallop. Pulmonary: Effort: Pulmonary effort is normal. No respiratory distress. Breath sounds: Normal breath sounds. No wheezing or rales. Chest: Chest wall: No tenderness. Abdominal: General: Bowel sounds are normal. There is no distension. Palpations: Abdomen is soft. Tenderness: There is no abdominal tenderness. Musculoskeletal: General: No swelling. Cervical back: Neck supple. Skin: General: Skin is warm and dry. Neurological: General: No focal deficit present. Mental Status: She is alert and oriented to person, place, and time. Psychiatric: Mood and Affect: Mood normal. Behavior: Behavior is cooperative. Judgment: Judgment normal. Allergies Allergies Allergen Reactions Benztropine Other and Unknown Phenothiazines Other and Unknown Medications Current Outpatient Medications: albuterol 90 mcg/actuation inhaler, albuterol sulfate HFA 90 mcg/actuation aerosol inhaler, Disp: , Rfl: FLUoxetine (PROzac) 40 mg capsule, fluoxetine 40 mg capsule, Disp: , Rfl: fluticasone (Flonase) 50 mcg/actuation nasal spray, fluticasone propionate 50 mcg/actuation nasal spray,suspension instill 2 sprays into each nostril once daily, Disp: , Rfl: furosemide (Lasix) 20 mg tablet, Take 1 tablet (20 mg) by mouth in the morning., Disp: 90 tablet, Rfl: 3 loratadine (Claritin) 10 mg tablet, Take 10 mg by mouth if needed each day for allergies., Disp: , Rfl: losartan (Cozaar) 25 mg tablet, TAKE 1 TABLET DAILY, Disp: 90 tablet, Rfl: 3 metoprolol succinate XL (Toprol-XL) 25 mg 24 hr tablet, TAKE 1 TABLET DAILY, Disp: 90 tablet, Rfl: 3 omeprazole (PriLOSEC) [address] capsule, omeprazole 20 mg capsule,delayed release, Disp: , Rf (more content not included)... [facility] Progress note 12-21-2022 Note Date & Type Note Facility 12-21-2022 Note [facility] Reason for visit: ECHO follow up 12/21/22: Patient for 6-month follow-up she has been doing well with no complaints of chest pain, lightness, dizziness, palpitations> she was exposed to some cleaning product which she thinks is likely chlorine when she was cleaning up for yarsani, there is no ventilation in the room and it caused her to have a lot of respiratory distress and cough. 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 Rodriguez 05/2021: Date of phone call: 2021 Total time spent in Medical Discussion including obtaining history from the patient, review of labs, tests with the patient, discussion of assessment and plan 25min . The visit was initiated by the patient and conducted [id number] with use of audio-only real time telephone [...] April 09, 2021 shows a [place] DIVISION LEADER-D that underwent generator change on June 30, [...] LE edema, palpitations. Weight has been stable. -------- Testing/Procedures: ECHO 10/24/2017 Global left ventricular systolic [...] Mild mitral regurgi (more content not included)... [facility] Progress note 12-21-2022 Note Date & Type Note Facility 12-21-2022 Note Review of Systems Cardiovascular: Positive for dyspnea on exertion. Negative for irregular heartbeat. Inhaled bleach and has sob [facility] Progress note 06-11-2022 Note Date & Type Note Facility 06-11-2022 Note Review of Systems Constitutional: Positive for malaise/fatigue. Cardiovascular: Positive for dyspnea on exertion. Leda is here today for a 3 month follow up and to discuss the results of her recent Echocardiogram. No new symptoms or complaints. [facility] Progress note 06-11-2022 Note Date & Type Note Facility 06-11-2022 Note [facility] Reason for visit: ECHO follow up [...] of CHF NYHA III who has Biv DIVISION LEADER-D in place for severely reduced EF in [...] was initiated by the patient and conducted [id number] with use of audio-only real time telephone [...] April 09, 2021 shows a [place] DIVISION LEADER-D that underwent generator change on June 30, [...] Passive Exposure: No (more content not included)... [facility] Evaluation note 05-16-2022 Note Date & Type Note Facility 05-16-2022 Evaluation note Encounter Date Diagnosis Assessment Notes Apr, Positive culture findings in sputum (ICD-10 - R84.5) Patient is not considered immunosuppressed. She does not appear at risk for an Aspergillus invasive infection. Clinical symptomatology has not really demonstrated signs of an invasive aspergillus infection given the lack of blood colored sputum. Chest x-ray reviewed however no CT scan available. Discussed with her cook room supervisor that CT scan of the chest may be helpful at least to further evaluate her lung parenchyma given the lack of progression over the length of time the sputum cultures have been collected I do not think there is a significant Aspergillus infection that warrants treatment. Of note back in 2011 she did get 30 days of voriconazole by her older cook room supervisor from [place]. Each time she has been sick in [...] to her repeated colonization. Discussed with her cook room supervisor that a CT scan may be of some benefit. She is to monitor her clinical symptoms for any type of worsening and if change in sputum character does occur especially with bloody colored sputum or to arise she is to notify me. [employer] Other Clinical Note 09-27-2021 Note Date & Type Note Facility 09-27-2021 Note PROCEDURE: XR KNEE L T 4V or >, XR ANKLE LT MIN [...] Electronically authenticated by: AMBROSIO DUVALL Date: 2021-09-27 09:45 [facility] Clinical Note 09-27-2021 Note Date & Type Note Facility 09-27-2021 Note PROCEDURE: XR KNEE L T 4V or >, XR ANKLE LT MIN [...] Electronically authenticated by: AMBROSIO DUVALL Date: 2021-09-27 09:45 [facility] Discharge summary note 07-02-2020 Note Date & Type Note Facility 07-02-2020 Note MR#: [id number] [facility] Pt. Name: Leda Lucero Admitted: 06/30/2020 Discharged: 07/01/2020 Date of : 1950 Physician: Amador Rodriguez MD DISCHARGE SUMMARY COURSE OF HOSPITALIZATION: The patient is a 69-year-old female who presented to [facility] yesterday for elective Bi-V ICD generators change [...] generator exchange. She had [facility] [place] CRTD A500Q model, serial #[id number] was implanted and connected to already existing [...] in good condition. She has followup in [facility] for wound check on July 08 at 01:20 p.m. with Aysha Nair CNP. Then in one month on August 09 at 11 a.m. for pacemaker device, interrogation was [facility] at [facility] and she is to follow up with Dr. Rodriguez within 3 months. She is to followup with her PCP within one month for further evaluation and check up. Electronically Signed by: Amador Rodriguez MD 07/04/2020 09:54 P Aamdor Rodriguez MD I personally saw this patient on the day of the encounter, performed the vargas portion(s) of the service and participated in the management and confirm the resident's documentation. Please note there may be an additional personal documentation from me. Date Dict: 07/01/2020/11:26 A/DELILAH Santiago, BROADCAST METEOROLOGIST-C Date Trans: 07/02/2020 09:40 A/nixon [id number] cc: Amador Rodriguez MD Dept Of Cardiology [address] [facility] [address] Angel Stewart M.D. [address] [facility] [facility] [address] [facility] History general Narrative - Reported Note Date & Type Note Facility History general Narrative - Reported Type Medical History osteopenia Medical History insomnia Medical History depression Medical History migraines Medical History cardiomyopathy Medical History copd Medical History adama Medical History dyslipidemia Medical History gerd [employer] Other Summary Purpose Family History No Family History Records FoundNo Family History Records FoundNo Family History Records FoundNo Family History Records Found Advance Directives No Advanced Directives Records FoundNo Advanced Directives Records FoundNo Advanced Directives Records FoundNo Advanced Directives Records Found Hospital Course Note [facility] SURGERY Clinical Discharge Summary PERSON INFORMATION Name LEDA LUCERO Age 69 Years 1950 Sex FEMALE Language [place] PCP ANGEL STEWART Marital Status Med Service Ambulatory Surgery Acct# Arrival 01/11/2020 07:00:00 Visit Reason SURGERY-LEFT SHOULDER ARTHROSCOPY Acuity LOS 017 05:53 Address: [address] [place] [id number] Comment: PROVIDER INFORMATION VITALS INFORMATION Vital Sign [...] disease) case management patient / SNOMED CT 500334892 / Confirmed CHF (congestive heart failure) / SNOMED CT 81236601 / Confirmed Myopathy / SNOMED CT 006237712 / Confirmed Ventricular dysfunction / SNOMED CT 467862184 / Confirmed Physical Examination VS/Measurements Vital Signs [...] disease) case management patient / SNOMED CT 975120494 / Confirmed CHF (congestive heart failure) / SNOMED CT 08740903 / Confirmed Myopathy / SNOMED CT 319390158 / Confirmed Ventricular dysfunction / SNOMED CT 752722621 / Confirmed Physical Examination VS/Measurements Vital Signs [...] section and content) DATE CREATED AUTHOR 01/20/2020 [facility] DATE CREATED AUTHOR AUTHOR'S ORGANIZ ATION 06/10/2021 [facility] DATE CREATED AUTHOR AUTHOR'S ORGANIZ ATION 06/01/2022 [facility] DATE CREATED AUTHOR AUTHOR'S ORGANIZ ATION 03/15/[address] [facility] FOR RECORDS PERTAINING TO PATIENTS WHO ARE [...] BE BASED ON THE PRIMARY CLINICAL RECORDS. [employer] provides no warranty or guarantee of the accuracy or completeness of information in this document.
== END 2023-03-15 15:44 | disposition home or self-care (01) ==
LOC: LAB 15:45
PROVIDERS: PCP Family Medicine; Visit Provider Internal Medicine
DX: J20.9 Acute bronchitis, unspecified (principal)
CPT/HCPCS: 87070; 87107; 87150; 87186; 87205

== ENCOUNTER 2023-10-03 08:56 | Outpatient (OUT) | payer MEDICARE, SELFPAY ==
--- NOTE | 2023-10-03 09:00 | CA_ITS ---
Patient Name: LEDA MEJIA MR#: [id number] : 1950 Exam Date: 10/03/2023 Ordering Doctor: SARAH PARKINSON ECHOCARDIOGRAM REPORT PROCEDURE: CA ECHO DOPPLER COMPLETE INDICATIONS: NICM, Acute systolic heart failure, pacemaker COMPARISON: None. DESCRIPTION: COMPLETE ECHOCARDIOGRAM Real-time transthoracic echocardiography with 2D, M-mode, spectral and color flow Doppler performed. QUALITY: Technical quality was good. LEFT VENTRICLE: Normal chamber size. Normal left ventricular wall thickness. Systolic function is at the lower limits of normal. Abnormal septal motion likely due to bundle branch block/pacing. LV EF: Lower limits of normal left ventricular ejection fraction, (50%). DIASTOLIC: Normal diastolic function. ATRIAL SEPTUM: Visually appears intact. LEFT ATRIUM: Normal chamber size. RIGHT ATRIUM: Normal chamber size. RIGHT VENTRICLE: Normal chamber size. Normal right ventricular systolic function. Pacer wire present. TRICUSPID VALVE: Normal mobility and thickness. No stenosis with mild regurgitation. No evidence of pulmonary hypertension. RVSP 30 mmHg MITRAL VALVE: Normal mobility and thickness. No evidence of mitral valve stenosis. There is no mitral annular calcification. Trivial mitral regurgitation. AORTIC VALVE: Normal trileaflet appearance. No visible sclerosis. Normal leaflet mobility. No evidence of aortic valve stenosis. No aortic regurgitation. AORTIC ROOT: Normal diameter and appearance. Ascending aorta is normal in size. PULMONIC VALVE: Normal thickness and mobility. No stenosis. Trivial regurgitation. PERICARDIUM: No evidence of pericardial effusion. IVC: Collapses with inspirations. PLEURA: CONCLUSION: 1. Normal left ventricular size with low normal systolic function. LVEF is estimated at 50%. 2. Normal right ventricular size and systolic function. 3. No significant valvular dysfunction. 4. Normal right-sided pressures. Adult Echocardiography Procedure Report Left Ventricle LVEDD (3.7 - 5.6 cm): 4.27 cm LVESD (2.2 - 4.0 cm): 3.21 cm LVIVS thickness (0.6 - 1.2 cm): 0.73 cm LVPW thickness (0.5 - 1.0 cm): 0.84 cm e': 0.08 m/s E - e': 6.74 LVOT Max Gradient: 2.21 mm[Hg] LVOT Area (cm2): 0.74 m/s Peak Velocity (LVOT): 0.74 m/s Mean Velocity (LVOT): 0.50 m/s LVOT Diameter 2.11 cm Left Atrium LA Volume Index (2D A2C): 21.99 ml/m2 Left Atrium Systolic Dimension: 3.07 cm Mitral Valve MV E to A Ratio: 0.62 Mitral Valve A-Wave Peak Velocity: 0.91 m/s Mitral Valve E-Wave Peak Velocity: 0.56 m/s Right Ventricle Aorta AO Root Diam: 2.97 cm Ascending Ao Diam: 2.68 cm Aortic Valve AoV Area (Peak Daniel): 2.61 cm2, 2.61 cm2 AoV Area (VTI): 2.45 cm2, 2.45 cm2 Peak Velocity(Antegrade Flow): 0.99 m/s Peak Gradient(Antegrade Flow): 3.94 mm[Hg] Mean Velocity(Antegrade Flow): 0.72 m/s Mean Gradient(Antegrade Flow): 2.35 mm[Hg] Velocity Time Integral: 23.42 cm Tricuspid Valve Peak Velocity (Regurgitant Flow): 2.60 m/s, 2.45 m/s, 2.33 m/s Pulmonic Valve Peak Gradient: 4.01 mm[Hg], 3.15 mm[Hg] Right Atrium Right Atrium Systolic Pressure: 31.86 ml, 31.86 ml Dictated by: Travis Amezcua M.D. on 10/03/2023 at 19:53 Approved by: Travis Amezcua M.D. on 10/03/2023 at 19:57
--- OUTSIDE RECORDS SUMMARY | 2023-10-03 09:11 | XMS_ITS | CCD ---
Author Organization [facility] Care Team Providers Care Infant Room Teacher Name Role Phone AMADOR RODRIGUEZ Attending Unavailable AMADOR RODRIGUEZ Admitting Unavailable ANGEL STEWART Referring Unavailable ANGEL STEWART Primary Care Unavailable Theron Morales Unavailable OSMEL GARCIA Attending Unavailable OSMEL GARCIA Admitting Unavailable TERRY, DR ANGEL Mathis Primary Care Unavailable JADIEL, DR AMBROSIO Sylvester Consulting Unavailable OSMEL GARCIA Consulting Unavailable NANCY ., BLESSING Attending Unavailable NANCY ., BLESSING Admitting Unavailable OTF RUBALCAVA Consulting Unavailable NADVIJAY, DR ANGEL Mathis Primary Care Unavailable BLESSING DOBSON Consulting Unavailable NADVIJAY, DR ANGEL Mathis [...] NADERER, DR ANGEL Mathis Primary Care Unavailable NADERER, DR ANGEL Mathis Attending Unavailable NADERER, DR ANGEL Mathis Admitting Unavailable NADERER, DR ANGEL Mathis Consulting Unavailable SAMSA ., CHARLES Attending Unavailable SAMSA ., CHARLES Admitting Unavailable KEN, DR TERRIE Cabezas Consulting Unavailable NADERENga, DR ANGEL Mathis Primary Care Unavailable SAMSA ., CHARLES Consulting Unavailable SAMSA ., CHARLES Attending Unavailable SAMSA ., CHARLES Admitting Unavailable SAMSA ., CHARLES Consulting Unavailable TERRY, DR ANGEL Mathis Primary Care Unavailable ALEXEY BACON Attending Unavailable ALEXEY BACON Admitting Unavailable ALEXEY BACON Consulting Unavailable DR ANGLE STEWART Primary Care Unavailable CHARLES JOSE Attending Unavailable CHARLES JOSE Admitting Unavailable CHARLES JOSE Consulting Unavailable DR ANGEL STEWART Primary Care Unavailable CECY CALIX Attending Unavailable CECY CALIX Attending Unavailable ANGEL STEWART Attending Unavailable BRIANNE SANTOS Attending Unavailable ALEXEY BACON Attending Unavailable AMADOR RODRIGUEZ Referring Unavailable JOEY NUNO Referring Unavailable JOEY NUNO Referring Unavailable AMADOR RODRIGUEZ Attending Unavailable AMADOR RODRIGUEZ Referring Unavailable Allergies Allergy Classification Reported Allergen(s) Allergy Type Date of Onset Reaction(s) Facility (3 sources) Benztropine Drug Allergy 2 Unknown [facility] Repository (3 sources) Phenothiazine; 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: [PHENOTHIAZINES] Drug allergy (disorder) 2 [facility] Repository (1 source) Prochlorperazine Drug Allergy Unknown Albiorex Other (1 source) Benztropine; 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: [BENZTROPINE] Drug Allergy 4 [facility] Repository Medications Current Medications Medication Drug [...] RESP INFEC] Onset: 10-02-2021 Chronic Conduction disorders (4 sources) Presence of automatic (implantable) cardiac defibrillator; 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: [Encounter for adjustment and management of automatic implantable cardiac defibrillator] Onset: 10-30-2022 Chronic Congestive heart failure; nonhypertensive (5 sources) Heart failure, unspecified; 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: [Acute systolic (congestive) heart failure] Onset: 09-28-2021 Chronic Mycoses (4 sources) Other forms of aspergillosis; 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: [OTHER FORMS OF ASPERGILLOSIS] Onset: 05-24-2022 Episodic Other screening for suspected conditions (not mental disorders or infectious disease) (1 source) Abnormal microbiological findings in specimens from respiratory organs and thorax Episodic Saundra-; endo-; and myocarditis; cardiomyopathy (except that caused by tuberculosis or sexually transmitted disease) (2 sources) Other cardiomyopathies; 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: [Other cardiomyopathies] Onset: 09-10-2023 Chronic Unclassified (3 sources) CONTACT W/AND (SUSP) EXPOS [...] by cat, initial encounter] Onset: 06-08-2021 Episodic Open wounds of extremities (4 sources) Open bite of left index finger without damage to nail, initial encounter; 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: [OPEN BITE LT IF NO DMG NAIL INITIAL] Onset: 06-06-2021 Episodic Other aftercare (1 source) 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; 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: [RESIDENTIAL CURRENT USE OF ASPIRIN] Onset: 09-28-2021 Episodic Other aftercare (1 source) Other assisted (current) drug therapy; 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: [OTH RESIDENTIAL CURRENT DRUG THERAPY] Onset: 09-28-2021 Episodic Other lower respiratory disease (6 sources) Other forms of dyspnea; 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: [OTHER FORMS OF DYSPNEA] Onset: 03-14-2022 Episodic Other lower respiratory disease (2 sources) Chronic cough; 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: [Chronic cough] Onset: 02-23-2022 Episodic Other non-traumatic joint disorders (3 sources) Pain in left ankle and joints of left foot; 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: [PAIN IN LEFT ANKLE] Onset: 09-27-2021 Episodic Residual codes; unclassified (2 sources) Contact with and (suspected) exposure to other hazardous, chiefly nonmedicinal, chemicals; 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: [Contact with and (suspected) exposure to other hazardous, chiefly nonmedicinal, chemicals] Onset: 12-21-2022 Episodic Skin and subcutaneous tissue infections (2 [...] Value Interpretation Reference Range Facility Office [facility] 09-10-2023 Follow-up visit [id number] Leda Lucero 1950 Provider Department Center 09/10/2023 HumeraAMADOR RODRIGUEZ CARD [facility] Family History Problem Relation Age of Onset Osteoporosis Mother Heart disease Mother Heart failure Father Hearing loss Father Family Status - Relation Status Age at Mother Father Level of Service:29048 MA OFFICE/OUTPATIENT ESTABLISHED LOW MDM 20 MIN Normal [facility] Office [facility] 03-14-2023 Follow-up visit [id number] Leda Lucero 1950 Provider Department Center 03/14/2023 BRIANNE MCDERMOTT CARD [facility] Family History Problem Relation Age of Onset Osteoporosis Mother Heart disease Mother Heart failure Father Hearing loss Father Family Status - Relation Status Age at Mother Father Level of Service:08121 MA OFFICE/OUTPATIENT ESTABLISHED HIGH MDM 40 MIN Normal [facility] 12-21-2022 Follow-up visit [id number] Bal 1950 Provider Department Center 12/21/2022 ALEXEY GERONIMO CARD [facility] Family History Problem Relation Age of Onset Osteoporosis Mother Heart disease Mother Heart failure Father Hearing loss Father Family Status - Relation Status Age at Mother Father Level of Service:75096 MA OFFICE/OUTPATIENT ESTABLISHED MOD MDM 30-39 MIN Normal [facility] CT CHEST HI RESOLUTIONon CT CHEST [...] TERRIE ROGERS Date: 2022-05-24 13:28 Normal [facility] FUNGAL CULTUREon 05-04-2022 Fungus (Mycology) Culture Final report Abnormal [facility] Comment on above: Performed By: #### C XFUN #### [facility] [address] [place] [address] Dr. Vimal Hernandez Fungus Stain Final report Normal [facility] Comment on above: Performed By: #### C XFUN #### [facility] [address] [place] [address] Dr. Vimal Hernandez Result 1 Comment Normal [facility] Comment on above: Result Comment: BAILEY/ Calcofluor preparation: no fungus observed. Performed By: #### C XFUN #### [facility] [address] [place] [address] Dr. Vimal Hernandez Result 1 Rohini albicans Abnormal [facility] Comment on above: Performed By: #### C XFUN #### [facility] [address] [place] [address] Dr. Vimal Hernandez Result 2 Comment Abnormal [facility] Comment on above: Result Comment: Aspe rgillus terreus complex Performed By: #### C XFUN #### [facility] [address] [place] [address] Dr. Vimal Hernandez Result 3 Comment Abnormal [facility] Comment on above: Result Comment: Aspe rgillus versicolor Performed By: #### C XFUN #### [facility] [address] [place] [address] Dr. Vimal Hernandez CULTURE SPUTUMon 04-06-2022 CULTURE SPUTUM Culture Observations [...] F Trimethoprim/Sulfamet hoxazole <=10 S F Normal [facility] Comment on above: Performed By: #### S PUTCX ####[facility] [id number] [place] [address]Dr. Vimal Hernandez SPUTUM GRAM STAINon 04-03-19 COMMENTS Normal [facility] Comment on above: Performed By: #### S PUTGS #### [facility] [address] [address] [address] Vimal Hernandez DIPHTHEROIDS Normal [facility] Comment on above: Performed By: #### S PUTGS #### [facility] [address] [address] [address] Vimal Hernandez EPITHELIALS <25 Normal [facility] Comment on above: Performed By: #### S PUTGS #### [facility] [address] [address] [address] Vimal Hernandez FUNGAL ELEMENTS Normal [facility] Comment on above: Performed By: #### S PUTGS #### [facility] [address] [address] [address] Vimal MORGAN NEG BACILLI Normal [facility] Comment on above: Performed By: #### S PUTGS #### [facility] [address] [address] [address] Vimal MORGAN NEG DIPPLOCOCCI Normal [facility] Comment on above: Performed By: #### S PUTGS #### [facility] [address] [address] [address] Vimal Hernandez GRAM POS BACILLI Normal [facility] Comment on above: Performed By: #### S PUTGS #### [facility] [address] [address] [address] Vimal Hernandez GRAM POSITIVE COCCI MODERATE Normal [facility] Comment on above: Performed By: #### S PUTGS #### [facility] [address] [address] [address] Vimal Hernandez WBC (Bld) [#/Vol] 10*3/uL Normal [facility] Comment on above: Performed By: #### S PUTGS #### [facility] [address] [address] [address] Vimal Hernandez [facility] SARS-CoV-2 (COVID-19) RNA REGGIE+probe Ql (Unsp spec) Not detected Normal NOT DETECTED [facility] Comment on above: Result Comment: This test is not yet approved or cleared by the [place] FDA. When there are no FDA-approved or cleared tests available, and other criteria are met, FDA can make tests available under an emergency access mechanism called an Emergency Use Authorization (EUA). The EUA for this test is supported by the [place] of Health and Human Service's (HHS's) declaration [...] SARS-CoV-2. Performed By: #### C VDTBH #### [facility] [address] [address] [address] Vimal Hernandez INFLUENZA A AND B AGon 04-02 INFLUANEGH SEE BELOW Normal [facility] Comment on above: Result Comment: Nega tive for Flu A protein angiten. Infection due to Flu A cannot be ruled out. Flu A angiten in the sample may be below the detection limit of the test. Performed By: #### I NFLUAB #### [facility] [address] [place] [address] Dr. Vimal Hernandez INFLUBNEG SEE BELOW Normal [facility] Comment on above: Result Comment: Nega tive for Flu B protein antigen. Infection due to Flu B cannot be ruled out. Flu B antigen in the sample may be below the detection limit of the test. Performed By: #### I NFLUAB #### [facility] [address] [place] [address] Dr. Vimal Hernandez INFLUENZA A AG Negative Normal NEGATIVE SEE COMMENT [facility] Comment on above: Performed By: #### I NFLUAB #### [facility] [address] [place] [address] Dr. Vimal Hernandez INFLUENZA B AG Negative Normal NEGATIVE SEE COMMENT [facility] Comment on above: Performed By: #### I NFLUAB #### [facility] [address] [place] [address] Dr. Vimal Hernandez ECHOCARDIO M/2D COMPLETEon 0 03-14-2022 ECHOCARDIO M/2D COMPLETE Patient: LEDA LUCERO Exam Date: 03/14/2022 : 1950 Gender:F Ordering : ALEXEY BACON Admission #: [id number] Family : Order #: [id number] CLICK HERE TO VIEW EXAM ECHOCARDIOGRAM REPORT [...] Santos M.D. on 03/15/2022 at 10:43 Normal [facility] CULTURE SPUTUMon 10-02-2021 CULTURE SPUTUM Culture Observations : Mold identified by [facility] Isolate 1 Haemophilus Influenzae Heavy growth of Isolate 2 Aspergillus Fumigatus Light growth of Normal [facility] Comment on above: Result Comment: Beta Lactamase - Performed By: #### S PUTCX ####[facility] [address] [place] [address]Dr. Vimal Hernandez SPUTUM GRAM STAINon 10-03-19 22 COMMENTS Normal [facility] Comment on above: Performed By: #### S PUTGS #### [facility] [address] [address] [address] Vimal Hernandez DIPHTHEROIDS Normal [facility] Comment on above: Performed By: #### S PUTGS #### [facility] [address] [address] [address] Vimal Hernandez EPITHELIALS <25 Normal [facility] Comment on above: Performed By: #### S PUTGS #### [facility] [address] [address] [address] Vimal Hernandez FUNGAL ELEMENTS Normal [facility] Comment on above: Performed By: #### S PUTGS #### [facility] [address] [address] [address] Vimal MORGAN NEG BACILLI FEW Normal [facility] Comment on above: Performed By: #### S PUTGS #### [facility] [address] [address] [address] Vimal MORGAN NEG DIPPLOCOCCI Normal [facility] Comment on above: Performed By: #### S PUTGS #### [facility] [address] [address] [address] Vimal MORGAN POS BACILLI Normal [facility] Comment on above: Performed By: #### S PUTGS #### [facility] [address] [address] [address] Vimal Hernandez GRAM POSITIVE COCCI FEW Normal [facility] Comment on above: Performed By: #### S PUTKATHERYN #### [facility] [address] [place], [place] [address] Dr. Vimal Hernandez WBC (Bld) [#/Vol] 10*3/uL Normal [facility] Comment on above: Performed By: #### S PUTKATHEYRN #### [facility] [address] [place], [place] [address] Dr. Vimal Hernandez XR CHEST 2 Von [...] TERRIE ROGERS Date: 2021-10-02 14:49 Normal [facility] Covid-19 PCR ([facility])on 08-25 SARS-CoV-2 (COVID-19) RNA REGGIE+probe Ql (Unsp spec) Detected Critically abnormal NOT DETECTED [facility] Comment on above: Result Comment: This test is not yet approved or cleared by the [place] FDA. When there are no FDA-approved or cleared tests available, and other criteria are met, FDA can make tests available under an emergency access mechanism called an Emergency Use Authorization (EUA). The EUA for this test is supported by the [place] of Health and Human Service's declaration that [...] be used). Performed By: #### C VDTBH ####[facility] [address] [place], [place] [address]DaDr. Vimal Hernandez CBC AUTO DIFFon 06-05-2021 BASO # 0.0 103/ul Normal 0.0-0.1 [facility] Comment on above: Performed By: #### C BC #### [facility] [address] [address] [address] Vimal Hernandez Basophils/100 WBC (Bld) 0.6 % Normal 0.2-2.0 [facility] Comment on above: Performed By: #### C BC #### [facility] [address] [address] [address] Vimal Hernandez EO # 0.1 103/ul Normal 0.0-0.7 [facility] Comment on above: Performed By: #### C BC #### [facility] [address] [address] [address] Vimal Hernandez Eosinophils/100 WBC (Bld) 1.4 % Normal 0.9-7.0 [facility] Comment on above: Performed By: #### C BC #### [facility] [address] [address] [address] Vimal Hernandez Erythrocyte distribution width (RBC) [Ratio] 11.9 % Normal 11.0-15.0 [facility] Comment on above: Performed By: #### C BC #### [facility] [address] [place] [address] Dr. Vimal Hernandez Hematocrit (Bld) [Volume fraction] 39.2 % Normal 36.0-48.0 [facility] Comment on above: Performed By: #### C BC #### [facility] [address] [address] [address] Vimal Hernandez Hemoglobin (Bld) [Mass/Vol] 13.2 g/dL Normal 12.0-16.0 [facility] Comment on above: Performed By: #### C BC #### [facility] [address] [address] [address] Vimal Hernandez IG # 0.03 10e3/ul Normal 0.00-0.03 [facility] Comment on above: Performed By: #### C BC #### [facility] [address] [place] [address] Dr. Vimal Hernandez IG % 0.4 % Normal 0.0-0.5 [facility] Comment on above: Performed By: #### C BC #### [facility] [address] [place] [address] Dr. Vimal Hernandez LYMPH # 1.1 103/ul Critically low 1.2-3.8 [facility] Comment on above: Performed By: #### C BC #### [facility] [address] [place] [address] Dr. Vimal Hernandez Lymphocytes/100 WBC (Bld) 15.7 % Critically low 20.5-60.0 [facility] Comment on above: Performed By: #### C BC #### [facility] [address] [place] [address] Dr. Vimal Hernandez MANUAL DIFF REQ NO Normal [facility] Comment on above: Performed By: #### C BC #### [facility] [address] [place] [address] Dr. Vimal Hernandez MCH (RBC) [Entitic mass] 30.4 pg Normal 26.7-34.0 [facility] Comment on above: Performed By: #### C BC #### [facility] [address] [place] [address] Dr. Vimal Hernandez MCHC (RBC) [Mass/Vol] 33.7 g/dL Normal 29.9-35.2 [facility] Comment on above: Performed By: #### C BC #### [facility] [address] [place] [address] Dr. Vimal Hernandez MCV (RBC) [Entitic vol] 90.3 fL Normal 81.0-99.0 [facility] Comment on above: Performed By: #### C BC #### [facility] [address] [place] [address] Dr. Vimal Hernandez MONO # 0.7 103/ul Normal 0.3-0.8 [facility] Comment on above: Performed By: #### C BC #### [facility] [address] [place] [address] Dr. Vimal Hernandez Monocytes/100 WBC (Bld) 9.2 % Normal 1.7-12.0 [facility] Comment on above: Performed By: #### C BC #### [facility] [address] [place] [address] [address] Vimal Hernandez NEUT # 5.2 103/ul Normal 1.4-6.5 [facility] Comment on above: Performed By: #### C BC #### [facility] [address] [address] [address] iVmal Hernandez Neutrophils/100 WBC (Bld) 72.7 % Normal 43.0-75.0 [facility] Comment on above: Performed By: #### C BC #### [facility] [address] [place] [address] Dr. Vimal Hernandez Platelet mean volume (Bld) [Entitic vol] 10.0 fL Normal 9.5-13.5 [facility] Comment on above: Performed By: #### C BC #### [facility] [address] [place] [address] Dr. Vimal Hernandez PLT 207 103/ul Normal 150-450 [facility] Comment on above: Performed By: #### C BC #### [facility] [address] [place] [address] Dr. Vimal Hernandez RBC 4.34 106/ul Normal 4.20-5.40 [facility] Comment on above: Performed By: #### C BC #### [facility] [address] [place] [address] Dr. Vimal Hernandez WBC 7.1 103/ul Normal 4.0-11.0 [facility] Comment on above: Performed By: #### C BC #### [facility] [address] [place] [address] Dr. Vimal Hernandez PROF CHEM 8 (BAS METB)on Anion gap [Moles/Vol] 14.4 mmol/L Normal [facility] Comment on above: Performed By: #### B MP ####[facility] [address] [place] [address]Dr. Vimal Hernandez Calcium [Mass/Vol] 9.0 mg/dL Normal 8.5-10.1 [facility] Comment on above: Performed By: #### B MP ####[facility] [address] [place] [address]Dr. Vimal Hernandez Chloride [Moles/Vol] 102 mmol/L Normal 98-107 [facility] Comment on above: Performed By: #### B MP ####[facility] [address] [place], [place] [address]Dr. Vimal Hernandez CO2 [Moles/Vol] 25.7 mmol/L Normal 22.0-30.0 [facility] Comment on above: Performed By: #### B MP ####[facility] [address] [place], [place] [address]Dr. Vmial Hernandez Creatinine [Mass/Vol] 0.81 mg/dL Normal 0.52-1.04 [facility] Comment on above: Performed By: #### B MP ####[facility] [address] [place], [place] [address]Dr. Vimal Hernandez EGFR-AF TOGOLESE >60 Normal >=60 [facility] Comment on above: Performed By: #### B MP ####[facility] [address] [place], [place] [address]Dr. Vimal Hernandez EGFR-NON AF TOGOLESE >60 Normal >=60 [facility] Comment on above: Performed By: #### B MP ####[facility] [address] [place], [place] [address]Dr. Vimal Hernandez Glucose [Mass/Vol] 103 mg/dL Normal 74-106 [facility] Comment on above: Performed By: #### B MP ####[facility] [address] [place], [place] [address]Dr. Vimal Hernandez Potassium [Moles/Vol] 4.1 mmol/L Normal 3.4-5.0 [facility] Comment on above: Performed By: #### B MP ####[facility] [address] [place], [place] [address]Dr. Vimal Hernandez Sodium [Moles/Vol] 138 mmol/L Normal 137-145 [facility] Comment on above: Performed By: #### B MP ####[facility] [address] [place], [place] [address]Np. Vimal Hernandez Urea nitrogen [Mass/Vol] 24.0 mg/dL Critically high 7.0-18.0 [facility] Comment on above: Performed By: #### B MP ####[facility] [address] [place], [place] [address]Hm. Vimal Hernandez Urea nitrogen/Creatinine [Mass ratio] 29.6 mg/mg Normal [facility] Comment on above: Performed By: #### B MP ####[facility] [address] [place], [place] [address]St. Vimal Hernandez XR FINGER MIN 2 VIEWSon [...] by: OTF RUBALCAVA Date: 2021-06-05 17:36 Normal [facility] Cardiovascular Lab Reporton 07-07-2020 Cardiovascular Lab Report [facility] Patient Name: [facility] MR #: [id number] Physician: Amador Rodriguez MD Department of Service Date: 06/30/2020 Medicine Birthdate: 1950 Division of Room #: 3AB 200934 Cardiology Adult Cardiovascular Services [place] [address] Cardiovascular Laboratory Report POCKET REVISION PROCEDURE NOTE DATE OF PROCEDURE: 06/30/2020 PERFORMING PHYSICIAN: Dr. Amador Rodriguez CONSENT: Patient LOCATION: EP Lab PROCEDURE PERFORMED: 1. Pocket revision to evaluate for hematoma. INDICATIONS: 1. Pocket swelling/pain. 2. S/p VISION REHABILITATION THERAPIST-D with underlying chronic AF and RVR. PROCEDURAL SEDATION: Versed and Fentanyl. Moderate sedation was administered by the sedation nurse under my supervision and noted in the CVL log. Intraprocedural face to face sedation time: 90min. Monitoring: Cardiac telemetry, Blood pressure, continuous pulse oxymetry. FLUROSCOPY: 0s PREPARATION: 69-year-old lady with a history of cardiomyopathy with a VISION REHABILITATION THERAPIST-D [employer] device, had come in for [...] noted below. Device info: [employer] Moseley Phoenix CRTD A500Q model Serial #[id number] RAlead: Implanted on 07/14/2012 Moseley Tendril STS 2088TC-46 cms Serial # [id number] Sensin.9mV Threshold: 1.25V @ 0.4ms Impedance: 480 Ohms RV ICD lead: Implanted on 07/14/2012 Moseley Durata 7122Q-58 cms lead Serial# [id number] Sensing: >12 mV Threshold: 0.875 @ 0.5 millisecond Impedance: 530 Ohms LV lead: Implanted on 07/14/2012 Moseley quartet 1458Q-86 cms, Serial# [id number] Threshold: 1.125 V @ 0.4 ms Impedance: [...] Rodriguez MD Date Trans: 06/30/2020 07:04 P/nixon DN_[id number] cc: Angel Stewart M.D. [address] [place] [id number] Electronically Signed by: Amador Rodriguez MD 07/13/2020 05:42 P Amador Rodriguez MD Date Dict: 07/07/2020/09:22 A/Amador Rodriguez MD Date Trans: 07/07/2020 09:47 A/nixon [id number] cc: Angel Stewart M.D. [address] [place] [address] [facility] W/DIFFon 07-01-2020 ABS IMM GRANS 0.0 10*3/uL Normal 0.0-0.2 [facility] Comment on above: Order Comment: No: D o not add to previous draw Performed By: #### 5 0103 #### [facility] [address] [place] [address], [facility] ABS NEUTROPHILS 9.7 10*3/uL High 1.6-7.[address] [facility] Comment on above: Order Comment: No: D o not add to previous draw Performed By: #### 5 0103 #### [facility] [address] [place] [address], [facility] Basophils (Bld) [#/Vol] 0.0 10*3/uL Normal 0.0-0.2 The [facility] Comment on above: Order Comment: No: D o not add to previous draw Performed By: #### 5 0103 #### [facility] [address] [place] [address], [facility] Basophils/100 WBC (Bld) 0.2 % Normal 0.0-1.0 The [facility] Comment on above: Order Comment: No: D o not add to previous draw Performed By: #### 5 0103 #### [facility] [address] [place] [address], [facility] Eosinophils (Bld) [#/Vol] 0.0 10*3/uL Normal 0.0-0.5 The [facility] Comment on above: Order Comment: No: D o not add to previous draw Performed By: #### 5 0103 #### [facility] [address] [place] [address], [facility] Eosinophils/100 WBC (Bld) 0.1 % Normal 0.0-6.0 The [facility] Comment on above: Order Comment: No: D o not add to previous draw Performed By: #### 5 0103 #### [facility] [address] [facility]. [address] Erythrocyte distribution width (RBC) [Ratio] 11.6 % Normal 11.5-15.0 The [facility] Comment on above: Order Comment: No: D o not add to previous draw Performed By: #### 5 0103 #### [facility] [address] [place] [address], [facility] Hematocrit (Bld) [Volume fraction] 32.4 % Low 36.0-45.0 The [facility] Comment on above: Order Comment: No: D o not add to previous draw Performed By: #### 5 0103 #### [facility] [address] [facility] [place] [place] [address], [facility] Hemoglobin (Bld) [Mass/Vol] 11.3 g/dL Low 12.0-15.0 The [facility] Comment on above: Order Comment: No: D o not add to previous draw Performed By: #### 5 0103 #### [facility] [address] [address], [facility] IMMATURE GRANS 0.4 % Normal 0.0-1.0 [facility] Comment on above: Order Comment: No: D o not add to previous draw Performed By: #### 5 0103 #### [facility] [address] [facility] [place] [place] [address], [facility] Lymphocytes (Bld) [#/Vol] 0.4 10*3/uL Low 1.2-4.0 The [facility] Comment on above: Order Comment: No: D o not add to previous draw Performed By: #### 5 0103 #### [facility] [address] [facility] [place] [place] [address], [facility] Lymphocytes/100 WBC (Bld) 3.9 % Low 20.0-45.0 The [facility] Comment on above: Order Comment: No: D o not add to previous draw Performed By: #### 5 0103 #### [facility] [address] [place] [address], [facility] MCH (RBC) [Entitic mass] 31.0 pg Normal 27.0-33.0 The [facility] Comment on above: Order Comment: No: D o not add to previous draw Performed By: #### 5 0103 #### [facility] [address] [place] [address], [facility] MCHC (RBC) [Mass/Vol] 34.9 g/dL Normal 32.0-35.0 The [facility] Comment on above: Order Comment: No: D o not add to previous draw Performed By: #### 5 0103 #### [facility] [address] [place] [address], [facility] MCV (RBC) [Entitic vol] 89.0 fL Normal 82.0-98.0 The [facility] Comment on above: Order Comment: No: D o not add to previous draw Performed By: #### 5 0103 #### [facility] [address] [place] [address], [facility] Monocytes (Bld) [#/Vol] 0.9 10*3/uL Normal 0.1-1.0 The [facility] Comment on above: Order Comment: No: D o not add to previous draw Performed By: #### 5 0103 #### [facility] [address] [place] [address], [facility] MONOS 8.2 % Normal 5.0-12.0 The [facility] Comment on above: Order Comment: No: D o not add to previous draw Performed By: #### 5 0103 #### [facility] [address] [place] [address], [facility] Neutrophils/100 WBC (Bld) 87.2 % High 40.0-72.0 The [facility] Comment on above: Order Comment: No: D o not add to previous draw Performed By: #### 5 0103 #### [facility] [address] [place] [address], [facility] Nucleated RBC/100 WBC (Bld) [Ratio] 0 % Normal 0-0 The [facility] Comment on above: Order Comment: No: D o not add to previous draw Performed By: #### 5 0103 #### [facility] [address] [facility] [place] [place] [address], [facility] PLAT CNT 174 10*3/uL Normal 150-400 The [place] Comment on above: Order Comment: No: D o not add to previous draw Performed By: #### 5 0103 #### [facility] [address] [place] [address], [facility] RBC (Bld) [#/Vol] 3.64 10*6/uL Low 3.80-5.00 The [facility] Comment on above: Order Comment: No: D o not add to previous draw Performed By: #### 5 0103 #### [facility] [address] [facility] [place] [place] [address], [facility] WBC (Bld) [#/Vol] 11.16 10*3/uL High 4.00-10.60 [facility] Comment on above: Order Comment: No: D o not add to previous draw Performed By: #### 5 0103 #### [facility] [address] CHEST AND LATERALon 07-02-19 CHEST AND LATERAL [facility] Department of Radiology [address] [place] [address] [phone] Patient Name: LEDA LUCERO : 1950 Sex: F Age: Race: White Pt. Location: [address] [place] [address] Patient Status: O Ordered Date: 07/01/2020 8:40:00 [...] pneumothorax. Electronically signed: Rossy Butts. Transcribed by: [email or web address], User Resident: Electronically Signed by: ROSSY BUTTS @ 07/01/2020 10:14 AM Normal The [facility] Comment on above: Order Comment: Check Pacemaker/AICD Lead Position CBC W/DIFFon 06-30-2020 ABS IMM GRANS 0.0 10*3/uL Normal 0.0-0.2 [facility] Comment on above: Order Comment: No: D o not add to previous draw Performed By: #### 5 0103 #### [facility] [address] [facility]. [address] ABS NEUTROPHILS 9.3 10*3/uL High 1.6-7.[address] [facility] Comment on above: Order Comment: No: D o not add to previous draw Performed By: #### 5 0103 #### [facility] [address] [place] [address], [facility] Basophils (Bld) [#/Vol] 0.0 10*3/uL Normal 0.0-0.2 The [facility] Comment on above: Order Comment: No: D o not add to previous draw Performed By: #### 5 0103 #### [facility] [address] [place] [address], [place] Basophils/100 WBC (Bld) 0.4 % Normal 0.0-1.0 The [facility] Comment on above: Order Comment: No: D o not add to previous draw Performed By: #### 5 0103 #### [facility] [address] [place] [address], [facility] Eosinophils (Bld) [#/Vol] 0.0 10*3/uL Normal 0.0-0.5 The [facility] Comment on above: Order Comment: No: D o not add to previous draw Performed By: #### 5 0103 #### [facility] [address] [place] [address], [facility] Eosinophils/100 WBC (Bld) 0.1 % Normal 0.0-6.0 The [facility] Comment on above: Order Comment: No: D o not add to previous draw Performed By: #### 5 0103 #### [facility] [address] [place] [address], [facility] Erythrocyte distribution width (RBC) [Ratio] 11.7 % Normal 11.5-15.0 The [facility] Comment on above: Order Comment: No: D o not add to previous draw Performed By: #### 5 0103 #### [facility] [address] [place] [address], [facility] Hematocrit (Bld) [Volume fraction] 34.8 % Low 36.0-45.0 The [facility] Comment on above: Order Comment: No: D o not add to previous draw Performed By: #### 5 0103 #### [facility] [address] [facility] [place] [place] [address], [facility] Hemoglobin (Bld) [Mass/Vol] 12.0 g/dL Normal 12.0-15.0 The [facility] Comment on above: Order Comment: No: D o not add to previous draw Performed By: #### 5 0103 #### [facility] [address] [place] [id number], [facility] IMMATURE GRANS 0.3 % Normal 0.0-1.0 The [facility] Comment on above: Order Comment: No: D o not add to previous draw Performed By: #### 5 0103 #### [facility] [address] [place] [address], [facility] Lymphocytes (Bld) [#/Vol] 0.5 10*3/uL Low 1.2-4.0 The [facility] Comment on above: Order Comment: No: D o not add to previous draw Performed By: #### 5 0103 #### [facility] [address] [place] [address], [facility] Lymphocytes/100 WBC (Bld) 4.3 % Low 20.0-45.0 The [facility] Comment on above: Order Comment: No: D o not add to previous draw Performed By: #### 5 0103 #### [facility] [address] [place] [address], [facility] MCH (RBC) [Entitic mass] 30.8 pg Normal 27.0-33.0 [facility] Comment on above: Order Comment: No: D o not add to previous draw Performed By: #### 5 0103 #### [facility] [address] [facility]. [place] [id number], [facility] MCHC (RBC) [Mass/Vol] 34.5 g/dL Normal 32.0-35.0 The [facility] Comment on above: Order Comment: No: D o not add to previous draw Performed By: #### 5 0103 #### [facility] [address] [place] [address], [facility] MCV (RBC) [Entitic vol] 89.5 fL Normal 82.0-98.0 [facility] Comment on above: Order Comment: No: D o not add to previous draw Performed By: #### 5 0103 #### [facility] [address] [place] [address], [facility] Monocytes (Bld) [#/Vol] 0.7 10*3/uL Normal 0.1-1.0 The [facility] Comment on above: Order Comment: No: D o not add to previous draw Performed By: #### 5 0103 #### [facility] [address] [place] [address], [facility] MONOS 6.8 % Normal 5.0-12.0 The [facility] Comment on above: Order Comment: No: D o not add to previous draw Performed By: #### 5 0103 #### [facility] [address] [facility] [place] [place] [address], [facility] Neutrophils/100 WBC (Bld) 88.1 % High 40.0-72.0 The [facility] Comment on above: Order Comment: No: D o not add to previous draw Performed By: #### 5 0103 #### [facility] [address] [place] [address], [facility] Nucleated RBC/100 WBC (Bld) [Ratio] 0 % Normal 0-0 The [facility] Comment on above: Order Comment: No: D o not add to previous draw Performed By: #### 5 0103 #### [facility] [address] [place] [address], [facility] PLAT CNT 179 10*3/uL Normal 150-400 [facility] Comment on above: Order Comment: No: D o not add to previous draw Performed By: #### 5 0103 #### [facility] [address] [place] [address], [facility] RBC (Bld) [#/Vol] 3.89 10*6/uL Normal 3.80-5.00 The [facility] Comment on above: Order Comment: No: D o not add to previous draw Performed By: #### 5 0103 #### [facility] [address] [place], [place] [id number] [place] [address] WBC (Bld) [#/Vol] 10.57 10*3/uL Normal 4.00-10.60 The [facility] Comment on above: Order Comment: No: D o not add to previous draw Performed By: #### 5 0103 #### [facility] [address] [place], [place] [id number] [place] [address] Cardiovascular Lab Reporton 06-30-2020 Cardiovascular Lab Report [facility] Patient Name: Leda Lucero [facility] MR #: [id number] Physician: Amador Rodriguez MD Department of Service Date: 06/30/2020 Medicine Birthdate: 1950 Division of Room #: CC Cardiology Adult Cardiovascular Services [facility] [address] [place] [address] Cardiovascular Laboratory Report PACEMAKER GENERATOR CHANGE POCKET REVISION PROCEDURE NOTE DATE OF PROCEDURE: 06/30/2020 PERFORMING PHYSICIAN: Dr. Amador Rodriguez CONSENT: Patient LOCATION: EP Lab PROCEDURE PERFORMED: 1. Implant of new VISION REHABILITATION THERAPIST-D generator (Moseley/St Jorge). 2. Explant of VISION REHABILITATION THERAPIST-D generator (Moseley/ St Jorge). 3. Pocket Revision to sub muscular implant. INDICATIONS: 1. S/p VISION REHABILITATION THERAPIST-D with underlying chronic AF and RVR. 2. Device at EOL PROCEDURAL SEDATION: Versed and Fentanyl. Moderate sedation was administered by the sedation nurse under my supervision and noted in the CVL log. Intraprocedural face to face sedation time: 83min. Monitoring: Cardiac telemetry, Blood pressure, continuous pulse oxymetry. FLUROSCOPY: 31s/ 1mGray PREPARATION: 69-year-old lady with a history of cardiomyopathy with a VISION REHABILITATION THERAPIST-D [employer] Jorge device, has come in for [...] attached to a new Moseley/ [employer] Jorge VISION REHABILITATION THERAPIST-D generator and the leads tug tested. Pocket [...] device as noted below. St. [employer] Moseley Phoenix CRTD A500Q model, serial #[id number]. The atrial lead is Moseley Tendril STS 2088TC 46 cm, serial number [id number], implanted on July 14, 2012. Atrial sensing is 1.9 mV, capture was 1.25 V at 0.4 milliseconds. Impedance was 480 ohms. The RV ICD lead is a Durata 7122Q 58 cm lead, serial number is [id number], implanted on July 14, 2012. The RV sensing is at a greater than 12 mV with RV threshold of 0.875 at 4.5 millisecond, impedance of 530 ohms. The LV lead is Moseley quartet 1458Q 86 cm lead, serial number [id number], implanted on july 14, 2012. Lead threshold was 1.125 V at 0.4 millisecond with the impedance of 1150 ohms. The various thresholds were checked and was noted the LV 1-2 had Device info: [employer]. Jorge Moseley Phoenix CRTD A500Q model Serial #[id number] RAlead: Implanted on 07/14/2012 Moseley Tendril STS 2088TC-46 cms Serial # [id number] Sensin.9mV Threshold: 1.25V @ 0.4ms Impedance: 480 Ohms RV ICD lead: Implanted on 07/14/2012 Moseley Durata 7122Q-58 cms lead Serial# [id number] Sensing: >12 mV Threshold: 0.875 @ 0.5 millisecond Impedance: 530 Ohms LV lead: Implanted on 07/14/2012 Moseley quartet 1458Q-86 cms, Serial# [id number] Threshold: 1.125 V @ 0.4 ms Impedance: [...] milliseco (more content not included)... Normal [facility] Consent Formson 01-20-2020 Consent Forms [id number] [facility] and Physical[facility] 01-19 History and Physical [id number] .00OTGTIFF [facility] Coding Summaryon 01-15-2020 Coding Summary CODING DATE: 01/15/2020 [facility] STATUS: Home PAYOR: Medicare MC [...] Michelle Uribe Date Saved: 01/15/2020 12:41 pm [facility] Coding Summaryon 01-13-2020 Coding Summary CODING DATE: 01/13/2020 [facility] STATUS: Home PAYOR: Medicare MC APC DESCRIPTION 5114 Level 4 Musculoskeletal Procedures ADMIT DX: REASON FOR VISIT DX: M24.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, left shoulder FINAL DX: PRINCIPAL: M19.012 Primary osteoarthritis, left shoulder SECONDARY: M25.812 Other specified joint disorders, left shoulder PYMT PROC APC STAT DESCRIPTION DOCTOR NAME DATE 44440 Arthroscopy, shoulder, Jose Mcgraw And 01/11/2020 surgical; distal claviculectomy including distal articular surface (Nicole procedure) LT Left side (used to identify procedures performed on the left side of the body) 95209 Arthroscopy, shoulder, Jose Mcgraw And 01/11/2020 surgical; debridement, limited LT Left side (used to identify procedures performed on the left side of the body) 00909 Injection(s), anesthetic Jose Mcgraw And 01/11/2020 agent(s) [...] Mejia Revised Date Saved: 01/13/2020 07:44 am [facility] Consent Formson 01-12-2020 Consent Forms [id number] .00OTGTIFF [facility] Discharge Instructionson Discharge Instructions [id number] .00OTGTIFF [facility] Medication Managementon 12-26 Medication Management [id number] .00[facility] Outside Recordson 01-12-2020 Outside Records [id number] .00[facility] Telemetry Stripson 0 Telemetry Strips [id number] .[facility] Anest[facility] Noteon 01-11-2020 Anesthesia Note Patient: [...] disease) case management patient / SNOMED CT 212814706 / Confirmed CHF (congestive heart failure) / SNOMED CT 50599371 / Confirmed Myopathy / SNOMED CT 633902042 / Confirmed Ventricular dysfunction / SNOMED CT 268874285 / Confirmed Histories Family History: No family history items have been selected or recorded. Procedure history: Anesthesia for transvenous insertion or replacement of pacing cardioverter-defibril lator (04659) on 07/14/2012 at 61 Years. Cardiac pacemaker (72586995). Comments: 12/30/2019 13:18 Veronique Membreno RN 2013 Carpal tunnel release (718886446). Tonsillectomy (531657166). Comments: 12/30/2019 13:23 Veronique Membreno RN 1949's Biopsy of breast (866136797). Comments: 12/30/2019 13:24 Veronique Membreno RN X3 Social History Electronic Cigarette/Vaping Assessment Electronic Cigarette Use: Never. Alcohol Assessment Use: Current. Wine, 1-2 times per week Tobacco Assessment Former smoker, quit more than 30 days ago Tobacco Use:. 30 years ago 1 pk/week per day. Substance Abuse Assessment Substance use: Never. 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 Home/Environment Assessment Lives with Spouse. Home equipment: CPAP/BiPAP. . 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 Temporomandibular joint mobility: Good. Mouth: Adequate opening, Teeth ( Within normal limits ). Neck: Full range of motion. Respiratory: Lungs are clear to auscultation. Cardiovascular: Regular rhythm. Neurologic: Alert, Oriented. Review / Management Laboratory Results Plan [place] [employer]esthesiologists#( A) physical status classification: [...] on: 01/11/2020 10:45 EST] Yanick Edward MD [facility] Coding Summaryon 01-11-2020 Coding Summary CODING DATE: 01/11/2020 FINAL [facility] STATUS: Home PAYOR: Medicare ADMIT DX: REASON FOR VISIT DX: Z01.812 [...] Michelle Uribe Date Saved: 01/11/2020 02:18 pm Normal [facility] Inpatient Patient Summaryon 01-11-2020 [place] [address] Patient Discharge Instructions Name: LEDA LUCERO : 1950 Patient Address: [address] [place] [address] Primary Care Provider: Name: ANGEL STEWART After you are discharged if you find you have any questions, please, call [phone] ext [phone] to speak to a nurse. Discharge Diagnosis: [...] contact the Mental Health & Recovery Board [facility] 17/09 Crisis Hotline -Text 4HPIQ dr 189094. If you received any narcotics, sedation, or [...] business decisions or sign any legal documents [facility] would like to thank you for allowing us to assist you with your healthcare needs. The following includes patient education materials and information regarding your injury/illness. LEDA LUCERO has been given the following list of follow-up instructions, prescriptions, and patient education materials: Follow-up Instructions With: Address: When: CECY CALIX [address], [address] [place] [address] Business (1) 01/20/2020 8:30 AM With: Address: When: ANGEL TERRY [address] [place], [place] [id number] Business (1) Medications During the course of [...] or concerns, please call the office at [phone] -Follow up as scheduled Viruses or Bacteria [...] for Disease Control and Prevention October 2013 [facility] MAGR Intraoperative Recordon 01-11-2020 MAGR Intraoperative Record MAGR Intra-Op Record Summary Primary Physician: Jose Mcgraw DO Finalized Date/Time: 01/11/20 13:13:05 Pt. Name: LEDA LUCERO/Sex: 1950 FEMALE Med Rec #: [id number] Physician: Jose Mcgraw DO Financial #: [id number] Pt. Type: D Room/Bed: / Admit/Disch: 01/11/20 [...] Role Performed Surgeon - Primary Anesthesiologist of Property Custodian Record Time In 01/11/20 09:47:00 01/11/20 09:47:00 01/11/20 09:47:00 Time Out 01/11/20 11:18:00 01/11/20 11:18:00 01/11/20 11:18:00 Procedure Arthroscopy Arthroscopy Arthroscopy Shoulder(Left, Shoulder) Shoulder(Left, Shoulder) Shoulder(Left, Shoulder) Last Modified By: Michelle Sanabria RN, RN, Michelle Abel RN 01/11/20 11:35:12 01/11/20 11:35:12 01/11/20 11:35:12 Entry 4 Entry 5 Case Attendee Cathryn BARREL LATHE OPERATOR INSIDE, Mackenzie Fernandes CST, Maru Role Performed Scrub Personnel Geropsychologist Time In 01/11/20 09:47:00 01/11/20 09:47:00 Time Out 01/11/20 11:18:00 01/11/20 11:18:00 Procedure Arthroscopy Arthroscopy Shoulder(Left, Shoulder) Shoulder(Left, Shoulder) Last Modified By: Daniele SWANSON, Michelle Abel RN 01/11/20 11:35:12 01/11/20 11:35:12 Surgical Procedures MAGR Pre-Care Text: A.20 Verifies operative procedure, surgical site, and laterality Im.150 Develops individualized plan of care Entry 1 Procedure Arthroscopy Shoulder Primary Procedure Yes Primary Surgeon Jose Mcgraw Left, Shoulder Skyler RIVERS Surgeon Comment LEFT SHOULDER Start 01/11/20 10:18:00 [...] Sanabria RN, the Initial Count Performed By Cathryn CABALLERO, Mackenzie Initial Count Time 01/11/20 09:30:00 Counts Verification Final Counts Items Included in Sponges, Sharps Final Count Method Manual Final Count Final Count Status Correct Final Counts Michelle Sanabria RN, Performed By [employer]ius[employer], Mackenzie Final Count Time 01/11/20 11:00:00 Surgeon notified [...] BLANKET LOWER BODY OR bilateral Serial ?# [id number] Equipment Setting per factory settings 43 deg [...] Unfinalizing 01/11/20 13:12 RIYA Barry Documentation Normal [facility] MAGR Intraoperative Record MAGR Intra-Op Record Summary Primary Physician: Finalized Date/Time: 01/11/20 09:50:05 Pt. Name: LEDA LUCERO/Sex: 1950 FEMALE Med Rec #: [id number] Physician: Jose Mcgraw DO Financial #: [id number] Pt. Type: D Room/Bed: / Admit/Disch: 01/11/20 [...] 2 Entry 3 Case Attendee Yanick Edward MD RN, Michelle Kaminski RN, Veronique Role Performed Anesthesiologist of Property Custodian Property Custodian Record Time In 01/11/20 09:18:00 01/11/20 09:18:00 [...] By: Veronique Kaminski RN 01/11/20 09:50 Normal [facility] MAGR PACU Recordon 0 MAGR PACU Record MAGR PACU Record Summary Primary Physician: Jose Mcgraw DO Finalized Date/Time: 01/11/20 12:14:58 Pt. Name: LEDA LUCERO/Sex: 1950 FEMALE Med Rec #: [id number] Physician: Jose Mcgraw DO Financial #: [id number] Pt. Type: D Room/Bed: / Admit/Disch: 01/11/20 07:00:00 - Institution: PACU Case Times MAGR Entry 1 In PACU I 01/11/20 11:17:00 Discharge from PACU 01/11/20 12:13:00 I Last Modified By: Naheed Ortega RN 01/11/20 12:12:54 Finalized By: Naheed Ortega RN Document Signatures Signed By: Naheed Ortega RN 01/11/20 12:14 Normal [facility] MAGR Postoperative Recordon 01-11-2020 MAGR Postoperative Record MAGR Phase II Record Summary Primary Physician: Jose Mcgraw DO Finalized Date/Time: 01/11/20 13:34:54 Pt. Name: LEDA LUCERO/Sex: 1950 FEMALE Med Rec #: [id number] Physician: Jose Mcgraw DO Financial #: [id number] Pt. Type: D Room/Bed: / Admit/Disch: 01/11/20 [...] Signed By: Veronique Kaminski RN 01/11/20 13:34 [facility] 03-12-2019 MAGR Preoperative Record MAGR Pre-Op Record Summary Primary Physician: Jose Mcgraw DO Finalized Date/Time: 01/11/20 09:56:53 Pt. Name: LEDA LUCERO Isidro Conley./Sex: 1950 FEMALE Med Rec #: [id number] Physician: Jose Mcgraw DO Financial #: [id number] Pt. Type: D Room/Bed: / Admit/Disch: 01/11/20 [...] Unfinalizing Freetext Reason for Unfinalizing 01/11/20 09:55 MHHREED Finish Documentation Normal [facility] Operative Report - Surgeon/P feliz 01-11-2020 Operative [...] on: 01/11/2020 11:11 EST] Jose Mcgraw DO [facility] Patient Handouton 01-11-[address] [...] or concerns, please call the office at [phone] -Follow up as scheduled Normal [facility] 2019 Novel Coronavirus (CoVI D-19), REGGIE LCon 01-08-2020 SARS-CoV-2, REGGIE (COVID-19) LC Not Detected Not Detected [facility] Comment on above: Order Comment: [phone] Result Comment: This nucleic acid amplification test was developed and its performance characteristics determined by [facility]. Nucleic acid amplification tests include PCR and [...] detected) result in this assay. Performed At: [facility] [address] [facility], [place] [id number] Solitario Matihs MD Ph:[phone] Performed By: #### 6 [id number] ####[facility] (DEFAULT)[address] [place] [address] Progress Note - Nurseon 12-26 TSH Qn Spoke with pt and informed her to be here at 7am and NPO after MN, pt was also informed that she can not have any visitor or family with her at this point. Pt verbalizes understanding. [Electronically Signed on: 01/08/2020 12:36 EST] Leora Lemus RN [Verified on: 01/08/2020 12:36 EST] Leora Lemus RN [facility] Progress Note - Nurseon 11- Progress Note - Nurse Nasal swab performed without complication. Patient tolerated well. Education given. Patient verbalized understanding. [Electronically Signed on: 01/07/2020 14:54 EST] Alisha Vidales RN [Verified on: 01/07/2020 14:54 EST] Alisha Vidales RN [facility] Progress Note - Nurseon 11-0 Progress Note - Nurse Dr. Gonzalez reviewed chart and no new orders received. [Electronically Signed on: 12/31/2019 10:53 EST] Cha Calloway RN [Verified on: 12/31/2019 10:53 EST] Cha Calloway RN Will need pacemaker rep here day of surgery. Alisha shah. [Electronically Signed on: 12/31/2019 10:54 EST] Brodie SWANSONCha A Normal [facility] .Auto Diff 1on 12-30-2019 Auto [place] % 10 % Normal 1-12 [facility] Comment on above: Performed By: #### 7 [id number], [id number] ####[facility] (DEFAULT)[address] [place] [address] Baso Abs# 0.0 x10 Normal 0.0-0.2 [facility] Comment on above: Performed By: #### 7 [id number], [id number] ####[facility] (DEFAULT)[address] [place] [address] Basophils/100 WBC (Bld) 0.7 % Normal 0.2-2.0 [facility] Comment on above: Performed By: #### 7 [id number], [id number] ####[facility] (DEFAULT)[address] [place] [address] Eos Abs# 0.1 x10 Normal 0.0-0.4 [facility] Comment on above: Performed By: #### 7 [id number], [id number] ####[facility] (DEFAULT)[address] [place] [address] Eosinophils/100 WBC (Bld) 1.7 % Normal 0.9-4.0 [facility] Comment on above: Performed By: #### 7 [id number], [id number] ####[facility] (DEFAULT)[address] [place] [address] Lymphocytes (Bld) [#/Vol] 0.9 x10 Low 1.3-2.9 [facility] Comment on above: Performed By: #### 7 [id number], [id number] ####[facility] (DEFAULT)[address] [place] [address] Lymphocytes/100 WBC (Bld) 18 % Normal 14-48 [facility] Comment on above: Performed By: #### 7 [id number], [id number] ####[facility] (DEFAULT)[address] [place] [address] [place] Abs# 0.5 x10 Normal 0.0-0.8 [facility] Comment on above: Performed By: #### 7 [id number], [id number] ####[facility] (DEFAULT)[address] [place] [address] 95023 Neut Abs# 3.8 x10 Normal 1.5-9.2 [facility] Comment on above: Performed By: #### 7 [id number], [id number] ####[facility] (DEFAULT)[address] [place] [address] Neutrophils/100 WBC (Bld) 70 % Normal 44-88 [facility] Comment on above: Performed By: #### 7 [id number], [id number] ####[facility] (DEFAULT)[address] [place] [address] BMP Standardon 12-30-2019 eGFR Non AA >60 [facility] Comment on above: Performed By: #### 1 [id number] ####[facility] (DEFAULT)[address] [place] [address] eGFR AA >60 [facility] Comment on above: Result Comment: [employer] Machine Tender freddy Kidney disease could be indicated at eGFRs of less than 60 ml/min/1.73m2. Kidney Failure is indicated at less than 15 ml/min/1.73m2 Performed By: #### 1 [id number] ####[facility] (DEFAULT)[address] [place] [address] 67600 Anion gap [Moles/Vol] 13.0 mmol/L Normal 5.0-19.0 [facility] Comment on above: Performed By: #### 1 [id number] ####[facility] (DEFAULT)[address] [place] [address] 38035 Calcium [Mass/Vol] 9.3 mg/dL Normal 8.9-10.3 [facility] Comment on above: Performed By: #### 1 [id number] ####[facility] (DEFAULT)[address] [place] [address] 22090 Chloride [Moles/Vol] 100 mmol/L Low 101-111 [facility] Comment on above: Performed By: #### 1 [id number] ####[facility] (DEFAULT)[address] [place] [address] 35366 CO2 [Moles/Vol] 28 mmol/L Normal 21-32 [facility] Comment on above: Performed By: #### 1 [id number] ####[facility] (DEFAULT)[address] [place] [address] 87894 Creatinine [Mass/Vol] 0.69 mg/dL Normal 0.60-1.30 [facility] Comment on above: Performed By: #### 1 [id number] ####[facility] (DEFAULT)[address] [place] [address] 30422 Glucose [Mass/Vol] 87.0 mg/dL Normal 74.0-118.0 [facility] Comment on above: Performed By: #### 1 [id number] ####[facility] (DEFAULT)[address] [place] [address] 15975 Osmolality [Osmolality] 277 mOsm/L [facility] Comment on above: Performed By: #### 1 [id number] ####[facility] (DEFAULT)[address] [place] [address] 44404 Potassium [Moles/Vol] 3.9 mmol/L Normal 3.6-5.1 [facility] Comment on above: Performed By: #### 1 [id number] ####[facility] (DEFAULT)[address] [place] [address] 22247 Sodium [Moles/Vol] 137.0 mmol/L Normal 136.0-144.0 [facility] Comment on above: Performed By: #### 1 [id number] ####[facility] (DEFAULT)[address] [place] [address] 36942 Urea nitrogen [Mass/Vol] 23 mg/dL Normal 8-26 [facility] Comment on above: Performed By: #### 1 [id number] ####[facility] (DEFAULT)[address] [place] [address] 85353 Urea nitrogen/Creatinine [Mass ratio] 33.0 mg/mg High 4.6-16.2 [facility] Comment on above: Performed By: #### 1 [id number] ####[facility] (DEFAULT)[address] [place] [address] CBC w/ Auto Diffon 0 Erythrocyte distribution width (RBC) [Ratio] 12.0 % Normal 11.5-15.0 [facility] Comment on above: Performed By: #### 7 [id number], [id number] ####[facility] (DEFAULT)[address] [place] [address] Hematocrit (Bld) [Volume fraction] 39.2 % Normal 33.7-40.4 [facility] Comment on above: Performed By: #### 7 [id number], [id number] ####[facility] (DEFAULT)[address] [place] [address] Hemoglobin (Bld) [Mass/Vol] 13.4 g/dL Normal 11.3-15.9 [facility] Comment on above: Performed By: #### 7 [id number], [id number] ####[facility] (DEFAULT)[address] [place] [address] Man Diff? Auto Normal [facility] Comment on above: Performed By: #### 7 [id number], [id number] ####[facility] (DEFAULT)[address] [place] [address] 75855 MCH (RBC) [Entitic mass] 31 pg Normal 24-34 [facility] Comment on above: Performed By: #### 7 [id number], [id number] ####[facility] (DEFAULT)[address] [place] [address] 02760 MCHC (RBC) [Mass/Vol] 34 g/dL Normal 26-37 [facility] Comment on above: Performed By: #### 7 [id number], [id number] ####[facility] (DEFAULT)[address] [place] [address] 41239 MCV (RBC) [Entitic vol] 90 fL Normal 81-100 [facility] Comment on above: Performed By: #### 7 [id number], [id number] ####[facility] (DEFAULT)[address] [place] [address] 12238 Platelet mean volume (Bld) [Entitic vol] 9.6 fL Normal 6.3-10.2 [facility] Comment on above: Performed By: #### 7 [id number], [id number] ####[facility] (DEFAULT)[address] [place] [address] 77962 Platelets (Bld) [#/Vol] 220 x10 Normal 138-427 [facility] Comment on above: Performed By: #### 7 [id number], [id number] ####[facility] (DEFAULT)[address] [place] [address] 48864 RBC (Bld) [#/Vol] 4.36 x10 Normal 3.70-5.30 [facility] Comment on above: Performed By: #### 7 [id number], [id number] ####[facility] (DEFAULT)[address] [place] [address] 49049 WBC (Bld) [#/Vol] 5.4 x10 Normal 3.5-10.5 [facility] Comment on above: Performed By: #### 7 [id number], [id number] ####[facility] (DEFAULT)[address] [place] [address] 06169 Vital Signs Date Time Vital Sign Value Performing Clinician Facility 05-16-2022 15:30-0400 Body height 170.18 cm Theron Morales Other [facility] Other 05-16-2022 15:30-0400 Body mass index (BMI) [Ratio] 21.61 kg/m2 Theron Morales Other [facility] Other 05-16-2022 15:30-0400 Body temperature 97.3 [degF] Theron Morales Other [facility] Other 05-16-2022 15:30-0400 Body weight 62.6 kg Theron Morales Other [facility] Other 05-16-2022 15:30-0400 Diastolic blood pressure 62 mm[Hg] Theron Morales Other [facility] Other 05-16-2022 15:30-0400 Systolic blood pressure 117 mm[Hg] Theron Morales Other [facility] Other Encounters Encounter Date Encounter Type Care Provider Facility Start: 09-10-2023 End: 09-10-2023 ambulatory [facility] Start: 08-16-2023 Encounter for preprocedural cardiovascular examination [facility] Start: 08-16-2023 ambulatory JOEY MANNUBB [facility] Start: 07-05-2023 End: 07-05-2023 ambulatory ANGEL STEELEERENga Not Available Start: 07-01-2023 End: 07-01-2023 ambulatory CECY Mondragon APLING Not Available Start: 06-26-2023 End: 06-26-2023 ambulatory CECY Mondragon APLING Not Available Start: 05-21-2023 End: 05-21-2023 ambulatory [facility] Start: 03-14-2023 End: 03-14-2023 ambulatory [facility] Start: 12-21-2022 End: 12-21-2022 ambulatory [facility] Start: 10-30-2022 End: 10-30-2022 ambulatory [facility] Start: 05-24-2022 End: 05-25-2022 ambulatory CHARLES SAMSA . Facility:[facility] Start: 05-16-2022 End: 05-16-2022 ambulatory Theron Morales Other [facility] Other Start: 05-16-2022 Office outpatient ne w 45 minutes Theron Morales [facility] Start: 04-03-2022 End: 04-03-2022 ambulatory CHARLES SAMSA . Facility:[facility] Start: 04-02-2022 End: 04-03-2022 ambulatory CHARLES SAMSA . Facility:[facility] Start: 03-14-2022 End: 03-15-2022 ambulatory ALEXEY PALOMINOI Facility:[facility] Start: 10-03-2021 End: 10-03-2021 ambulatory CHARLES SAMSA . Facility:[facility] Start: 10-02-2021 End: 10-03-2021 ambulatory CHARLES TAN . Facility:[facility] Start: 09-27-2021 End: 09-27-2021 ambulatory OSMEL GARCIA Facility:[facility] Start: 09-04-2021 End: 09-05-[address] ANGEL STEWART Facility:[facility] Start: 06-06-2021 End: 06-07-[address] ANGEL STEWART Facility:[facility] Start: 06-05-2021 End: 06-05-2021 ambulatory BLESSING NANCY . Facility:[facility] Start: 06-30-2020 End: 07-01-2020 ambulatory AMADOR RODRIGUEZ Facility:[facility] Payers Date Payer Category Payer Medicare [id number] 2. [id number] 1950 Unknown [id number] 2.16.8 [id number] 1950 Unknown [id number] 2.16.84 0.1.997579.3.579.2.593 1950 Unknown [id number] 2.16.84 0.1.056287.3.579.2.593 1950 Unknown [id number] 2.16.84 0.1.062376.3.579.2.593 1950 Unknown [id number] 2.16.84 0.1.053991.3.579.2.593 1950 Unknown [id number] 2.16.84 0.1.333377.3.579.2.593 1950 Unknown [id number] 2.16.84 0.1.398745.3.579.2.593 1950 Unknown [id number] 2.16.84 0.1.996423.3.579.2.593 1950 Unknown [id number] 2.16.84 0.1.265282.3.579.2.593 1950 Unknown [id number] 2.16.84 0.1.145580.3.579.2.593 1950 Unknown [id number] 2.16.84 0.1.542679.3.579.2.593 1950 Unknown [id number] 2.16.84 0.1.704726.3.579.2.1259 1950 Unknown [id number] 2.16.84 0.1.493966.3.579.2.1259 1950 Unknown [id number] 2.16.84 0.1.561955.3.579.2.1259 Private Health Insurance MEB [id number] Social History Date Type Detail Facility Unknown if ever smoked [facility] Other Sex Assigned At Sex Assigned At Bir th [facility] Other Progress note 09-10-2023 Note Date & Type Note Facility 09-10-2023 Note [facility] Reason for visit: Follow up. 09/09/22 Patient here for 6 mo follow up chronic systolic heart failure, HEIN, and NICM. Her device was interrogated in April 2023. She is doing very well. Denies chest pain, SOB, palpitations, and lightheadedness/syncope. Patient has been experiencing cough and had previously seen pulmonary physician who had performed PFT and bronchoscopy and repeat the cultures which did not yield any clear etiology subsequently she was seen by Dr. ZARAGOZA who had ordered an echocardiogram and a right heart cath. I do not see reports of this. last echocardiogram was in February 2022. Showed EF of 45%. she is currently on Lasix 20 once daily Cozaar 25mg once daily, Toprol-XL 25 once daily and Aldactone 12.5 once daily. 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 She does have COPD and was seen by her impregnator operator and she has been dealing with [...] of device checks have available to me [id number]: At least 3 for age, gender, CHF [...] of CHF NYHA III who has Biv VISION REHABILITATION THERAPIST-D in place for severely reduced EF in [...] was initiated by the patient and conducted gan-kkhe-ur-face with use of audio-only real time telephone [...] April 09, 2021 shows a [place] VISION REHABILITATION THERAPIST-D that underwent generator change on June 30, [...] she had her device. Denies any CP, (more content not included)... [facility] Progress note 03-14-2023 Note Date & Type Note Facility 03-14-2023 Note [facility] Subjective Leda Lucero is a 72 y.o. [...] cardiomyopathy, chronic systolic heart failure, status post VISION REHABILITATION THERAPIST D placement with improvement in ejection fraction [...] Disp: , Rf (more content not included)... [facility] Progress note 12-21-2022 Note Date & Type Note Facility 12-21-2022 Note Review of Systems Cardiovascular: Positive for dyspnea on exertion. Negative for irregular heartbeat. Inhaled bleach and has sob [facility] Progress note 12-21-2022 Note Date & Type Note Facility 12-21-2022 Note 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 She does have COPD and was seen by her impregnator operator and she has been dealing with [...] of device checks have available to me [id number]: At least 3 for age, gender, CHF [...] of CHF NYHA III who has Biv VISION REHABILITATION THERAPIST-D in place for severely reduced EF in [...] was initiated by the patient and conducted ltv-fdpz-mc-face with use of audio-only real time telephone [...] April 09, 2021 shows a [place] VISION REHABILITATION THERAPIST-D that underwent generator change on June 30, [...] Mild mitral regurgi (more content not included)... [facility] Evaluation note 05-16-2022 Note Date & [...] no CT scan available. Discussed with her impregnator operator that CT scan of the chest may be helpful at least to further evaluate her lung parenchyma given the lack of progression over the length of time the sputum cultures have been collected I do not think there is a significant Aspergillus infection that warrants treatment. Of note back in 2011 she did get 30 days of voriconazole by her older impregnator operator from [place]. Each time she has been sick in [...] to her repeated colonization. Discussed with her impregnator operator that a CT scan may be of some benefit. She is to monitor her clinical symptoms for any type of worsening and if change in sputum character does occur especially with bloody colored sputum or to arise she is to notify me. [facility] Other Clinical Note 09-27-2021 Note Date & [...] by: AMBROSIO DUVALL Date: 2021-09-27 09:45 [facility] Clinical Note 09-27-2021 Note Date & Type [...] by: AMBROSIO DUVALL Date: 2021-09-27 09:45 [facility] Discharge summary note 07-02-2020 Note Date & Type Note Facility 07-02-2020 Note MR#: [id number] [facility] Pt. Name: Leda Lucero Admitted: 06/30/2020 Discharged: 07/01/2020 Date of : 1950 Physician: Amador Rodriguez MD DISCHARGE SUMMARY COURSE OF HOSPITALIZATION: The patient is a 69-year-old female who presented to [facility] yesterday for elective Bi-V ICD [...] generator exchange. She had [facility] [employer] [place] CRTD A500Q model, serial #[id number] was implanted and connected to already existing [...] in good condition. She has followup in [facility] for wound check on July 08 at 01:20 p.m. with Aysha Nair CNP. Then in one month on August 09 at 11 a.m. for pacemaker device, interrogation was [facility] at [facility] and she is to follow [...] from me. Date Dict: 07/01/2020/11:26 A/DELILAH Santiago, MODEL BUILDER-C Date Trans: 07/02/2020 09:40 A/nixon [id number] cc: Amador Rodriguez MD Dept Of Cardiology [address] [facility] [address] Angel Stewart M.D. [facility] [place] [address] [facility] History general Narrative - Reported Note Date & Type Note Facility History general Narrative - Reported Type Medical History osteopenia Medical History insomnia Medical History depression Medical History migraines Medical History cardiomyopathy Medical History copd Medical History adama Medical History dyslipidemia Medical History [employer] Other Summary Purpose Family History No Family History Records FoundNo Family History Records FoundNo Family History Records FoundNo Family History Records FoundNo Family History Records Found Advance Directives No Advanced Directives Records FoundNo Advanced Directives Records FoundNo Advanced Directives Records FoundNo Advanced Directives Records FoundNo Advanced Directives Records Found Hospital Course Note [facility] SURGERY Clinical Discharge Summary PERSON INFORMATION Name LEDA LUCERO Age 69 Years 1950 Sex FEMALE Language Georgian PCP ANGEL STEWART Marital Status Med Service Ambulatory Surgery Acct# Arrival 01/11/2020 07:00:00 Visit Reason SURGERY-LEFT SHOULDER ARTHROSCOPY Acuity LOS 017 05:53 Address: [address] [place] [address] Comment: PROVIDER INFORMATION VITALS INFORMATION Vital Sign [...] not included)... Note Patient: LEDA LUCERO MRN: [id number]-- Age: 69 years Sex: FEMALE : 1950 Associated Diagnoses: None Author: Yanick Edward MD Postoperative Information Post Operative Note: Operative Day. Anesthetic utilized: General. Health Status Allergies: Allergic Reactions (All) Severe Cogentin- Hallucinations. Moderate Phenothiazine- Nausea. Problem list (past medical history): All Problems COPD (chronic obstructive pulmonary disease) case management patient / SNOMED CT 102497817 / Confirmed CHF (congestive heart failure) / SNOMED CT 62546866 / Confirmed Myopathy / SNOMED CT 322388136 / Confirmed Ventricular dysfunction / SNOMED CT 427398249 / Confirmed Physical Examination VS/Measurements Vital Signs (last 24 hrs) Last Charted Heart Rate Peripheral 70 bpm (NOV 16 09:45) Resp Rate 16 br/min (JAN 10:) [...] disease) case management patient / SNOMED CT 163151276 / Confirmed CHF (congestive heart failure) / SNOMED CT 84561954 / Confirmed Myopathy / SNOMED CT 073235193 / Confirmed Ventricular dysfunction / SNOMED CT 045535868 / Confirmed Physical Examination VS/Measurements Vital Signs [...] section and content) DATE CREATED AUTHOR 01/20/2020 [facility] DATE CREATED AUTHOR AUTHOR'S ORGANIZ ATION 06/10/2021 [facility] DATE CREATED AUTHOR AUTHOR'S ORGANIZ ATION [facility]/01/2022 [facility] DATE CREATED AUTHOR AUTHOR'S ORGANIZ ATION 07/07/2023 [facility] DATE CREATED AUTHOR AUTHOR'S ORGANIZ ATION 09/13/2023 [facility] FOR RECORDS PERTAINING TO PATIENTS WHO [...] BE BASED ON THE PRIMARY CLINICAL RECORDS. [employer] [facility]. provides no warranty or guarantee of the accuracy or completeness of information in this document.
== END 2023-10-03 08:57 | disposition home or self-care (01) ==
PROVIDERS: PCP Family Medicine; Visit Provider Internal Medicine Cardiovascular Disease
DX: I42.8 Other cardiomyopathies (principal); I50.21 Acute systolic (congestive) heart failure
CPT/HCPCS: 93306; 93356

== ENCOUNTER 2024-01-31 09:33 | Outpatient (OUT) | payer MEDICARE, SELFPAY ==
--- NOTE | 2024-01-31 09:37 | MM_ITS ---
Patient Name: LEDA MEJIA MR#: [id number] : 1950 Exam Date: 01/31/2024 Ordering Doctor: DR Angel Griggs . RADIOLOGY REPORT PROCEDURE: MM TOMOSYNTHESIS SCREENING BI COMPARISON: MM TOMOSYNTHESIS SCREENING BI, 01/01/2023. MG MAMM SCREEN FABBY W CAD, 02/10/2019. MG MAMM SCREEN FABBY W CAD, 02/06/2018. MG MAMM FABBY SCRN W CAD DIG, 09/23/2012. INDICATIONS: Screening Calculator Name NCI Breast Cancer Risk Assessment Tool 5 Year Breast Cancer Risk 3.20% Lifetime Breast Cancer Risk 8.30% Personal Breast Cancer No Personal Ovarian Cancer No Treatments None Family Cancers None LOCATION: [facility] BREAST COMPOSITION: The breasts are heterogeneously dense,which may obscure small masses. FINDINGS: DIAGNOSTIC CATEGORY 2--BENIGN FINDING: RIGHT BREAST: No significant suspicious finding. Skin surface scar markers and stable surgical changes. No significant change has occurred. LEFT BREAST: No significant suspicious finding. No significant change has occurred. RECOMMENDATIONS: ROUTINE MAMMOGRAM AND CLINICAL EVALUATION IN 12 MONTHS. PLEASE NOTE: A NORMAL MAMMOGRAM DOES NOT EXCLUDE THE POSSIBILITY OF BREAST CANCER. A CLINICALLY SUSPICIOUS PALPABLE LUMP SHOULD BE BIOPSIED. Dictated by: Abdirashid Mai M.D. on 01/31/2024 at 11:56 Approved by: Abdirashid Mai M.D. on 01/31/2024 at 12:18
== END 2024-01-31 09:34 | disposition home or self-care (01) ==
LOC: MAMMO 09:33
PROVIDERS: PCP Family Medicine; Visit Provider Family Medicine
DX: Z12.31 Encounter for screening mammogram for malignant neoplasm of breast (principal)
CPT/HCPCS: 77063; 77067

== ENCOUNTER 2024-02-11 11:13 | Emergency (ER) | payer MEDICARE, SELFPAY ==
[2024-02-11] VITALS (15 sets, daily range): BP systolic 77–109; BP diastolic 51–59; PULSE 70–76; TEMP 36.7; O2SAT 93–98; BMI 20.8
--- NOTE | 2024-02-11 11:30 | ECG_ITS ---
[facility] Test Date: 2024-02-11 Pat Name: LEDA MEJIA Department: Room: - Gender: Female [place]: : 1950 Requested By: NENA STEWART Order Number: [id number] Reading MD: WILI CAMEJO Measurements Intervals [place] Rate: 69 P: 34 HI: 146 QRS: 246 QRSD: 136 T: -68 QT: 430 QTc: 450 Interpretive Statements [id number] Electronic atrial pacemaker Electronically Signed On 02-11-2024 19:32:30 EST by WILI CAMEJO
--- NOTE | 2024-02-11 11:32 | ED_ITS ---
HPI HPI - General Adult General Chief complaint: Recheck/Abnormal Lab/Rx Stated complaint: hypotension Time Seen by Provider: 02/11/24 11:25 Source: patient Mode of arrival: Wheelchair History of Present Illness HPI narrative: 73-year-old female presents for low blood pressure. Her symptoms began today and include feeling dizzy. She does not have chest pain. She is on blood pressure medication, metoprolol and Lasix and her last dose of these were 24 hours ago. She felt dizzy and so she checked her blood pressure at home and it was low so she saw her credit operations specialist who advised her to come here to [facility]. She has not had a fever or vomiting. She is finishing a tapering dose of the steroid because of a URI, she has 1 dose left. No fever vomiting or diarrhea. Related Data Home Medications ?Medication ?Instructions ?Recorded ?Confirmed albuterol 90 mcg/actuation aerosol 2 mcg inhalation .every 4 hours sob 01/08/23 02/11/24 inhaler budesonide-formoterol HFA 160 2 puff inhalation BID 01/08/23 02/11/24 mcg-4.5 mcg/actuation aerosol inhaler (Symbicort) fluoxetine 40 mg capsule 40 mg PO DAILY 01/08/23 02/11/24 fluticasone propionate 50 2 spray intranasal DAILY PRN 01/08/23 02/11/24 mcg/actuation nasal allergy symptoms spray,suspension (Flonase Allergy Relief) furosemide 20 mg tablet 20 mg PO DAILY 01/08/23 02/11/24 loratadine 10 mg tablet (Claritin) 10 mg PO DAILY PRN allergy symptoms 01/08/23 02/11/24 losartan 25 mg tablet (Cozaar) 25 mg PO DAILY 01/08/23 02/11/24 metoprolol succinate 25 mg 25 mg PO DAILY 01/08/23 02/11/24 tablet,extended release 24 hr (Toprol XL) omeprazole 20 mg capsule,delayed 20 mg PO DAILY 01/08/23 02/11/24 release spironolactone 25 mg tablet 12.5 mg PO DAILY 01/08/23 02/11/24 (Aldactone) trazodone 50 mg tablet 25 mg PO .hs 01/08/23 02/11/24 zolmitriptan 5 mg disintegrating See Rx Instructions PO .COMPLEX 01/08/2301/25 tablet Allergies Allergy/AdvReac Type Severity Reaction Status Date / Time benztropine (From Cogentin) AdvReac Mild Vomiting Verified 01/08/23 11:10 compazine AdvReac Mild hallucinati Uncoded 01/08/23 11:10 ons Opioid HPI Opioid Management Most Recent Opioid Data: Last Pain Scale 5 01/10/23 13:33 01/10/23 Review of Systems ROS Narrative A ten point review of systems is negative except as noted above. [facility] Medical History (Updated 02/11/24 @ 13:52 by Mukesh Hilliard MD) PONV (postoperative nausea and vomiting) ?R11.2 - Nausea with vomiting, unspecified (ICD-10) ?Z98.890 - Other specified postprocedural states (ICD-10) Left ventricular dysfunction ?I51.9 - Heart disease, unspecified (ICD-10) H/O methicillin resistant Staphylococcus aureus ?Z86.14 - Personal history of Methicillin resistant Staphylococcus aureus infection (ICD-10) Cavitary lung disease ?J98.4 - Other disorders of lung (ICD-10) Chronic cough ?R05.3 - Chronic cough (ICD-10) ICD (implantable cardioverter-defibrillator) in place ?Z95.810 - Presence of automatic (implantable) cardiac defibrillator (ICD-10) Dyspnea ?R06.00 - Dyspnea, unspecified (ICD-10) ADAMA (obstructive sleep apnea) ?G47.33 - Obstructive sleep apnea (adult) (pediatric) (ICD-10) Pacemaker ?Z95.0 - Presence of cardiac pacemaker (ICD-10) Osteopenia ?M85.80 - Other specified disorders of bone density and structure, unspecified site (ICD-10) Migraines ?G43.909 - Migraine, unspecified, not intractable, without status migrainosus (ICD-10) GERD (gastroesophageal reflux disease) ?K21.9 - Gastro-esophageal reflux disease without esophagitis (ICD-10) COPD (chronic obstructive pulmonary disease) ?J44.9 - Chronic obstructive pulmonary disease, unspecified (ICD-10) CHF (congestive heart failure) ?I50.9 - Heart failure, unspecified (ICD-10) Cardiomyopathy ?I42.9 - Cardiomyopathy, unspecified (ICD-10) Surgical History (Updated 01/08/23 @ 08:34 by Latrice Banegas RN) H/O dilation and curettage ?Z98.890 - Other specified postprocedural states (ICD-10) History of carpal tunnel release ?Z98.890 - Other specified postprocedural states (ICD-10) H/O cardiac catheterization ?Z98.890 - Other specified postprocedural states (ICD-10) H/O adenoidectomy ?Z90.89 - Acquired absence of other organs (ICD-10) Family History (Updated 01/08/23 @ 08:34 by Latrice Banegas RN) Other Family history of CHF (congestive heart failure) Family history of COPD (chronic obstructive pulmonary disease) Family history of hypertension Family history of myocardial infarction Social History (Updated 01/08/23 @ 08:36 by Latrice Banegas RN) Within the past year, how often did you have a drink containing alcohol: 2-4 times a month Within the past year, how many standard drinks containing alcohol did you have on a typical day: 1 or 2 Within the past year, how often did you have six or more drinks on one occasion: never Total score: 0 Score interpretation: A score less than 3 is consistent with normal alcohol consumption. 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 General: The patient appears well and in no apparent distress. Patient is resting comfortably on cart. Skin: Warm, dry, no pallor noted. There is no rash noted. Head: Normocephalic, atraumatic Eye: Normal conjunctiva, no drainage Ears, Nose, Mouth, and Throat: oral mucosa is moist. Nares patent. Cardiovascular: Regular Rate and Rhythm Respiratory: Patient is in no distress, no accessory muscle use, lungs are clear to auscultation, no wheezing, rales or rhonchi Back: non-tender GI: Soft and nontender Musculoskeletal: The patient has no evidence of calf tenderness, no pitting edema, symmetrical pulses noted bilaterally Neurological: A&O, normal speech Psychiatric: Cooperative Constitutional Vital Signs, click to edit/add: Last Vital Signs Temp 98.1 F 02/11/24 11:17 Pulse 70 02/11/24 12:45 Resp 20 02/11/24 12:45 BP 105/51 02/11/24 12:45 Pulse Ox 95 02/11/24 12:45 O2 Del Method Room Air 02/11/24 11:17 Course Vital Signs Vital signs: Vital Signs Temperature 98.1 F 02/11/24 11:17 Pulse Rate 70 02/11/24 11:17 Respiratory Rate 16 02/11/24 11:17 Blood Pressure 101/58 02/11/24 11:17 Pulse Oximetry 95 02/11/24 11:17 Oxygen Delivery Method Room Air 02/11/24 11:17 Temperature 98.1 F 02/11/24 11:17 Pulse Rate 70 02/11/24 12:45 Respiratory Rate 20 02/11/24 12:45 Blood Pressure 105/51 02/11/24 12:45 Pulse Oximetry 95 02/11/24 12:45 Oxygen Delivery Method Room Air 02/11/24 11:17 Medical Decision Making MDM Narrative Medical decision making narrative: The patient presented with borderline low blood pressure. She was given IV fluids and is improved both objectively and subjectively. Her creatinine was above her baseline and her initial troponin was 70 and the repeat is 51. She feels much better and will be discharged home. She will hold her Lasix until she sees her PCP in a few days. Treatment diagnosis and follow-up were discu ssed with the patient Differential Diagnosis Differential Diagnosis: Dehydration, acute kidney injury, anemia, UTI Lab Data Lab results reviewed: Yes I reviewed the patient's lab results Labs: Lab Results 02/11/24 02/11/24 02/11/24 Range/Units 11:30 12:31 13:17 WBC 13.1 H (4.0-11.0) 10^3/uL RBC 5.10 (4.20-5.40) 10^6/uL Hgb 15.3 (12.0-16.0) g/dL Hct 44.4 (36.0-48.0) % MCV 87.1 (81.0-99.0) fL MCH 30.0 (26.7-34.0) pg MCHC 34.5 (29.9-35.2) g/dL RDW 12.1 (11.0-15.0) % Plt Count 290 (150-450) 10^3/uL MPV 9.1 L (9.5-13.5) fL Neut % (Auto) 78.0 H (43.0-75.0) % Lymph % (Auto) 10.3 L (20.5-60.0) % [place] % (Auto) 9.0 (1.7-12.0) % Eos % (Auto) 0.0 L (0.9-7.0) % Baso % (Auto) 0.4 (0.2-2.0) % Neut # (Auto) 10.2 H (1.4-6.5) 10^3/uL Lymph # (Auto) 1.3 (1.2-3.8) 10^3/uL [place] # (Auto) 1.2 H (0.3-0.8) 10^3/uL Eos # (Auto) 0.0 (0.0-0.7) 10^3/uL Baso # (Auto) 0.1 (0.0-0.1) 10^3/uL Abs Immat Gran (auto) 0.30 H (0.00-0.03) 10^3/uL Imm/Tot Granulo (auto) 2.3 H (0.0-0.5) % Sodium 140 (136-145) mmol/L Potassium 3.1 L (3.5-5.1) mmol/L Chloride 101 (98-107) mmol/L Carbon Dioxide 27.9 (21.0-32.0) mmol/L Anion Gap 14.2 BUN 19.0 H (7.0-18.0) mg/dL Creatinine 1.26 H (0.55-1.02) mg/dL Est GFR ( Amer) 51 L (>=60 mL/min/1.73m^2) Est GFR (Non-Af Amer) 42 L (>=60 mL/min/1.73m^2) BUN/Creatinine Ratio 15.1 Glucose 97 (74-106) mg/dL Calcium 9.6 (8.5-10.1) mg/dL Troponin I High Sens 69.9 H* 50.9 (4.0-51.3) pg/mL Urine Color Yellow (YELLOW) Urine Clarity Clear (CLEAR) Urine pH 6.5 (5.0-9.0) Ur Specific [place] 1.015 (1.005-1.025) Urine Protein Trace (NEG/TRACE) mg/dL Urine Glucose (UA) Negative (NEGATIVE) mg/dL Urine Ketones Trace A (NEGATIVE) mg/dL Urine Occult Blood Negative (NEGATIVE) Urine Nitrite Negative (NEGATIVE) Urine Bilirubin Negative (NEGATIVE) Urine Urobilinogen 0.2 (0.2-1.0) EU/dL Ur Leukocyte Esterase Negative (NEGATIVE) Urine RBC 0-2 (0-2) #/HPF Urine WBC None seen (NONE SEEN) #/HPF Ur Squamous Epith Cells Rare (NONE/RARE) #/LPF Urine Crystals None seen (None Seen) #/HPF Urine Bacteria Trace A (NONE SEEN) #/HPF Urine Casts Seen A (NONE SEEN) #/LPF Hyaline Casts Moderate Urine Mucus None seen (NONE SEEN) ECG Data Attestation: I personally reviewed and interpreted this ECG as follows: (EKG on my interpretation shows paced rhythm) Discharge Plan Discharge Chief Complaint: Recheck/Abnormal Lab/Rx Clinical Impression: Dehydration Patient Disposition: Home, Self-Care Time of Disposition Decision: 13:52 Condition: Good Mode of Transportation: Private Vehicle Prescriptions / Home Meds: No Action albuterol 90 mcg/actuation aerosol 2 mcg inhalation .every 4 hours budesonide-formoterol [Symbicort] 160-4.5 mcg/actuation HFA aerosol inhaler 2 puff inhalation BID fluoxetine 40 mg capsule 40 mg PO DAILY fluticasone propionate [Flonase Allergy Relief] 50 mcg/actuation spray,suspension 2 spray intranasal DAILY PRN (Reason: allergy symptoms) Rx Instructions: administer into each nostril furosemide 20 mg tablet 20 mg PO DAILY loratadine [Claritin] 10 mg tablet 10 mg PO DAILY PRN (Reason: allergy symptoms) losartan [Cozaar] 25 mg tablet 25 mg PO DAILY metoprolol succinate [Toprol XL] 25 mg tablet extended release 24 hr 25 mg PO DAILY omeprazole 20 mg capsule,delayed release(DR/EC) 20 mg PO DAILY spironolactone [Aldactone] 25 mg tablet 12.5 mg PO DAILY trazodone 50 mg tablet 25 mg PO .hs zolmitriptan 5 mg tablet,disintegrating See Rx Instructions .ROUTE .COMPLEX Rx Instructions: take 1 tab at onset of headache; if no relief, may repeat 1 tab after at least 2 hrs; max = 2 tabs/24 hrs Print Language: Wallisian Instructions: Dehydration (ED) Additional Instructions: Hold Lasix until you see your PCP in 2 to 3 days Referrals: Angel Griggs MD [Primary Care Provider] - 1 week
[2024-02-11 11:38] LABS: Basophils Absolute Auto 0.1 10^3/uL (0.0-0.1); Basophils Percent Auto 0.4 % (0.2-2.0); Hematocrit 44.4 % (36.0-48.0); Hemoglobin 15.3 g/dL (12.0-16.0); Immature Granulocytes Pct Auto 2.3 % (0.0-0.5); Lymphocytes Absolute Auto 1.3 10^3/uL (1.2-3.8); Lymphocytes Percent Auto 10.3 % (20.5-60.0); Mean Corpuscular HGB Conc 34.5 g/dL (29.9-35.2); Mean Corpuscular Volume 87.1 fL (81.0-99.0); Mean Platelet Volume 9.1 fL (9.5-13.5); Monocytes Absolute Auto 1.2 10^3/uL (0.3-0.8); Neutrophils Absolute Auto 10.2 10^3/uL (1.4-6.5); Platelet Count 290 10^3/uL (150-450); Red Cell Distribution Width 12.1 % (11.0-15.0); White Blood Count 13.1 10^3/uL (4.0-11.0)
[2024-02-11] MEDS: 0.9 % SODIUM CHLORIDE 500 ML IV ×2 (11:38→13:04)
[2024-02-11 11:59] LABS: Anion Gap 14.2; BUN Creatinine Ratio 15.1; Calcium 9.6 mg/dL (8.5-10.1); Carbon Dioxide 27.9 mmol/L (21.0-32.0); Chloride 101 mmol/L (98-107); Estimated GFR (African America 51 (>=60 mL/min/1.73m^2); Estimated GFR (Non-African Ame 42 (>=60 mL/min/1.73m^2); Glucose 97 mg/dL (74-106); Potassium 3.1 mmol/L (3.5-5.1); Sodium 140 mmol/L (136-145)
[2024-02-11 12:02] LABS: Troponin I High Sensitivity 69.9 pg/mL (4.0-51.3)
--- OUTSIDE RECORDS SUMMARY | 2024-02-11 12:02 | XMS_ITS | CCD ---
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 BACILLI [facility] Comment on above: Performed By: #### S PUTGS #### [facility] [address] [address] [address] Vimal Hernandez GRAM POSITIVE COCCI FEW [facility] Comment on above: Performed By: #### S PUTGS #### [facility] [address] [address] [address] Vimal Hernandez WBC (Bld) [#/Vol] 10*3/uL Normal [facility] Comment on above: Performed By: #### S PUTGS #### [facility] [id number] Vimal Hernandez XR CHEST 2 Von [...] TERRIE ROGERS Date: 2021-10-02 14:49 Normal [facility] Covid-19 PCR (CVDTB)on 08-25 SARS-CoV-2 (COVID-19) RNA REGGIE+probe Ql (Unsp spec) Detected Critically abnormal NOT DETECTED [facility] Comment on above: Result Comment: This test is not yet approved or cleared by the [place] FDA. When there are no FDA-approved or cleared tests available, and other criteria are met, FDA can make tests available under an emergency access mechanism called an Emergency Use Authorization (EUA). The EUA for this test is supported by the Vending Service Technician of Health and Human Service's declaration that [...] be used). Performed By: #### C VDTBH ####[facility] [address] [place], [place] [address]YpDr. Vimal Hernandez CBC AUTO DIFFon 06-05-2021 BASO # 0.0 103/ul Normal 0.0-0.1 [facility] Comment on above: Performed By: #### C BC #### [facility] [id number] Vimal Hernandez Basophils/100 WBC (Bld) 0.6 % Normal 0.2-2.0 [facility] Comment on above: Performed By: #### C BC #### [facility] [address] [place] [address] Dr. Vimal Hernandez EO # 0.1 103/ul Normal 0.0-0.7 [facility] Comment on above: Performed By: #### C BC #### [facility] [address] [place] [address] Dr. Vimal Hernandez Eosinophils/100 WBC (Bld) 1.4 % Normal 0.9-7.0 [facility] Comment on above: Performed By: #### C BC #### [facility] [address] [place] [address] Dr. Vimal Hernandez Erythrocyte distribution width (RBC) [Ratio] 11.9 % Normal 11.0-15.0 [facility] Comment on above: Performed By: #### C BC #### [facility] [address] [place] [address] Dr. Vimal Hernandez Hematocrit (Bld) [Volume fraction] 39.2 % Normal 36.0-48.0 [facility] Comment on above: Performed By: #### C BC #### [facility] [address] [place] [address] Dr. Vimal Hernandez Hemoglobin (Bld) [Mass/Vol] 13.2 g/dL Normal 12.0-16.0 [facility] Comment on above: Performed By: #### C BC #### [facility] [address] [place] [address] Dr. Vimal Hernandez IG # 0.03 10e3/ul Normal 0.00-0.03 [facility] Comment on above: Performed By: #### C BC #### [facility] [address] [place] [address] Dr. Vimal Hernandez IG % 0.4 % Normal 0.0-0.5 [facility] Comment on above: Performed By: #### C BC #### [facility] [address] [place] [address] Dr. Vimal Hernandez LYMPH # 1.1 103/ul Critically low 1.2-3.8 [facility] Comment on above: Performed By: #### C BC #### [facility] [address] [place] [address] Dr. Vimal Hernandez Lymphocytes/100 WBC (Bld) 15.7 % Critically low 20.5-60.0 [facility] Comment on above: Performed By: #### C BC #### [facility] [address] [place] [address] Dr. Vimal Hernandez MANUAL DIFF REQ NO Normal [facility] Comment on above: Performed By: #### C BC #### [facility] [address] [place] [address] Dr. Vimal Hernandez MCH (RBC) [Entitic mass] 30.4 pg Normal 26.7-34.0 [facility] Comment on above: Performed By: #### C BC #### [facility] [address] [place] [address] Dr. Vimal Hernandez MCHC (RBC) [Mass/Vol] 33.7 g/dL Normal 29.9-35.2 [facility] Comment on above: Performed By: #### C BC #### [facility] [address] [place] [address] Dr. Vimal Hernandez MCV (RBC) [Entitic vol] 90.3 fL Normal 81.0-99.0 [facility] Comment on above: Performed By: #### C BC #### [facility] [address] [place] [address] Dr. Vimal Hernandez MONO # 0.7 103/ul Normal 0.3-0.8 [facility] Comment on above: Performed By: #### C BC #### [facility] [address] [place] [address] Dr. Vimal Hernandez Monocytes/100 WBC (Bld) 9.2 % Normal 1.7-12.0 [facility] Comment on above: Performed By: #### C BC #### [facility] [address] [place] [address] Dr. Vimal Hernandez NEUT # 5.2 103/ul Normal 1.4-6.5 [facility] Comment on above: Performed By: #### C BC #### [facility] [address] [place] [address] Dr. Vimal Hernandez Neutrophils/100 WBC (Bld) 72.7 % Normal 43.0-75.0 [facility] Comment on above: Performed By: #### C BC #### [facility] [address] [address] [address] Vimal Hernandez Platelet mean volume (Bld) [Entitic vol] 10.0 fL Normal 9.5-13.5 [facility] Comment on above: Performed By: #### C BC #### [facility] [address] [place] [address] Dr. Vimal Hernandez PLT 207 103/ul Normal 150-450 [facility] Comment on above: Performed By: #### C BC #### [facility] [address] [place] [address] Dr. Vimal Hernandez RBC 4.34 106/ul Normal 4.20-5.40 [facility] Comment on above: Performed By: #### C BC #### [facility] [address] [place] [address] Dr. Vimal Hernandez WBC 7.1 103/ul Normal 4.0-11.0 [facility] Comment on above: Performed By: #### C BC #### [facility] [address] [place] [address] Dr. Vimal Hernandez PROF CHEM 8 (BAS METB)on Anion gap [Moles/Vol] 14.4 mmol/L Normal [facility] Comment on above: Performed By: #### B MP ####[facility] [address] [place] [address]Dr. Vimal Hernandez Calcium [Mass/Vol] 9.0 mg/dL Normal 8.5-10.1 [facility] [place] [facility] Comment on above: Performed By: #### B MP ####[facility] [address] [place] [address]Dr. Vimal Hernandez Chloride [Moles/Vol] 102 mmol/L Normal 98-107 [facility] Comment on above: Performed By: #### B MP ####[facility] [address] [place] [address]Dr. Arindevaughn David CO2 [Moles/Vol] 25.7 mmol/L Normal 22.0-30.0 [facility] Comment on above: Performed By: #### B MP ####[facility] [address] [place] [address]Dr. Vimal Hernandez Creatinine [Mass/Vol] 0.81 mg/dL Normal 0.52-1.04 [facility] Comment on above: Performed By: #### B MP ####[facility] [address] [place], [place] [address]Dr. Vimal Hernandez EGFR-AF GREENLANDIC >60 Normal >=60 [facility] Comment on above: Performed By: #### B MP ####[facility] [address] [place], [place] [address]Dr. Vimal Hernandez EGFR-NON AF GREENLANDIC >60 Normal >=60 [facility] Comment on above: Performed By: #### B MP ####[facility] [address] [place], [place] [address]Dr. Vimal Hernandez Glucose [Mass/Vol] 103 mg/dL Normal 74-106 [facility] [place] [facility] Comment on above: Performed By: #### B MP ####[facility] [address] [place], [place] [address]Dr. Vimal Hernandez Potassium [Moles/Vol] 4.1 mmol/L Normal 3.4-5.0 [facility] Comment on above: Performed By: #### B MP ####[facility] [address] [place], [place] [address]Dr. Vimal Hernandez Sodium [Moles/Vol] 138 mmol/L Normal 137-145 [facility] Comment on above: Performed By: #### B MP ####[facility] [address] [place] [address]Dr. Vimal Hernandez Urea nitrogen [Mass/Vol] 24.0 mg/dL Critically high 7.0-18.0 [facility] Comment on above: Performed By: #### B MP ####[facility] [address] [place], [place] [address]PbNapoleon Hernandez Urea nitrogen/Creatinin e [Mass ratio] 29.6 mg/mg Normal [facility] Comment on above: Performed By: #### B MP ####[facility] [address] [place], [place] [address]Ju. Vimal Hernandez XR FINGER MIN 2 VIEWSon [...] by: OTF RUBALCAVA Date: 2021-06-05 17:[address] [facility] Cardiovascular Lab Reporton 07-07-2020 Cardiovascular Lab Report [facility] Patient Name: Leda Gordon [facility] MR #: [id number] Physician: Amador Parkinson MD Department of Service Date: 06/30/2020 Medicine Birthdate: 1950 Division of Room #: 3AB [id number] Cardiology Adult Cardiovascular Services [address] [place] [address] Cardiovascular Laboratory Report POCKET REVISION PROCEDURE NOTE DATE OF PROCEDURE: 06/30/2020 PERFORMING PHYSICIAN: Dr. Amador Parkinson CONSENT: Patient LOCATION: EP Lab PROCEDURE PERFORMED: 1. Pocket revision to evaluate for hematoma. INDICATIONS: 1. Pocket swelling/pain. 2. S/p BOAT OUTBOARD ENGINE MECHANIC-D with underlying chronic AF and RVR. PROCEDURAL SEDATION: Versed and Fentanyl. Moderate sedation was administered by the sedation nurse under my supervision and noted in the CVL log. Intraprocedural face to face sedation time: 90min. Monitoring: Cardiac telemetry, Blood pressure, continuous pulse oxymetry. FLUROSCOPY: 0s PREPARATION: 69-year-old lady with a history of cardiomyopathy with a BOAT OUTBOARD ENGINE MECHANIC-D [employer] device, had come in for [...] noted below. Device info: [employer] [place] CRTD A500Q model Serial #[id number] RAlead: Implanted on 07/14/2012 [employer] Tendril STS 2088TC-46 cms Serial # [id number] Sensin.9mV Threshold: 1.25V @ 0.4ms Impedance: 480 Ohms RV ICD lead: Implanted on 07/14/2012 [employer] Durata 7122Q-58 cms lead Serial# [id number] Sensing: >12 mV Threshold: 0.875 @ 0.5 millisecond Impedance: 530 Ohms LV lead: Implanted on 07/14/2012 [employer]ley quartet 1458Q-86 cms, Serial# [id number] Threshold: 1.125 V @ 0.4 ms Impedance: [...] Doxycycline 100mg bid x 2 weeks Amador Parkinson MD Cardiac Electrophysiology Please do not type below this line Electronically Signed by: Amador Parkinson MD 07/12/2020 10:02 P Amador Parkinson MD Date Dict: 06/30/2020/04:37 P/Amador Parkinson MD Date Trans: 06/30/2020 07:04 P/nixon DN_JN:[id number] cc: Angel Stewart M.D. [address] [place] [address] Electronically Signed by: Amador Parkinson MD 07/13/2020 05:42 P Amador Parkinson MD Date Dict: 07/07/2020/09:22 A/Amador Parkinson MD Date Trans: 07/07/2020 09:47 A/nixon [id number] cc: Angel Stewart M.D. [address] [place] [address] Normal [facility] CBC W/DIFFon 07-01-2020 ABS IMM GRANS 0.0 10*3/uL Normal 0.0-0.2 [facility] Comment on above: Order Comment: No: D o not add to previous draw Performed By: #### 5 0103 #### [facility] [address] [place] [address], [facility] ABS NEUTROPHILS 9.7 10*3/uL High 1.6-7.6 [facility] Comment on above: Order Comment: No: D o not add to previous draw Performed By: #### 5 0103 #### [facility] [address] [place] [id number], [facility] Basophils (Bld) [#/Vol] 0.0 10*3/uL Normal 0.0-0.2 [facility] Comment on above: Order Comment: No: D o not add to previous draw Performed By: #### 5 3 #### [facility] [address] [facility] [place] [address], [facility] Basophils/100 WBC (Bld) 0.2 % Normal 0.0-1.0 [facility] Comment on above: Order Comment: No: D o not add to previous draw Performed By: #### 5 3 #### [facility] [address] [facility] [place] [place] [address], [facility] Eosinophils (Bld) [#/Vol] 0.0 10*3/uL Normal 0.0-0.5 [facility] Comment on above: Order Comment: No: D o not add to previous draw Performed By: #### 5 3 #### [facility] [address] [facility] [place] [address], [facility] Eosinophils/100 WBC (Bld) 0.1 % Normal 0.0-6.0 [facility] Comment on above: Order Comment: No: D o not add to previous draw Performed By: #### 5 0103 #### [facility] [address] [facility] [place] [address], [facility] Erythrocyte distribution width (RBC) [Ratio] 11.6 % Normal 11.5-15.0 [facility] Comment on above: Order Comment: No: D o not add to previous draw Performed By: #### 5 3 #### [facility] [address] [place] [address], [facility] Hematocrit (Bld) [Volume fraction] 32.4 % Low 36.0-45.0 [facility] Comment on above: Order Comment: No: D o not add to previous draw Performed By: #### 5 0103 #### [facility] [address] [place] [id number], [facility] Hemoglobin (Bld) [Mass/Vol] 11.3 g/dL Low 12.0-15.0 [facility] Comment on above: Order Comment: No: D o not add to previous draw Performed By: #### 5 0103 #### [facility] [address] [place] [address], [facility] IMMATURE GRANS 0.4 % Normal 0.0-1.0 [facility] Comment on above: Order Comment: No: D o not add to previous draw Performed By: #### 5 0103 #### [facility] [address] [place] [address], [facility] Lymphocytes (Bld) [#/Vol] 0.4 10*3/uL Low 1.2-4.0 [facility] Comment on above: Order Comment: No: D o not add to previous draw Performed By: #### 5 3 #### [facility] [address] [place] [address], [facility] Lymphocytes/100 WBC (Bld) 3.9 % Low 20.0-45.0 [facility] Comment on above: Order Comment: No: D o not add to previous draw Performed By: #### 5 0103 #### [facility] [address] [place] [address], [facility] MCH (RBC) [Entitic mass] 31.0 pg Normal 27.0-33.0 [facility] Comment on above: Order Comment: No: D o not add to previous draw Performed By: #### 5 0103 #### [facility] [address] [place] [address], [facility] MCHC (RBC) [Mass/Vol] 34.9 g/dL Normal 32.0-35.0 [facility] Comment on above: Order Comment: No: D o not add to previous draw Performed By: #### 5 0103 #### [facility] [address] [place] [address], [facility] MCV (RBC) [Entitic vol] 89.0 fL Normal 82.0-98.0 [facility] Comment on above: Order Comment: No: D o not add to previous draw Performed By: #### 5 0103 #### [facility] [address] [place] [address], [facility] Monocytes (Bld) [#/Vol] 0.9 10*3/uL Normal 0.1-1.0 [facility] Comment on above: Order Comment: No: D o not add to previous draw Performed By: #### 5 0103 #### [facility] [address] [place] [id number], [facility] MONOS 8.2 % Normal 5.0-12.0 [facility] Comment on above: Order Comment: No: D o not add to previous draw Performed By: #### 5 0103 #### [facility] [address] [place] [address], [facility] Neutrophils/100 WBC (Bld) 87.2 % High 40.0-72.0 [facility] Comment on above: Order Comment: No: D o not add to previous draw Performed By: #### 5 0103 #### [facility] [address] [place] [id number], [facility] Nucleated RBC/100 WBC (Bld) [Ratio] 0 % Normal 0-0 [facility] Comment on above: Order Comment: No: D o not add to previous draw Performed By: #### 5 3 #### [facility] [address] PLAT CNT 174 10*3/uL Normal 150-400 [facility] Comment on above: Order Comment: No: D o not add to previous draw Performed By: #### 5 0103 #### [facility] [address] RBC (Bld) [#/Vol] 3.64 10*6/uL Low 3.80-5.00 [facility] Comment on above: Order Comment: No: D o not add to previous draw Performed By: #### 5 0103 #### [facility] [address] WBC (Bld) [#/Vol] 11.16 10*3/uL High 4.00-10.60 [facility] Comment on above: Order Comment: No: D o not add to previous draw Performed By: #### 5 0103 #### [address] CHEST AND LATERALon 07-02-19 CHEST AND LATERAL [facility] Department of Radiology [address] [place] [id number] Patient Name: LEDA GORDON : 1950 Sex: F Age: Race: White Pt. Location: [address] [place] [address] Patient Status: O Ordered Date: 07/01/2020 8:40:00 AM Completed Date: 07/01/2020 10:06 AM Requesting Provider: CHANA GUTHRIE Attending Provider: AMADOR PARKINSON Report Copy To: Signs & Symptoms: Post [...] essentially unchanged. No pneumothorax. Electronically signed: Rossy Baptiste. Transcribed by: [email or web address], User Resident: Electronically Signed by: ROSSY BAPTISTE @ 07/01/2020 10:14 AM Normal [facility] Comment on above: Order Comment: Check Pacemaker/AICD Lead Position CBC W/DIFFon 06-30-2020 ABS IMM GRANS 0.0 10*3/uL Normal 0.0-0.2 [facility] Comment on above: Order Comment: No: D o not add to previous draw Performed By: #### 5 0103 #### [facility] [address] ABS NEUTROPHILS 9.3 10*3/uL High 1.6-7.6 [facility] Comment on above: Order Comment: No: D o not add to previous draw Performed By: #### 5 0103 #### [facility] [address] [place] [address], [facility] Basophils (Bld) [#/Vol] 0.0 10*3/uL Normal 0.0-0.2 [facility] Comment on above: Order Comment: No: D o not add to previous draw Performed By: #### 5 0103 #### [facility] [address] [place] [address], [facility] Basophils/100 WBC (Bld) 0.4 % Normal 0.0-1.0 [facility] Comment on above: Order Comment: No: D o not add to previous draw Performed By: #### 5 0103 #### [facility] [address] [place] [address], [facility] Eosinophils (Bld) [#/Vol] 0.0 10*3/uL Normal 0.0-0.5 [facility] Comment on above: Order Comment: No: D o not add to previous draw Performed By: #### 5 3 #### [facility] [address] [place] [address], [facility] Eosinophils/100 WBC (Bld) 0.1 % Normal 0.0-6.0 [facility] Comment on above: Order Comment: No: D o not add to previous draw Performed By: #### 5 3 #### [facility] [address] [place] [address], [facility] Erythrocyte distribution width (RBC) [Ratio] 11.7 % Normal 11.5-15.0 [facility] Comment on above: Order Comment: No: D o not add to previous draw Performed By: #### 5 3 #### [facility] [address] [place] [id number], [facility] Hematocrit (Bld) [Volume fraction] 34.8 % Low 36.0-45.0 [facility] Comment on above: Order Comment: No: D o not add to previous draw Performed By: #### 5 0103 #### [facility] [address] [place] [address], [facility] Hemoglobin (Bld) [Mass/Vol] 12.0 g/dL Normal 12.0-15.0 [facility] Comment on above: Order Comment: No: D o not add to previous draw Performed By: #### 5 3 #### [facility] [address] [place] [address], [facility] IMMATURE GRANS 0.3 % Normal 0.0-1.0 [facility] Comment on above: Order Comment: No: D o not add to previous draw Performed By: #### 5 0103 #### [facility] [address] [place] [id number], [facility] Lymphocytes (Bld) [#/Vol] 0.5 10*3/uL Low 1.2-4.0 [facility] Comment on above: Order Comment: No: D o not add to previous draw Performed By: #### 5 0103 #### [facility] [address] [place] [place] [address], [facility] Lymphocytes/100 WBC (Bld) 4.3 % Low 20.0-45.0 [facility] Comment on above: Order Comment: No: D o not add to previous draw Performed By: #### 5 0103 #### [facility] [address] [facility] [place] [address], [facility] MCH (RBC) [Entitic mass] 30.8 pg Normal 27.0-33.0 [facility] Comment on above: Order Comment: No: D o not add to previous draw Performed By: #### 5 0103 #### [facility] [address] [place] [id number], [facility] MCHC (RBC) [Mass/Vol] 34.5 g/dL Normal 32.0-35.0 [facility] Comment on above: Order Comment: No: D o not add to previous draw Performed By: #### 5 0103 #### [facility] [address] [place] [id number], [facility] MCV (RBC) [Entitic vol] 89.5 fL Normal 82.0-98.0 [facility] Comment on above: Order Comment: No: D o not add to previous draw Performed By: #### 5 0103 #### [facility] [address] [place] [id number], [facility] Monocytes (Bld) [#/Vol] 0.7 10*3/uL Normal 0.1-1.0 [facility] Comment on above: Order Comment: No: D o not add to previous draw Performed By: #### 5 0103 #### [facility] [address] [place] [address], [facility] MONOS 6.8 % Normal 5.0-12.0 [facility] Comment on above: Order Comment: No: D o not add to previous draw Performed By: #### 5 0103 #### [facility] [address] [place] [id number], [facility] Neutrophils/100 WBC (Bld) 88.1 % High 40.0-72.0 [facility] Comment on above: Order Comment: No: D o not add to previous draw Performed By: #### 5 0103 #### [facility] [address] [place] [id number], [facility] Nucleated RBC/100 WBC (Bld) [Ratio] 0 % Normal 0-0 [facility] Comment on above: Order Comment: No: D o not add to previous draw Performed By: #### 5 0103 #### [facility] [address] [place] [address], [facility] PLAT CNT 179 10*3/uL Normal 150-400 [facility] Comment on above: Order Comment: No: D o not add to previous draw Performed By: #### 5 0103 #### [facility] [address] [place] [address], [facility] RBC (Bld) [#/Vol] 3.89 10*6/uL Normal 3.80-5.00 [facility] Comment on above: Order Comment: No: D o not add to previous draw Performed By: #### 5 0103 #### [facility] [address] WBC (Bld) [#/Vol] 10.57 10*3/uL Normal 4.00-10.60 [facility] Comment on above: Order Comment: No: D o not add to previous draw Performed By: #### 5 0103 #### [facility] [address] Cardiovascular Lab Reporton 06-30-2020 Cardiovascular Lab Report [facility] Patient Name: Leda Gordon [facility] MR #: [id number] Physician: Amador Parkinson MD Department of Service Date: 06/30/2020 Medicine Birthdate: 1950 Division of Room #: CC Cardiology Adult Cardiovascular Services [facility] [address] [facility]. [place] [address] Cardiovascular Laboratory Report PACEMAKER GENERATOR CHANGE POCKET REVISION PROCEDURE NOTE DATE OF PROCEDURE: 06/30/2020 PERFORMING PHYSICIAN: Dr. Amador Parkinson CONSENT: Patient LOCATION: EP Lab PROCEDURE PERFORMED: 1. Implant of new BOAT OUTBOARD ENGINE MECHANIC-D generator (Moseley/[employer]). 2. Explant of BOAT OUTBOARD ENGINE MECHANIC-D generator (Moseley/ [employer]). 3. Pocket Revision to sub muscular implant. INDICATIONS: 1. S/p BOAT OUTBOARD ENGINE MECHANIC-D with underlying chronic AF and RVR. 2. Device at EOL PROCEDURAL SEDATION: Versed and Fentanyl. Moderate sedation was administered by the sedation nurse under my supervision and noted in the CVL log. Intraprocedural face to face sedation time: 83min. Monitoring: Cardiac telemetry, Blood pressure, continuous pulse oxymetry. FLUROSCOPY: 31s/ 1mGray PREPARATION: 69-year-old lady with a history of cardiomyopathy with a BOAT OUTBOARD ENGINE MECHANIC-D [employer] device, has come in for [...] attached to a new Moseley/ [employer] [place] BOAT OUTBOARD ENGINE MECHANIC-D generator and the leads tug tested. Pocket [...] device as noted below. [employer] Moseley Richmond CRTD A500Q model, serial #[id number]. The atrial lead is Moseley Tendril STS 2088TC 46 cm, serial number [id number], implanted on July 14, 2012. Atrial sensing is 1.9 mV, capture was 1.25 V at 0.4 milliseconds. Impedance was 480 ohms. The RV ICD lead is a Durata 7122Q 58 cm lead, serial number is [id number], implanted on July 14, 2012. The RV sensing is at a greater than 12 mV with RV threshold of 0.875 at 4.5 millisecond, impedance of 530 ohms. The LV lead is Moseley quartet 1458Q 86 cm lead, serial number [id number], implanted on july 14, 2012. Lead threshold was 1.125 V at 0.4 millisecond with the impedance of 1150 ohms. The various thresholds were checked and was noted the LV 1-2 had Device info: [employer] Moseley Richmond CRTD A500Q model Serial #[id number] RAlead: Implanted on 07/14/2012 Moseley Tendril STS 2088TC-46 cms Serial # [id number] Sensin.9mV Threshold: 1.25V @ 0.4ms Impedance: 480 Ohms RV ICD lead: Implanted on 07/14/2012 Moseley Durata 7122Q-58 cms lead Serial# [id number] Sensing: >12 mV Threshold: 0.875 @ 0.5 millisecond Impedance: 530 Ohms LV lead: Implanted on 07/14/2012 Moseley quartet 1458Q-86 cms, Serial# [id number] Threshold: 1.125 V @ 0.4 ms Impedance: [...] milliseco (more content not included)... Normal [facility] Consent Formson 01-20-2020 Consent Forms [id number] [facility] History and Physical[facility] 01-19 History and Physical [id number] .[facility] Coding Summaryon 01-15-2020 Coding Summary CODING DATE: 01/15/2020 [facility] STATUS: Home PAYOR: Medicare MC ADMIT DX: [...] Michelle Uribe Date Saved: 01/15/2020 12:41 pm [facility] Coding Summaryon 01-13-2020 Coding Summary CODING DATE: 01/13/2020 [facility] STATUS: Home PAYOR: Medicare MC APC DESCRIPTION 5114 Level 4 Musculoskeletal Procedures ADMIT DX: REASON FOR VISIT DX: M24.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, left shoulder FINAL DX: PRINCIPAL: M19.012 Primary osteoarthritis, left shoulder SECONDARY: M25.812 Other specified joint disorders, left shoulder PYMT PROC APC STAT DESCRIPTION DOCTOR NAME DATE 26441 Arthroscopy, shoulder, Ileana Mcgraw And 01/11/2020 surgical; distal claviculectomy including distal articular surface (Nicole procedure) LT Left side (used to identify procedures performed on the left side of the body) 25105 Arthroscopy, shoulder, MariluzIleana uribe And 01/11/2020 surgical; debridement, limited LT Left side (used to identify procedures performed on the left side of the body) 15307 Injection(s), anesthetic MariluzIleana And 01/11/2020 agent(s) and/or steroid; brachial plexus [...] Mejia Revised Date Saved: 01/13/2020 07:44 am [facility] Consent Formson 01-12-2020 Consent Forms [id number] .[facility] Discharge Instructionson Discharge Instructions [id number] .00[facility] Medication Managementon 12-26 Medication Management [id number] .00[facility] Outside Recordson 01-12-2020 Outside Records [id number] .00[facility] Telemetry Stripson 0 Telemetry Strips [id number] .00[facility] Anesthesia Noteon 01-11-2020 Anesthesia Note Patient: LEDA GORDON Age: 69 years Sex: FEMALE : 1950 [...] disease) case management patient / SNOMED CT 236494715 / Confirmed CHF (congestive heart failure) / SNOMED CT 04138145 / Confirmed Myopathy / SNOMED CT 720900498 / Confirmed Ventricular dysfunction / SNOMED CT 110366389 / Confirmed Histories Family History: No family history items have been selected or recorded. Procedure history: Anesthesia for transvenous insertion or replacement of pacing cardioverter-defibril lator (90873) on 07/14/2012 at 61 Years. Cardiac pacemaker (77468917). Comments: 12/30/2019 13:18 Veronique Membreno RN 2013 Carpal tunnel release (005243737). Tonsillectomy (841440545). Comments: 12/30/2019 13:23 Veronique Membreno RN 1949's Biopsy of breast (823169329). Comments: 12/30/2019 13:24 Veronique Membreno RN X3 Social History Electronic Cigarette/Vaping Assessment Electronic Cigarette Use: Never. Alcohol Assessment Use: Current. Wine, 1-2 times per week Tobacco Assessment Former smoker, quit more than 30 days ago Tobacco Use:. 30 years ago 1 pk/week per day. Substance Abuse Assessment Substance use: Never. 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 Home/Environment Assessment Lives with Spouse. Home equipment: CPAP/BiPAP. . 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 Review / Management Laboratory Results Plan [place] [employer]#( A) physical status classification: [...] on: 01/11/2020 10:45 EST] Yanick Edward MD [facility] Coding Summaryon 01-11-2020 Coding Summary CODING DATE: 01/11/2020 [facility] STATUS: Home PAYOR: Medicare MC ADMIT DX: [...] Uribe Date Saved: 01/11/2020 02:18 pm Normal [facility] Inpatient Patient Summaryon 01-11-2020 [place] [address] Patient Discharge Instructions Name: LEDA GORDON : 1950 Patient Address: [address] [place] [address] Primary Care Provider: Name: ANGEL STEWART After you are discharged if you find you have any questions, please, call [phone] ext [phone] to speak to a nurse. Discharge Diagnosis: Internal derangement of left shoulder Prescription Information: If you have been given a prescription for narcotics, seek immediate medical attention if you have any difficulty breathing or any sudden status changes such as confusion and sleepiness. If you or anyone you know is experiencing suicidal thoughts, mental health, alcohol and/or drug addiction problems; contact the [facility] 17/09 Crisis Hotline -Text 4HQZL xy 365666. If you received any narcotics, sedation, or [...] business decisions or sign any legal documents [facility] would like to thank you for allowing us to assist you with your healthcare needs. The following includes patient education materials and information regarding your injury/illness. LEDA GORDON has been given the following list of follow-up instructions, prescriptions, and patient education materials: Follow-up Instructions With: Address: When: CECY CALIX [address] [place] [address], [address] [place] [id number] [employer] (1) 01/20/2020 8:30 AM With: Address: When: ANGEL STEWART [address] [place], [place] [id number] Business (1) Medications During the course of [...] or concerns, please call the office at [phone] -Follow up as scheduled Viruses or Bacteria [...] Control and Prevention October 2013 [facility] MAGR Intraoperative Recordon 01-11-2020 MAGR Intraoperative Record MAGR Intra-Op Record Summary Primary Physician: Ileana Mcgraw DO Finalized Date/Time: 01/11/20 13:13:05 Pt. Name: LEDA GORDON/Sex: 1950 FEMALE Med Rec #: [id number] Physician: Ileana Mcgraw DO Financial #: [id number] Pt. Type: D Room/Bed: / Admit/Disch: 01/11/20 07:00:00 - Institution: Case Times MAGR Entry 1 Patient In Room Time 01/11/20 09:47:00 Out Room Time 01/11/20 11:18:00 Anesthesia Start Time 01/11/20 09:47:00 Stop Time 01/11/20 11:20:00 Surgery Start Time 01/11/20 10:18:00 Stop Time 01/11/20 11:03:00 Last Modified By: Michelle Sanabria RN 01/11/20 11:35:08 Case Attendance MAGR Entry 1 Entry 2 Entry 3 Case Attendee Ileana Mcgraw Robert M MD McKenna RN, Michelle Holland DO Role Performed Surgeon - Primary Anesthesiologist of Revenue Enforcement Agent Record Time In 01/11/20 09:47:00 01/11/20 09:47:00 01/11/20 09:47:00 Time Out 01/11/20 11:18:00 01/11/20 11:18:00 01/11/20 11:18:00 Procedure Arthroscopy Arthroscopy Arthroscopy Shoulder(Left, Shoulder) Shoulder(Left, Shoulder) Shoulder(Left, Shoulder) Last Modified By: Daniele SWANSON, Michelle Sanabria RN, Michelle Sanabria RN, Michelle 01/11/20 11:35:12 01/11/20 11:35:12 01/11/20 11:35:12 Entry 4 Entry 5 Case Attendee Cathryn COMPUTER INSTALLER, Mackenzie Fernandes CST, Maru Role Performed Scrub Personnel Ladle Cleaner Time In 01/11/20 09:47:00 01/11/20 09:47:00 Time Out 01/11/20 11:18:00 01/11/20 11:18:00 Procedure Arthroscopy Arthroscopy Shoulder(Left, Shoulder) Shoulder(Left, Shoulder) Last Modified By: Daniele SWANSON, Michelle Sanabria RN, Michelle 01/11/20 11:35:12 01/11/20 11:35:12 Surgical Procedures MAGR Pre-Care Text: A.20 Verifies operative procedure, surgical site, and laterality Im.150 Develops individualized plan of care Entry 1 Procedure Arthroscopy Shoulder Primary Procedure Yes Primary Surgeon Ileana Mcgraw Left, Shoulder Skyler RIVERS Surgeon Comment [...] Dose 12 amp Volume 12 amp By Ileana Mcgraw DO Outcome Met (O.130) Yes Last [...] Unfinalizing Freetext Reason for Unfinalizing 01/11/20 13:12 [facility] Barry Documentation [facility] MAGR Intraoperative Record MAGR Intra-Op Record Summary Primary Physician: Finalized Date/Time: 01/11/20 09:50:05 Pt. Name: LEDA GORDON/Sex: 1950 FEMALE Med Rec #: [id number] Physician: Ileana Mcgraw DO Financial #: [id number] Pt. Type: D Room/Bed: / Admit/Disch: 01/11/20 [...] 3 Case Attendee Yanick Edward MD RN, Veronique Cooper RN Role Performed Anesthesiologist of Revenue Enforcement Agent Revenue Enforcement Agent Record Time In 01/11/20 09:18:00 01/11/20 09:18:00 [...] Signed By: Veronique Kaminski RN 01/11/20 09:50 [facility] MAGR PACU Recordon 0 MAGR PACU Record MAGR PACU Record Summary Primary Physician: Ileana Mcgraw DO Finalized Date/Time: 01/11/20 12:14:58 Pt. Name: LEDA GORDON/Sex: 1950 FEMALE Med Rec #: [id number] Physician: Ileana Mcgraw DO Financial #: [id number] Pt. Type: D Room/Bed: / Admit/Disch: 01/11/20 07:00:00 - Institution: PACU Case Times MAGR Entry 1 In PACU I 01/11/20 11:17:00 Discharge from PACU 01/11/20 12:13:00 I Last Modified By: Naheed Ortega RN 01/11/20 12:12:54 Finalized By: Naheed Ortega RN Document Signatures Signed By: Naheed Ortega RN 01/11/20 12:14 [facility] 01-11-2020 MAGR Postoperative Record MAGR Phase II Record Summary Primary Physician: Ileana Mcgraw DO Finalized Date/Time: 01/11/20 13:34:54 Pt. Name: LEDA GORDON/Sex: 1950 FEMALE Med Rec #: [id number] Physician: Ileana Mcgraw DO Financial #: [id number] Pt. Type: D Room/Bed: / Admit/Disch: 01/11/20 [...] Signed By: Veronique Kaminski RN 01/11/20 13:34 [facility] 1 03-12-2019 MAGR Preoperative Record MAGR Pre-Op Record Summary Primary Physician: Ileana Mcgraw DO Finalized Date/Time: 01/11/20 09:56:53 Pt. Name: LEDA GORDON Isidro Conley./Sex: 1950 FEMALE Med Rec #: [id number] Physician: Ileana Mcgraw DO Financial #: [id number] Pt. Type: D Room/Bed: / Admit/Disch: 01/11/20 [...] Unfinalizing 01/11/20 09:55 MHHREED Finish Documentation Normal [facility] Operative Report - Surgeon/P feliz 01-11-2020 Operative [...] applied [Electronically Signed on: 01/11/2020 11:11 EST] Ileana Mcgraw DO [Verified on: 01/11/2020 11:11 EST] Ileana Mcgraw DO [facility] Patient Handouton 01-11-[address] [...] or concerns, please call the office at [phone] -Follow up as scheduled Normal [facility] 2019 Novel Coronavirus (CoVI D-19), REGGIE LCon 01-08-2020 SARS-CoV-2, REGGIE (COVID-19) LC Not Detected Not Detected [facility] Comment on above: Order Comment: [id number] [phone] Result Comment: This nucleic acid amplification test was developed and its performance characteristics determined by [employer]. Nucleic acid amplification tests include PCR and [...] detected) result in this assay. Performed At: [facility] [address] [facility] [place] [id number] Solitario Mathis MD Ph:[phone] Performed By: #### 6 [id number] ####[facility] (DEFAULT)[address] [place] [address] Progress Note - Nurseon 12-26 TSH Qn Spoke with pt and informed her to be here at 7am and NPO after MN, pt was also informed that she can not have any visitor or family with her at this point. Pt verbalizes understanding. [Electronically Signed on: 01/08/2020 12:36 EST] Leora Lemus RN [Verified on: 01/08/2020 12:36 EST] Leora Lemus RN [facility] Progress Note - Nurseon - Progress Note - Nurse Nasal swab performed without complication. Patient tolerated well. Education given. Patient verbalized understanding. [Electronically Signed on: 01/07/2020 14:54 EST] Alisha Vidales RN [Verified on: 01/07/2020 14:54 EST] Alisha Vidales RN [facility] Progress Note - Nurseon - Progress Note - Nurse Dr. Gonzalez reviewed chart and no new orders received. [Electronically Signed on: 12/31/2019 10:53 EST] Cha Calloway RN [Verified on: 12/31/2019 10:53 EST] Cha Calloway RN Will need pacemaker rep here day of surgery. Alisha shah. [Electronically Signed on: 12/31/2019 10:54 EST] Cha Calloway RN [facility] .Auto Diff 1on 12-30-2019 Auto Mckean % 10 % Normal 03-08 [facility] Comment on above: Performed By: #### 7 [id number], [id number] ####[facility] (DEFAULT)[address] [place] [address] Baso Abs# 0.0 x10 Normal 0.0-0.2 [facility] Comment on above: Performed By: #### 7 [id number], [id number] ####[facility] (DEFAULT)[address] [place] [address] Basophils/100 WBC (Bld) 0.7 % Normal 0.2-2.0 [facility] Comment on above: Performed By: #### 7 [id number], [id number] ####[facility] (DEFAULT)[address] [place] [address] Eos Abs# 0.1 x10 Normal 0.0-0.4 [facility] Comment on above: Performed By: #### 7 [id number], [id number] ####[facility] (DEFAULT)[address] [place] [address] Eosinophils/100 WBC (Bld) 1.7 % Normal 0.9-4.0 [facility] Comment on above: Performed By: #### 7 [id number], [id number] ####[facility] (DEFAULT)[address] [place] [address] Lymphocytes (Bld) [#/Vol] 0.9 x10 Low 1.3-2.9 [facility] Comment on above: Performed By: #### 7 [id number], [id number] ####[facility] (DEFAULT)[address] [place] [address] Lymphocytes/100 WBC (Bld) 18 % Normal 14-48 [facility] Comment on above: Performed By: #### 7 [id number], [id number] ####[facility] (DEFAULT)[address] [place] [address] Mckean Abs# 0.5 x10 Normal 0.0-0.8 [facility] Comment on above: Performed By: #### 7 [id number], [id number] ####[facility] (DEFAULT)[address] [place] [address] Neut Abs# 3.8 x10 Normal 1.5-9.2 [facility] Comment on above: Performed By: #### 7 [id number], [id number] ####[facility] (DEFAULT)[address] [place] [address] Neutrophils/100 WBC (Bld) 70 % Normal 44-88 [facility] Comment on above: Performed By: #### 7 [id number], [id number] ####[facility] (DEFAULT)[address] [place] [address] Standardon 12-30-2019 eGFR Non AA >60 [facility] Comment on above: Performed By: #### 1 [id number] ####[facility] (DEFAULT)[address] [place] [address]000 eGFR AA >60 [facility] Comment on above: Result Comment: Driveway Attendant freddy Kidney disease could be indicated at eGFRs of less than 60 ml/min/1.73m2. Kidney Failure is indicated at less than 15 ml/min/1.73m2 Performed By: #### 1 [id number] ####[facility] (DEFAULT)[address] [place] [address]285 Anion gap [Moles/Vol] 13.0 mmol/L Normal 5.0-19.0 [facility] Comment on above: Performed By: #### 1 [id number] ####[facility] (DEFAULT)[address] [place] [address] Calcium [Mass/Vol] 9.3 mg/dL Normal 8.9-10.3 [facility] Comment on above: Performed By: #### 1 [id number] ####[facility] (DEFAULT)[address] [place] [address]139 Chloride [Moles/Vol] 100 mmol/L Low 101-111 [facility] Comment on above: Performed By: #### 1 [id number] ####[facility] (DEFAULT)[address] [place] [address] CO2 [Moles/Vol] 28 mmol/L Normal 21-32 [facility] Comment on above: Performed By: #### 1 [id number] ####[facility] (DEFAULT)[address] [place] [address]135 Creatinine [Mass/Vol] 0.69 mg/dL Normal 0.60-1.30 [facility] Comment on above: Performed By: #### 1 [id number] ####[facility] (DEFAULT)[address] [place] [address]1279 Glucose [Mass/Vol] 87.0 mg/dL Normal 74.0-118.0 [facility] Comment on above: Performed By: #### 1 [id number] ####[facility] (DEFAULT)[address] [place] [address]11 Osmolality [Osmolality] 277 mOsm/L [facility] Comment on above: Performed By: #### 1 [id number] ####[facility] (DEFAULT)[address] [place] [address]81 Potassium [Moles/Vol] 3.9 mmol/L Normal 3.6-5.1 [facility] Comment on above: Performed By: #### 1 [id number] ####[facility] (DEFAULT)[address] [place] [address]444 Sodium [Moles/Vol] 137.0 mmol/L Normal 136.0-144.0 [facility] Comment on above: Performed By: #### 1 [id number] ####[facility] (DEFAULT)[address] [place] [address]6025 Urea nitrogen [Mass/Vol] 23 mg/dL Normal 8-26 [facility] Comment on above: Performed By: #### 1 [id number] ####[facility] (DEFAULT)[address] [place] [address]1612 Urea nitrogen/Creatinin e [Mass ratio] 33.0 mg/mg High 4.6-16.2 [facility] Comment on above: Performed By: #### 1 [id number] ####[facility] (DEFAULT)[address] [place] [address]250 CBC w/ Auto Diffon 0 Erythrocyte distribution width (RBC) [Ratio] 12.0 % Normal 11.5-15.0 [facility] Comment on above: Performed By: #### 7 [id number], [id number] ####[facility] (DEFAULT)[address] [place] [address] Hematocrit (Bld) [Volume fraction] 39.2 % Normal 33.7-40.4 [facility] Comment on above: Performed By: #### 7 [id number], [id number] ####[facility] (DEFAULT)[address] [place] [address]386 Hemoglobin (Bld) [Mass/Vol] 13.4 g/dL Normal 11.3-15.9 [facility] Comment on above: Performed By: #### 7 [id number], [id number] ####[facility] (DEFAULT)[address] [place] [address] Man Diff? Auto Normal [facility] Comment on above: Performed By: #### 7 [id number], [id number] ####[facility] (DEFAULT)[address] [place] [address] [id number] MCH (RBC) [Entitic mass] 31 pg Normal 24-34 [facility] Comment on above: Performed By: #### [id number], [id number] ####[facility] (DEFAULT)[address] [place] [address] 82086 MCHC (RBC) [Mass/Vol] 34 g/dL Normal 26-37 [facility] Comment on above: Performed By: #### [id number], [id number] ####[facility] (DEFAULT)[address] [place] [address] 13666 MCV (RBC) [Entitic vol] 90 fL Normal 81-100 [facility] Comment on above: Performed By: #### [id number] ####[facility] (DEFAULT)[address] [place] [address] 76453 Platelet mean volume (Bld) [Entitic vol] 9.6 fL Normal 6.3-10.2 [facility] Comment on above: Performed By: #### [id number], [id number] ####[facility] (DEFAULT)[address] [place] [address] 74481 Platelets (Bld) [#/Vol] 220 x10 Normal 138-427 [facility] Comment on above: Performed By: #### 7 [id number] ####[facility] (DEFAULT)[address] [place] [address] RBC (Bld) [#/Vol] 4.36 x10 Normal 3.70-5.30 [facility] Comment on above: Performed By: #### [id number], [id number] ####[facility] (DEFAULT)[address] [place] [address] WBC (Bld) [#/Vol] 5.4 x10 Normal 3.5-10.5 [facility] Comment on above: Performed By: #### 7 [id number], [id number] ####[facility] (DEFAULT)[address] [place] [address] Vital Signs Date Time Vital Sign Value Performing Clinician Facility 01-01-2024 09:05-0500 Body temperature 98.01 [degF] Loretta Amanda JOSE ALEJANDRO-POWDER LOADER Work Phone: [facility] 01-01-2024 09:05-0500 Diastolic blood pressure 78 mm[Hg] Loretta Amanda NETWORK OPERATIONS SPECIALIST-POWDER LOADER Work Phone: [facility] 01-01-2024 09:05-0500 Heart rate 71 /min Loretta Amanda JOSE ALEJANDRO-POWDER LOADER Work Phone: [facility] 01-01-2024 09:05-0500 Systolic blood pressure 138 mm[Hg] Loretta Amanda APRN-POWDER LOADER Work Phone: [facility] 12-18-2023 10:58-0400 Body temperature 97.5 [degF] Loretta Amanda JOSE ALEJANDRO-POWDER LOADER Work Phone: [facility] 12-18-2023 10:58-0400 Diastolic blood pressure 66 mm[Hg] Loretta Amanda JOSE ALEJANDRO-POWDER LOADER Work Phone: [facility] 12-18-2023 10:58-0400 Heart rate 79 /min Loretta Amanda JOSE ALEJANDRO-POWDER LOADER Work Phone: [facility] 12-18-2023 10:58-0400 Respiratory rate 16 /min Loretta Amanda JOSE ALEJANDRO-POWDER LOADER Work Phone: [facility] 12-18-2023 10:58-0400 Systolic blood pressure 101 mm[Hg] Loretta Amanda NETWORK OPERATIONS SPECIALIST-POWDER LOADER [facility] 12-04-2023 10:28-0400 Body temperature 97 [degF] Tori Vo NETWORK OPERATIONS SPECIALIST-POWDER LOADER Work Phone: [facility] 12-04-2023 10:28-0400 Diastolic blood pressure 61 mm[Hg] Tori Vo NETWORK OPERATIONS SPECIALIST-POWDER LOADER Work Phone: [facility] 12-04-2023 10:28-0400 Heart rate 71 /min Torinorma Kangiak NETWORK OPERATIONS SPECIALIST-POWDER LOADER Work Phone: [facility] 12-04-2023 10:28-0400 Respiratory rate 16 /min Tori Kangiak NETWORK OPERATIONS SPECIALIST-POWDER LOADER Work Phone: [facility] 12-04-2023 10:28-0400 Systolic blood pressure 124 mm[Hg] Tori Kangiak NETWORK OPERATIONS SPECIALIST-POWDER LOADER Work Phone: [facility] 05-16-2022 15:30-0400 Body height 170.18 cm Theron Morales Other [facility] Other 05-16-2022 15:30-0400 Body mass index (BMI) [Ratio] 21.61 kg/m2 Theron Morales Other [facility] Other 05-16-2022 15:30-0400 Body temperature 97.3 [degF] Theron Morales Other [facility] Other 05-16-2022 15:30-0400 Body weight 62.6 kg Theron Morales Other [facility] Other 05-16-2022 15:30-0400 Diastolic blood pressure 62 mm[Hg] Theron Morales Other [facility] Other 05-16-2022 15:30-0400 Systolic blood pressure 117 mm[Hg] Theron Morales Other [facility] Other Encounters Encounter Date Encounter Type Care Provider Facility Start: 01-01-2024 End: 01-01-2024 ambulatory [facility] Niko TREASURE [facility] Start: 01-01-2024 End: 01-01-2024 Office outpatient visit 10 minutes Loretta Amanda NETWORK OPERATIONS SPECIALIST-POWDER LOADER Work Phone: [facility] Comment on above: Traumatic hematoma o f right knee, subsequent encounter (Primary Dx); Traumatic open wound of lower leg with delayed healing, right Start: 12-18-2023 End: 12-18-2023 Office outpatient visit 10 minutes Loretta Amanda NETWORK OPERATIONS SPECIALIST-POWDER LOADER Work Phone: [facility] Comment on above: Skin ulcer of knee, right, with fat layer exposed ([facility]) (Primary Dx); Traumatic hematoma of right knee, subsequent encounter Start: 12-18-2023 End: 12-18-2023 ambulatory [facility] Niko AMANDA [facility] Start: 12-17-2023 End: 12-17-2023 Bamboo flowsheet Otf Galvez SALES ARCHITECT Work Phone: [facility] Start: 12-17-2023 End: 12-17-2023 Bamboo flowsheet Otf Galvez SALES ARCHITECT Work Phone: [facility] Start: 12-17-2023 End: 12-17-2023 ambulatory OTF GALVEZ Not Available Start: 12-17-2023 End: 12-17-2023 Office outpatient visit 10 minutes Otf Galvez SALES ARCHITECT Work Phone: [facility] Comment on above: Traumatic hematoma o f right knee, subsequent encounter (Primary Dx) Start: 12-04-2023 End: 12-04-2023 Patient encounter procedure Loretta Amanda NETWORK OPERATIONS SPECIALIST-POWDER LOADER Work Phone: [facility] Comment on above: Skin ulcer of knee, right, with fat layer exposed ([facility]) (Primary Dx); Traumatic hematoma of right knee, subsequent encounter; Pain and swelling of knee, right Start: 12-04-2023 End: 12-04-2023 ambulatory TORI VO [facility] Start: 2023 End: 2023 ambulatory LORETTA Pope TREASURE [facility] Start: 11-19-2023 End: 11-19-2023 ambulatory [facility] Start: 11-19-2023 End: 11-19-2023 ambulatory OTF GALVEZ Not Available Start: 11-15-2023 ambulatory [facility] Start: 11-13-2023 End: 11-13-2023 ambulatory [facility] Niko [facility] Start: 11-06-2023 End: 11-06-2023 ambulatory LORETTA Niko [facility] Start: 11-05-2023 End: 11-05-2023 ambulatory OTF GALVEZ Not Available Start: 10-24-2023 End: 10-24-2023 ambulatory ILEANA MCGRAW Not Available Start: 09-10-2023 End: 09-10-2023 ambulatory [facility] Start: 08-16-2023 Encounter for preprocedural cardiovascular examination [facility] Start: 08-16-2023 ambulatory [facility] Start: 07-05-2023 Patient encounter procedure Otf Galvez SALES ARCHITECT Work Phone: [facility] Start: 07-05-2023 End: 07-05-2023 ambulatory ANGEL STEWART Not Available Start: 07-01-2023 End: 07-01-2023 ambulatory CECY Mondragon APLING Not Available Start: 06-26-2023 End: 06-26-2023 ambulatory CECY Mondragon APLING Not Available Start: 05-21-2023 End: 05-21-2023 ambulatory [facility] Start: 03-14-2023 End: 03-14-2023 [facility] Start: 12-21-2022 End: 12-21-2022 ambulatory [facility]EY [facility]CA[facility] [facility] Start: 05-24-2022 End: 05-25-2022 ambulatory CHARLESALEKSANDRA TAN . Facility:[facility] Start: 05-16-2022 End: 05-16-2022 ambulatory Theron Carmen Other [facility] Other Start: 05-16-2022 Office outpatient ne w 45 minutes Theron Morales [facility] Start: 04-03-2022 End: 04-03-2022 ambulatory CHARLES SAMSA . Facility:[facility] Start: 04-02-2022 End: 04-03-2022 ambulatory CHARLESALEKSANDRA TAN . Facility:[facility] Start: 03-14-2022 End: 03-15-2022 ambulatory [place]LEXEY SULLIV[place]LOOr[place] Facility:[facility] Start: 10-03-2021 End: 10-03-2021 ambulatory CHARLESALEKSANDRA TAN . Facility:[facility] Start: 10-02-2021 End: 10-03-2021 ambulatory CHARLESALEKSANDRA TAN . Facility:[facility] Start: 09-27-2021 End: 09-27-2021 ambulatory OSMEL GARCIA Facility:[facility] Start: 09-04-2021 End: 09-05-[address] ANGEL STEWART Facility:[facility] Start: 06-06-2021 End: 06-07-[address] ANGEL STEWART Facility:[facility] Start: 06-05-2021 End: 06-05-2021 ambulatory BLESSING CRUZ . Facility:[facility] Start: 06-30-2020 End: 07-01-2020 ambulatory AMADOR PARKINSON [facility] Procedures Date Procedure Procedure Detail Performing Clinician Start: 12-18-2023 NURSING COMMUNICATION Melissa Amanda NETWORK OPERATIONS SPECIALIST-POWDER LOADER Work Phone: Start: 12-04-2023 NURSING COMMUNICATION Melissa Amanda NETWORK OPERATIONS SPECIALIST-POWDER LOADER Work Phone: Start: 01-01-2023 Mammography Otf townsend NP Work Phone: Plan of Treatment Date Care Activity Detail Author Start: 07-14-2026 Screening for malign ant neoplasm of colon [facility] Start: 12-31-2024 Tobacco Screening Tobacco Screening [facility] Start: 12-03-2024 Tobacco Screening Tobacco Screening [facility] Start: 09-30-2024 DTaP,Tdap and Td Vaccines (2 - Td or Tdap) DTaP,Tdap and Td Vaccines (2 - Td or Tdap) [facility] Start: 07-04-2024 Medicare Annual Wellness (AWV) Medicare Annual Wellness (AWV) [facility] Start: 01-02-2024 Screening for malign ant neoplasm of breast Mammogram [facility] Start: 01-01-2024 End: 01-01-2024 Patient encounter procedure 01/01/2024 9:00 AM EST Office Visit [facility] [address] [place] [address] Loretta Amanda, NETWORK OPERATIONS SPECIALIST-POWDER LOADER [address] [place] [address] [facility] Start: 12-18-2023 End: 12-18-2023 Patient encounter procedure 12/18/2023 11:00 AM EDT Office Visit [facility] [address] [place] [address] Loretta Amanda, NETWORK OPERATIONS SPECIALIST-POWDER LOADER [address] [place] [address] [facility] Start: 10-27-2023 COVID-19 Vaccine ( season) COVID-19 Vaccine ( season) [facility] Start: 10-27-2023 COVID-19 Vaccine ( season) COVID-19 Vaccine ( season) [facility] Start: 11-19-2016 Fall Risk Screening Fall Risk Screen ing [facility] Start: 11-19-1969 Adult BMI Screening Adult BMI Screen ing [facility] Start: 1963 Depression Screening Depression Scre ening [facility] Start: 1950 Medicare Annual Wellness Visit Medicare Annual Wellness Visit [facility] Start: 1950 Screening for malign ant neoplasm of colon [facility] Immunizations Immunization Date Immunization Notes Care Provider Fa rg 11-15-2022 Influenza, Seasonal, Quadrivalent, Adjuvanted Otf Galvez SALES ARCHITECT Work Phone: [facility] 12-03-2021 Influenza, Seasonal, Quadrivalent, Adjuvanted Otf Kiko SALES ARCHITECT Work Phone: [facility] 10-26-2021 influenza virus vacc ine, unspecified formulation Otf Kiko SALES ARCHITECT Work Phone: [facility] 11-14-2020 Influenza, Seasonal, Quadrivalent, Adjuvanted Otf Galvez SALES ARCHITECT Work Phone: [facility] 11-14-2020 pneumococcal polysaccharide vaccine, 23 valent Otf Galvez SALES ARCHITECT Work Phone: [facility] 11-04-2019 influenza, injectabl e, quadrivalent, preservative free Otf Galvez SALES ARCHITECT Work Phone: [facility] 11-03-2019 influenza, high dose seasonal, preservative-free Otf Galvez SALES ARCHITECT Work Phone: [facility] 09-23-2019 pneumococcal conjuga te vaccine, 13 valent Otf Kiko SALES ARCHITECT Work Phone: [facility] 12-25-2018 Seasonal trivalent influenza vaccine, adjuvanted, preservative free Otf Galvez SALES ARCHITECT Work Phone: [facility] 11-25-2017 influenza,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 note there may be an additional personal documentation from me. Date Dict: 07/01/2020/11:26 A/Chana Guthrie, MSN, MEDICAL CODING TECHNICIAN-C Date Trans: 07/02/2020 09:40 A/nixon [id number] cc: Amador Parkinson MD Dept Of Cardiology [address] [place] [id number] Angel Stewart M.D. [facility] [address]* Diagnosis Skin ulcer of knee, right, with fat layer exposed (CMS-HCC)- Primary Traumatic hematoma of right knee, subsequent encounter Pain and swelling of knee, right [facility] Diagnosis Medicare annual wellness visit, subsequent- Primary Colon cancer screening Special screening for malignant neoplasms, colon Chronic obstructive pulmonary disease, unspecified COPD type (CMS/HCC) Traumatic hematoma of right knee, subsequent encounter- Primary documented in this encounter [facility]* Diagnosis Skin ulcer of knee, right, with fat layer exposed (CMS-HCC)- Primary Traumatic hematoma of right knee, subsequent encounter [facility] Diagnosis Traumatic hematoma of right knee, subsequent encounter- Primary Traumatic open wound of lower leg with delayed healing, right documented [facility] N[facility]ative - Reported* Type Description Date Medical History osteopenia Medical History insomnia Medical History depression Medical History migraines Medical History cardiomyopathy Medical History copd Medical History adama Medical History dyslipidemia Medical History Access Media 3 Other Summary Purpose Family History No Family History Records FoundNo Family History Records FoundNo Family History Records FoundNo Family History Records FoundNo Family History Records FoundNo Family History Records Found Advance Directives No Advanced Directives Records FoundNo Advanced Directives Records FoundNo Advanced Directives Records FoundNo Advanced Directives Records FoundNo Advanced Directives Records FoundNo Advanced Directives Records Found Hospital Course Note [facility] SURGERY Clinical Discharge Summary PERSON INFORMATION Name LEDA GORDON Age 69 Years 1950 Sex FEMALE Language Sami PCP ANGEL STEWART Marital Status Med Service Ambulatory Surgery Acct# Arrival 01/11/2020 07:00:00 Visit Reason SURGERY-LEFT SHOULDER ARTHROSCOPY Acuity LOS 017 05:53 Address: [address] [place] [address] Comment: PROVIDER INFORMATION VITALS INFORMATION Vital Sign [...] (more content not included)... Note Patient: LEDA GORDON MRN: [id number] Age: 69 years Sex: FEMALE : 1950 Associated Diagnoses: None Author: Yanick Edward MD Postoperative Information Post Operative Note: Operative Day. Anesthetic utilized: General. Health Status Allergies: Allergic Reactions (All) Severe Cogentin- Hallucinations. Moderate Phenothiazine- Nausea. Problem list (past medical history): All Problems COPD (chronic obstructive pulmonary disease) case management patient / SNOMED CT 449450213 / Confirmed CHF (congestive heart failure) / SNOMED CT 90599422 / Confirmed Myopathy / SNOMED CT 656859276 / Confirmed Ventricular dysfunction / SNOMED CT 123968326 / Confirmed Physical Examination VS/Measurements Vital Signs (last 24 hrs) Last Charted Heart Rate Peripheral 70 bpm (JAN 10 09:45) Resp Rate 16 br/min (JAN 10:22) SBP 123 mmHg (JAN 10:) DBP 73 mmHg (JAN 10:) SpO2 100 % (JAN 10:) Review / Management Condition: Stable. Assessment Anesthetic outcome No (more content not included)... Procedure Findings Note Patient: LEDA GORDON MRN: 17 Age: 69 years Sex: FEMALE : 1950 Associated Diagnoses: None Author: Yanick Edward MD Postoperative Information Post Operative Note: Operative Day. Anesthetic utilized: General. Health Status Allergies: Allergic Reactions (All) Severe Cogentin- Hallucinations. Moderate Phenothiazine- Nausea. Problem list (past medical history): All Problems COPD (chronic obstructive pulmonary disease) case management patient / SNOMED CT 945904981 / Confirmed CHF (congestive heart failure) / SNOMED CT 67057824 / Confirmed Myopathy / SNOMED CT 297151754 / Confirmed Ventricular dysfunction / SNOMED CT 085277298 / Confirmed Physical Examination VS/Measurements Vital Signs (last 24 hrs) Last Charted Heart Rate Peripheral 70 bpm (JAN 10 09:45) Resp Rate 16 br/min (JAN 10:) SBP 123 mmHg (JAN 10:) DBP 73 mmHg (JAN 10:) SpO2 100 % (JAN 10:) Review / Management Condition: Stable. Assessment Anesthetic outcome No (more content not included)... Reason for Referral Specialty Diagnoses / Procedures Referred By Contac t Referred To Contact Diagnoses Traumatic hematoma of right knee, subsequent encounter Skin ulcer of knee, right, with fat layer exposed ([facility]) Procedures Xeroform 4x4 Tori Vo, NETWORK OPERATIONS SPECIALIST-POWDER LOADER [address] [place] [address] Referral ID Status Reason Start Date Expiration Date V isits Requested Visits Authorized [id number] Pending Review 12/04/2023 12/03/2024 1 1 Additional Source Comments INFORMATION SOURCE (unrecogn ized section and content) DATE CREATED AUTHOR 01/20/2020 [facility] DATE CREATED AUTHOR AUTHOR'S ORGANIZ ATION 06/10/2021 [facility] DATE CREATED AUTHOR AUTHOR'S ORGANIZ ATION 06/01/2022 [facility] DATE CREATED AUTHOR AUTHOR'S ORGANIZ ATION 11/22/2023 [facility] DATE CREATED AUTHOR AUTHOR'S ORGANIZ ATION 12/19/2023 [facility] DATE CREATED AUTHOR AUTHOR'S ORGANIZ ATION 01/02/2024 [facility] Reason for Visit (unrecogniz ed section and content) Reason Comments Follow-up Reason Comments Wound Check Specialty Diagnoses / Procedures Referred By Kevan t Referred To Contact Wound Care Diagnoses Traumatic hematoma of right knee, initial encounter Ref Prov, [place] [address] [facility] Wound Care Op [address] [place] [address] Referral ID Status Reason Start Date Expiration Date Visits Requested Visits Authorized [id number] Pending Review Specialty Services Required 10/25/2023 10/24/2024 1 1 Care Teams (unrecognized sec tion and content) Shaping Machine Operator Relationship Specialty Start Date End Date Angel Setwart MD [address] [place] [id number] PCP - General Family Medicine 06/26/23 Angel Stewart MD [address] [place] [id number] PCP - [employer] 08/26/23 Shaping Machine Operator Relationship Specialty Start Date End Date Angel Stewart MD [address] [place] [phone] PCP - General Family Medicine 06/26/23 Angel Stewart MD [address] [place] [phone] PCP - [employer] 08/26/23 FOR RECORDS PERTAINING TO PATIENTS WHO ARE [...] BE BASED ON THE PRIMARY CLINICAL RECORDS. [facility]. provides no warranty or guarantee of the accuracy or completeness of information in this document.
[2024-02-11 13:03] LABS: Troponin I High Sensitivity 50.9 pg/mL (4.0-51.3)
[2024-02-11 13:41] LABS: Bilirubin Urine NEGATIVE (NEGATIVE); Blood Urine NEGATIVE (NEGATIVE); Clarity Urine CLEAR (CLEAR); Color Urine YELLOW (YELLOW); Glucose Urine UA NEGATIVE (NEGATIVE); Ketones Urine TRACE mg/dL (NEGATIVE); Leukocyte Esterase Urine NEGATIVE (NEGATIVE); Nitrite Urine NEGATIVE (NEGATIVE); Protein Urine TRACE mg/dL (NEG/TRACE); Specific Gravity Urine 1.015 (1.005-1.025); Urobilinogen Urine 0.2 EU/dL (0.2-1.0); pH Urine 6.5 (5.0-9.0)
[2024-02-11 13:49] LABS: RBC Urine 0-2 #/HPF (0-2); WBC Urine NONE SEEN #/HPF (NONE SEEN)
[2024-02-11 13:50] LABS: Bacteria Urine TRACE #/HPF (NONE SEEN); Cast Seen? SEEN #/LPF (NONE SEEN); Crystals Seen? None Seen #/HPF (None Seen); Hyaline Casts Urine MODERATE; Mucus Urine NONE SEEN (NONE SEEN); Squamous Epithelial Cell Urine RARE #/LPF (NONE/RARE)
== END 2024-02-11 14:07 | disposition home or self-care (01) ==
PROVIDERS: Emergency Provider Emergency Medicine; PCP Family Medicine
DX: E86.0 Dehydration (principal); R42 Dizziness and giddiness; Z95.0 Presence of cardiac pacemaker; Z87.891 Personal history of nicotine dependence
CPT/HCPCS: 36415; 80048; 81001; 84484; 85025; 93005; 99284

== ENCOUNTER 2024-02-14 11:11 | Outpatient (OUT) | payer MEDICARE, SELFPAY ==
[2024-02-14 11:31] LABS: Basophils Percent Auto 0.3 % (0.2-2.0); Hematocrit 41.2 % (36.0-48.0); Hemoglobin 13.8 g/dL (12.0-16.0); Immature Granulocytes Abs Auto 0.21 10^3/uL (0.00-0.03); Lymphocytes Absolute Auto 1.6 10^3/uL (1.2-3.8); Mean Corpuscular HGB Conc 33.5 g/dL (29.9-35.2); Mean Corpuscular Hemoglobin 29.9 pg (26.7-34.0); Mean Corpuscular Volume 89.4 fL (81.0-99.0); Mean Platelet Volume 8.9 fL (9.5-13.5); Monocytes Percent Auto 9.7 % (1.7-12.0); Neutrophils Absolute Auto 7.6 10^3/uL (1.4-6.5); Platelet Count 274 10^3/uL (150-450); Red Blood Count 4.61 10^6/uL (4.20-5.40); Red Cell Distribution Width 12.4 % (11.0-15.0); White Blood Count 10.4 10^3/uL (4.0-11.0)
[2024-02-14 12:32] LABS: BUN Creatinine Ratio 14.7; Calcium 9.3 mg/dL (8.5-10.1); Carbon Dioxide 31.6 mmol/L (21.0-32.0); Chloride 103 mmol/L (98-107); Estimated GFR (African America >60 (>=60 mL/min/1.73m^2); Estimated GFR (Non-African Ame 58 (>=60 mL/min/1.73m^2); Glucose 94 mg/dL (74-106); Potassium 3.6 mmol/L (3.5-5.1); Sodium 143 mmol/L (136-145)
== END 2024-02-14 11:12 | disposition home or self-care (01) ==
LOC: LAB 11:12
PROVIDERS: PCP Family Medicine; Visit Provider Family Medicine
DX: Z79.899 Other long term (current) drug therapy (principal)
CPT/HCPCS: 36415; 80048; 85025

== ENCOUNTER 2024-07-22 13:58 | Outpatient (OUT) | payer MEDICARE, SELFPAY ==
--- OUTSIDE RECORDS SUMMARY | 2024-02-12 11:18 | XMS_ITS ---
Author Organization The [facility] in [place] Address [address] [place] [address] Care Team Providers Care Iso Coordinator Name Role Phone Angel Griggs MD Primary Care Provider Unavailab Vishnu Ford Unavailable [phone] REASON FOR VISIT Fasenra Encounters Encounter Location Date Provider Diagnosis Pulmonary Medicine [place] [address] [place] [address] 02/12/2024 Vishnu Allen Plan Of Treatment Next Appt Details Provider Name:Vishnu Kee, 12/30/2024 01:30:00 PM, [address] [place], [address], Progress Notes * JACKIE Samina KDOB:1950 (73 yo F)Acc No.[id number]:02/12/2024 Patient: Melissa JUDD Samina Felix :1950 A ge:73 Y S ex:Female Address:[address] [place] [address], [phone] * true * Date: Generated for Printi ng/Faalexandreg/eTransmitting on: 0 07/22/2024 02:04 PM EDT
--- OUTSIDE RECORDS SUMMARY | 2024-04-23 05:32 | XMS_ITS ---
Author Organization The [facility] [place] Address [address] [place] [address] Care Team Providers Care Recorder Helper [employer] Name Role Phone Angel Griggs MD Primary Care Provider Unavailab rosa SweetVishnu Unavailable [phone] REASON FOR VISIT Fasenra Prescription Encounters Encounter Location Date Provider Diagnosis Pulmonary Medicine [place] [address] [place] [address] 04/23/2024 Vishnuvonda Sweet Plan Of Treatment Next Appt Details Provider Name:Vishnu Kee, 12/30/2024 01:30:00 PM, [address] [place], [address], Progress Notes * Samina MEJIA KDOB:1950 (73 yo F)Acc No.[id number]:04/23/2024 Patient: Melissa JUDD Samina Felix :1950 A ge:73 Y S ex:Female Address:[address] [place] [address], [phone] * true * Date: Generated for Printi ng/Faxing/eTransmitting on: 0 07/22/2024 02:03 PM EDT
--- OUTSIDE RECORDS SUMMARY | 2024-04-29 08:11 | XMS_ITS ---
Author Organization [facility] Address [address] [place] [address] Care Team Providers Care Physician Specialist Name Role Phone Angel Griggs MD Primary Care Provider Unavailab Vishnu Ford Unavailable [phone] REASON FOR VISIT [facility] Encounters Encounter Location Date Provider Diagnosis Pulmonary Medicine [place] [address] [place] [address] 04/29/2024 Vishnu Tiffany Plan Of Treatment Next Appt Details Provider Name:Vishnu Kee, 12/30/2024 01:30:00 PM, [address] [place], [address], Progress Notes * Samina MEJIA KDOB:1950 (73 yo F)Acc No.[id number]:04/29/2024 Patient: Melissa JUDD Samina Felix :1950 A ge:73 Y S ex:Female Address:[address] [place] [address], [id number] * true * Date: Generated for Printi ng/Faxing/eTransmitting on: 0 07/22/2024 08:37 AM EDT
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
--- OUTSIDE RECORDS SUMMARY | 2024-07-22 14:04 | XMS_ITS | Encounter Summary ---
Author Organization [facility] Address [address] [place] [address] Care Team Providers Care Offensive Coordinator Name Role Phone Angel Griggs MD Primary Care Provider [phone] Angel Griggs MD Unavailable Encounter Details Date Type Department Care Team (Late st Contact Info) Description 01/30/2023 Clinisync Result Encounter [facility] External Department Unsolicited Provider, Generic External Data Social History Tobacco Use Types Packs/Day Years Used Date Smoking Tobacco: Never Assessed Comments Unknown Sex and Gender Information Value Date Recorded Sex Assigned at Female 06/24/2023 1:41 PM EDT Legal Sex Female 6:50 PM EDT Gender Identity Female 06/24/2023 1:41 PM EDT Sexual Orientation Straight 06/24/2023 1: 41 PM EDT documented as of this encounter Plan of Treatment Not on file documented as of this encounter Procedures Procedure Name Priority Date/Time Associated Diagnosis Comments RT PULMONARY FUNCTION TEST 01/30/2023 12:44 PM EST documented in this encounter Results * RT PULMONARY FUNCTION TEST (01/30/2023 12:44 PM EST) Anatomical Region Laterality Modality Other 01/30/2023 12:4 4 PM EST Narrative 01/31/2023 1:37 PM EST The [address] [address] Respiratory Report Signed Patient: LEDA MEJIA MR#: [id number] : 1950 Acct:[id number] Age/Sex: 72 / F ADM Date: 01/31/23 Loc: CARD Attending Dr: Vishnu Allen D.O. Ordering Physician: Vishnu Allen D.O. Date of Service: 01/30/23 Procedure(s): RT pulmonary function test Accession Number(s): [id number] cc: [facility] Test Date: 2023-01-30 Pat Name: LEDA MEJIA Department: Room: - Gender: Female Dollyman: Rosana Leary RRT : 1950 Requested By: Vishnu Allen Order Number: [id number] Reading MD: Vishnu Allen Interpretive Statements Pulmonary function testing was completed according to ATS criteria. Findings were considered accurate and reproducible. Both pre- and post-bronchodilator values utilized for spirometry. Due to software limitations, no prior studies (if performed previously) are currently available for comparison. Spirometry (based on pre-bronchodilator values): -FEV1/FVC: Low normal @ 72% -FEV1: Moderately reduced @ 66% -FVC: Moderately reduced @ 69% -There is a partial bronchodilator response in FVC which meets >200mL increase but <12% change. Lung volumes by plethysmography (based on pre-bronchodilator values): -RV: Normal @ 96% -TLC: Normal @ 93% Diffusion capacity: -DLCO: Mild reduction @ 71% when corrected for Hb 12.7g/dL Flow-volume loop: -Moderate obstructive pattern Impressions: -Spirometry trends towards moderate obstruction. Normal lung volumes. Mild diffusion impairment. Study suggests asthma with partial loss of bronchodilator response or asthma-COPD overlap. Clinical correlation required. Electronically Signed On 01-31-2023 13:36:56 EST by Visnhu Allen Dictated By: Vishnu Allen D.O. Signed By: 01/31/23 1337 DD/ 1244 TD/TT: Quill Reamer: Procedure Note Radiology, Radiologist, - 01/31/2023 [place] [address] Respiratory Report Signed Patient: ELDA MEJIA KMR#: [id number] : 1950cct:[id number] Age/Sex: 72 / FADM Date: 01/31/23 Loc: CARD Attending Dr: Vishnu Allen D.O. Ordering Physician: Vishnu Allen D.O. Date of Service: 01/30/23 Procedure(s): RT pulmonary function test Accession Number(s): [id number] cc: [facility] Test Date: 2023-01-30 Pat Name: LEDA MEJIA Department: Room: - Gender: Female Dollyman: Rosana Leary RRT : 1950 Requested By: Vishnu Allen Order Number: [id number] Reading MD: Vishnu Allen Interpretive Statements Pulmonary function testing was completed according to ATS criteria.Findings were considered accurate and reproducible. Both pre- andpost-bronchodilator values utilized for spirometry. Due to software limitations, no priorstudies (if performed previously) are currently available for comparison. Spirometry (based on pre-bronchodilator values): -FEV1/FVC: Low normal @ 72% -FEV1: Moderately reduced @ 66% -FVC: Moderately reduced @ 69% -There is a partial bronchodilator response in FVC which meets >200mL increase but <12% change. Lung volumes by plethysmography (based on pre-bronchodilator values): -RV: Normal @ 96% -TLC: Normal @ 93% Diffusion capacity: -DLCO: Mild reduction @ 71% when corrected for Hb 12.7g/dL Flow-volume loop: -Moderate obstructive pattern Impressions: -Spirometry trends towards moderate obstruction. Normal lung volumes.Mild diffusion impairment. Study suggests asthma with partial loss of bronchodilator response or asthma-COPD overlap. Clinical correlation required. Electronically Signed On 01-31-2023 13:36:56 EST by Vishnu Allen Dictated By: Vishnu Allen D.O. Signed By:01/31/23 1337 DD/ 1244 TD/TT: Quill Reamer: us Generic External Data Provider [facility] Final Result documented in this encounter Visit Diagnoses Not on filedocumented in this encounter Care Teams Offensive Coordinator Relationship Specialty Start Date End Date Angel Grigsg MD [address] [place] [address] PCP - General Family Medicine 06/26/23 Angel Griggs MD [address] [place] [address] PCP - [employer] 08/26/23 documented as of this encounter
--- OUTSIDE RECORDS SUMMARY | 2024-07-22 14:04 | XMS_ITS | Clinical Summary ---
Author Organization [employer] s tem Address [id number] [address] [place] [address] Care Team Providers Care Cleaner Name Role Phone Unavailable Primary Care Provider Unavailabl e Allergies Active Allergy Reactions Criticality Noted Date Comments Benztropine Hallucinations 11/06/2023 Phenothiazines 11/06/2023 Medications losartan (COZAAR) 25 mg tablet Take 1 tablet (25 mg total) by mouth in the morning. Active furosemide (LASIX) 20 mg tablet Take 1 tablet (20 mg total) by mouth daily. Active metoprolol succinate XL (TOPROL XL) 25 mg 24 hr tablet Take 1 tablet (25 mg total) by mouth in the morning. Active spironolactone (ALDACTONE) 25 mg tablet Take 1 tablet (25 mg total) by mouth in the morning. Take 1/2 tab daily. Active omeprazole (PriLOSEC) 20 mg capsule Take 1 capsule (20 mg total) by mouth in the morning. Active fluticasone propion-salmeteroL (ADVAIR) 100-50 mcg/dose DISKUS Inhale 1 puff in the morning and 1 puff before bedtime. Active traZODone (DESYREL) 50 mg tablet Take 1 tablet (50 mg total) by mouth nightly. Take 1/2 tab at bedtime Active ZOLMitriptan (ZOMIG-ZMT) 5 mg disintegrating tablet Dissolve 1 tablet (5 mg total) on tongue once as needed for migraine. May repeat in 2 hours if unresolved. Do not exceed 10 mg in 24 hours. Active loratadine (CLARITIN) 10 mg tablet Take 1 tablet (10 mg total) by mouth in the morning. Active albuterol (PROVENTIL HFA;VENTOLIN HFA) 90 mcg/actuation inhaler Inhale 2 puffs every 6 (six) hours as needed for wheezing. Active lutein-zeaxanthin 20-4 mg capsule Take 1 tablet by mouth in the morning. Lutein 4mg/zeaxanth in 8mg. Active FLUoxetine (PROzac) 40 mg capsule Take 1 capsule every day by oral route for 30 days. 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 Osteopenia of multiple sites 07/05/2023 Persistent insomnia 07/05/2023 Recurrent depressive disorder, current episode m ild 07/05/2023 HEIN (dyspnea on exertion) 02/27/2022 Overview (11/06/2023): Last Assessment & Plan: -has noticed this more with going up stairs which is new for her -will evaluate with echo, last one was 01/2020 (refer to above) Obstructive sleep apnea syndrome 02/27/2022 Overview (11/06/2023): Last Assessment & Plan: -uses cpap machine nightly, continue use 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 Last Assessment & Plan: COPD is stable, has had more of a cough with more phlegm recently -will follow up with echo assess heart function -continue management with shotblaster Congestive heart failure 01/03/2012 Overview (11/06/2023): Last Assessment & Plan: Congestive heart failure due to NICM, she states in the past when diagnosed she was told it could have been from a virus -last EF40%, mild diastolic dysfunction -follow up with echo in 3 months -continue gdmt: aldactone, toprol, lasix, losartan, will consider SGLT2i pending echo results, she would like to wait for echo before beginning new medication which is reasonable Cough 01/03/2012 Primary cardiomyopathy 01/03/2012 Overview (11/06/2023): NON-ISCHEMIC Family History Medical History Relation Name Comments Heart disease Father Relation Name Status Comments Father Mother Social History Tobacco Use Types Packs/Day Years Used Date Smoking Tobacco: Never Smokeless Tobacco: Never Tobacco Cessation:Counseling Given: Not Answered Childcare Answer Date Recorded Childcare Unknown 08/06/2018 Employment Answer Date Recorded Employment Unknown 08/06/2018 Hunger Screening Answer Date Recorded Within the past 12 months we worried whether our food would run out before we got money to buy more. Never True 12/04/2023 Within the past 12 months th e food we bought just didn't last and we didn't have money to get more. Never True 12/04/2023 Comments Unknown Sex and Gender Information Value Date Recorded Sex Assigned at Not on file Legal Sex Female 11:36 AM EDT Gender Identity Not on file Sexual Orientation Not on file Last Filed Vital Signs Vital Sign Reading Time Taken Comments Blood Pressure 138/78 01/01/2024 9:05 AM EST Pulse 71 01/01/2024 9:05 AM EST Temperature 36.7 C (98 F) 01/01/2024 9:05 AM EST Respiratory Rate 16 12/18/2023 10:58 AM EDT Oxygen Saturation - - Inhaled Oxygen Concentration - - Weight 61.7 kg (136 lb) 11/06/2023 1:38 PM EDT Height - - Body Mass Index - - Plan of Treatment Health Maintenance Due Date Last Done Comments Depression Screening 1962 Adult BMI Screening 11/19/1969 Fall Risk Screening 11/19/2016 COVID-19 Vaccine (4 - 2023-2 5 season) 2023 01/11/2021, 06/22/2020, 06/01/2020 DTaP,Tdap and Td Vaccines (2 - Td or Tdap) 09/30/2024 09/30/2014 Influenza Vaccine 10/26/2024 11/10/2023, , 12/03/2021, Additional history exists Tobacco Screening 12/31/2024 01/01/2024 Zoster (Shingles) Vaccine Completed 2017, 06/25/2017, 11/25/2012 Medical Devices Not on file Insurance [employer] MED[employer]ARE
--- OUTSIDE RECORDS SUMMARY | 2024-07-22 14:04 | XMS_ITS | Encounter Summary ---
Author Organization [facility] Address [address] [facility] [place] [address] Care Team Providers Care Slubber Runner Name Role Phone Angel Griggs MD Primary Care Provider [phone] Angel Griggs MD Unavailable Encounter Details Date Type Department Care Team (Late st Contact Info) Description 10/03/2023 Clinisync Result Encounter [facility] External Department Unsolicited Provider, Generic External Data Social History Tobacco Use Types Packs/Day Years Used Date Smoking Tobacco: Former Cigarettes Q uit: 1970 Smokeless Tobacco: Never Alcohol Use Standard Drinks/Week Comments Yes 0 (1 standard drink = 0.6 oz pure alcohol) 1 beer maybe a week on a saturday Social Connection and Isolat ion Panel [NHANES] Answer Date Recorded In a typical week, how many times do you talk on the phone with family, friends, or neighbors? More than three times a week 06/30/2023 How often do you get togethe r with friends or relatives? Once a week 06/30/2023 How often do you attend chur ch or jew services? More than 4 times per year 06/30/2023 Do you belong to any clubs o r organizations such as rastafari groups, unions, fraternal or athletic groups, or school groups? Yes 06/30/2023 How often do you attend meet ings of the clubs or organizations you belong to? More than 4 times per year 06/30/2023 Are you , , di vorced, , never , or living with a partner? 06/30/2023 AUDIT-C Answer Date Recorded Q1: How often do you have a drink containing alc ohol? 2-4 times a month 06/30/2023 Q2: How many drinks containi ng alcohol do you have on a typical day when you are drinking? 1 or 2 06/30/2023 Q3: How often do you have si x or more drinks on one occasion? Never 06/30/2023 Overall Financial Resource Strain (CARDIA) Answe r Date Recorded How hard is it for you to pa y for the very basics like food, housing, medical care, and heating? Not hard at all 06/30/2023 [facility] - Occupational Stress Questionnaire Answer Date Recorded Do you feel stress - tense, restless, nervous, or anxious, or unable to sleep at night because your mind is troubled all the time - these days? Only a little 06/30/2023 Exercise Vital Sign Answer Date Recorde d On average, how many days pe r week do you engage in moderate to strenuous exercise (like a brisk walk)? 4 days 06/30/2023 On average, how many minutes do you engage in exercise at this level? 60 min 06/30/2023 Hunger Vital Sign Answer Date Recorded Within the past 12 months, y ou worried that your food would run out before you got the money to buy more. Never true 06/30/19 24 Within the past 12 months, t he food you bought just didn't last and you didn't have money to get more. Never true 06/30/2023 PRAPARE - Transportation Answer Date Re corded In the past 12 months, has l ack of transportation kept you from medical appointments or from getting medications? No 06/2023 In the past 12 months, has l ack of transportation kept you from meetings, work, or from getting things needed for daily living? No 06/30/2023 Housing Stability Vital Sign Answer Stan e Recorded In the last 12 months, was t here a time when you were not able to pay the mortgage or rent on time? No 06/30/2023 In the last 12 months, how many places have you lived? 1 06/30/2023 In the last 12 months, was t here a time when you did not have a steady place to sleep or slept in a fdc (including now)? No 06/30/2023 Comments Unknown Sex and Gender Information Value Date Recorded Sex Assigned at Female 06/24/2023 1:41 PM EDT Legal Sex Female 6:50 PM EDT Gender Identity Female 06/24/2023 1:41 PM EDT Sexual Orientation Straight 06/24/2023 1: 41 PM EDT documented as of this encounter Plan of Treatment Not on file documented as of this encounter Procedures Procedure Name Priority Date/Time Associated Diagnosis Comments CA ECHO DOPPLER COMPLETE 10/03/2023 7:57 PM EDT documented in this encounter Results * CA ECHO DOPPLER COMPLETE (10/03/2023 7:57 PM EDT) Anatomical Region Laterality Modality Other 10/03/2023 7:57 PM EDT Narrative 10/03/2023 7:58 [place] [address] Cardiology Report Signed Patient: LEDA MEJIA MR#: [id number] : 1950 Acct:[id number] Age/Sex: 72 / F ADM Date: 10/03/23 Loc: CARD Attending Dr: Amador Parkinson M.D. Ordering Physician: Amador Parkinson M.D. Date of Service: 10/03/23 Procedure(s): CA echo doppler complete Accession Number(s): [id number] cc: Amador Parkinson M.D.; Angel Griggs M.D. Patient Name: LEDA MEJIA MR#: [id number] : 1950 Exam Date: 10/03/2023 Ordering Doctor: AMADOR PARKINSON ECHOCARDIOGRAM REPORT PROCEDURE: CA ECHO DOPPLER COMPLETE INDICATIONS: NICM, Acute systolic heart failure, pacemaker COMPARISON: None. DESCRIPTION: COMPLETE ECHOCARDIOGRAM Real-time transthoracic echocardiography with 2D, M-mode, spectral and color flow Doppler performed. QUALITY: Technical quality was good. LEFT VENTRICLE: Normal chamber size. Normal left ventricular wall thickness. Systolic function is at the lower limits of normal. Abnormal septal motion likely due to bundle branch block/pacing. LV EF: Lower limits of normal left ventricular ejection fraction, (50%). DIASTOLIC: Normal diastolic function. ATRIAL SEPTUM: Visually appears intact. LEFT ATRIUM: Normal chamber size. RIGHT ATRIUM: Normal chamber size. RIGHT VENTRICLE: Normal chamber size. Normal right ventricular systolic function. Pacer wire present. TRICUSPID VALVE: Normal mobility and thickness. No stenosis with mild regurgitation. No evidence of pulmonary hypertension. RVSP 30 mmHg MITRAL VALVE: Normal mobility and thickness. No evidence of mitral valve stenosis. There is no mitral annular calcification. Trivial mitral regurgitation. AORTIC VALVE: Normal trileaflet appearance. No visible sclerosis. Normal leaflet mobility. No evidence of aortic valve stenosis. No aortic regurgitation. AORTIC ROOT: Normal diameter and appearance. Ascending aorta is normal in size. PULMONIC VALVE: Normal thickness and mobility. No stenosis. Trivial regurgitation. PERICARDIUM: No evidence of pericardial effusion. IVC: Collapses with inspirations. PLEURA: CONCLUSION: 1. Normal left ventricular size with low normal systolic function. LVEF is estimated at 50%. 2. Normal right ventricular size and systolic function. 3. No significant valvular dysfunction. 4. Normal right-sided pressures. Adult Echocardiography Procedure Report Left Ventricle LVEDD (3.7 - 5.6 cm): 4.27 cm LVESD (2.2 - 4.0 cm): 3.21 cm LVIVS thickness (0.6 - 1.2 cm): 0.73 cm LVPW thickness (0.5 - 1.0 cm): 0.84 cm e': 0.08 m/s E - e': 6.74 LVOT Max Gradient: 2.21 mm[Hg] LVOT Area (cm2): 0.74 m/s Peak Velocity (LVOT): 0.74 m/s Mean Velocity (LVOT): 0.50 m/s LVOT Diameter 2.11 cm Left Atrium LA Volume Index (2D A2C): 21.99 ml/m2 Left Atrium Systolic Dimension: 3.07 cm Mitral Valve MV E to A Ratio: 0.62 Mitral Valve A-Wave Peak Velocity: 0.91 m/s Mitral Valve E-Wave Peak Velocity: 0.56 m/s Right Ventricle Aorta AO Root Diam: 2.97 cm Ascending Ao Diam: 2.68 cm Aortic Valve AoV Area (Peak Daniel): 2.61 cm2, 2.61 cm2 AoV Area (VTI): 2.45 cm2, 2.45 cm2 Peak Velocity(Antegrade Flow): 0.99 m/s Peak Gradient(Antegrade Flow): 3.94 mm[Hg] Mean Velocity(Antegrade Flow): 0.72 m/s Mean Gradient(Antegrade Flow): 2.35 mm[Hg] Velocity Time Integral: 23.42 cm Tricuspid Valve Peak Velocity (Regurgitant Flow): 2.60 m/s, 2.45 m/s, 2.33 m/s Pulmonic Valve Peak Gradient: 4.01 mm[Hg], 3.15 mm[Hg] Right Atrium Right Atrium Systolic Pressure: 31.86 ml, 31.86 ml Dictated by: Travis Amezcua M.D. on 10/03/2023 at 19:53 Approved by: Travis Amezcua M.D. on 10/03/2023 at 19:57 Dictated By: TRAVIS AMEZCUA Signed By: 10/03/231957 DD/ 56 TD/TT: Preforms Laminator: Procedure Note Radiology, Radiologist, MD - 10/03/2023 [place] [address] Cardiology Report Signed Patient: LEDA MEJIA KMR#: [id number] : 1950cct:[id number] Age/Sex: 72 / FADM Date: 10/03/23 Loc: CARD Attending Dr: Amador Parkinson M.D. Ordering Physician: Amador Parkinson M.D. Date of Service: 10/03/23 Procedure(s): CA echo doppler complete Accession Number(s): [id number] cc: Amador Parkinson M.D.; Angel Griggs M.D. Patient Name: LDEA MEJIA MR#: [id number] : 1950 Exam Date: 10/03/2023 Ordering Doctor: AMADOR PARKINSON ECHOCARDIOGRAM REPORT PROCEDURE: CA ECHO DOPPLER COMPLETE INDICATIONS: NICM, Acute systolic heart failure, pacemaker COMPARISON: None. DESCRIPTION: COMPLETE ECHOCARDIOGRAM Real-time transthoracic echocardiography with 2D, M-mode, spectral and color flow Dopplerperformed. QUALITY: Technical quality was good. LEFT VENTRICLE: Normal chamber size. Normal left ventricular wall thickness. Systolic function is at the lower limits of normal. Abnormal septal motion likely due to bundle branch block/pacing. LV EF: Lower limits of normal left ventricular ejection fraction,(50%). DIASTOLIC: Normal diastolic function. ATRIAL SEPTUM: Visually appears intact. LEFT ATRIUM: Normal chamber size. RIGHT ATRIUM: Normal chamber size. RIGHT VENTRICLE: Normal chamber size. Normal right ventricularsystolic function. Pacer wire present. TRICUSPID VALVE: Normal mobility and thickness. No stenosis with mild regurgitation. No evidence of pulmonary hypertension. RVSP 30 mmHg MITRAL VALVE: Normal mobility and thickness. No evidence of mitralvalve stenosis. There is no mitral annular calcification. Trivial mitral regurgitation. AORTIC VALVE: Normal trileaflet appearance. No visible sclerosis.Normal leaflet mobility. No evidence of aortic valve stenosis. No aortic regurgitation. AORTIC ROOT: Normal diameter and appearance. Ascending aorta is normalin size. PULMONIC VALVE: Normal thickness and mobility. No stenosis. Trivial regurgitation. PERICARDIUM: No evidence of pericardial effusion. IVC: Collapses with inspirations. PLEURA: CONCLUSION: 1. Normal left ventricular size with low normal systolic function. LVEFis estimated at 50%. 2. Normal right ventricular size and systolic function. 3. No significant valvular dysfunction. 4. Normal right-sided pressures. Adult Echocardiography Procedure Report Left Ventricle LVEDD (3.7 - 5.6 cm): 4.27 cm LVESD (2.2 - 4.0 cm): 3.21 cm LVIVS thickness (0.6 - 1.2 cm): 0.73 cm LVPW thickness (0.5 - 1.0 cm): 0.84 cm e': 0.08 m/s E - e': 6.74 LVOT Max Gradient: 2.21 mm[Hg] LVOT Area (cm2): 0.74 m/s Peak Velocity (LVOT): 0.74 m/s Mean Velocity (LVOT): 0.50 m/s LVOT Diameter 2.11 cm Left Atrium LA Volume Index (2D A2C): 21.99 ml/m2 Left Atrium Systolic Dimension: 3.07 cm Mitral Valve MV E to A Ratio: 0.62 Mitral Valve A-Wave Peak Velocity: 0.91 m/s Mitral Valve E-Wave Peak Velocity: 0.56 m/s Right Ventricle Aorta AO Root Diam: 2.97 cm Ascending Ao Diam: 2.68 cm Aortic Valve AoV Area (Peak Daniel): 2.61 cm2, 2.61 cm2 AoV Area (VTI): 2.45 cm2, 2.45 cm2 Peak Velocity(Antegrade Flow): 0.99 m/s Peak Gradient(Antegrade Flow): 3.94 mm[Hg] Mean Velocity(Antegrade Flow): 0.72 m/s Mean Gradient(Antegrade Flow): 2.35 mm[Hg] Velocity Time Integral: 23.42 cm Tricuspid Valve Peak Velocity (Regurgitant Flow): 2.60 m/s, 2.45 m/s, 2.33 m/s Pulmonic Valve Peak Gradient: 4.01 mm[Hg], 3.15 mm[Hg] Right Atrium Right Atrium Systolic Pressure: 31.86 ml, 31.86 ml Dictated by: Travis Amezcua M.D. on 10/03/2023 at 19:53 Approved by: Trvais Amezcua M.D. on 10/03/2023 at 19:57 Dictated By: TRAVIS AMEZCUA Signed By:10/03/231957 DD/ 56 TD/TT: Preforms Laminator: us Generic External Data Provider [facility] Final Result documented in this encounter Visit Diagnoses Not on filedocumented in this encounter Care Teams Slubber Runner Relationship Specialty Start Date End Date Angel Griggs MD [address] [place] [address] PCP - General Family Medicine 06/26/23 Angel Griggs MD [address] [place] [address] PCP - [employer] 08/26/23 documented as of this encounter
--- OUTSIDE RECORDS SUMMARY | 2024-07-22 14:04 | XMS_ITS | Encounter Summary ---
Author Organization [facility] Address [address] [place] [address] Care Team Providers Care Senior Ux Designer Name Role Phone Angel Griggs MD Primary Care Provider [phone] Angel Griggs MD Unavailable Reason for Visit * Reason Comments Med Refill Encounter Details Date Type Department Care Team (Late st Contact Info) Description 07/16/2024 [facility] [address] [place] [address] Angel Griggs MD [address] [place] [id number] Persistent disorder of initiating or maintaining sleep Social History Tobacco Use Types Packs/Day Years [...] 06/30/2023 How often do you attend chur or sikh services? More than 4 times per year 06/30/2023 Do you belong to any clubs o r organizations such as denominational groups, unions, fraternal or athletic groups, or [...] and heating? Not hard at all 06/30/2023 [facility] - Occupational Stress [...] place to sleep or slept in a retirement (including now)? No 06/30/2023 Comments Unknown Sex and Gender Information Value Date Recorded Sex Assigned at Female 06/24/2023 1:41 PM EDT Legal Sex Female 6:50 PM EDT Gender Identity Female 06/24/2023 1:41 PM EDT Sexual Orientation Straight 06/24/2023 1: 41 PM EDT documented as of this encounter Miscellaneous Notes * Telephone Encounter - JOSE WILL - 07/16/2024 10:02 AM EDT MEDICATION SENT TO [facility] documented in this encounter Plan of Treatment Not on file documented as of this encounter Visit Diagnoses Diagnosis Persistent disorder of initiating or maintaining sleep documented in this encounter Care Teams Senior Ux Designer Relationship Specialty Start Date End Date Angel Griggs MD [address] [place] [address] PCP - General Family Medicine 06/26/23 Angel Griggs MD [address] [place] [address] PCP - [employer] 08/26/23 documented as of this encounter
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
--- OUTSIDE RECORDS SUMMARY | 2024-07-22 14:04 | XMS_ITS | Encounter Summary ---
Author Organization The [facility] Address [address] [place] [address] Care Team Providers Care Finance Analyst Name Role Phone Angel Griggs MD Primary Care Provider [phone] Encounter Details Date Type Department Care Team (Late st Contact Info) Description 07/16/2024 Orders Only [facility] [address] [place] [address] ProviderAnthony MD [address] [place] [id number] Social History Tobacco Use Types Packs/Day Years Used Date Smoking Tobacco: Former Cigarettes Smokeless Tobacco: Never Alcohol Use Standard Drinks/Week Comments Not Currently 0 (1 standard drink = 0.6 oz pur e alcohol) [place] Safety & Environment Answer Date Rec [...] on file documented as of this encounter Plan of Treatment Not on file documented as of this encounter Procedures Procedure Name Priority Date/Time Associated Diagnosis Comments CBC Routine 02/14/2024 4:54 PM EST BASIC METABOLIC PANEL Routine 02/14/2024 4:54 PM EST ECG 12-LEAD Routine 02/11/2024 4:51 PM EST documented in this encounter Results * CBC (02/14/2024 4:54 PM EST) Blood Venous blood specimen / Unknown Historical Provider LAB BLOOD ORDERAB LES * Basic metabolic panel (02/14/2024 4:54 PM EST) Blood Venous blood specimen / Unknown Historical Provider LAB BLOOD ORDERAB LES * ECG 12 lead (02/11/2024 4:51 PM EST) Historical Provider ECG ORDERABLES documented in this encounter Visit Diagnoses Not on filedocumented in this encounter Care Teams Finance Analyst Relationship Specialty Start Date End Date Angel Griggs MD [address] [place] [address] PCP - General 02/21/22 documented as of this encounter
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
--- OUTSIDE RECORDS SUMMARY | 2024-07-22 14:04 | XMS_ITS | Patient Health Record ---
Author Organization The [facility] [place] Address [address] [place] [address] Care Team Providers Care Casting Operator Helper Name Role Phone Angel Griggs MD Primary Care Provider Unavailab rosa Vishnu Allen Unavailable [phone] Allergies Allergen (clinical drug ingredient) Drug/Non Drug Allergy documented on EMR Reaction Allergy Type Onset Date Status Cogentin Hallucinations Drug Allergy Ac tive Compazine Hallucinations Drug Allergy Ac tive Reason For Referral No Information Medications Medication SIG (Take, Route, Frequency, Duration) Notes Start Date End Date Status Fluticasone Propionate 50 MCG/ACT Nasal for 30 Days Active FLUoxetine HCl 40 MG Oral for 90 Days Active Losartan Potassium 25 MG Oral for 90 Days Active Furosemide 20 MG Oral for 90 Days Active Wixela Inhub 250-50 MCG/ACT 1 puff Inhalation BID for 90 days Rinse after use 09/25/2023 Not-Taking Fasenra Pen 30 MG/ML as directed Subcutaneous Active Bactrim DS 800-160 MG 1 tablet Orally BI D for 10 days 03/18/2023 Active ZOLMitriptan 5 MG Oral for 5 Days Active Albuterol Sulfate HFA 108 (90 Base) MCG/ACT 2 puffs as needed for SOB Inhalation every 4 hrs for 30 days Active Omeprazole 20 MG Oral for 90 Days Active Metoprolol Succinate ER 25 MG Oral for 90 Days Active Symbicort 160-4.5 MCG/ACT 1 puff as need ed Inhalation every 4 hrs Active traZODone HCl 50 MG Oral for 90 Days Active Spironolactone 25 MG Oral for 90 Days Active Azithromycin 250 MG Take 2 tablets on th e first day, and take 1 tablet on the remaining 4 days Orally daily for 5 days 02/04/2024 Active predniSONE 20 MG 3 tabs x 3 days, 2 tabs x 3 days, 1 tab x 3 days Orally Once a day for 9 days Take with food 02/04/2024 Active Immunizations Vaccine Route Administration Date Status Comme nts Flu, Fluad (32246) 65 yrs + High Dose Seasonal (1212-3682) Unknown 11/10/2023 Administered Flu, Fluad (22050) 65 yrs+, single-dose syringe (3749-0019) Unknown 12/03/2021 Administered Flu, Fluad (17976) 65 yrs+, single-dose syringe (9329-0321) Unknown 11/15/2022 Administered Pneumococcal (Pneumovax 23) Unknown 11/14/2020 Administ ered Pneumococcal (Prevnar 13) Unknown 09/23/2019 Administer ed SARS-COV-2 (COVID 19 Pfizer 30mcg/0.3mL) Unknown 01/11/2021 Administered Tdap (Boostrix) Unknown 09/30/2014 Administered ZOSTER (SHINGLES) VACCINE (HZV) Unknown 10/08/2017 Admi nistered Social History Tobacco Use: Social History Observation Description Date Details (start date - stop date) Former Smoker NA - NA Tobacco Use/Smoking Question Answer Notes Patient is a former smoker Additional Findings: Tobacco Non-User Ex-light c igarette smoker (1-9/day) Tobacco Control (Standard) Question Answer Notes Tobacco use: Former smoker How long has it been since you last smoked? Grea ter than 10 years Additional Findings: Tobacco non-user Ex-light c igarette smoker (1-9/day) Problems Problem Type SNOMED Code ICD Code Onset Dates Problem Status W/U Status Risk Notes Problem Long-term current use of inhaled steroid (667895570) [facility] (current) use of inhaled steroids (Z79.51) Active confirmed Problem Cardiomyopathy (79801263) Cardiomyopathy (I42.9) Active confirmed Problem COPD - Chronic obstructive pulmonary disease (37189235) COPD (chronic obstructive pulmonary disease) (J44.9) Active confirmed Problem Obstructive sleep apnea syndrome (48499507) ADAMA (obstructive sleep apnea) (G47.33) Active confirmed Problem Daytime sleep (588099519) Daytime hypersomnolence (G47.19) Active confirmed Problem History of MRSA infection of lungs (Z86.14) Active confirmed Problem Allergic rhinitis caused by pollen (24599943) Seasonal allergic rhinitis due to pollen (J30.1) Active confirmed Problem Infection due to Stenotrophomonas maltophilia (A49.8) Active confirmed Problem Eosinophilic asthma (054175760) 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) Active confirmed Problem History of pneumonia (866948513) History of Haemophilus influenzae pneumonia (Z87.01) Active confirmed Vital Signs Heart Rate 70 /min 01/01/2024 Temperature 95.7 degrees Fahrenheit 01/01/2024 Respiratory Rate 18 /min 01/01/2024 Oximetry 95 % 01/01/2024 Blood pressure diastolic 66 mm Hg 01/01/2024 Height 67 in 01/01/2024 Blood pressure systolic 106 mm Hg 01/01/2024 Weight 135.2 lbs 01/01/2024 BMI 21.17 kg/m2 01/01/2024 Encounters Encounter Location Date Provider Diagnosis Pulmonary Medicine [place] [address] [place] [address] 11/26/2023 [facility] Pulmonary [facility] [place] [address] [place] [address] 02/04/2024 [facility] Acute bronchitis, unspecified J20.9 [facility] [place] [address] [place] [address] 02/12/2024 [facility] Pulmonary Medicine [place] [address] [place] [address] 04/23/2024 [facility] Pulmonary [facility] [address] [place] [address] 04/29/2024 [facility] Pulmonary [facility] [place] [address] [place] [address] 09/24/2023 [facility] COPD (chronic obstructive pulmonary disease) J44.9 [facility] [place] [address] [place] [address] 09/30/2023 [facility] Eosinophilic asthma J82.83 [facility] [place] [address] [place] [address] 01/01/2024 [facility] Eosinophilic asthma J82.83 ; ADAMA (obstructive sleep apnea) G47.33 ; Cavitary lung disease J98.4 ; Other forms of aspergillosis B44.89 ; COPD (chronic obstructive pulmonary disease) J44.9 ; History of tobacco abuse Z87.891 and History of MRSA infection of lungs Z86.14 Assessments Encounter Date Diagnosis (ICD Code) Assessment Notes Treatment Notes Treatment Clinical Notes Section Notes 01/01/2024 Eosinophilic asthma (ICD-10 - J82.83) Remains markedly improved on Fasenra - strongly recommend the patient remain on this medication. She is able to be maintained on ICS/LABA, which ever one is covered by her insurance... Continues to have a mild dry cough - no where as bad as before starting treatment. Question alternative causes such as GERD or PND. Patient is to return in 1 year for longitudinal evaluation. 01/01/2024 ADAMA (obstructive sleep apnea) (ICD-10 - G47.33) Wkev-fu-olzo encounter performed with the patient to document continued need for PAP therapy. -DME: Chaudhary -PSG 07/04/2015; AHI: 8 -Compliance was reviewed from - 12/31/2023 -Total days used: (100%) -Total of all days >4 hours of use: 30 (100%) -Current mode & pressures: AirSense 11 AutoSet CPAP 6cmH2O -Residual AHI: 1.1 -Air leak 95th percentile: 4.9L/min -Mask/harness fitting: No issues -Sleep quality: Good, denies nocturnal awakenings -Daytime hypersomnolence: Improved from last visit -Recommendations: She is doing very well with improvement in symptoms overall. Continue current settings - no changes. Renew/reorder/repl behzad mask, supplies, tubing, new machine if needed. 09/24/2023 COPD (chronic obstructive pulmonary disease) (ICD-10 - J44.9) 09/30/2023 Eosinophilic asthma (ICD-10 - J82.83) 02/04/2024 Acute bronchitis, unspecified (ICD-10 - J20.9) 01/01/2024 Cavitary lung disease (ICD-10 - J98.4) Cultures remain negative. 01/01/2024 Other forms of aspergillosis (ICD-10 - B44.89) Aspergillus versicolor Aspergillus versicolor. Was seen by ID (Dr. Morales) who did not feel she required any treatment. 01/01/2024 COPD (chronic obstructive pulmonary disease) (ICD-10 - J44.9) Asthma-COPD overlap. 01/01/2024 History of tobacco abuse (ICD-10 - Z87.891) This patient does not meet current LDCT criteria (e.g. age, time from cessation, # pack-years). 01/01/2024 History of MRSA infection of lungs (ICD-10 - Z86.14) MRSA + sputum 03/2022. 01/01/2024 Other She continues to complain of daytime hypersomnia despite excellent CPAP use and resolution of ADAMA. Discussed stimulants, but given her cardiac history, they would be need to be used very cautiously, if not contraindicated otherwise. Suggested trying to take fluoxetine @ HS and notice any other possible contributing factors. She denies drinking alcohol at lunchtime. Discussed the need for trazodone @ HS. She will monitor for any clues. Concern to use stimulants in her cardiac disease, including modafinil. Plan Of Treatment Next Appt Details Provider Name:Vishnu Allen, 12/30/2024 01:30:00 PM, [address] [place], [address], Insurance Providers Payer Name Payer Address Payer Phone Subscriber Number Group Number Insured Name Patient Relationship to Insured Coverage Start Date Coverage End Date [employer] MED[employer]ARE [address] [place], [place] [id number] Samina Lucero Self - patient is the insured Medical (General) History Medical History History ICD Code COPD (chronic obstructive pulmonary dise ase) J44.9 Cavitary lung disease J98.4 ADAMA (obstructive sleep apnea) G47.33 Other forms of aspergillosis B44.89 Seasonal allergic rhinitis due to pollen J30.1 Cardiomyopathy I42.9 Chronic migraine G43.709 Dyslipidemia E78.5 GERD (gastroesophageal reflux disease) K 21.9 MDD (major depressive disorder) F32.9 Osteopenia M85.80 History of MRSA infection of lungs Z86.1 4 History of Haemophilus influenzae pneumo catracho Z87.01 History of tobacco abuse Z87.891 [facility] (current) use of inhaled stero ids Z79.51 Exposure to industrial fumes Z77.098 Eosinophilic asthma J82.83 Infection due to Stenotrophomonas maltop hilia A49.8 Daytime hypersomnolence G47.19 Surgical History Surgery Date(Month/Year) Bronchoscopy 01/10/2023 breast biopsy carpal tunnel release-right cardiac pacemeker 2012
--- OUTSIDE RECORDS SUMMARY | 2024-07-22 14:04 | XMS_ITS | Encounter Summary ---
Author Organization [facility] Address [address] [place] [address] Care Team Providers Care Ore Dryer Name Role Phone Angel Griggs MD Primary Care Provider [phone] Angel Griggs MD Unavailable Encounter Details Date Type Department Care Team (Late st Contact Info) Description 01/31/2024 Clinisync Result Encounter [facility] External Department Unsolicited Angel Griggs MD [address] [place] [id number] Social History Tobacco Use Types Packs/Day Years [...] often do you attend chur ch or christian services? More than 4 times per year 06/30/2023 Do you belong to any clubs o r organizations such as restorationism groups, unions, fraternal or athletic groups, or [...] and heating? Not hard at all 06/30/2023 [facility] of Occupat ional Health - Occupational Stress [...] place to sleep or slept in a long term (including now)? No 06/30/2023 Comments Unknown Sex [...] TOMOSYNTHESIS SCREENING BI 01/31/2024 12:18 PM EST documented in this encounter Results * MM TOMOSYNTHESIS SCREENING BI (01/31/2024 12:18 PM EST) Anatomical Region Laterality Modality Other 01/31/2024 12:1 8 PM EST Narrative 01/31/2024 12:19 [place] [address] Mammography Report Signed Patient: LEDA MEJIA MR#: [id number] : 1950 Acct:[id number] Age/Sex: 73 / F ADM Date: 01/31/24 Loc: MAMMO Attending Dr: Angel Griggs M.D. Ordering Physician: Angel Griggs M.D. Results: Date of Service: 01/31/24 Follow Up: Procedure(s): MM tomosynthesis screening BI Accession Number(s): [id number] cc: Angel Griggs M.D. Patient Name: LEDA MEJIA MR#: [id number] : 1950 Exam Date: 01/31/2024 Ordering Doctor: [...] Treatments None Family Cancers None LOCATION: The [facility] BREAST COMPOSITION: The breasts are heterogeneously dense,which [...] Signed By: 01/31/24 1219 DD/ 1218 TD/TT: Shift Superintendent: Procedure Note Radiology, Radiologist, MD - 01/31/2024 [place] [address] Mammography Report Signed Patient: LEDA MEJIA KMR#: [id number] : 1950cct:[id number] Age/Sex: 73 / FADM Date: 01/31/24 Loc: MAMMO Attending Dr: Angel Griggs M.D. Ordering Physician: Angel Griggs M.D.Results: Date of Service: 01/31/24Follow Up: Procedure(s): MM tomosynthesis screening BI Accession Number(s): [id number] cc: Angel Griggs M.D. Patient Name: LEDA MEJIA MR#: [id number] : 1950 Exam Date: 01/31/2024 Ordering Doctor: [...] Treatments None Family Cancers None LOCATION: The [facility] BREAST COMPOSITION: The breasts are heterogeneously dense,which [...] M.D. Signed By:01/31/24 1219 DD/ 1218 TD/TT: Shift Superintendent: Angel Griggs MD [facility] Final Result documented in this encounter Visit Diagnoses Not on filedocumented in this encounter Care Teams Ore Dryer Relationship Specialty Start Date End Date Angel Griggs MD [address] [place] [address] PCP - General Family Medicine 06/26/23 Angel Griggs MD [address] [place] [address] PCP - [employer] 08/26/23 documented as of this encounter
--- OUTSIDE RECORDS SUMMARY | 2024-07-22 14:04 | XMS_ITS | Encounter Summary ---
Author Organization [facility] Address [address] [facility] [place] [address] Care Team Providers Care Knitting Machine Fixer Name Role Phone Angel Griggs MD Primary Care Provider [phone] Angel Griggs MD Unavailable Encounter Details Date Type Department Care Team (Late st Contact Info) Description 10/22/2023 Orders Only [facility] [address] [place] [id number] Unallocated, N[facility] Provider, [address] [place] [address] Social History Tobacco Use Types Packs/Day Years [...] often do you attend chur ch or presybeterian services? More than 4 times per year 06/30/2023 Do you belong to any clubs o r organizations such as taoist groups, unions, fraternal or athletic groups, or [...] and heating? Not hard at all 06/30/2023 [facility] [place] of Occupat ional Health - Occupational Stress [...] place to sleep or slept in a [place] (including now)? No 06/30/2023 Comments Unknown Sex [...] Procedure Name Priority Date/Time Associated Diagnosis Comments XR HIP 2 OR 3 VW RIGHT Routine 10/22/2023 2:[address] HEAD WO IV CONTRAST Routine 10/22/2023 2:[address] SPINE CERVICAL W/O CONTRAST Routine 10/22/2023 2:[address] KNEE RIGHT WO IV CONTRAST Routine 10/22/2023 2:00 PM EDT documented in this encounter Results * XR hip right 2 or 3 views (10/22/2023 2:12 PM EDT) Anatomical Region Laterality Modality Lower Extremities, Hip Right Radiograp hic Imaging us [facility] Provider Unallocated MD IMG XR PROCEDURES F inal Result * CT head wo IV contrast (10/22/2023 2:07 PM EDT) Anatomical Region Laterality Modality Head, Neck Computed Tomogra phy us [facility] Provider Unallocated MD IMG CT PROCEDURES F inal Result * CT SPINE CERVICAL W/O CONTRAST (10/22/2023 2:01 PM EDT) Anatomical Region Laterality Modality Radiographic Kenna ging us [facility] Provider Unallocated MD IMG XR PROCEDURES F inal Result * CT knee right wo IV contrast (10/22/2023 2:00 PM EDT) Anatomical Region Laterality Modality Lower Extremities, Knee Right Computed Tomography us [facility] Provider Unallocated MD IMG CT PROCEDURES F inal Result documented in this encounter Visit Diagnoses Not on filedocumented in this encounter Care Teams Knitting Machine Fixer Relationship Specialty Start Date End Date Angel Grigsg MD [address] [place] [phone] PCP - General Family Medicine 06/26/23 Angel Griggs MD [address] [place] [address] PCP - [employer] 08/26/23 documented as of this encounter
--- OUTSIDE RECORDS SUMMARY | 2024-07-22 14:04 | XMS_ITS | Encounter Summary ---
Author Organization [facility] Address [address] [place] [address] Care Team Providers Care Leaf Size Picker Name Role Phone Angel Griggs MD Primary Care Provider [phone] Angel Griggs MD Unavailable Encounter Details Date Type Department Care Team (Late st Contact Info) Description 03/12/2023 Clinisync Result Encounter [facility] External Department Unsolicited [...] Name Priority Date/Time Associated Diagnosis Comments XR CHEST 2V 03/12/2023 12:27 PM EST documented in this encounter Results * XR CHEST 2V (03/12/2023 12:27 PM EST) Anatomical Region Laterality Modality Other 03/12/2023 12:2 7 PM EST Narrative 03/12/2023 12:29 PM EST The [address] [address] XRay Report Signed Patient: LEDA MEJIA MR#: [id number] : 1950 Acct:[id number] Age/Sex: 72 / F ADM Date: 03/12/23 Loc: RAD Attending Dr: Charles Tan D.O. Ordering Physician: Charles Tan D.O. Date of Service: 03/12/23 Procedure(s): XR chest 2V Accession Number(s): [id number] cc: Angel Griggs M.D.; Charles Tan D.O. The [place] [id number] Patient Name: LEDA MEJIA MRN: [id number] date: 1950 Sex: F Assigned Patient Location: RAD Current Patient Location: RAD Accession/Order Number: [id number] Exam Date: 03/12/2023 12:13 Report Date: 03/12/2023 12:27 At the request of: CHARLES TAN Procedure: XR chest 2V EXAM: XR chest 2V HISTORY: acute bronchitis J209 . Intermittent cough for 6 months COMPARISON: 12/10/2022 TECHNIQUE: Upright PA and lateral chest x-ray FINDINGS: The heart is not enlarged and the vasculature is not distended. Mild prominence of the central pulmonary vasculature is again noted. The left-sided pacemaker remains in place. There is a very small amount of linear atelectasis in the lower lungs, with the suggestion of a small left pleural effusion. There is no evidence of a pneumothorax. The osseous structures are grossly intact. XR/XR chest 2V IMPRESSION: No apparent acute infiltrate or evidence of cardiac decompensation. A small amount of linear atelectasis is seen in the lower lungs, and there is slight blunting of the left costophrenic angle. The overall appearance of the chest is otherwise unchanged. Electronically authenticated by: VASYL MARVIN Date: 03/12/2023 12:27 Dictated By: Vasyl Marvin M.D. Signed By: 03/12/23 1229 DD/ 1227 TD/TT: Licensed Nursing Assistant: Procedure Note Radiology, Radiologist, - 03/12/2023 [place] [address] XRay Report Signed Patient: LEDA MEJIA KMR#: [id number] : 1950cct:[id number] Age/Sex: 72 / FADM Date: 03/12/23 Loc: RAD Attending Dr: Charles Tan D.O. Ordering Physician: Charles Tan D.O. Date of Service: 03/12/23 Procedure(s): XR chest 2V Accession Number(s): [id number] cc: Angel Griggs M.D.; Charles Tan D.O. [place] [address] Patient Name: LEDA MEJIA MRN: [id number] date: 1950 Sex: F Assigned Patient Location: [facility] Current Patient Location: [facility] Accession/Order Number: [id number] Exam Date: 03/12/2023 12:13 Report Date: 03/12/2023 12:27 At the request of: CHARLES TAN Procedure: XR chest 2V EXAM: XR chest 2V HISTORY: acute bronchitis J209 . Intermittent cough for 6 months COMPARISON: 12/10/2022 TECHNIQUE: Upright PA and lateral chest x-ray FINDINGS: The heart is not enlarged and the vasculature is not distended.Mild prominence of the central pulmonary vasculature is again noted. Theleft-sided pacemaker remains in place. There is a very small amount of linearatelectasis in the lower lungs, with the suggestion of a small left pleural effusion. There is no evidence of a pneumothorax. The osseous structures are grosslyintact. XR/XR chest 2V IMPRESSION: No apparent acute infiltrate or evidence of cardiac decompensation. Asmall amount of linear atelectasis is seen in the lower lungs, and there isslight blunting of the left costophrenic angle. The overall appearance of thechest is otherwise unchanged. Electronically authenticated by: VASYL MARVIN Date: 03/12/2023 12:27 Dictated By: Vasyl Marvin M.D. Signed By:03/12/23 1229 DD/ 1227 TD/TT: Licensed Nursing Assistant: us Generic External Data Provider [facility] Final Result documented in this encounter Visit Diagnoses Not on filedocumented in this encounter Care Teams Leaf Size Picker Relationship Specialty Start Date End Date Angel Griggs MD [address] [place] [phone] PCP - General Family Medicine 06/26/23 Angel Griggs MD [address] [place] [address] PCP - [employer] 08/26/23 documented as of this encounter
[2024-07-22 14:33] LABS: Basophils Percent Auto 0.3 % (0.2-2.0); Hematocrit 38.3 % (36.0-48.0); Hemoglobin 13.2 g/dL (12.0-16.0); Immature Granulocytes Abs Auto 0.02 10^3/uL (0.00-0.03); Immature Granulocytes Pct Auto 0.3 % (0.0-0.5); Lymphocytes Absolute Auto 1.3 10^3/uL (1.2-3.8); Lymphocytes Percent Auto 21.6 % (20.5-60.0); Mean Corpuscular HGB Conc 34.5 g/dL (29.9-35.2); Mean Corpuscular Hemoglobin 30.3 pg (26.7-34.0); Mean Corpuscular Volume 87.8 fL (81.0-99.0); Mean Platelet Volume 9.8 fL (9.5-13.5); Monocytes Absolute Auto 0.6 10^3/uL (0.3-0.8); Monocytes Percent Auto 9.3 % (1.7-12.0); Neutrophils Absolute Auto 4.2 10^3/uL (1.4-6.5); Neutrophils Percent Auto 68.5 % (43.0-75.0); Platelet Count 223 10^3/uL (150-450); Red Blood Count 4.36 10^6/uL (4.20-5.40); White Blood Count 6.2 10^3/uL (4.0-11.0)
[2024-07-22 15:15] LABS: Alanine Aminotransferase 23 U/L (14-59); Albumin Level 3.5 g/dL (3.4-5.0); Alkaline Phosphatase 83 U/L (46-116); Anion Gap 12.1; Aspartate Amino Transferase 24 U/L (15-37); Bilirubin Total 0.3 mg/dL (0.2-1.0); Calcium 9.2 mg/dL (8.5-10.1); Carbon Dioxide 28.8 mmol/L (21.0-32.0); Chloride 102 mmol/L (98-107); Estimated GFR (African America >60 (>=60 mL/min/1.73m^2); Estimated GFR (Non-African Ame >60 (>=60 mL/min/1.73m^2); Globulin 3.6 g/dL; Glucose 80 mg/dL (74-106); Potassium 3.9 mmol/L (3.5-5.1); Sodium 139 mmol/L (136-145); Total Protein 7.1 g/dL (6.4-8.2)
== END 2024-07-22 13:59 | disposition home or self-care (01) ==
LOC: LAB 14:01
PROVIDERS: PCP Family Medicine
DX: I50.32 Chronic diastolic (congestive) heart failure (principal)
CPT/HCPCS: 36415; 80053; 85025

== ENCOUNTER 2024-12-01 17:50 | Outpatient (REF) | payer MEDICARE, SELFPAY ==
--- OUTSIDE RECORDS SUMMARY | 2024-12-01 17:59 | XMS_ITS | CCD ---
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 CBC WITH AUTO DIFFon BASOPHILS ABSOLUTE AUTO 0 [facility] Basophils/100 WBC (Bld) 0.3 % 0.2 - 2.0 % [facility] Eosinophils/100 WBC (Bld) 0 % Low 0.9 - 7.0 % [facility] Erythrocyte distribution width (RBC) [Ratio] 12.4 % 11.0 - 15.0 % [facility] Hematocrit (Bld) [Volume fraction] 41.2 % 36.0 - 48.0 % [facility] Hemoglobin (Bld) [Mass/Vol] 13.8 g/dL 12.0 - 16.0 g/dL [facility] IMMATURE GRANULOCYTES ABS AUTO 0.21 High [facility] Immature granulocytes/100 WBC (Bld) 2 % High 0.0 - 0.5 % [facility] Interpretation and review of laboratory results Abnormal [facility] LYMPHOCYTES ABSOLUTE AUTO 1.6 [facility] Lymphocytes/100 WBC (Bld) 15 % Low 20.5 - 60.0 % [facility] MCH (RBC) [Entitic mass] 29.9 pg 26.7 - 34.0 pg [facility] MCHC (RBC) [Mass/Vol] 33.5 g/dL 29.9 - 35.2 g/dL [facility] MCV (RBC) [Entitic vol] 89.4 fL 81.0 - 99.0 fL [facility] MONOCYTES ABSOLUTE AUTO 1 High [facility] Monocytes/100 WBC (Bld) 9.7 % 1.7 - 12.0 % [facility] NEUTROPHILS ABSOLUTE AUTO 7.6 High [facility] Neutrophils/100 WBC (Bld) 73 % 43.0 - 75.0 % [facility] Platelet mean volume (Bld) [Entitic vol] 8.9 fL Low 9.5 - 13.5 fL [facility] TBH EO # 0 [facility] PLT 274 [facility] TB RBC 4.61 [facility] TB WBC 10.4 [facility] Office Visiton 02-11-2024 Follow-up visit [id number] Leda Gordon 1950 F Date Provider Department Center 02/11/2024 AMADOR MCLEOD ONDINA [facility] Family History Problem Relation Age of Onset Osteoporosis Mother Heart disease Mother Heart failure Father Hearing loss Father Family Status - Relation Status Age at Mother Father Level of Service:[id number] [facility] OFFICE/OUTPATIENT ESTABLISHED MOD MDM 30 MIN Normal [facility] CT CHEST HI RESOLUTIONon CT CHEST HI [...] TERRIE ROGERS Date: 2022-05-24 13:28 Normal [address] [facility] FUNGAL CULTUREon 05-04-2022 Fungus (Mycology) Culture Final report Abnormal [facility] Comment on above: Performed By: #### C XFUN #### [facility] Laboratory [address] [place] [address] Dr. Vimal Hernandez Fungus Stain Final report Normal The [facility] Comment on above: Performed By: #### C XFUN #### [facility] Laboratory [address] [place] [address] Dr. Vimal Hernandez Result 1 Comment Normal [facility] Comment on above: Result Comment: BAILEY/ Calcofluor preparation: no fungus observed. Performed By: #### C XFUN #### [facility] Laboratory [address] [place] [address] Dr. Vimal Hernandez Result 1 Rohini albicans Abnormal The [facility] Comment on above: Performed By: #### C XFUN #### [facility] Laboratory [address] [place] [address] Dr. Vimal Hernandez Result 2 Comment Abnormal [facility] Comment on above: Result Comment: Aspe rgillus terreus complex Performed By: #### C XFUN #### [facility] Laboratory [address] [place] [address] Dr. Vimal Hernandez Result 3 Comment Abnormal [facility] Comment on above: Result Comment: Aspe rgillus versicolor Performed By: #### C XFUN #### [facility] Laboratory [address] [place] [address] Dr. Vimal Hernandez CULTURE SPUTUMon 04-06-2022 CULTURE [...] 4 R F Clindamycin <=0.25 R F Quinupristin/Dalfopris tin <=0.25 S F Linezolid 2 S F Vancomycin <=0.5 S F Tetracycline 2 S F Rifampicin <=0.5 S F Trimethoprim/Sulfameth oxazole <=10 S F Normal [facility] Comment on above: Performed By: #### S PUTCX ####[facility] [address] [place] [address]Dr. Vimal Hernandez SPUTUM GRAM STAINon 04-03-19 23 COMMENTS Normal The [facility] Comment on above: Performed By: #### S PUTGS #### [facility] Laboratory [address] [address] [address] Vimal Hernandez DIPHTHEROIDS Normal [facility] Comment on above: Performed By: #### S PUTGS #### [facility] Laboratory [address] [address] [address] Vimal Hernandez EPITHELIALS <25 Normal [facility] Comment on above: Performed By: #### S PUTGS #### [facility] [address] [address] [address] Vimal Hernandez FUNGAL ELEMENTS Normal The [facility] Comment on above: Performed By: #### S PUTGS #### [facility] [address] [address] [address] Vimal Hernandez GRAM NEG BACILLI Normal The [facility] Comment on above: Performed By: #### S PUTGS #### [facility] [address] [address] [address] Vimal MORGAN NEG DIPPLOCOCCI Normal The [facility] Comment on above: Performed By: #### S PUTGS #### [facility] [address] [address] [address] Vimal Hernandez GRAM POS BACILLI Normal The [facility] Comment on above: Performed By: #### S PUTGS #### [facility] Laboratory [address] [place] [address] Dr. Vimal Hernandez GRAM POSITIVE COCCI MODERATE Normal The [facility] Comment on above: Performed By: #### S PUTGS #### [facility] Laboratory [address] [place] [address] Dr. Vimal Hernandez WBC (Bld) [#/Vol] 10*3/uL Normal The [facility] Comment on above: Performed By: #### S PUTGS #### [facility] [address] [place] [address] Dr. Vimal Hernandez Covid-19 PCR (CVDTB)on SARS-CoV-2 (COVID-19) RNA REGGIE+probe Ql (Unsp spec) Not detected Normal NOT DETECTED The [facility] Comment on above: Result Comment: This test is not yet approved or cleared by the [place] FDA. When there are no FDA-approved or cleared tests available, and other criteria are met, FDA can make tests available under an emergency access mechanism called an Emergency Use Authorization (EUA). The EUA for this test is supported by the [place] of Health and Human Service's (HHS's) declaration [...] SARS-CoV-2. Performed By: #### C VDTBH #### [facility] Laboratory [address] [place] [address] Dr. Vimal Hernandez INFLUENZA A AND B AGon 04-02 INFLUANEGH SEE BELOW Normal The [facility] Comment on above: Result Comment: Nega tive for Flu A protein angiten. Infection due to Flu A cannot be ruled out. Flu A angiten in the sample may be below the detection limit of the test. Performed By: #### I NFLUAB #### [facility] Laboratory [address] [place] [address] Dr. Vimal Hernandez [facility] SEE BELOW Normal [facility] Comment on above: Result Comment: Nega tive for Flu B protein antigen. Infection due to Flu B cannot be ruled out. Flu B antigen in the sample may be below the detection limit of the test. Performed By: #### I NFLUAB #### [facility] [address] [place] [address] Dr. Vimal Hernandez INFLUENZA A AG Negative Normal NEGATIVE SEE COMMENT [facility] Comment on above: Performed By: #### I NFLUAB #### [facility] [address] [place] [address] Dr. Vimal Hernandez INFLUENZA B AG Negative Normal NEGATIVE SEE COMMENT [facility] Comment on above: Performed By: #### I NFLUAB #### [facility] [address] [place] [address] Dr. Vimal Hernandez ECHOCARDIO M/2D COMPLETEon 0 03-14-2022 ECHOCARDIO M/2D COMPLETE Patient: LEDA GORDON Exam Date: 03/14/2022 : 1950 Gender:F Ordering : [place] Admission #: [id number] Family : Order #: [id number] CLICK HERE TO VIEW EXAM ECHOCARDIOGRAM REPORT [...] Amezcua M.D. on 03/15/2022 at 10:43 Normal [facility] CULTURE SPUTUMon 10-02-2021 CULTURE SPUTUM Culture Observations : Mold identified by [facility] Isolate 1 Haemophilus Influenzae Heavy growth of Isolate 2 Aspergillus Fumigatus Light growth of Normal [facility] Comment on above: Result Comment: Beta Lactamase - Performed By: #### S PUTCX ####[facility] [address] [place] [address]Dr. Vimal Hernandez SPUTUM GRAM STAINon 10-03-19 22 COMMENTS Normal [facility] Comment on above: Performed By: #### S PUTGS #### [facility] Laboratory [address] [address] [address] Vimal Hernandez DIPHTHEROIDS [facility] Comment on above: Performed By: #### S PUTGS #### [facility] [address] [address] [address] Vimal Hernandez EPITHELIALS <25 Normal [facility] Comment on above: Performed By: #### S PUTGS #### [facility] [address] [address] [address] Vimal Hernandez FUNGAL ELEMENTS Normal The [facility] Comment on above: Performed By: #### S PUTGS #### [facility] [address] [address] [address] Vimal Hernandez GRAM NEG BACILLI FEW Normal [facility] Comment on above: Performed By: #### S PUTGS #### [facility] [address] [address] [address] Vimal MORGAN NEG DIPPLOCOCCI Normal [facility] Comment on above: Performed By: #### S PUTGS #### [facility] [address] [address] [address] Vimal Hernandez GRAM POS BACILLI Normal The [facility] Comment on above: Performed By: #### S PUTGS #### [facility] [address] [address] [address] Vimal Hernandez GRAM POSITIVE COCCI FEW Normal [facility] Comment on above: Performed By: #### S PUTGS #### [facility] [address] [address] [address] Vimal Hernandez WBC (Bld) [#/Vol] 10*3/uL Normal [facility] Comment on above: Performed By: #### S PUTGS #### [facility] [address] [address] [address] Vimal Hernandez XR CHEST 2 Von [...] TERRIE ROGERS Date: 2021-10-02 14:49 Normal [address] [facility] Covid-19 PCR (CVDTB)on 08-25 SARS-CoV-2 (COVID-19) RNA REGGIE+probe Ql (Unsp spec) Detected Critically abnormal NOT DETECTED [facility] Comment on above: Result Comment: This test is not yet approved or cleared by the [place] FDA. When there are no FDA-approved or cleared tests available, and other criteria are met, FDA can make tests available under an emergency access mechanism called an Emergency Use Authorization (EUA). The EUA for this test is supported by the [place] of Health and Human Service's declaration that [...] be used). Performed By: #### C VDTBH ####[facility] [address] [place], [place] [address]NxDr. Vimal Hernandez CBC AUTO DIFFon 06-05-2021 BASO # 0.0 103/ul Normal 0.0-0.1 [facility] Comment on above: Performed By: #### C BC #### [facility] Laboratory [address] [address] [address] Vimal Hernandez Basophils/100 WBC (Bld) 0.6 % Normal 0.2-2.0 [facility] Comment on above: Performed By: #### C BC #### [facility] [address] [address] [address] Vimal Hernandez EO # 0.1 103/ul Normal 0.0-0.7 [facility] Comment on above: Performed By: #### C BC #### [facility] [address] [address] [address] Vimal Hernandez Eosinophils/100 WBC (Bld) 1.4 % Normal 0.9-7.0 [facility] Comment on above: Performed By: #### C BC #### [facility] [address] [address] [address] Vimal Hernandez Erythrocyte distribution width (RBC) [Ratio] 11.9 % Normal 11.0-15.0 [facility] Comment on above: Performed By: #### C BC #### [facility] [address] [address] [address] Vimal Hernandez Hematocrit (Bld) [Volume fraction] 39.2 % Normal 36.0-48.0 [facility] Comment on above: Performed By: #### C BC #### [facility] [address] [address] [address] Vimal Hernandez Hemoglobin (Bld) [Mass/Vol] 13.2 g/dL Normal 12.0-16.0 [facility] Comment on above: Performed By: #### C BC #### [facility] [address] [address] [address] Vimal Hernandez IG # 0.03 10e3/ul Normal 0.00-0.03 [facility] Comment on above: Performed By: #### C BC #### [facility] Laboratory [address] [place] [address] Dr. Vimal Hernandez IG % 0.4 % Normal 0.0-0.5 [facility] Comment on above: Performed By: #### C BC #### [facility] Laboratory [address] [place] [address] Dr. Vimal Hernandez LYMPH # 1.1 103/ul Critically low 1.2-3.8 [facility] Comment on above: Performed By: #### C BC #### [facility] [address] [place] [address] Dr. Vimal Hernandez Lymphocytes/100 WBC (Bld) 15.7 % Critically low 20.5-60.0 [facility] Comment on above: Performed By: #### C BC #### [facility] [address] [place] [address] Dr. Vimal Hernandez MANUAL DIFF REQ NO Normal [facility] Comment on above: Performed By: #### C BC #### [facility] [address] [place] [address] Dr. Vimal Hernandez MCH (RBC) [Entitic mass] 30.4 pg Normal 26.7-34.0 [facility] Comment on above: Performed By: #### C BC #### [facility] [address] [place] [address] Dr. Vimal Hernandez MCHC (RBC) [Mass/Vol] 33.7 g/dL Normal 29.9-35.2 [facility] Comment on above: Performed By: #### C BC #### [facility] Laboratory [address] [place] [address] Dr. Vimal Hernandez MCV (RBC) [Entitic vol] 90.3 fL Normal 81.0-99.[address] [facility] Comment on above: Performed By: #### C BC #### [facility] Laboratory [address] [place] [address] Dr. Vimal Hernandez MONO # 0.7 103/ul Normal 0.3-0.8 [facility] Comment on above: Performed By: #### C BC #### [facility] [address] [place] [address] Dr. Vimal Hernandez Monocytes/100 WBC (Bld) 9.2 % Normal 1.7-12.0 [facility] Comment on above: Performed By: #### C BC #### [facility] [address] [place] [address] Dr. Vimal Hernandez NEUT # 5.2 103/ul Normal 1.4-6.[address] [facility] Comment on above: Performed By: #### C BC #### [facility] Laboratory [address] [place] [address] Dr. Vimal Hernandez Neutrophils/100 WBC (Bld) 72.7 % Normal 43.0-75.[address] [facility] Comment on above: Performed By: #### C BC #### [facility] Laboratory [address] [place] [address] Dr. Vimal Hernandez Platelet mean volume (Bld) [Entitic vol] 10.0 fL Normal 9.5-13.5 [facility] Comment on above: Performed By: #### C BC #### [facility] [address] [place] [address] Dr. Vimal Hernandez PLT 207 103/ul Normal 150-[address] [facility] Comment on above: Performed By: #### C BC #### [facility] [address] [place] [address] Dr. Vimal Hernandez RBC 4.34 106/ul Normal 4.20-5.[address] [facility] Comment on above: Performed By: #### C BC #### [facility] Laboratory [address] [place] [address] Dr. Vimal Hernandez WBC 7.1 103/ul Normal 4.0-11.[address] [facility] Comment on above: Performed By: #### C BC #### [facility] [address] [place] [address] Dr. Vimal Hernandez PROF CHEM 8 (BAS METB)on Anion gap [Moles/Vol] 14.4 mmol/L Normal [facility] Comment on above: Performed By: #### B MP ####[facility] [address] [place] [id number]. Vimal Hernandez Calcium [Mass/Vol] 9.0 mg/dL Normal 8.5-10.1 The [facility] Comment on above: Performed By: #### B MP ####[facility] [address] [place] [address]Dr. Vimal Hernandez Chloride [Moles/Vol] 102 mmol/L Normal 98-[address] [facility] Comment on above: Performed By: #### B MP ####[facility] [address] [place] [address]Dr. Vimal Hernandez CO2 [Moles/Vol] 25.7 mmol/L Normal 22.0-30.0 The [facility] Comment on above: Performed By: #### B MP ####[facility] [address] [place] [address]Dr. Vimal Hernandez Creatinine [Mass/Vol] 0.81 mg/dL Normal 0.52-1.[address] [facility] Comment on above: Performed By: #### B MP ####[facility] [address] [place] [address]Dr. Vimal Hernandez EGFR-AF KENYAN >60 Normal >=60 The [facility] Comment on above: Performed By: #### B MP ####[facility] [address] [place] [address]Dr. Vimal Hernandez EGFR-NON AF KENYAN >60 Normal >=[address] [facility] Comment on above: Performed By: #### B MP ####[facility] [address] [place] [address]Dr. Vimal Hernandez Glucose [Mass/Vol] 103 mg/dL Normal 74-106 The [facility] Comment on above: Performed By: #### B MP ####[facility] [address] [place], [place] [address]Dr. Vimal Hernandez Potassium [Moles/Vol] 4.1 mmol/L Normal 3.4-5.[address] [facility] Comment on above: Performed By: #### B MP ####[facility] [address] [place], [place] [address]Dr. Vimal Hernandez Sodium [Moles/Vol] 138 mmol/L Normal 137-145 [facility] Comment on above: Performed By: #### B MP ####[facility] [address] [place], [place] [address]Tg. Vimal Hernandez Urea nitrogen [Mass/Vol] 24.0 mg/dL Critically high 7.0-18.0 [facility] Comment on above: Performed By: #### B MP ####[facility] [address] [place], [place] [address]Gz. Vimal Hernandez Urea nitrogen/Creatinin e [Mass ratio] 29.6 mg/mg Normal [facility] Comment on above: Performed By: #### B MP ####[facility] [address] [place], [place] [address]Ju. Vimal Hernandez XR FINGER MIN 2 VIEWSon [...] OTF RUBALCAVA Date: 2021-06-05 17:36 Normal [address] [facility] Cardiovascular Lab Reporton 07-07-2020 Cardiovascular Lab Report [facility] Patient Name: Leda Gordon [facility] MR #: [id number] Physician: Amador Parkinson MD Department of Service Date: 06/30/2020 Medicine Birthdate: 1950 Division of Room #: 3AB [id number] Cardiology Adult Cardiovascular Services [place] [address] Cardiovascular Laboratory Report POCKET REVISION PROCEDURE NOTE DATE OF PROCEDURE: 06/30/2020 PERFORMING PHYSICIAN: Dr. Amador Parkinson CONSENT: Patient LOCATION: EP Lab PROCEDURE PERFORMED: 1. Pocket revision to evaluate for hematoma. INDICATIONS: 1. Pocket swelling/pain. 2. S/p FULFILLMENT SPECIALIST-D with underlying chronic AF and RVR. PROCEDURAL SEDATION: Versed and Fentanyl. Moderate sedation was administered by the sedation nurse under my supervision and noted in the CVL log. Intraprocedural face to face sedation time: 90min. Monitoring: Cardiac telemetry, Blood pressure, continuous pulse oxymetry. FLUROSCOPY: 0s PREPARATION: 69-year-old lady with a history of cardiomyopathy with a FULFILLMENT SPECIALIST-D [employer] device, had come in for [...] noted below. Device info: [employer] CRTD A500Q model Serial #[id number] RAlead: Implanted on 07/14/2012 [employer] Tendril STS 2088TC-46 [facility] Serial # [id number] Sensin.9mV Threshold: 1.25V @ 0.4ms Impedance: 480 Ohms RV ICD lead: Implanted on 07/14/2012 [employer] Durata 7122Q-58 cms lead Serial# [id number] Sensing: >12 mV Threshold: 0.875 @ 0.5 millisecond Impedance: 530 Ohms LV lead: Implanted on 07/14/2012 Moseley quartet 1458Q-86 cms, Serial# [id number] Threshold: 1.125 V @ 0.4 ms Impedance: [...] Parkinson MD Date Trans: 06/30/2020 07:04 P/nixon [id number] cc: Farrukh Gupta [facility] [address] Electronically Signed by: Amador Parkinson MD 07/13/2020 05:42 P Amador Parkinson MD Date Dict: 07/07/2020/09:22 A/Amador Parkinson MD Date Trans: 07/07/2020 09:47 A/nixon [id number] cc: Angel Stewart M.D. [address] [place] [address] Normal The [facility] CBC W/DIFFon 07-01-2020 ABS IMM GRANS 0.0 10*3/uL Normal 0.0-0.[address] [facility] Comment on above: Order Comment: No: D o not add to previous draw Performed By: #### 5 0103 #### [facility] [address] [place] [address], [facility] ABS NEUTROPHILS 9.7 10*3/uL High 1.6-7.[address] [facility] Comment on above: Order Comment: No: D o not add to previous draw Performed By: #### 5 0103 #### [facility] [address] [place] [id number], [facility] Basophils (Bld) [#/Vol] 0.0 10*3/uL Normal 0.0-0.2 [facility] Comment on above: Order Comment: No: D o not add to previous draw Performed By: #### 5 0103 #### [facility] [address] [facility] [place] [address], [facility] Basophils/100 WBC (Bld) 0.2 % Normal 0.0-1.0 [facility] Comment on above: Order Comment: No: D o not add to previous draw Performed By: #### 5 0103 #### [facility] [address] [facility] [place] [address], [facility] Eosinophils (Bld) [#/Vol] 0.0 10*3/uL Normal 0.0-0.5 [facility] Comment on above: Order Comment: No: D o not add to previous draw Performed By: #### 5 0103 #### [facility] [address] [place] [id number], [facility] Eosinophils/100 WBC (Bld) 0.1 % Normal 0.0-6.0 The [facility] Comment on above: Order Comment: No: D o not add to previous draw Performed By: #### 5 0103 #### [facility] [address] [place] [address], [facility] Erythrocyte distribution width (RBC) [Ratio] 11.6 % Normal 11.5-15.0 [facility] Comment on above: Order Comment: No: D o not add to previous draw Performed By: #### 5 0103 #### [facility] [address] [place] [id number], [facility] Hematocrit (Bld) [Volume fraction] 32.4 % Low 36.0-45.0 [facility] Comment on above: Order Comment: No: D o not add to previous draw Performed By: #### 5 0103 #### [facility] [address] [place] [address], [facility] Hemoglobin (Bld) [Mass/Vol] 11.3 g/dL Low 12.0-15.0 [facility] Comment on above: Order Comment: No: D o not add to previous draw Performed By: #### 5 0103 #### [facility] [address] [place] [address], [facility] IMMATURE GRANS 0.4 % Normal 0.0-1.[address] [facility] Comment on above: Order Comment: No: D o not add to previous draw Performed By: #### 5 3 #### [facility] [address] [place] [address], [facility] Lymphocytes (Bld) [#/Vol] 0.4 10*3/uL Low 1.2-4.0 [facility] Comment on above: Order Comment: No: D o not add to previous draw Performed By: #### 5 0103 #### [facility] [address] [place] [address], [facility] Lymphocytes/100 WBC (Bld) 3.9 % Low 20.0-45.0 [facility] Comment on above: Order Comment: No: D o not add to previous draw Performed By: #### 5 0103 #### [facility] [address] [place] [address], [facility] MCH (RBC) [Entitic mass] 31.0 pg Normal 27.0-33.0 [facility] Comment on above: Order Comment: No: D o not add to previous draw Performed By: #### 5 0103 #### [facility] [address] [place] [address], [facility] MCHC (RBC) [Mass/Vol] 34.9 g/dL Normal 32.0-35.0 [facility] Comment on above: Order Comment: No: D o not add to previous draw Performed By: #### 5 0103 #### [facility] [address] [place] [address], [facility] MCV (RBC) [Entitic vol] 89.0 fL Normal 82.0-98.0 [facility] Comment on above: Order Comment: No: D o not add to previous draw Performed By: #### 5 3 #### [facility] [address] [place] [id number], [facility] Monocytes (Bld) [#/Vol] 0.9 10*3/uL Normal 0.1-1.0 [facility] Comment on above: Order Comment: No: D o not add to previous draw Performed By: #### 5 3 #### [facility] [address] [place] [address], [facility] MONOS 8.2 % Normal 5.0-12.0 [facility] Comment on above: Order Comment: No: D o not add to previous draw Performed By: #### 5 3 #### [facility] [address] [place] [address], [facility] Neutrophils/100 WBC (Bld) 87.2 % High 40.0-72.0 [facility] Comment on above: Order Comment: No: D o not add to previous draw Performed By: #### 5 3 #### [facility] [address] [facility] [place] [address], [facility] Nucleated RBC/100 WBC (Bld) [Ratio] 0 % Normal 0-0 [facility] Comment on above: Order Comment: No: D o not add to previous draw Performed By: #### 5 0103 #### [facility] [address] [facility] [place] [address], [facility] PLAT CNT 174 10*3/uL Normal 150-400 The [facility] Comment on above: Order Comment: No: D o not add to previous draw Performed By: #### 5 0103 #### [facility] [address] [facility] [place] [address], [facility] RBC (Bld) [#/Vol] 3.64 10*6/uL Low 3.80-5.00 The [facility] Comment on above: Order Comment: No: D o not add to previous draw Performed By: #### 5 0103 #### [facility] [address] [facility] [place] [address], [facility] WBC (Bld) [#/Vol] 11.16 10*3/uL High 4.00-10.60 [facility] Comment on above: Order Comment: No: D o not add to previous draw Performed By: #### 5 0103 #### [facility] [address] [facility] [place], [place] [id number] [place] [address] CHEST AND LATERALon 07-02-19 CHEST AND LATERAL [facility] Department of Radiology [address] [place] [id number] ======== Patient Name: LEDA GORDON : 1950 Sex: F Age: Race: White Pt. Location: [id number] Patient Status: O Ordered Date: 07/01/2020 8:40:00 AM Completed Date: 07/01/2020 10:06 AM Requesting Provider: CHANA GUTHRIE Attending Provider: AMADOR PARKINSON Report Copy To: Signs & Symptoms: Post Pacemaker/AICD Placement History: Comments: Check Pacemaker/AICD Lead Position Exam: CHEST AND LATERAL ======== CHEST AND LATERAL 07/01/2020 10:06 AM CLINICAL [...] pneumothorax. Electronically signed: Rossy Baptiste. Transcribed by: [email or web address], User Resident: Electronically Signed by: ROSSY BAPTISTE @ 07/01/2020 10:14 AM Normal [facility] Comment on above: Order Comment: Check Pacemaker/AICD Lead Position CBC W/DIFFon 06-30-2020 ABS IMM GRANS 0.0 10*3/uL Normal 0.0-0.[address] [facility] Comment on above: Order Comment: No: D o not add to previous draw Performed By: #### 5 0103 #### [facility] [address] ABS NEUTROPHILS 9.3 10*3/uL High 1.6-7.[address] [facility] Comment on above: Order Comment: No: D o not add to previous draw Performed By: #### 5 0103 #### [facility] [address] [place] [address], [facility] Basophils (Bld) [#/Vol] 0.0 10*3/uL Normal 0.0-0.2 [facility] Comment on above: Order Comment: No: D o not add to previous draw Performed By: #### 5 0103 #### [facility] [address] [place] [address], [facility] Basophils/100 WBC (Bld) 0.4 % Normal 0.0-1.0 [facility] Comment on above: Order Comment: No: D o not add to previous draw Performed By: #### 5 0103 #### [facility] [address] [place] [address], [facility] Eosinophils (Bld) [#/Vol] 0.0 10*3/uL Normal 0.0-0.5 [facility] Comment on above: Order Comment: No: D o not add to previous draw Performed By: #### 5 0103 #### [facility] [address] [place] [address], [facility] Eosinophils/100 WBC (Bld) 0.1 % Normal 0.0-6.0 [facility] Comment on above: Order Comment: No: D o not add to previous draw Performed By: #### 5 0103 #### [facility] [address] [place] [address], [facility] Erythrocyte distribution width (RBC) [Ratio] 11.7 % Normal 11.5-15.0 [facility] Comment on above: Order Comment: No: D o not add to previous draw Performed By: #### 5 0103 #### [facility] [address] [place] [address], [facility] Hematocrit (Bld) [Volume fraction] 34.8 % Low 36.0-45.0 [facility] Comment on above: Order Comment: No: D o not add to previous draw Performed By: #### 5 0103 #### [facility] [address] [place] [address], [facility] Hemoglobin (Bld) [Mass/Vol] 12.0 g/dL Normal 12.0-15.0 [facility] Comment on above: Order Comment: No: D o not add to previous draw Performed By: #### 5 0103 #### [facility] [address] [place] [address], [facility] IMMATURE GRANS 0.3 % Normal 0.0-1.[address] [facility] Comment on above: Order Comment: No: D o not add to previous draw Performed By: #### 5 0103 #### [facility] [address] [facility] [place] [address], [facility] Lymphocytes (Bld) [#/Vol] 0.5 10*3/uL Low 1.2-4.0 [facility] Comment on above: Order Comment: No: D o not add to previous draw Performed By: #### 5 0103 #### [facility] [address] [place] [address], [facility] Lymphocytes/100 WBC (Bld) 4.3 % Low 20.0-45.0 [facility] Comment on above: Order Comment: No: D o not add to previous draw Performed By: #### 5 3 #### [facility] [address] [facility] [place] [address], [facility] MCH (RBC) [Entitic mass] 30.8 pg Normal 27.0-33.0 [facility] Comment on above: Order Comment: No: D o not add to previous draw Performed By: #### 5 0103 #### [facility] [address] [facility] [place] [address], [facility] MCHC (RBC) [Mass/Vol] 34.5 g/dL Normal 32.0-35.0 [facility] Comment on above: Order Comment: No: D o not add to previous draw Performed By: #### 5 3 #### [facility] [address] [place] [address], [facility] MCV (RBC) [Entitic vol] 89.5 fL Normal 82.0-98.0 [facility] Comment on above: Order Comment: No: D o not add to previous draw Performed By: #### 5 0103 #### [facility] [address] [place] [address], [facility] Monocytes (Bld) [#/Vol] 0.7 10*3/uL Normal 0.1-1.0 [facility] Comment on above: Order Comment: No: D o not add to previous draw Performed By: #### 5 0103 #### [facility] [address] [place] [address], [facility] MONOS 6.8 % Normal 5.0-12.0 [facility] Comment on above: Order Comment: No: D o not add to previous draw Performed By: #### 5 0103 #### [facility] [address] [place] [address], [facility] Neutrophils/100 WBC (Bld) 88.1 % High 40.0-72.0 [facility] Comment on above: Order Comment: No: D o not add to previous draw Performed By: #### 5 0103 #### [facility] [address] [place] [address], [facility] Nucleated RBC/100 WBC (Bld) [Ratio] 0 % Normal 0-0 [facility] Comment on above: Order Comment: No: D o not add to previous draw Performed By: #### 5 0103 #### [facility] [address] [place] [address], [facility] PLAT CNT 179 10*3/uL Normal 150-400 [facility] Comment on above: Order Comment: No: D o not add to previous draw Performed By: #### 5 0103 #### [facility] [address] [place] [address], [facility] RBC (Bld) [#/Vol] 3.89 10*6/uL Normal 3.80-5.00 [facility] Comment on above: Order Comment: No: D o not add to previous draw Performed By: #### 5 0103 #### [facility] [address] [place] [address], [facility] WBC (Bld) [#/Vol] 10.57 10*3/uL Normal 4.00-10.60 [facility] Comment on above: Order Comment: No: D o not add to previous draw Performed By: #### 5 0103 #### [facility] [address] Cardiovascular Lab Reporton 06-30-2020 Cardiovascular Lab Report [facility] Patient Name: Leda Gordon [facility] MR #: [id number] Physician: Amador Parkinson MD Department of Service Date: 06/30/2020 Medicine Birthdate: 1950 Division of Room #: Cardiology Adult Cardiovascular Services [place] [address] Cardiovascular Laboratory Report PACEMAKER GENERATOR CHANGE POCKET REVISION PROCEDURE NOTE DATE OF PROCEDURE: 06/30/2020 PERFORMING PHYSICIAN: Dr. Amador Parkinson CONSENT: Patient LOCATION: EP Lab PROCEDURE PERFORMED: 1. Implant of new FULFILLMENT SPECIALIST-D generator (Moseley/[employer] Jorge). 2. Explant of FULFILLMENT SPECIALIST-D generator (Moseley/ [employer]). 3. Pocket Revision to sub muscular implant. INDICATIONS: 1. S/p FULFILLMENT SPECIALIST-D with underlying chronic AF and RVR. 2. Device at EOL PROCEDURAL SEDATION: Versed and Fentanyl. Moderate sedation was administered by the sedation nurse under my supervision and noted in the CVL log. Intraprocedural face to face sedation time: 83min. Monitoring: Cardiac telemetry, Blood pressure, continuous pulse oxymetry. FLUROSCOPY: 31s/ 1mGray PREPARATION: 69-year-old lady with a history of cardiomyopathy with a FULFILLMENT SPECIALIST-D [employer] device, has come in for [...] attached to a new Moseley/ [employer] [place] FULFILLMENT SPECIALIST-D generator and the leads tug tested. Pocket [...] device as noted below. [employer] [place] Moseley Lajas CRTD A500Q model, serial #[id number]. The atrial lead is Moseley Tendril STS 2088TC 46 cm, serial number [id number], implanted on July 14, 2012. Atrial sensing is 1.9 mV, capture was 1.25 V at 0.4 milliseconds. Impedance was 480 ohms. The RV ICD lead is a Durata 7122Q 58 cm lead, serial number is [id number], implanted on July 14, 2012. The RV sensing is at a greater than 12 mV with RV threshold of 0.875 at 4.5 millisecond, impedance of 530 ohms. The LV lead is Moseley quartet 1458Q 86 cm lead, serial number [id number], implanted on july 14, 2012. Lead threshold was 1.125 V at 0.4 millisecond with the impedance of 1150 ohms. The various thresholds were checked and was noted the LV 1-2 had Device info: [place] Moseley Lajas CRTD A500Q model Serial #[id number] RAlead: Implanted on 07/14/2012 Moseley Tendril STS 2088TC-46 cms Serial # [id number] Sensin.9mV Threshold: 1.25V @ 0.4ms Impedance: 480 Ohms RV ICD lead: Implanted on 07/14/2012 Moseley Durata 7122Q-58 cms lead Serial# [id number] Sensing: >12 mV Threshold: 0.875 @ 0.5 millisecond Impedance: 530 Ohms LV lead: Implanted on 07/14/2012 Moseley quartet 1458Q-86 cms, Serial# [id number] Threshold: 1.125 V @ 0.4 ms Impedance: [...] milliseco (more content not included)... Normal [facility] Consent Formson 01-20-2020 Consent Forms [id number]#1.0 [facility] 01-19 History and Physical [id number]#1.0 [facility] Coding Summaryon 01-15-2020 Coding Summary CODING DATE: 01/15/2020 [facility] STATUS: Home PAYOR: Medicare MC ADMIT DX: [...] Michelle Uribe Date Saved: 01/15/2020 12:41 pm [facility] Coding Summaryon 01-13-2020 Coding Summary CODING DATE: 01/13/2020 [facility] STATUS: Home PAYOR: Medicare MC APC DESCRIPTION 5114 Level 4 Musculoskeletal Procedures ADMIT DX: REASON FOR VISIT DX: M24.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, left shoulder FINAL DX: PRINCIPAL: M19.012 Primary osteoarthritis, left shoulder SECONDARY: M25.812 Other specified joint disorders, left shoulder PYMT PROC APC STAT DESCRIPTION DOCTOR NAME DATE 93994 Arthroscopy, shoulder, Jose Mcgraw And 01/11/2020 surgical; distal claviculectomy including distal articular surface (Nicole procedure) LT Left side (used to identify procedures performed on the left side of the body) 41219 Arthroscopy, shoulder, Jose Mcgraw And 01/11/2020 surgical; debridement, limited LT Left side (used to identify procedures performed on the left side of the body) 13976 Injection(s), anesthetic Jose Mcgraw And 01/11/2020 agent(s) [...] Mejia Revised Date Saved: 01/13/2020 07:44 am [facility] Consent Formson 01-12-2020 Consent Forms [id number]#1.0 0OTGTIFF [facility] Discharge Instructionson Discharge Instructions [id number]#1.[address] [place] [address] Medication Managementon 12-26 Medication Management [id number]#1.[address] [place] [address] Outside Recordson 01-12-2020 Outside Records [id number]#1.[address] [place] [address] Telemetry Stripson 0 Telemetry Strips [id number] 10 [id number]#1.[address] [place] [address] Anesthesia Noteon 01-11-2020 Anesthesia Note Patient: LEDA [...] disease) case management patient / SNOMED CT 583142461 / Confirmed CHF (congestive heart failure) / SNOMED CT 65238813 / Confirmed Myopathy / SNOMED CT 342386784 / Confirmed Ventricular dysfunction / SNOMED CT 710094095 / Confirmed Histories Family History: No family history items have been selected or recorded. Procedure history: Anesthesia for transvenous insertion or replacement of pacing cardioverter-defibrill ator (61280) on 07/14/2012 at 61 Years. Cardiac pacemaker (34915925). Comments: 12/30/2019 13:18 Veronique Membreno RN 2013 Carpal tunnel release (998230087). Tonsillectomy (628551529). Comments: 12/30/2019 13:23 Veronique Membreno RN 1949's Biopsy of breast (356513405). Comments: 12/30/2019 13:24 Veronique Membreno RN X3 Social History Electronic Cigarette/Vaping Assessment Electronic Cigarette Use: Never. Alcohol Assessment Use: Current. Wine, 1-2 times per week Tobacco Assessment Former smoker, quit more than 30 days ago Tobacco Use:. 30 years ago 1 pk/week per day. Substance Abuse Assessment Substance use: Never. 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 Home/Environment Assessment Lives with Spouse. Home equipment: CPAP/BiPAP. . 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 Review / Management Laboratory Results Plan [employer] Society [employer] Anesthesiologists#(ASA ) physical status classification: Class III. Anesthetic Preoperative [...] on: 01/11/2020 10:45 EST] Yanick Edward MD [facility] Coding Summaryon 01-11-2020 Coding Summary CODING DATE: 01/11/2020 [facility] STATUS: Home PAYOR: Medicare ADMIT DX: [...] Michelle Uribe Date Saved: 01/11/2020 02:18 pm [facility] Inpatient Patient Summaryon 01-11-2020 [place] [address] Patient Discharge Instructions Name: LEDA GORDON : 1950 Patient Address: [address] [place] [address] Primary Care Provider: Name: ANGEL STEWART After you are discharged if you find you have any questions, please, call [phone] ext [phone] to speak to a nurse. Discharge Diagnosis: [...] problems; contact the [facility] 17/09 Crisis Hotline -Text 4HNZC mj 149734. If you received any narcotics, sedation, or [...] business decisions or sign any legal documents [facility] would like to thank you for allowing us to assist you with your healthcare needs. The following includes patient education materials and information regarding your injury/illness. LEDA GORDON has been given the following list of follow-up instructions, prescriptions, and patient education materials: Follow-up Instructions With: Address: When: CECY CALIX [address], [address] [place] [address] Business (1) 01/20/2020 8:30 AM With: Address: When: ANGEL STEWART [address] [place], [place] [id number] Business (1) Medications During the course of [...] or concerns, please call the office at [phone] -Follow up as scheduled Viruses or Bacteria [...] for Disease Control and Prevention [facility] Intra-Op Record Summary Primary Physician: Jose Mcgraw DO Finalized Date/Time: 01/11/20 13:13:05 Pt. Name: LEDA GORDON/Sex: 1950 FEMALE Med Rec #: [id number] Physician: Jose Mcgraw DO Financial #: [id number] Pt. Type: D Room/Bed: / Admit/Disch: 01/11/20 [...] Role Performed Surgeon - Primary Anesthesiologist of Case Therapist Record Time In 01/11/20 09:47:00 01/11/20 09:47:00 01/11/20 09:47:00 Time Out 01/11/20 11:18:00 01/11/20 11:18:00 01/11/20 11:18:00 Procedure Arthroscopy Arthroscopy Arthroscopy Shoulder(Left, Shoulder) Shoulder(Left, Shoulder) Shoulder(Left, Shoulder) Last Modified By: Daniele SWANSON, Michelle Sanabria RN, Michelle Abel RN 01/11/20 11:35:12 01/11/20 11:35:12 01/11/20 11:35:12 Entry 4 Entry 5 Case Attendee Cathryn CABALLERO, Maru Yun CST Role Performed Scrub Personnel Laboratory Monitor Time In 01/11/20 09:47:00 01/11/20 09:47:00 Time [...] Final Counts Michelle Sanabria RN, Performed By Cathryn DIRECTOR OF CHILD WELFARE SERVICES, Mackenzie Final Count Time 01/11/20 11:00:00 Surgeon [...] Unfinalizing 01/11/20 13:12 RIYA Barry Documentation Normal [facility] MAGR Intraoperative Record MAGR Intra-Op Record Summary Primary Physician: Finalized Date/Time: 01/11/20 09:50:05 Pt. Name: LEDA GORDON/Sex: 1950 FEMALE Med Rec #: [id number] Physician: Jose Mcgraw Financial #: [id number] Pt. Type: D Room/Bed: / Admit/Disch: 01/11/20 [...] Kaminski RN, Veronique Role Performed Anesthesiologist of Case Therapist Case Therapist Record Time In 01/11/20 09:18:00 01/11/20 09:18:00 [...] By: Veronique Kaminski RN 01/11/20 09:50 Normal [facility] MAGR PACU Recordon 0 MAGR PACU Record MAGR PACU Record Summary Primary Physician: Jose Mcgraw DO Finalized Date/Time: 01/11/20 12:14:58 Pt. Name: LEDA GORDON/Sex: 1950 FEMALE Med Rec #: [id number] Physician: Jose Mcgraw DO Financial #: [id number] Pt. Type: D Room/Bed: / Admit/Disch: 01/11/20 07:00:00 - Institution: PACU Case Times MAGR Entry 1 In PACU I 01/11/20 11:17:00 Discharge from PACU 01/11/20 12:13:00 I Last Modified By: Naheed Ortega RN 01/11/20 12:12:54 Finalized By: Naheed Ortega RN Document Signatures Signed By: Naheed Ortega RN 01/11/20 12:14 Normal [facility] MAGR Postoperative Recordon 01-11-2020 MAGR Postoperative Record MAGR Phase II Record Summary Primary Physician: Jose Mcgraw DO Finalized Date/Time: 01/11/20 13:34:54 Pt. Name: LEDA GORDON/Sex: 1950 FEMALE Med Rec #: [id number] Physician: Jose Mcgraw DO Financial #: [id number] Pt. Type: D Room/Bed: / Admit/Disch: 01/11/20 [...] Signed By: Veronique Kaminski RN 01/11/20 13:34 [facility] Pre[facility] Record MAGR Pre-Op Record Summary Primary Physician: Jose Mcgraw DO Finalized Date/Time: 01/11/20 09:56:53 Pt. Name: JACKIELEDA/Sex: 1950 FEMALE Med Rec #: [id number] Physician: Jose Mcgraw DO Financial #: [id number] Pt. Type: D Room/Bed: / Admit/Disch: 01/11/20 [...] cough, CoVid or flu-like S/Sx. Has a pacemaker/defibrillato r. Denies sleep apnea. Talked to CLinical coordinator Rep for Pacemaker/defib will be here by 9:30a. Finalized By: Veronique Kaminski RN Document Signatures Signed By: Veronique Kaminski RN 01/11/20 09:50 Veronique Kaminski RN 01/11/20 09:56 Unfinalized History Date/Time Username Reason for Unfinalizing Freetext Reason for Unfinalizing 01/11/20 09:55 MHHREED Finish Documentation Normal [facility] Operative Report - Surgeon/P feliz 01-11-2020 [...] dressings were applied [Electronically Signed on: 01/11/2020 11: EST] Jose Mcgraw DO [Verified on: 01/11/2020 11:11 EST] Jose Mcgraw DO [facility] Patient Handouton 01-11-[address] [...] or concerns, please call the office at [phone] -Follow up as scheduled Normal [facility] 2019 Novel Coronavirus (CoVI D-19), REGGIE LCon 01-08-2020 SARS-CoV-2, REGGIE (COVID-19) LC Not Detected Not Detected [facility] Comment on above: Order Comment: [id number] [phone] Result Comment: This nucleic acid amplification test was developed and its performance characteristics determined by [employer]. Nucleic acid amplification tests include PCR and [...] detected) result in this assay. Performed At: [facility] [address] [facility], [place] [id number] Solitario Mathis MD Ph:[phone] Performed By: #### 6 [id number] ####[facility] (DEFAULT)[address] [place] [address] Progress Note - Nurseon 12-26 TSH Qn Spoke with pt and informed her to be here at 7am and NPO after MN, pt was also informed that she can not have any visitor or family with her at this point. Pt verbalizes understanding. [Electronically Signed on: 01/08/2020 12:36 EST] Loera Lemus RN [Verified on: 01/08/2020 12:36 EST] Leora Lemus RN [facility] Progress Note - Nurseon 11- Progress Note - Nurse Nasal swab performed without complication. Patient tolerated well. Education given. Patient verbalized understanding. [Electronically Signed on: 01/07/2020 14:54 EST] Alisha Vidales RN [Verified on: 01/07/2020 14:54 EST] Alisha Vidales RN [facility] Progress Note - Nurseon 11-0 Progress Note - Nurse Dr. Gonzalez reviewed chart and no new orders received. [Electronically Signed on: 12/31/2019 10:53 EST] Cha Calloway RN [Verified on: 12/31/2019 10:53 EST] Cha Calloway RN Will need pacemaker rep here day of surgery. Alisha shah. [Electronically Signed on: 12/31/2019 10:54 EST] Brodie SWANSON, Cha A Normal [facility] .Auto Diff 1on 12-30-2019 Auto [place] % 10 % Normal 1-12 [facility] Comment on above: Performed By: #### 7 [id number] ####[facility] (DEFAULT)[address] [place] [address] 47287 Baso Abs# 0.0 x10 Normal 0.0-0.2 [facility] Comment on above: Performed By: #### 7 [id number], [id number] ####[facility] (DEFAULT)[address] [place] [address] 64505 Basophils/100 WBC (Bld) 0.7 % Normal 0.2-2.0 [facility] Comment on above: Performed By: #### 7 [id number], [id number] ####[facility] (DEFAULT)[address] [place] [address] 94886 Eos Abs# 0.1 x10 Normal 0.0-0.4 [facility] Comment on above: Performed By: #### 7 [id number], [id number] ####[facility] (DEFAULT)[address] [place] [address] 38194 Eosinophils/100 WBC (Bld) 1.7 % Normal 0.9-4.0 [facility] Comment on above: Performed By: #### 7 [id number], [id number] ####[facility] (DEFAULT)[address] [place] [address] 67123 Lymphocytes (Bld) [#/Vol] 0.9 x10 Low 1.3-2.9 [facility] Comment on above: Performed By: #### 7 [id number], [id number] ####[facility] (DEFAULT)[address] [place] [address] 86920 Lymphocytes/100 WBC (Bld) 18 % Normal 14-48 [facility] Comment on above: Performed By: #### 7 [id number], [id number] ####[facility] (DEFAULT)[address] [place] [address] 84335 [place] Abs# 0.5 x10 Normal 0.0-0.8 [facility] Comment on above: Performed By: #### 7 [id number], [id number] ####[facility] (DEFAULT)[address] [place] [address] 20795 Neut Abs# 3.8 x10 Normal 1.5-9.2 [facility] Comment on above: Performed By: #### 7 [id number], [id number] ####[facility] (DEFAULT)[address] [place] [address] 35849 Neutrophils/100 WBC (Bld) 70 % Normal 44-88 [facility] Comment on above: Performed By: #### 7 [id number], [id number] ####[facility] (DEFAULT)[address] [place] [address] Standardon 12-30-2019 eGFR Non AA >60 [facility] Comment on above: Performed By: #### 1 [id number] ####[facility] (DEFAULT)[address] [place] [address] 83977 eGFR AA >60 [facility] Comment on above: Result Comment: [employer] freddy Kidney disease could be indicated at eGFRs of less than 60 ml/min/1.73m2. Kidney Failure is indicated at less than 15 ml/min/1.73m2 Performed By: #### 1 [id number] ####[facility] (DEFAULT)[address] [place] [address] 60529 Anion gap [Moles/Vol] 13.0 mmol/L Normal 5.0-19.0 [facility] Comment on above: Performed By: #### 1 [id number] ####[facility] (DEFAULT)[address] [place] [address] 56237 Calcium [Mass/Vol] 9.3 mg/dL Normal 8.9-10.3 [facility] Comment on above: Performed By: #### 1 [id number] ####[facility] (DEFAULT)[address] [place] [address] 34783 Chloride [Moles/Vol] 100 mmol/L Low 101-111 [facility] Comment on above: Performed By: #### 1 [id number] ####[facility] (DEFAULT)[address] [place] [address] 70641 CO2 [Moles/Vol] 28 mmol/L Normal 21-32 [facility] Comment on above: Performed By: #### 1 [id number] ####[facility] (DEFAULT)[address] [place] [address] 87080 Creatinine [Mass/Vol] 0.69 mg/dL Normal 0.60-1.30 [facility] Comment on above: Performed By: #### 1 [id number] ####[facility] (DEFAULT)[address] [place] [address] 41779 Glucose [Mass/Vol] 87.0 mg/dL Normal 74.0-118.0 [facility] Comment on above: Performed By: #### 1 [id number] ####[facility] (DEFAULT)[address] [place] [address] 64694 Osmolality [Osmolality] 277 mOsm/L [facility] Comment on above: Performed By: #### 1 [id number] ####[facility] (DEFAULT)[address] [place] [address] 98440 Potassium [Moles/Vol] 3.9 mmol/L Normal 3.6-5.1 [facility] Comment on above: Performed By: #### 1 [id number] ####[facility] (DEFAULT)[address] [place] [address] 32380 Sodium [Moles/Vol] 137.0 mmol/L Normal 136.0-144.[address] [facility] Comment on above: Performed By: #### 1 [id number] ####[facility] (DEFAULT)[address] [place] [address] 30543 Urea nitrogen [Mass/Vol] 23 mg/dL Normal 8-26 [facility] Comment on above: Performed By: #### 1 [id number] ####[facility] (DEFAULT)[address] [place] [address] 15783 Urea nitrogen/Creatinin e [Mass ratio] 33.0 mg/mg High 4.6-16.2 [facility] Comment on above: Performed By: #### 1 [id number] ####[facility] (DEFAULT)[address] [place] [address] 81772 CBC w/ Auto Diffon 0 Erythrocyte distribution width (RBC) [Ratio] 12.0 % Normal 11.5-15.0 [facility] Comment on above: Performed By: #### 7 [id number], [id number] ####[facility] (DEFAULT)[address] [place] [address] Hematocrit (Bld) [Volume fraction] 39.2 % Normal 33.7-40.4 [facility] Comment on above: Performed By: #### 7 [id number], [id number] ####[facility] (DEFAULT)[address] [place] [address] Hemoglobin (Bld) [Mass/Vol] 13.4 g/dL Normal 11.3-15.9 [facility] Comment on above: Performed By: #### 7 [id number], [id number] ####[facility] (DEFAULT)[address] [place] [address] Man Diff? Auto Normal [facility] Comment on above: Performed By: #### 7 [id number], [id number] ####[facility] (DEFAULT)[address] [place] [address] MCH (RBC) [Entitic mass] 31 pg Normal 24-34 [facility] Comment on above: Performed By: #### 7 [id number], [id number] ####[facility] (DEFAULT)[address] [place] [address] MCHC (RBC) [Mass/Vol] 34 g/dL Normal 26-37 [facility] Comment on above: Performed By: #### 7 [id number], [id number] ####[facility] (DEFAULT)[address] [place] [address] MCV (RBC) [Entitic vol] 90 fL Normal 81-100 [facility] Comment on above: Performed By: #### 7 [id number], [id number] ####[facility] (DEFAULT)[address] [place] [address] 12821 Platelet mean volume (Bld) [Entitic vol] 9.6 fL Normal 6.3-10.2 [facility] Comment on above: Performed By: #### 7 [id number], [id number] ####[facility] (DEFAULT)[address] [place] [address] 52265 Platelets (Bld) [#/Vol] 220 x10 Normal 138-427 [facility] Comment on above: Performed By: #### 7 [id number], [id number] ####[facility] (DEFAULT)[address] [place] [address] 41541 RBC (Bld) [#/Vol] 4.36 x10 Normal 3.70-5.30 [facility] Comment on above: Performed By: #### 7 [id number], [id number] ####[facility] (DEFAULT)[address] [place] [address] 36295 WBC (Bld) [#/Vol] 5.4 x10 Normal 3.5-10.5 [facility] Comment on above: Performed By: #### 7 [id number], [id number] ####[facility] (DEFAULT)[address] [place] [address] 75432 Vital Signs Date Time Vital Sign Value Performing Clinician Facility 10-01-2024 10:47-0400 Body height 170.2 cm Angel Stewart MD Work Phone: [facility] 10-01-2024 10:47-0400 Body mass index (BMI) [Ratio] 21.14 kg/m2 Angel Stewart MD Work Phone: [facility] 10-01-2024 10:47-0400 Body temperature 97.81 [degF] Angel Stewart MD Work Phone: [facility] 10-01-2024 10:47-0400 Body weight 61.24 kg Angel Stewart MD Work Phone: [facility] 10-01-2024 10:47-0400 Diastolic blood pressure 64 mm[Hg] Angel Stewart MD Work Phone: [facility] 10-01-2024 10:47-0400 Heart rate 57 /min Angel Stewart MD Work Phone: [facility] 10-01-2024 10:47-0400 Respiratory rate 18 /min Angel Stewart MD Work Phone: [facility] 10-01-2024 10:47-0400 SaO2% (BldA) [Mass fraction] 97 % Angel Stewart MD Work Phone: [facility] 10-01-2024 10:47-0400 Systolic blood pressure 120 mm[Hg] Angel Stewart MD Work Phone: [facility] 02-14-2024 09:56-0500 Body height 170.2 cm Angel Stewart MD Work Phone: [facility] 02-14-2024 09:56-0500 Body mass index (BMI) [Ratio] 21.3 kg/m2 Angel Stewart MD Work Phone: [facility] 02-14-2024 09:56-0500 Body temperature 97.11 [degF] Angel Stewart MD Work Phone: [facility] 02-14-2024 09:56-0500 Body weight 61.69 kg Angel Stewart MD Work Phone: [facility] 02-14-2024 09:56-0500 Diastolic blood pressure 60 mm[Hg] Angel Stewart MD Work Phone: [facility] 02-14-2024 09:56-0500 Heart rate 79 /min Angel Stewart MD Work Phone: [facility] 02-14-2024 09:56-0500 Respiratory rate 22 /min Angel Stewart MD Work Phone: [facility] 02-14-2024 09:56-0500 SaO2% (BldA) [Mass fraction] 96 % Angel Stewart MD Work Phone: [facility] 02-14-2024 09:56-0500 Systolic blood pressure 122 mm[Hg] Angel Stewart MD Work Phone: [facility] 03-22-2023 15:30-0400 Body height 170.18 cm Theron Morales Other [employer] Other 05-16-2022 15:30-0400 Body mass index (BMI) [Ratio] 21.61 kg/m2 Theron Morales Other [employer] Other 05-16-2022 15:30-0400 Body temperature 97.3 [degF] Theron Carmen Other [employer] Other 05-16-2022 15:30-0400 Body weight 62.6 kg Theron Morales Other [employer] Other 05-16-2022 15:30-0400 Diastolic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 tablet Take 1 tablet by mouth Daily omeprazole (PriLOSEC) [address] capsule Take 1 capsule (20 mg) by mouth in the morning. Take before meals. 30 capsule 11 spironolactone (Aldactone) 25 MG tablet TAKE ONE-HALF (1/2) TABLET DAILY Symbicort 160-4.5 MCG/ACT inhaler every 12 (twelve) hours tiotropium (Spiriva HandiHaler) 18 MCG inhalation capsule Inhale 1 capsule every day by inhalation route for 90 days. traZODone (Desyrel) 50 MG tablet Take 1 tablet (50 mg) by mouth at bedtime 30 tablet 11 ZOLMitriptan (Zomig-ZMT) 5 MG disintegrating tablet Take 1 tablet (5 mg) by mouth 1 (one) time if needed for migraine May repeat in 2 hours if unresolved. Do not exceed 10 mg in 24 hours. 9 tablet 5 No current facility-administered medications on file prior to visit. MEDICAL HISTORY: Past Medical History: Diagnosis Date Asthma ([facility]) Cardiomyopathy ([facility]) CHF (congestive heart failure) ([facility]) COPD (chronic obstructive pulmonary disease) ([facility]) CTS (carpal tunnel syndrome) Unknown Fracture of hand Unknown Fracture of wrist Unknown Heart disease 2012 Migraine (CMS/HCC) ADAMA (obstructive sleep apnea) Pacemaker Rotator cuff syndrome Unknown Trigger finger Unknown ALLERGIES: Allergies Allergen Reactions Phenothiazines Unknown Other Reaction(s): Other Benztropine Rash Other Reaction(s): other, Unknown VITALS: Visit Vitals Smoking Status Former PHYSICAL EXAM: Ortho Exam RIGHT KNEE Slow gait with walker Necrotic skin over wound runs transversely distal to knee 7.5cm x 14mm ASSESSMENT: ICD-10-CM 1. Traumatic hematoma of right knee, initial encounter S80.01XA 2. Acute pain of right knee M25.561 PLAN: I explained the diagnosis and reviewed treatment options. I answered all of the patient's questions. I recommend referral to wound clinic and recommend limiting her activities . New dressing applied. Follow up in 2 weeks, any issues/concerns follow up sooner. Dr. Mcgraw obtained history and examined the patient, I am acting as scribe for Dr. Mcgraw/nasir Mcgraw D.O. documented in this encounter [facility] 05-16-2022 Evaluation note Encounter Date Diagnosis Assessment Notes Apr, Positive culture findings in sputum (ICD-10 - R84.5) Patient is not considered immunosuppressed. She does not appear at risk for an Aspergillus invasive infection. Clinical symptomatology has not really demonstrated signs of an invasive aspergillus infection given the lack of blood colored sputum. Chest x-ray reviewed however no CT scan available. Discussed with her bobbin coil winder that CT scan of the chest may be helpful at least to further evaluate her lung parenchyma given the lack of progression over the length of time the sputum cultures have been collected I do not think there is a significant Aspergillus infection that warrants treatment. Of note back in 2011 she did get 30 days of voriconazole by her older bobbin coil winder from [place]. Each time she has been sick in [...] to her repeated colonization. Discussed with her bobbin coil winder that a CT scan may be of some benefit. She is to monitor her clinical symptoms for any type of worsening and if change in sputum character does occur especially with bloody colored sputum or to arise she is to notify me. [employer] Other 08-03-2022 NotePROCEDURE: XR KNEE LT 4V [...] Electronically authenticated by: AMBROSIO DUVALL Date: 2021-09-27 09:[address] [place], [place] [id number] NotePROCEDURE: XR KNEE LT 4V or >, [...] Electronically authenticated by: AMBROSIO DUVALL Date: 2021-09-27 09:[address] [place], [place] [id number] NoteMR#: [id number] [facility] Pt. Name: Leda Gordon Admitted: 06/30/2020 Discharged: 07/01/2020 Date of : 1950 Physician: Amador Parkinson MD DISCHARGE SUMMARY COURSE OF HOSPITALIZATION: The patient is a 69-year-old female who presented to [facility] yesterday for elective Bi-V ICD [...] generator exchange. She had [facility] [place] CRTD A500Q model, serial #[id number] was implanted and connected to already existing [...] in good condition. She has followup in [facility] for wound check on July 08 at 01:20 p.m. with Aysha Nair CNP. Then in one month on August 09 at 11 a.m. for pacemaker device, interrogation was [facility] at [facility] and she is to follow [...] from me. Date Dict: 07/01/2020/11:26 A/DELILAH Santiago, MULTIMEDIA PRODUCTION ASSISTANT-C Date Trans: 07/02/2020 09:40 A/mmo [id number] cc: Amador Parkinson MD Dept Of Cardiology [address] [facility] [id number] Angel Stewart M.D. [address] [place] [address]* Diagnosis Medicare annual wellness visit, subsequent- Primary Colon cancer screening Special screening for malignant neoplasms, colon Chronic obstructive pulmonary disease, unspecified COPD type (CMS/HCC) Traumatic hematoma of right knee, subsequent encounter- Primary [facility] Diagnosis Traumatic hematoma of right knee, initial encounter- Primary Acute pain of right knee [facility] Diagnosis Traumatic hematoma of right knee, subsequent encounter- Primary Acute pain of right knee [facility] Diagnosis Traumatic hematoma of right knee, subsequent encounter- Primary Acute pain of right knee [facility] Diagnosis Medicare annual wellness visit, subsequent- Primary Colon cancer screening Special screening for malignant neoplasms, colon Chronic obstructive pulmonary disease, unspecified COPD type (CMS/HCC) Dehydration- Primary Hypotension due to drugs Other iatrogenic hypotension Viral cardiomyopathy (CMS/HCC) Other primary cardiomyopathies Encounter for long-term (current) use of medications Encounter for long-term (current) use of other medications Acute kidney injury (CMS/HCC) [facility] Diagnosis Medicare annual wellness visit, subsequent- Primary Colon cancer screening Special screening for malignant neoplasms, colon Chronic obstructive pulmonary disease, unspecified COPD type (HCC) Dehydration- Primary Hypotension due to drugs Other iatrogenic hypotension Viral cardiomyopathy (HCC) Other primary cardiomyopathies Encounter for long-term (current) use of medications Encounter for long-term (current) use of other medications Acute kidney injury Medicare annual wellness visit, subsequent- Primary Upper respiratory tract infection, unspecified type Cardiomyopathy, unspecified (HCC) Chronic obstructive pulmonary disease, unspecified (HCC) [facility] Diagnosis Medicare annual wellness visit, subsequent- Primary Colon cancer screening Special screening for malignant neoplasms, colon Chronic obstructive pulmonary disease, unspecified COPD type (HCC) Dehydration- Primary Hypotension due to drugs Other iatrogenic hypotension Viral cardiomyopathy (HCC) Other primary cardiomyopathies Encounter for long-term (current) use of medications Encounter for long-term (current) use of other medications Acute kidney injury Medicare annual wellness visit, subsequent- Primary Upper respiratory tract infection, unspecified type Cardiomyopathy, unspecified (HCC) Chronic obstructive pulmonary disease, unspecified (HCC) Arthritis of carpometacarpal (CMC) joint of right thumb- Primary Pain of right thumb Finger pain, right Pain in soft tissues of limb Finger pain, left Pain in soft tissues of limb [facility] Diagnosis Medicare annual wellness visit, subsequent- Primary Colon cancer screening Special screening for malignant neoplasms, colon Chronic obstructive pulmonary disease, unspecified COPD type (HCC) Dehydration- Primary Hypotension due to drugs Other iatrogenic hypotension Viral cardiomyopathy (HCC) Other primary cardiomyopathies Encounter for long-term (current) use of medications Encounter for long-term (current) use of other medications Acute kidney injury Medicare annual wellness visit, subsequent- Primary Upper respiratory tract infection, unspecified type Cardiomyopathy, unspecified (HCC) Chronic obstructive pulmonary disease, unspecified (HCC) Chronic pain of left thumb- Primary Osteoarthritis of carpometacarpal (CMC) joint of left thumb, unspecified osteoarthritis type [facility] Diagnosis Medicare annual wellness visit, subsequent- Primary Colon cancer screening Special screening for malignant neoplasms, colon Chronic obstructive pulmonary disease, unspecified COPD type (HCC) Dehydration- Primary Hypotension due to drugs Other iatrogenic hypotension Viral cardiomyopathy (HCC) Other primary cardiomyopathies Encounter for long-term (current) use of medications Encounter for long-term (current) use of other medications Acute kidney injury Medicare annual wellness visit, subsequent- Primary Upper respiratory tract infection, unspecified type Cardiomyopathy, unspecified (HCC) Chronic obstructive pulmonary disease, unspecified (HCC) Pain in right lower leg- Primary Acute pain of right knee documented in this encounter [facility]* Diagnosis Medicare annual wellness visit, subsequent- Primary Colon cancer screening Special screening for malignant neoplasms, colon Chronic obstructive pulmonary disease, unspecified COPD type (HCC) Dehydration- Primary Hypotension due to drugs Other iatrogenic hypotension Viral cardiomyopathy (HCC) Other primary cardiomyopathies Encounter for long-term (current) use of medications Encounter for long-term (current) use of other medications Acute kidney injury Medicare annual wellness visit, subsequent- Primary Upper respiratory tract infection, unspecified type Cardiomyopathy, unspecified (HCC) Chronic obstructive pulmonary disease, unspecified (HCC) Pain in right lower leg- Primary documented in this encounter [facility] Narrative - Reported* Type Description Date Medical History osteopenia Medical History insomnia Medical History depression Medical History migraines Medical History cardiomyopathy Medical History copd Medical History adama Medical History dyslipidemia Medical History gerd [employer] Other Reason for visit Narrative* Rehabilitation - Outpatient (Routine) - Authorized Specialty Diagnoses / Procedures Referred By Kevan t Referred To Contact Physical Therapy Diagnoses Pain in right lower leg Procedures [facility] OFFICE/OUTPATIENT NEW HIGH MDM 60 MINUTES Juanita Dowell PA [address] [place] [address] Phone: tel: fax: Kamilla Rios PT Referral ID Status Reason Start Date Expiration Date Visits Requested Visits Authorized [id number] Authorized Consult and Treat 11/18/2024 05/17/2025 99 99 [facility] Summary Purpose Family History No Family History Records FoundNo Family History Records FoundNo Family History Records FoundNo Family History Records FoundNo Family History Records FoundNo Family History Records Found Advance Directives No Advanced Directives Records FoundNo Advanced Directives Records FoundNo Advanced Directives Records FoundNo Advanced Directives Records FoundNo Advanced Directives Records FoundNo Advanced Directives Records Found Hospital Course Note [facility] [place] SURGERY Clinical Discharge Summary PERSON INFORMATION Name LEDA GORDON Age 69 Years 1950 Sex FEMALE Language Estonian PCP ANGEL STEWART Marital Status Med Service Ambulatory Surgery Acct# Arrival 01/11/2020 07:00:00 Visit Reason SURGERY-LEFT SHOULDER ARTHROSCOPY Acuity LOS 017 05:53 Address: [address] [place] [id number] Comment: PROVIDER INFORMATION VITALS INFORMATION Vital Sign [...] content not included)... Note Patient: LEDA GORDON Age: 69 years Sex: FEMALE : 1950 Associated Diagnoses: None Author: Yanick Edward MD Postoperative Information Post Operative Note: Operative Day. Anesthetic utilized: General. Health Status Allergies: Allergic Reactions (All) Severe Cogentin- Hallucinations. Moderate Phenothiazine- Nausea. Problem list (past medical history): All Problems COPD (chronic obstructive pulmonary disease) case management patient / SNOMED CT 181247442 / Confirmed CHF (congestive heart failure) / SNOMED CT 44526153 / Confirmed Myopathy / SNOMED CT 460409289 / Confirmed Ventricular dysfunction / SNOMED CT 208923532 / Confirmed Physical Examination VS/Measurements Vital Signs (last 24 hrs) Last Charted Heart Rate Peripheral 70 bpm (JAN 10 09:45) Resp Rate 16 br/min (JAN 10:) SBP 123 mmHg (JAN 10:) DBP 73 mmHg (JAN 10:) SpO2 100 % (JAN 10:) Review / Management Condition: Stable. Assessment Anesthetic outcome No (more content not included)... Procedure Findings Note Patient: LEDA GORDON MRN: [id number]-- Age: 69 years Sex: FEMALE : 1950 Associated Diagnoses: None Author: Yanick Edward MD Postoperative Information Post Operative Note: Operative Day. Anesthetic utilized: General. Health Status Allergies: Allergic Reactions (All) Severe Cogentin- Hallucinations. Moderate Phenothiazine- Nausea. Problem list (past medical history): All Problems COPD (chronic obstructive pulmonary disease) case management patient / SNOMED CT 183329730 / Confirmed CHF (congestive heart failure) / SNOMED CT 24000404 / Confirmed Myopathy / SNOMED CT 968457467 / Confirmed Ventricular dysfunction / SNOMED CT 482892402 / Confirmed Physical Examination VS/Measurements Vital Signs (last 24 hrs) Last Charted Heart Rate Peripheral 70 bpm (JAN 10 09:45) Resp Rate 16 br/min (JAN 10:) SBP 123 mmHg (NOV 16 11:22) DBP 73 mmHg (JAN 10 11:) SpO2 100 % (JAN 10:) Review / Management Condition: Stable. Assessment Anesthetic outcome No (more content not included)... Additional Source Comments INFORMATION SOURCE (unrecogn ized section and content) DATE CREATED AUTHOR 01/20/2020 [facility] DATE CREATED AUTHOR AUTHOR'S ORGANIZ ATION 06/10/2021 [facility] DATE CREATED AUTHOR AUTHOR'S ORGANIZ ATION 06/01/2022 [facility] DATE CREATED AUTHOR AUTHOR'S ORGANIZ ATION 01/02/2024 [facility] DATE CREATED AUTHOR AUTHOR'S ORGANIZ ATION 11/12/2024 [facility] DATE CREATED AUTHOR AUTHOR'S ORGANIZ ATION 11/28/2024 [facility] d[facility] Specialists EPIC Care Teams (unrecognized sec tion and content) Clinical Nursing Professor Relationship Specialty Start Date End Date Angel Stewart MD [address] [place] [address] PCP - General Family Medicine 06/26/23 Angel Stewart MD [address] [place] [address] PCP - [employer] 08/26/23 Clinical Nursing Professor Relationship Specialty Start Date End Date Angel Stewart MD [address] [place] [address] PCP - General Family Medicine 06/26/23 Angel Stewart MD [address] [place] [address] PCP - [employer] 08/26/23 Clinical Nursing Professor Relationship Specialty Start Date End Date Angel Stewart MD [address] [place] [address] PCP - General Family Medicine 06/26/23 Angel Stewart MD [address] [place] [address] PCP - [employer] 08/26/23 Clinical Nursing Professor Relationship Specialty Start Date End Date Angel Stewart MD [address] [place] [address] PCP - General Family Medicine 06/26/23 Angel Stewart MD [address] [place] [address] PCP - [employer] 08/26/23 Clinical Nursing Professor Relationship Specialty Start Date End Date Angel Stewart MD [address] [place] [address] PCP - General Family Medicine 06/26/23 Angel Stewart MD [address] [place] [address] PCP - [employer] 08/26/23 Clinical Nursing Professor Relationship Specialty Start Date End Date Angel Stewart MD [address] [place] [address] PCP - General Family Medicine 06/26/23 Angel Stewart MD [address] [place] [address] PCP - [employer] 08/26/23 Clinical Nursing Professor Relationship Specialty Start Date End Date Angel Stewart MD [address] [place] [address] PCP - General Family Medicine 06/26/23 Angel Stweart MD [address] [place] [address] PCP - [employer] 08/26/23 Clinical Nursing Professor Relationship Specialty Start Date End Date Angel Stewart MD [address] [place] [address] PCP - General Family Medicine 06/26/23 Angel Stewart MD [address] [place] [address] PCP - [employer] 08/26/23 Clinical Nursing Professor Relationship Specialty Start Date End Date Angel Stewart MD [address] [place] [address] PCP - General Family Medicine 06/26/23 Angel Stewart MD [address] [place] [address] PCP - [employer] 08/26/23 Clinical Nursing Professor Relationship Specialty Start Date End Date Angel Stewart MD [address] [place] [address] PCP - General Family Medicine 06/26/23 Angel Stewart MD [address] [place] [address] PCP - [employer] 08/26/23 Clinical Nursing Professor Relationship Specialty Start Date End Date Angel Stewart MD [address] [place] [address] PCP - [facility] 06/26/23 Angel Stewart MD [address] [place] [address] PCP - [employer] 08/26/23 Clinical Nursing Professor Relationship Specialty Start Date End Date Angel Stewart MD [address] [place] [address] PCP - [facility] 06/26/23 Angel Stewart MD [address] [place] [address] PCP - t 08/26/23 Clinical Nursing Professor Relationship Specialty Start Date End Date Angel Stewart MD [address] [place] [address] PCP - [facility] 06/26/23 Angel Stewart MD [address] [place] [address] PCP [employer] 08/26/23 Clinical Nursing Professor Relationship Specialty Start Date End Date Angel Stewart MD [address] [place] [address] PCP - [facility] 06/26/23 Angel Stewart MD [address] [place] [address] PCP - [employer] 08/26/23 Clinical Nursing Professor Relationship Specialty Start Date End Date Angel Stewart MD [address] [place] [address] PCP - General Family Medicine 06/26/23 Angel Stewart MD [address] [place] [address] PCP - [employer] 08/26/23 Clinical Nursing Professor Relationship Specialty Start Date End Date Angel Stewart MD PCP - General Family Medicine 06/26/23 Angel Stewart MD [address] [place] [address] PCP - [employer] 08/26/23 Clinical Nursing Professor Relationship Specialty Start Date End Date Angel Stewart MD PCP - General Family Medicine 06/26/23 Angel Stewart MD [address] [place] [address] PCP - [employer] 08/26/23 Clinical Nursing Professor Relationship Specialty Start Date End Date Angel Stewart MD [address] [place] [address] PCP - [employer] 08/26/23 Angel Stewart MD [address] [place] [address] PCP - General Family Medicine 11/12/24 Clinical Nursing Professor Relationship Specialty Start Date End Date Angel Stewart MD [address] [place] [address] PCP - [employer] 08/26/23 Angel Stewart MD [address] [place] [address] PCP - General [facility] 11/12/24 Clinical Nursing Professor Relationship Specialty Start Date End Date Angel Stewart MD [address] [place] [address] PCP - [facility] 08/26/23 Angel Stewart MD [address] [place] [address] PCP [facility] 11/12/24 Clinical Nursing Professor Relationship Specialty Start Date End Date Angel Stewart MD [address] [place] [address] PCP - [employer] 08/26/23 Angel Stewart MD [address] [place] [address] PCP - General Family Medicine 11/12/24 Reason for Visit (unrecogniz ed section and content) Reason Comments Cough Medicare Annual Wellness Visit Subsequen t Wellness Reason Comments Follow-up TB ER F/U LOW BP Reason Onset Date Comments Letter for School/Work 11/14/2023 Reason Comments Pain Reason Comments Follow-up FOR RECORDS PERTAINING TO PATIENTS WHO ARE [...] BE BASED ON THE PRIMARY CLINICAL RECORDS. [employer] [facility]. provides no warranty or guarantee of the accuracy or completeness of information in this document.
== END 2024-12-01 17:51 | disposition home or self-care (01) ==
LOC: LAB 17:50
PROVIDERS: PCP Family Medicine; Visit Provider Family Medicine
DX: R05.3 Chronic cough (principal)
CPT/HCPCS: 87070; 87186; 87205

== ENCOUNTER 2025-02-03 12:55 | Outpatient (OUT) | payer MEDICARE, SELFPAY ==
--- NOTE | 2025-02-03 12:58 | MM_ITS ---
Patient Name: LEDA MEJIA MR#: [id number] : 1950 Exam Date: 02/03/2025 Ordering Doctor: DR NENA STEWART . RADIOLOGY REPORT PROCEDURE: MM TOMOSYNTHESIS SCREENING BI COMPARISON: MM TOMOSYNTHESIS SCREENING BI, 01/31/2024. MM TOMOSYNTHESIS SCREENING BI, 01/01/2023. MG MAMM SCREEN FABBY W CAD, 02/10/2019. MG MAMM FABBY SCRN W CAD DIG, 09/23/2012. INDICATIONS: Screening Calculator Name NCI Breast Cancer Risk Assessment Tool 5 Year Breast Cancer Risk 3.20% Lifetime Breast Cancer Risk 7.80% Personal Breast Cancer No Personal Ovarian Cancer No Treatments None Family Cancers None LOCATION: [facility] BREAST COMPOSITION: The breasts are heterogeneously dense, which may obscure small masses. FINDINGS: RIGHT BREAST: No significant suspicious finding. LEFT BREAST: No significant suspicious finding. Benign-appearing calcifications are present. There is a pacer generator along the left chest wall . DIAGNOSTIC CATEGORY 2--BENIGN FINDING. NO CHANGE FROM COMPARISON. RECOMMENDATIONS: ROUTINE MAMMOGRAM AND CLINICAL EVALUATION IN 12 MONTHS. Dictated by: Adithya Tomas MD on 02/03/2025 at 14:56 Approved by: Adithya Tomas MD on 02/03/2025 at 15:01
--- OUTSIDE RECORDS SUMMARY | 2025-02-03 12:59 | XMS_ITS | CCD ---
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 mean volume (Bld) [Entitic vol]9.8 fL9.5 - 13.5 fLBarnes-Jewish West County HospitalTBH EO #0NOMS HealthcareTBH [id number] Mansfield HospitalTB RBC4.36NOMS HealthcareTBH WBC6.2[facility] CLINISYNCNOFL HealthcareOffice Visiton [phone]-up [id number] Leda Gordon 1950 Date Provider Department Center 07/22/2024 [id number], ADAM ONDINA Frias Family History Problem Relation Age of Onset Osteoporosis Mother Heart disease Mother Heart failure Father Hearing loss Father Family Status - Relation Status Age at Mother Father Level of Service:48779 [place] OFFICE/OUTPATIENT ESTABLISHED MOD MDM 30 [facility] HospitalOrders Onlyon 64-96-7744Rczjmd [id number] Leda Gordon 1950 Date Provider Department Center 07/16/2024 [id number], HISTORICAL ONDINA [facility] Family History Problem Relation Age of Onset Osteoporosis Mother Heart disease Mother Heart failure Father Hearing loss Father Family Status - Relation Status Age at Mother FatherNormalUniAvita Health System Galion Hospital36on [id number] was sent to [place] [facility] last week around 02/[address] Parkinson. Patient followed up with her primary provider, she had labs done at [facility]. Patient was told to discontinue 2 of her blood pressure medication. She is wanting to know if she can start those up, due to having elevated blood pressures lately. They have been running about 130/70ish. [address] HospitalTelephoneon [phone] [id number] Leda Gordon 1950 F Date Provider Department Center 02/17/2024 AMADOR MCLEOD [facility] Family History Problem Relation Age of Onset Osteoporosis Mother Heart disease Mother Heart failure Father Hearing loss Father Family Status - Relation Status Age at Mother Father Reason for Visit and Comments: Medication [Other]NormalUnPaulding County HospitalALL CBC WITH AUTO DIFFon 43-32-3063SDIJEKKGK ABSOLUTE [id number] HealthcareBasophils/100 WBC (Bld) 0.3 %0.2 - 2.0 %NOMS HealthcareEosinophils/100 WBC (Bld)0 %Low0.9 - 7.0 %NOMS HealthcareErythrocyte distribution width (RBC) [Ratio]12.4 %11.0 - 15.0 %NOMS HealthcareHematocrit (Bld) [Volume fraction]41.2 %36.0 - 48.0 %[facility] Hemoglobin (Bld) [Mass/Vol]13.8 g/dL12.0 - 16.0 g/dLNOMS HealthcareIMMATURE GRANULOCYTES ABS AUTO0.21HighNOMS HealthcareImmature granulocytes/100 WBC (Bld)2 %High0.0 - 0.5 %NOMS HealthcareInterpretation and review of laboratory results AbnormalNOMS HealthcareLYMPHOCYTES ABSOLUTE AUTO1.6NOMS Healthcare Lymphocytes/100 WBC (Bld)15 %Low20.5 - 60.0 %NOMS [facility]field HospitalMCH (RBC) [Entitic mass]29.9 pg26.7 - 34.0 pgNOThree Rivers HealthcareMCHC (RBC) [Mass/Vol]33.5 g/dL29.9 - 35.2 g/dLNOFL HealthcareMCV (RBC) [Entitic vol]89.4 fL81.0 - 99.0 fLNOFL HealthcareMONOCYTES ABSOLUTE DCHZ1XarrIMKR HealthcareMonocytes/100 WBC (Bld)9.7 %1.7 - 12.0 %NOMS HealthcareNEUTROPHILS ABSOLUTE AUTO7.6HighNOMS Healthcare Neutrophils/100 WBC (Bld)73 %43.0 - 75.0 %NOMS HealthcarePlatelet mean volume (Bld) [Entitic vol]8.9 fLLow9.5 - 13.5 fLNOFL HealthcareTBH EO #0NOMS Healthcare TBH [id number] HealthcareTB RBC4.61NOMS HealthcareTB WBC10.4NOFL Healthcare CLINISYNCNOFL HealthcareOffice Visiton [id number]-up [id number] Leda Gordon 1950 F Date Provider Department Center 02/11/2024 AMADOR MCLEOD [facility] Family History Problem Relation Age of Onset Osteoporosis Mother Heart disease Mother Heart failure Father Hearing loss Father Family Status - Relation Status Age at Mother Father Level of Service:47644 [place] OFFICE/OUTPATIENT ESTABLISHED MOD MDM 30 [facility] HospitalMM TOMOSYNTHESIS SCREENING BIon 89-82-2477[place] [address] Mammography Report Signed Patient: LEDA GORDON MR#: [id number] : 1950 Acct:[id number] Age/Sex: 73 / F ADM Date: 01/31/24 Loc: MAMMO Attending Dr: Angel Stewart M.D. Ordering Physician: Angel Stewart M.D. Results: Date of Service: 01/31/24 Follow Up: Procedure(s): MM tomosynthesis screening BI Accession Number(s): [id number] cc: Angel Stewart M.D. Patient Name: LEDA GORDON MR#: [id number] : 1950 Exam Date: 01/31/2024 Ordering Doctor: DR Angel Stewart . RADIOLOGY REPORT PROCEDURE: MM TOMOSYNTHESIS SCREENING [...] Treatments None Family Cancers None LOCATION: The [facility] BREAST COMPOSITION: The breasts are heterogeneously [...] PALPABLE LUMP SHOULD BE BIOPSIED. Dictated by: Ambrosio Duvall M.D. on 01/31/2024 at 11:56 Approved by: Ambrosio Duvall M.D. on 01/31/2024 at 12:18 Dictated By: Ambrosio Duvall M.D. Signed By: 01/31/24 1219 DD/ 1218 TD/TT: Fur Ironer:TBHRadiology, Radiologist, MD - 01/31/2024 [place] [address] Mammography Report Signed Patient: LEDA GORDON MR#: [id number] : 1950 Acct:[id number] Age/Sex: 73 / F ADM Date: 01/31/24 Loc: MAMMO Attending Dr: Angel Stewart M.D. Ordering Physician: Angel Stewart M.D. Results: Date of Service: 01/31/24 Follow Up: Procedure(s): MM tomosynthesis screening BI Accession Number(s): [id number] cc: Angel Stewart M.D. Patient Name: LEDA GORDON MR#: [id number] : 1950 Exam Date: 01/31/2024 Ordering Doctor: DR Angel Stewart . RADIOLOGY REPORT PROCEDURE: MM TOMOSYNTHESIS SCREENING [...] Treatments None Family Cancers None LOCATION: The [facility] BREAST COMPOSITION: The breasts are heterogeneously [...] PALPABLE LUMP SHOULD BE BIOPSIED. Dictated by: Ambrosio Duvall M.D. on 01/31/2024 at 11:56 Approved by: Ambrosio Duvall M.D. on 01/31/2024 at 12:18 Dictated By: Ambrosio Duvall M.D. Signed By: 01/31/24 1219 DD/ TD/TT: Fur Ironer: [facility] HOSPITALMessi HealthcareRadiology Study observation (narrative)[facility] TOMOSYNTHESIS SCREENING BIOrdered By: Radiologist Radiology on 33-50-8263CLPO Healthcare Work Phone: ca ECHO DOPPLER COMPLETEon [phone] [place] [phone] Cardiology Report Signed Patient: LEDA GORDON MR#: [id number] : 1950 Acct:[id number] Age/Sex: 72 / F ADM Date: 10/03/23 Loc: CARD Attending Dr: Amador Parkinson M.D. Ordering Physician: Amador Parkinson M.D. Date of Service: 10/03/23 Procedure(s): CA echo doppler complete Accession Number(s): [id number] cc: Amador Parkinson M.D.; Angel Stewart M.D. Patient Name: LEDA GORDON MR#: [id number] : 1950 Exam Date: 10/03/2023 Ordering Doctor: [...] Pressure: 31.86 ml, 31.86 ml Dictated by: Brianne Amezcua M.D. on 10/03/2023 at 19:53 Approved by: Brianne Amezcua M.D. on 10/03/2023 at 19:57 Dictated By: BRIANNE AMEZCUA Signed By: (more content not included)...TBHRadiology, Radiologist, - 10/03/[address] [address] Cardiology Report Signed Patient: LEDA GORDON MR#: [id number] : 1950 Acct:[id number] Age/Sex: 72 / F ADM Date: 10/03/23 Loc: CARD Attending Dr: Amador Parkinson M.D. Ordering Physician: Amador Parkinson M.D. Date of Service: 10/03/23 Procedure(s): CA echo doppler complete Accession Number(s): [id number] cc: Amador Parkinson M.D.; Angel Stewart M.D. Patient Name: LEDA GORDON MR#: [id number] : 1950 Exam Date: 10/03/2023 Ordering Doctor: [...] Pressure: 31.86 ml, 31.86 ml Dictated by: Brianne Amezcua M.D. on 10/03/2023 at 19:53 Approved by: Brianne Amezcua M.D. on 10/03/2023 at 19:57 Dictated By: BRIANNE AMEZCUA Signed By: 10/03/231957 DD/ 56 TD/TT: Fur Ironer: [place] HealthcareRadiology Study observation (narrative)[facility] ECHO DOPPLER COMPLETEOrdered By: Radiologist Radiology on 43-56-6140VMWG Healthcare Work Phone: XR CHEST 2Von [phone] [address] XRay Report Signed Patient: LEDA GORDON MR#: [id number] : 1950 Acct:[id number] Age/Sex: 72 / F ADM Date: 03/12/23 Loc: RAD Attending Dr: Charles Tan D.O. Ordering Physician: Charles Tan D.O. Date of Service: 03/12/23 Procedure(s): XR chest 2V Accession Number(s): [id number] cc: Angel Stewart M.D.; Charles Tan D.O. The [place] [id number] Patient Name: LEDA GORDON MRN: [id number] date: 1950 Sex: F Assigned Patient Location: [facility] Current Patient Location: [facility] Accession/Order Number: [id number] Exam Date: 03/12/2023 12:13 Report Date: 03/12/2023 [...] Signed By: 03/12/23 1229 DD/ 1227 TD/TT: Fur Ironer:EDDadiology, Radiologist, - 03/12/[address] [address] XRay Report Signed Patient: ELDA GORDON MR#: [id number] : 1950 Acct:[id number] Age/Sex: 72 / F ADM Date: 03/12/23 Loc: RAD Attending Dr: Charles Tan D.O. Ordering Physician: Charles Tan D.O. Date of Service: 03/12/23 Procedure(s): XR chest 2V Accession Number(s): [id number] cc: Angel Stewart M.D.; Charles Tan D.O. The [address] [address] Patient Name: LEDA GORDON MRN: [id number] date: 1950 Sex: F Assigned Patient Location: [facility] Current Patient Location: [facility] Accession/Order Number: [id number] Exam Date: 03/12/2023 12:13 Report Date: 03/12/2023 [...] Signed By: 03/12/23 1229 DD/ 1227 TD/TT: Fur Ironer: [place] HealthcareRadiology Study observation (narrative)[facility] HospitalXR CHEST 2V Ordered By: Radiologist Radiology on 09-20-4531NCHRBarnes-Jewish West County Hospital Work Phone: ct CHEST HI RESOLUTIONon 23-49-6971XN CHEST HI RESOLUTIONEXAMINATION: CT CHEST HI RESOLUTION HISTORY: Aspergillosis COMPARISON: [...] Electronically authenticated by: TERRIE ROGERS Date: 2022-05-24 13:28NoToledo HospitalFUNGAL CULTUREon 62-94-5871Qzrzcs (Mycology) CultureFinal reportAbSalem Regional Medical CenterComment on above:Performed By: #### CXFUN #### [facility] [address] [address] [address] Vimal Chambers StainFinal reportMcKitrick HospitalComment on above:Performed By: #### CXFUN #### [facility] [address] [address] [address] Vimal Calzada 1CommentMcKitrick HospitalComment on above:Result Comment: BAILEY/Calcofluor preparation: no fungus observed.Performed By: #### CXFUN #### [facility] [address] [address] [address] Vimal Calzada 1Candida albicansKettering Health TroyCommclaren bay special care hospital on above:Performed By: #### CXFUN #### [facility] [address] [address] [address] Vimal Calzada 2CmentKettering Health TroyComment on above: Result Comment: Aspergillus terreus complexPerformed By: #### CXFUN #### [facility] [address] [address] [address] Vimal Calzada 3CgemaGrant Hospitalment on above: Result Comment: Aspergillus versicolorPerformed By: #### CXFUN #### [facility] [address] [address] [address] Vimal Lizarraga SPUTUMon 49-76-9147JFJBPVJ SPUTUMCulture Observations: METHICILLIN RESISTANT STAPH AUREUS ISOLATED. PLEASE FOLLOW [...] 4 R F Clindamycin <=0.25 R F Quinupristin/Dalfopristin <=0.25 S F Linezolid 2 S F Vancomycin <=0.5 S F Tetracycline 2 S F Rifampicin <=0.5 S F Trimethoprim/Sulfamethoxazole <=[address] Anne HospitalComment on above:Performed By: #### SPUTCX ####[facility] [address] [address]. Vimal Zaragoza GRAM STAINon 70-23-2448GLVCBWLG NormalMercy Health St. Anne HospitalCommclaren bay special care hospital on above:Performed By: #### SPUTGS #### [facility] [address] [address] [address] Vimal JaramilloOIDSNormalThe [place] HospitalComment on above:Performed By: #### SPUTGS #### [facility] [address] [address] [address] Celis ChangEPITHELIALS<25McKitrick HospitalComment on above: Performed By: #### SPUTGS #### [facility] [address] [address] [address] Vimal HernandezFUNGAL ELEMENTSMcKitrick HospitalComment on above: Performed By: #### SPUTGS #### [facility] [address] [address] [address] Vimal Fallon NEG BACILLIMcKitrick HospitalComment on above: Performed By: #### SPUTGS #### [facility] [address] [place] [address] Dr. Vimal Fallon NEG DIPPLOCOCCIMcKitrick HospitalComment on above: Performed By: #### SPUTGS #### [facility] [address] [address] [address] Vimal Fallon POS BACILLIWhite Hospital HospitalComment on above: Performed By: #### SPUTGS #### [facility] [address] [place] [address] Dr. Vimal Fallon POSITIVE COCCIMODERATEMcKitrick HospitalComment on above:Performed By: #### SPUTGS #### [facility] [address] [place] [address] Dr. Vimal Hernandez (Bld) [#/Vol]10*3/uLMcKitrick HospitalCommclaren bay special care hospital on above:Performed By: #### SPUTGS #### [facility] [address] [address] [address] Vimal Johansenvid-19 PCR (CVDTB)on 92-56-1481YHFW-CoV-2 (COVID-19) RNA REGGIE+probe Ql (Unsp spec)Not detectedNormalNOT DETECTEDMercy Health St. Anne Hospital Comment on above:Result Comment: This test is not yet approved or cleared by the [place] FDA. When there are no FDA-approved or cleared tests available, and other criteria are met, FDA can make tests available under an emergency access mechanism called an Emergency Use Authorization (EUA). The EUA for this test is supported by the [place] of Health and Human Service's (HHS's) declaration that circumstances exist to justify the emergency use of in vitro diagnostics for the detection and/or diagnosis of the virus that causes COVID- 19. This EUA will remain in effect (meaning [...] of clinical signs and symptoms consistent with SARS-CoV-2.Performed By: #### CVDTBH #### [place] [address] [address] Vimal Mathis AND B AGon 40-23-8015GULUQCSEMFPWDLicking Memorial Hospital on above:Result Comment: Negative for Flu A protein angiten. Infection due to Flu A cannot be ruled out. FluA angiten in the sample may be below the detection limit of the test.Performed By: #### INFLUAB #### [facility] [address] [place] [address] Dr. Vimal CarterUBNEGJESSI [facility] on above: Result Comment: Negative for Flu B protein antigen. Infection due to Flu B cannot be ruled out. FluB antigen in the sample may be below the detection limit of the test.Performed By: #### INFLUAB #### [facility] [address] [place] [address] Dr. Vimal Mathis AGNegativeNormalNEGATIVE SEE COMMENTThe [facility] Preble on above:Performed By: #### INFLUAB #### [facility] [address] [place] [address] Dr. Vimal Mondragon AGNegativeNormalNEGATIVE SEE COMMENTThe [facility] on above:Performed By: #### INFLUAB #### [facility] [id number] Vimal JadeCARDITim M/2D COMPLETEon 33-52-5669AASGAZUDYT M/2D COMPLETE Patient: LEDA GORDON Exam Date: 03/14/2022 : 1950 Gender:F Ordering : ALEXEY BACON Admission #: [id number] Family : Order #: [id number] CLICK HERE TO VIEW EXAM ECHOCARDIOGRAM REPORT [...] by: Brianne Amezcua M.D. on 03/15/2022 at 10:43McKitrick HospitalCULTURE SPUTUMon 93-71-1705NKDIIKJ SPUTUMCulture Observations: Mold identified by [facility] Isolate 1 Haemophilus Influenzae Heavy growth of Isolate 2 Aspergillus Fumigatus Light growth [facility]acon[facility] HospitalComment on above:Result Comment: Beta Lactamase -Performed By: #### SPUTCX ####[facility] [address] [place] [address]Dr. Vimal Zaragoza GRAM STAINon 10-02-2021 [facility]iffin HospitalComment on above:Performed By: #### SPUTGS #### [facility] [address] [place], [place] [address] Dr. Vimal JaramilloOIDSMcKitrick HospitalComment on above:Performed By: #### SPUTGS #### [facility] [address] [address] [address] Celis ChangEPITHELIALS<25McKitrick HospitalComment on above: Performed By: #### SPUTGS #### [facility] [address] [place] [address] Dr. Vimal HernandezFUNGAL ELEMENTSMcKitrick HospitalComment on above: Performed By: #### SPUTGS #### [facility] [address] [address] [address] Vimal Fallon NEG BACILLIFECleveland ClinicComment on above: Performed By: #### SPUTGS #### [facility] [address] [place] [address] Dr. Vimal Fallon NEG DIPPLOCOCCIMcKitrick HospitalComment on above: Performed By: #### SPUTGS #### [facility] [address] [address] [address] Vimal Fallon POS BACILLIMcKitrick HospitalComment on above: Performed By: #### SPUTGS #### [facility] [address] [place] [address] Dr. Vimal Fallon POSITIVE COCCIFECleveland ClinicComment on above:Performed By: #### SPUTGS #### [facility] [address] [place] [address] Dr. Vimal Hernandez (Bld) [#/Vol]10*3/uLMcKitrick HospitalComment on above:Performed By: #### SPUTGS #### [facility] [address] [place] [address] Dr. Vimal HernandezXR CHEST 2 Von 07-18-2805TN CHEST 2 VEXAMINATION: XR CHEST 2 V HISTORY: Chronic obstructive pulmonary disease [...] Electronically authenticated by: TERRIE ROGERS Date: 2021-10-02 14:49NormSt. Francis HospitalCovid-19 PCR (CVDTBH)on 81-05-9774UPMF-CoV-2 (COVID-19) RNA RGEGIE+probe Ql (Unsp spec)DetectedCritically abnormalNOT DETECTEDThe St. Vincent HospitalComment on above:Result Comment: This test is not yet approved or cleared by the [place] FDA. When there are no FDA-approved or cleared tests available, and other criteria are met, FDA can make tests available under an emergency access mechanism called an Emergency Use Authorization (EUA). The EUA for this test is supported by the [place] of Health and Human Service's declaration that circumstances exist to justify the emergency use of in vitro diagnostics for the detection and/or diagnosis of the virusthat causes COVID-19. This EUA will remain in effect for the duration of the COVID-19 declaration ju stifying emergency of IVDs, unless it is terminated or revoked by the FDA (after which the test mayno longer be used).Performed By: #### CVDTBH ####[facility] [address] [address]Dr. Vimal Caraballo AUTO DIFFon 58-16-9304SDEY #0.0 103/ulNormal0.0-0.1Mer[facility] Health St. Anne HospitalComment on above:Performed By: #### CBC #### [facility] [address] [address] [address] Vimal Richmondphils/100 WBC (Bld)0.6 %Normal0.2-2.0[facility] Comment on above:Performed By: #### CBC #### [facility] [address] [address] [address] Vimal Olivo #0.1 103/ulNormal0.0-0.7The St. Vincent HospitalComment on above: Performed By: #### CBC #### [facility] [address] [address] [address] Vimal Alvaradoosinophils/100 WBC (Bld)1.4 %Normal0.9-7.0The [facility] Comment on above:Performed By: #### CBC #### [facility] [address] [address] [address] Vimal Alvaradorythrocyte distribution width (RBC) [Ratio]11.9 %Vyzbgi44.0-15.[address] [facility] HospitalComment on above:Performed By: #### CBC #### [facility] [address] [place] [address] Dr. Vimal HernandezHematocrit (Bld) [Volume fraction]39.2 %Eyarvp37.0-48.0The [facility]. Vincent HospitalComment on above:Performed By: #### CBC #### [facility] [address] [place] [address] Dr. Vimal HernandezHemoglobin (Bld) [Mass/Vol]13.2 g/dEAzdsqn05.0-16.0The [facility]. [facility] HospitalComment on above:Performed By: #### CBC #### [facility] [address] [place] [address] Dr. Vimal Vergara #0.03 10e3/ulNormal0.00-0.03The [facility]. Vincent HospitalComment on above:Performed By: #### CBC #### [facility] [address] [place] [address] Dr. Vimal HernandezIG %0.4 %Normal0.0-0.5The St. Vincent HospitalComment on above: Performed By: #### CBC #### [facility] [address] [place] [address] Dr. Vimal TurpinH #1.1 103/ulCritically low1.2-3.8The [facility] Comment on above:Performed By: #### CBC #### [facility] [address] [place] [address] Dr. Vimal Kellermphocytes/100 WBC (Bld)15.7 %Critically low20.5-60.0The [place] HospitalComment on above:Performed By: #### CBC #### [facility] [address] [address] [address] Vimal Frost DIFF REQNONormalThe St. Vincent HospitalComment on above: Performed By: #### CBC #### [facility] [address] [place] [address] Dr. Vimal Piedra (RBC) [Entitic mass]30.4 guVirvjg99.7-34.0The [place] HospitalComment on above:Performed By: #### CBC #### [facility] [address] [place] [address] Dr. Vimal Piedra (RBC) [Mass/Vol]33.7 g/qNHczpfr10.9-35.2The [facility]. Vincent HospitalComment on above:Performed By: #### CBC #### [facility] [address] [place] [address] Dr. Vimal Piedra (RBC) [Entitic vol]90.[address] mBKntlfp13.0-99.0The [facility] [facility] HospitalComment on above:Performed By: #### CBC #### [facility] [address] [place] [address] Dr. Vimal Smith #0.7 103/ulNormal0.3-0.8The St. [facility] HospitalComment on above:Performed By: #### CBC #### [facility] [address] [place] [address] Dr. Vimal Sánchezocytes/100 WBC (Bld)9.2 %Normal1.7-12.0The [facility] Comment on above:Performed By: #### CBC #### [facility] [address] [place] [address] Dr. Vimal Wilder #5.2 103/ulNormal1.4-6.5The [facility]. [facility] HospitalComment on above:Performed By: #### CBC #### [facility] [address] [place] [address] Dr. Vimal Saeedutrophils/100 WBC (Bld)72.7 %Ahxacs74.0-75.0The [facility]. [facility] HospitalComment on above:Performed By: #### CBC #### [facility] [address] [address] [address] Vimal HernandezPlatelet mean volume (Bld) [Entitic vol]10.0 fLNormal9.5-13.5The St. [facility] HospitalComment on above:Performed By: #### CBC #### [facility] [address] [address] [address] Vimal HernandezPLT207 103/lcTnrbak984-267Fqf St. Vincent HospitalComment on above: Performed By: #### CBC #### [facility] [address] [address] [address] Vimal HernandezRBC4.34 106/ulNormal4.20-5.40The [facility]. [facility] HospitalComment on above:Performed By: #### CBC #### [facility] [address] [address] [address] Vimal HernandezWBC7.1 103/ulNormal4.0-11.0The [facility]. Vincent HospitalComment on above: Performed By: #### CBC #### [facility] [address] [place] [address] Dr. Vimal Tsang CHEM 8 (BAS METB)on 81-82-2831Qfbhl gap [Moles/Vol]14.4 mmol/LNormalThe St. Vincent HospitalComment on above:Performed By: #### BMP ####[facility] [address] [place], [place] [address]Dr. Vimal HernandezCalcium [Mass/Vol]9.0 mg/dLNormal8.5-10.1The St. Vincent HospitalComment on above:Performed By: #### BMP ####[facility] [address] [place] [address] ChangChloride [Moles/Vol]102 mmol/LNormal 98-107The St. Vincent HospitalComment on above:Performed By: #### BMP ####[facility] [address] [place] [address] ChangCO2 [Moles/Vol]25.7 mmol/EVsrwbe50.0-30.0The [facility]. Vincent HospitalComment on above: Performed By: #### BMP ####[facility] [address] [place], [place] [address]Dr.Yilan ChangCreatinine [Mass/Vol]0.81 mg/dLNormal 0.52-1.04The St. Vincent HospitalComment on above:Performed By: #### BMP ####[facility] [address] [place], [place] [address]Dr. Yilan ChangEGFR-AF ALGERIAN>60Normal>=60The St. Vincent HospitalComment on above: Performed By: #### BMP ####[facility] [address] [place], [place] [address]Dr.Yilan ChangEGFR-NON AF ALGERIAN>60Normal>=60The St. Vincent HospitalComment on above:Performed By: #### BMP ####[facility] [address] [place], [place] [address]Dr.Yilan ChangGlucose [Mass/Vol]103 mg/tSKhrkqx24-272Bto St. Vincent HospitalComment on above:Performed By: #### BMP ####[facility] [address] [place], [place] [address]Dr.Yilan ChangPotassium [Moles/Vol]4.1 mmol/LNormal3.4-5.0The [facility] HospitalComment on above:Performed By: #### BMP ####[facility] [address] [place], [place] [address]Dr.Yilan ChangSodium [Moles/Vol]138 mmol/EBxdoby308-003Cdb St. Vincent HospitalComment on above: Performed By: #### BMP ####[facility] [address] [place], [place] [address]Dr.Yilan ChangUrea nitrogen [Mass/Vol]24.0 mg/dL Critically high7.0-18.0The St. Vincent HospitalComment on above:Performed By: #### BMP ####[facility] A[address] [place], [place] [address]Dr. Yilan ChangUrea nitrogen/Creatinine [Mass ratio]29.6 mg/mgNormalThe Quin HospitalComment on above:Performed By: #### BMP ####[facility] [address] [place], [place] [address]LsRitesh HernandezXR FINGER MIN 2 VIEWSon 38-49-2871KO FINGER MIN 2 VIEWSIMAGES REVIEWED: XR FINGER MIN 2 VIEWS COMPARISON: [...] Electronically authenticated by: OTF RUBALCAVA Date: 2021-06-05 17:36McKitrick HospitalCardiovascular Lab Reporton [id number] Lab Report [facility] MR #: [id number] Physician: Amador Parkinson MD Department of Service Date: 06/30/2020 Medicine Birthdate: 1950 Division of Room #: 3AB 690995 Cardiology Adult Cardiovascular Services [place] [address] Cardiovascular Laboratory Report POCKET REVISION PROCEDURE NOTE DATE OF PROCEDURE: 06/30/2020 PERFORMING PHYSICIAN: Dr. Amador Parkinson CONSENT: Patient LOCATION: EP Lab PROCEDURE PERFORMED: 1. Pocket revision to evaluate for hematoma. INDICATIONS: 1. Pocket swelling/pain. 2. S/p ONLINE MARKETER-D with underlying chronic AF and RVR. PROCEDURAL SEDATION: Versed and Fentanyl. Moderate sedation was administered by the sedation nurse under my supervision and noted in the CVL log. Intraprocedural face to face sedation time: 90min. Monitoring: Cardiac telemetry, Blood pressure, continuous pulse oxymetry. FLUROSCOPY: 0s PREPARATION: 69-year-old lady with a history of cardiomyopathy with a ONLINE MARKETER-D [employer]. Jorge device, had come in for [...] noted below. Device info: St. Jorge Moseley Erving CRTD A500Q model Serial #[id number] RAlead: Implanted on 07/14/2012 Moseley Tendril STS 2088TC-46 cms Serial # [id number] Sensin.9mV Threshold: 1.25V @ 0.4ms Impedance: 480 Ohms RV ICD lead: Implanted on 07/14/2012 Moseley Durata 7122Q-58 cms lead Serial# [id number] Sensing: >12 mV Threshold: 0.875 @ 0.5 millisecond Impedance: 530 Ohms LV lead: Implanted on 07/14/2012 Moseley quartet 1458Q-86 cms, Serial# [id number] Threshold: 1.125 V @ 0.4 ms Impedance: [...] Parkinson MD Date Trans: 06/30/2020 07:04 P/nixon DN_JN:[id number] cc: Angel Stewart M.D. [address] [facility] [address] Electronically Signed by: Amador Parkinson MD 07/13/2020 05:42 P Amador Parkinson MD Date Dict: 07/07/2020/09:22 A/Amador Parkinson MD Date Trans: 07/07/2020 09:47 A/nixon DN_JN:[id number] cc: Angel Stewart M.D. [address] [facility] [address]OdkrdfOkrMartins Ferry HospitalCBC W/DIFFon [id number] IMM GRANS0.0 10*3/uLNormal0.0-0.2The [facility] HospitalComment on above:Order Comment: No: Do not add to previous drawPerformed By: #### 97666 #### [facility] [address] [place] [address], USAABS NEUTROPHILS9.7 10*3/uLHigh1.6-7.6The [facility] Memorial HospitalComment on above:Order Comment: No: Do not add to previous drawPerformed By: #### 54046 #### [facility] [address] [place] [address], USABasophils (Bld) [#/Vol]0.0 10*3/uLNormal0.0-0.2The [facility] Memorial HospitalComment on above:Order Comment: No: Do not add to previous drawPerformed By: #### 10507 #### [facility] [address] [place] [address], USABasophils/100 WBC (Bld)0.2 %Normal0.0-1.0The [facility] HospitalComment on above:Order Comment: No: Do not add to previous drawPerformed By: #### 04348 #### [facility] [address] [place] [address], USAEosinophils (Bld) [#/Vol]0.0 10*3/uLNormal0.0-0.5The [facility] HospitalComment on above:Order Comment: No: Do not add to previous drawPerformed By: #### 16145 #### [facility] [address] [place] [address], USAEosinophils/100 WBC (Bld)0.1 %Normal0.0-6.0The [facility] Memorial HospitalComment on above:Order Comment: No: Do not add to previous drawPerformed By: #### 26736 #### [facility] [address] [place] [address], USAErythrocyte distribution width (RBC) [Ratio]11.6 %Normal 11.5-15.0The [facility] HospitalComment on above:Order Comment: No: Do not add to previous drawPerformed By: #### 99212 #### [facility] [address] [place] [address], USAHematocrit (Bld) [Volume fraction]32.4 %Low36.0-45.0The [facility] HospitalComment on above:Order Comment: No: Do not add to previous drawPerformed By: #### 61961 #### [facility] [address] [place] [address], USAHemoglobin (Bld) [Mass/Vol]11.3 g/dLLow12.0-15.0The [facility] HospitalComment on above:Order Comment: No: Do not add to previous drawPerformed By: #### 89472 #### [facility] [address] [place] [address], USAIMMATURE GRANS0.4 %Normal0.0-1.0The [facility] HospitalComment on above:Order Comment: No: Do not add to previous draw Performed By: #### 25498 #### [facility] [address] [place] [address], USALymphocytes (Bld) [#/Vol]0.4 10*3/uLLow1.2-4.0The [facility] HospitalComment on above:Order Comment: No: Do not add to previous drawPerformed By: #### 34848 #### [facility] [address] [place] [address], USALymphocytes/100 WBC (Bld)3.9 %Low20.0-45.0The [facility] HospitalComment on above:Order Comment: No: Do not add to previous drawPerformed By: #### 74041 #### [facility] [address] [place] [address], [facility] (RBC) [Entitic mass]31.0 twJqlstz55.0-33.0The [facility] HospitalComment on above:Order Comment: No: Do not add to previous drawPerformed By: #### 67186 #### [facility] [address] [place] [address], USAMCHC (RBC) [Mass/Vol]34.9 g/rPZwkfmq84.0-35.0The [facility] HospitalComment on above:Order Comment: No: Do not add to previous drawPerformed By: #### 73110 #### [facility] [address] [place] [address], [facility] CENTERMCV (RBC) [Entitic vol]89.0 kYCfmhdz23.0-98.0The [facility] HospitalComment on above:Order Comment: No: Do not add to previous drawPerformed By: #### 26638 #### [facility] [address] [place] [address], USAMonocytes (Bld) [#/Vol]0.9 10*3/uLNormal0.1-1.0The [facility] HospitalComment on above:Order Comment: No: Do not add to previous drawPerformed By: #### 65561 #### [facility] [address] [place] [address], USAMONOS8.2 %Normal5.0-12.0The [facility] HospitalComment on above:Order Comment: No: Do not add to previous drawPerformed By: #### 52840 #### [facility] [address] [place] [address], USANeutrophils/100 WBC (Bld)87.2 %High40.0-72.0The [facility] HospitalComment on above:Order Comment: No: Do not add to previous drawPerformed By: #### 54799 #### [facility] [address] [place] [address], USANucleated RBC/100 WBC (Bld) [Ratio]0 %Normal0-0The [facility] HospitalComment on above:Order Comment: No: Do not add to previous drawPerformed By: #### 66876 #### [facility] [address] [place] [address], USAPLAT OIX101 10*3/nIJfnokz945-347Hps [facility] HospitalComment on above:Order Comment: No: Do not add to previous draw Performed By: #### 90415 #### [facility] [address] [place] [address], USARBC (Bld) [#/Vol]3.64 10*6/uLLow3.80-5.00The [facility] HospitalComment on above:Order Comment: No: Do not add to previous drawPerformed By: #### 26494 #### [facility] [address] [place] [address], [facility] MEDICAL CENTERWBC (Bld) [#/Vol]11.16 10*3/uLHigh4.00-10.60The [facility] HospitalComment on above:Order Comment: No: Do not add to previous drawPerformed By: #### 86054 #### [facility] [address] [place] [address], USACHEST AND LATERALon 70-74-9769GOQGR AND [facility] Department of Radiology [address] [place] [id number] Patient Name: LEDA GORDON : 1950 Sex: F Age: Race: White Pt. Location: [address] [place] [address] Patient Status: O Ordered Date: 07/01/2020 8:40:00 [...] pneumothorax. Electronically signed: Rossy Baptiste. Transcribed by: [id number], User Resident: Electronically Signed by: ROSSY BAPTISTE @ 07/01/2020 10:14 AMNormalThe Wilson Memorial HospitalComment on above:Order Comment: Check Pacemaker/AICD Lead PositionCBC W/DIFFon 40-07-6944KPX IMM GRANS0.0 10*3/uL Normal0.0-0.2The [facility] HospitalComment on above:Order Comment: No: Do not add to previous drawPerformed By: #### 51197 #### [facility] [address] [place] [address], USAABS NEUTROPHILS9.3 10*3/uLHigh1.6-7.6The [facility] HospitalComment on above:Order Comment: No: Do not add to previous drawPerformed By: #### 43475 #### [facility] [address] [place] [address], USABasophils (Bld) [#/Vol]0.0 10*3/uLNormal0.0-0.2The [facility] HospitalComment on above:Order Comment: No: Do not add to previous drawPerformed By: #### 54197 #### [facility] [address] [place] [address], USABasophils/100 WBC (Bld)0.4 %Normal0.0-1.0The [facility] HospitalComment on above:Order Comment: No: Do not add to previous drawPerformed By: #### 96914 #### [facility] [address] [place] [address], USAEosinophils (Bld) [#/Vol]0.0 10*3/uLNormal0.0-0.5The [facility] HospitalComment on above:Order Comment: No: Do not add to previous drawPerformed By: #### 96089 #### [facility] [address] [place] [address], USAEosinophils/100 WBC (Bld)0.1 %Normal0.0-6.0The [facility] HospitalComment on above:Order Comment: No: Do not add to previous drawPerformed By: #### 56431 #### [facility] [address] [place] [address], USAErythrocyte distribution width (RBC) [Ratio]11.7 %Normal 11.5-15.0The [facility] HospitalComment on above:Order Comment: No: Do not add to previous drawPerformed By: #### 19778 #### [facility] [address] [place] [address], USAHematocrit (Bld) [Volume fraction]34.8 %Low36.0-45.0The [facility] HospitalComment on above:Order Comment: No: Do not add to previous drawPerformed By: #### 24268 #### [facility] [address] [place] [address], USAHemoglobin (Bld) [Mass/Vol]12.0 g/mZKahkjs75.0-15.0The [facility] HospitalComment on above:Order Comment: No: Do not add to previous drawPerformed By: #### 14608 #### [facility] [address] [place] [address], USAIMMATURE GRANS0.3 %Normal0.0-1.0The [facility] HospitalComment on above:Order Comment: No: Do not add to previous draw Performed By: #### 08325 #### [facility] [address] [place] [address], USALymphocytes (Bld) [#/Vol]0.5 10*3/uLLow1.2-4.0The [facility] HospitalComment on above:Order Comment: No: Do not add to previous drawPerformed By: #### 16030 #### [facility] [address] [place] [address], USALymphocytes/100 WBC (Bld)4.3 %Low20.0-45.0The [facility] HospitalComment on above:Order Comment: No: Do not add to previous drawPerformed By: #### 54244 #### [facility] [address] [place] [address], [facility] (RBC) [Entitic mass]30.8 rkClfumv95.0-33.0The [facility] HospitalComment on above:Order Comment: No: Do not add to previous drawPerformed By: #### 66126 #### [facility] [address] [place] [address], [facility] CITYHC (RBC) [Mass/Vol]34.5 g/sWLorvtp36.0-35.0The [facility] HospitalComment on above:Order Comment: No: Do not add to previous drawPerformed By: #### 66141 #### [facility] [address] [place] [address], [facility] CITYV (RBC) [Entitic vol]89.5 gQXgurus67.0-98.0The [facility] HospitalComment on above:Order Comment: No: Do not add to previous drawPerformed By: #### 27902 #### [facility] [address] [place] [address], USAMonocytes (Bld) [#/Vol]0.7 10*3/uLNormal0.1-1.0The [facility] HospitalComment on above:Order Comment: No: Do not add to previous drawPerformed By: #### 34891 #### [facility] [address] [place] [address], USAMONOS6.8 %Normal5.0-12.0The [facility] HospitalComment on above:Order Comment: No: Do not add to previous drawPerformed By: #### 59231 #### [facility] [address] [place] [address], USANeutrophils/100 WBC (Bld)88.1 %High40.0-72.0The [facility] HospitalComment on above:Order Comment: No: Do not add to previous drawPerformed By: #### 18489 #### [facility] [address] [place] [address], USANucleated RBC/100 WBC (Bld) [Ratio]0 %Normal0-0The [facility] HospitalComment on above:Order Comment: No: Do not add to previous drawPerformed By: #### 03283 #### [facility] [address] [place] [address], USAPLAT XBU597 10*3/aOBlyhxo909-353Mgr [facility] HospitalComment on above:Order Comment: No: Do not add to previous draw Performed By: #### 45334 #### [facility] [address] [place] [address], USARBC (Bld) [#/Vol]3.89 10*6/uLNormal3.80-5.00The [facility] HospitalComment on above:Order Comment: No: Do not add to previous drawPerformed By: #### 81295 #### [facility] [address] [place] [address], [facility] CENTERWBC (Bld) [#/Vol]10.57 10*3/uLNormal4.00-60The [facility] HospitalComment on above:Order Comment: No: Do not add to previous drawPerformed By: #### 42232 #### [facility] [address] [place] [address], USACardiovascular Lab Reporton [id number] Lab ReportUnKettering Health Hamilton Patient Name: Leda Gordon [facility] MR #: [id number] Physician: Amador Parkinson MD Department of Service Date: 06/30/2020 Medicine Birthdate: 1950 Division of Room #: CC Cardiology Adult Cardiovascular Services [facility] [address] [place], [place] [address] Cardiovascular Laboratory Report PACEMAKER GENERATOR CHANGE POCKET REVISION PROCEDURE NOTE DATE OF PROCEDURE: 06/30/2020 PERFORMING PHYSICIAN: Dr. Amador Parkinson CONSENT: Patient LOCATION: EP Lab PROCEDURE PERFORMED: 1. Implant of new ONLINE MARKETER-D generator (Moseley/St Jorge). 2. Explant of ONLINE MARKETER-D generator (Moseley/ St Jorge). 3. Pocket Revision to sub muscular implant. INDICATIONS: 1. S/p ONLINE MARKETER-D with underlying chronic AF and RVR. 2. Device at EOL PROCEDURAL SEDATION: Versed and Fentanyl. Moderate sedation was administered by the sedation nurse under my supervision and noted in the CVL log. Intraprocedural face to face sedation time: 83min. Monitoring: Cardiac telemetry, Blood pressure, continuous pulse oxymetry. FLUROSCOPY: 31s/ 1mGray PREPARATION: 69-year-old lady with a history of cardiomyopathy with a ONLINE MARKETER-D [employer] device, has come in for [...] attached to a new Moseley/ [employer] Jorge ONLINE MARKETER-D generator and the leads tug tested. Pocket [...] device as noted below. St. Jorge Moseley Erving CRTD A500Q model, serial #[id number]. The atrial lead is Moseley Tendril STS 2088TC 46 cm, serial number [id number], implanted on July 14, 2012. Atrial sensing is 1.9 mV, capture was 1.25 V at 0.4 milliseconds. Impedance was 480 ohms. The RV ICD lead is a Durata 7122Q 58 cm lead, serial number is [id number], implanted on July 14, 2012. The RV sensing is at a greater than 12 mV with RV threshold of 0.875 at 4.5 millisecond, impedance of 530 ohms. The LV lead is Moseley quartet 1458Q 86 cm lead, serial number [id number], implanted on july 14, 2012. Lead threshold was 1.125 V at 0.4 millisecond with the impedance of 1150 ohms. The various thresholds were checked and was noted the LV 1-2 had Device info: [employer]. Jorge Moseley Erving CRTD A500Q model Serial #[id number] RAlead: Implanted on 07/14/2012 Moseley Tendril STS 2088TC-46 cms Serial # [id number] Sensin.9mV Threshold: 1.25V @ 0.4ms Impedance: 480 Ohms RV ICD lead: Implanted on 07/14/2012 Moseley Durata 7122Q-58 cms lead Serial# [id number] Sensing: >12 mV Threshold: 0.875 @ 0.5 millisecond Impedance: 530 Ohms LV lead: Implanted on 07/14/2012 Moseley quartet 1458Q-86 cms, Serial# [id number] Threshold: 1.125 V @ 0.4 ms Impedance: [...] milliseconds to 30 milliseco (more content not included)...NormalThe Wilson Memorial HospitalConsent Formson 38-92-0680Itpdsle Forms [id number]#1.00[facility] History and Physicalon 64-02-5288Qhwiixw and Physical [id number]#1.00[facility] Coding Summaryon 64-23-4382Jhhexo SummaryCODING DATE: 01/15/2020 [facility] STATUS: Home PAYOR: Medicare MC ADMIT [...] By: Michelle Uribe Date Saved: 01/15/2020 12:41 [facility] HospitalCoding Summaryon [id number] SummaryCODING DATE: 01/13/2020 [facility] STATUS: Home PAYOR: Medicare MC APC DESCRIPTION 5114 Level 4 Musculoskeletal Procedures ADMIT DX: REASON FOR VISIT DX: M24.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, left shoulder FINAL DX: PRINCIPAL: M19.012 Primary osteoarthritis, left shoulder SECONDARY: M25.812 Other specified joint disorders, left shoulder PYMT PROC APC STAT DESCRIPTION DOCTOR NAME DATE 06928 Arthroscopy, shoulder, Jose Mcgraw And 01/11/2020 surgical; distal claviculectomy including distal articular surface (Nicole procedure) LT Left side (used to identify procedures performed on the left side of the body) 46418 Arthroscopy, shoulder, Jose Mcgraw And 01/11/2020 surgical; debridement, limited LT Left side (used to identify procedures performed on the left side of the body) 91934 Injection(s), anesthetic Jose Mcgraw And 01/11/2020 agent(s) [...] Kirsten Mejia Revised Date Saved: 01/13/2020 07:44 [facility] HospitalConsent Formson 62-56-8551Defgqnl [id number]#1.00OTGTOhioHealth Riverside Methodist HospitalDischarge Instructionson 88-99-1084Mullyfgvg Instructions [id number]#1.00[facility]GTGood [facility] Medication Managementon 02-88-8140Qffqpvlbnu Management [id number]#1.00[facility] Outside Recordson 48-65-5788Uxeizrh Records [id number]#1.00[facility] Telemetry Stripson 78-25-6678Qkktdbtxi Strips [id number]#1.00[facility] Anesthesia Noteon 17-73-0280Lmmegskzub NotePatient: LEDA GORDON Age: 69 years Sex: FEMALE [...] disease) case management patient / SNOMED CT 972573169 / Confirmed CHF (congestive heart failure) / SNOMED CT 34757083 / Confirmed Myopathy / SNOMED CT 147901132 / Confirmed Ventricular dysfunction / SNOMED CT 322524495 / Confirmed Histories Family History: No family history items have been selected or recorded. Procedure history: Anesthesia for transvenous insertion or replacement of pacing cardioverter- defibrillator (71400) on07/14/2012 at 61 Years. Cardiac pacemaker (60579209). Comments: 12/30/2019 13:18 Veronique Membreno RN 2013 Carpal tunnel release (123977629). Tonsillectomy (210900269). Comments: 12/30/2019 13:23 Veronique Membreno RN 1949's Biopsy of breast (643606529). Comments: 12/30/2019 13:24 Veronique Membreno RN X3 Social History Electronic Cigarette/Vaping Assessment Electronic Cigarette Use: Never. Alcohol Assessment Use: Current. Wine, 1-2 times per week Tobacco Assessment Former smoker, quit more than 30 days ago Tobacco Use:. 30 years ago 1 pk/week per day. Substance Abuse Assessment Substance use: Never. 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 Home/Environment Assessment Lives with Spouse. Home equipment: CPAP/BiPAP. . 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 Temporomandibular joint mobility: Good. Mouth: Adequate opening, Teeth ( Within normal limits ). Neck: Full range of motion. Respiratory: Lungs are clear to auscultation. Cardiovascular: Regular rhythm. Neurologic: Alert, Oriented. Review / Management Laboratory Results Plan [place] Society of Anesthesiologists#(ASA) physical status classification: Class III. Anesthetic Preoperative Plan Anesthesia: General. , Regional (Interscalene Block, for post op pain control). Anesthetic plan, risks, benefits, and alternatives discussed with the patient and/or family. Patient verbalized understanding. Informed consent was given. Consent was signed by the patient. very lengthy discussion with pt regarding PONV andpt decided to try transderm scop patch. Also agrees to interscalene block for post op pain control after discussion of risks and benefits of both were had.. [Electronically Signed on: 01/11/2020 10:45 EST] Yanick Edward MD [Verified on: 01/11/2020 10:45 EST] Yanick Edward MDMarietta Memorial HospitalCoding Summaryon 70-67-8984Dasmrf SummaryCODING DATE: 01/11/2020 FINAL [facility] STATUS: Home PAYOR: Medicare ADMIT DX: REASON [...] By: Michelle Uribe Date Saved: 01/11/2020 02:18 pmNSelect Medical Specialty Hospital - YoungstownInpatient Patient Summary on 30-95-8241Fuxz[place]ey[place] [address] Patient Discharge Instructions Name: LEDA GORDON Isidro : 1950 Patient Address: [address] [place] [address] Primary Care Provider: Name: ANGEL STEWART After you are discharged if you find you have any questions, please, call [phone] ext [phone] to speak to a nurse. Discharge Diagnosis: Internal derangement of left shoulder Prescription Information: If you have been given a prescription for narcotics, seek immediate medical attention if you have any difficulty breathing or any sudden status changes such as confusion andsleepiness. If you or anyone you know is experiencing suicidal thoughts, mental health, alcohol and/or drug addiction problems; contact the Mental Health [facility] Recovery [facility] 17/09 Crisis Hotline -Text 4HOPE iq 349808. If you received any narcotics, sedation, or [...] business decisions or sign any legal documents [facility] would like to thank you for allowing us to assist you with your healthcare needs.The following includes patient education materials and information regarding your injury/illness. LEDA GORDON has been given the following list of follow-up instructions, prescriptions, and patient education materials: Follow-up Instructions With: Address: When: CECY CALIX [address], [address] [place] [address] Business (1) 01/20/2020 8:30 AM With: Address: When: ANGEL TERRY [address] [place], [place] [id number] Business (1) Medications During the course of [...] or concerns, please call the office at [phone] -Follow up as scheduled Viruses or Bacteria [...] Centers for Disease Control and Prevention October 2013[facility] MAGR Intraoperative Recordon [id number] Intraoperative RecordMAGR Intra-Op Record Summary Primary Physician: Jose Mcgraw DO Finalized Date/Time: 01/11/20 13:13:05 Pt. Name: LEDA GORDON/Sex: 1950 FEMALE Med Rec #: [id number] Physician: Jose Mcgraw DO Financial #: [id number] Pt. Type: D Room/Bed: / Admit/Disch: 01/11/20 [...] Role Performed Surgeon - Primary Anesthesiologist of Psychiatric Nurse Practitioner Record Time In 01/11/20 09:47:00 01/11/20 09:47:00 01/11/20 09:47:00 Time Out 01/11/20 11:18:00 01/11/20 11:18:00 01/11/20 11:18:00 Procedure Arthroscopy Arthroscopy Arthroscopy Shoulder(Left, Shoulder) Shoulder(Left, Shoulder) Shoulder(Left, Shoulder) Last Modified By: Daniele SWANSON, Michelle Sanabria RN, Michelle Abel RN 01/11/20 11:35:12 01/11/20 11:35:12 01/11/20 11:35:12 Entry 4 Entry 5 Case Attendee Cathryn MACHINE PROGRAMMER, Maru Yun CST Role Performed Scrub Personnel Felt Pad Cutter Time In 01/11/20 09:47:00 01/11/20 09:47:00 Time [...] Performs skin preparation Im.270.1 Implements protective measures toprevent skin and tissue injury due to chemical [...] Final Counts Michelle Sanabria RN, Performed By [employer]™, Mackenzie Final Count Time 01/11/20 11:00:00 Surgeon notified of Yes final counts status Outcome Met (O.20) Yes Last Modified By: Michelle Sanabria RN 01/11/20 11:35:52 Post-Care Text: E.50 Evaluates results of the surgical count O.20 Patient is free from unintended retained foreign objects Patient Care Devices MAGR Pre-Care Text: A.200 Assesses risk for normothermia regulation A.40 Verifies presence of prosthetics or correctivedevices Im.280 Implements thermoregulation measures Im.60 Uses supplies [...] Reason for Unfinalizing 01/11/20 13:12 RIYA Barry DocumentationNormalVan [facility] Intraoperative RecordMAGR Intra-Op Record Summary Primary Physician: Finalized Date/Time: 01/11/20 09:50:05 Pt. Name: LEDA GORDON/Sex: 1950 FEMALE Med Rec #: [id number] Physician: Jose Mcgraw DO Financial #: [id number] Pt. Type: D Room/Bed: / Admit/Disch: 01/11/20 [...] 3 Case Attendee Yanick Edward MD, RN, Michelle Kaminski RN, Veronique Role Performed Anesthesiologist of Psychiatric Nurse Practitioner Psychiatric Nurse Practitioner Record Time In 01/11/20 09:18:00 01/11/20 09:18:00 01/11/20 09:18:00 Time Out 01/11/20 09:47:00 01/11/20 09:47:00 01/11/20 09:47:00 Procedure Interscalene Interscalene Interscalene Block(Left, Shoulder) Block(Left, Shoulder) Block(Left, Shoulder) Last Modified By: Veronique Kaminski RN 01/11/20 Gordy SWANSON, Veronique 01/11/20 Gordy SWANSON, Veronique 01/11/20 09:49:59 09:49:59 [...] Performs skin preparation Im.270.1 Implements protective measures toprevent skin and tissue injury due to chemical [...] Signatures Signed By: Veronique Kaminski RN 01/11/20 09:50[facility] PACU Recordon [id number] PACU RecordMA PACU Record Summary Primary Physician: Jose Mcgraw DO Finalized Date/Time: 01/11/20 12:14:58 Pt. Name: LEDA GORDON/Sex: 1950 FEMALE Med Rec #: [id number] Physician: Jose cMgraw DO Financial #: [id number] Pt. Type: D Room/Bed: / Admit/Disch: 01/11/20 07:00:00 - Institution: PACU Case Times MAGR Entry 1 In PACU I 01/11/20 11:17:00 Discharge from PACU 01/11/20 12:13:00 I Last Modified By: Naheed Ortega RN 01/11/20 12:12:54 Finalized By: Naheed Ortega RN Document Signatures Signed By: Naheed Ortega RN 01/11/20 12:14[facility] [id number] Postoperative RecordMAGR Phase II Record Summary Primary Physician: Jose Mcgraw DO Finalized Date/Time: 01/11/20 13:34:54 Pt. Name: LEDA GORDON/Sex: 1950 FEMALE Med Rec #: [id number] Physician: Jose Mcgraw DO Financial #: [id number] Pt. Type: D Room/Bed: / Admit/Disch: 01/11/20 07:00:00 - Institution: Phase II Case Times MAGR Pre-Care Text: Patient is free from s/s of injury. Patient remains free from compromised physical state related tosurgery or anesthesia. Patient comfort maintained. Patient/family verbalize [...] Signatures Signed By: Veronique Kaminski RN 01/11/20 13:34[facility] Preoperative Recordon [id number] [facility]YAVAP[facility] Pre[facility] Record Summary Primary Physician: Jose Mcgraw DO Finalized Date/Time: 01/11/20 09:56:53 Pt. Name: JACKIELEDA/Sex: 1950 FEMALE Med Rec #: [id number] Physician: Jose Mcgraw DO Financial #: [id number] Pt. Type: D Room/Bed: / Admit/Disch: 01/11/20 [...] ready for surgery. The patient remains free froms/s of injury. Patient/family express understanding of plan of care and participate in decisions affectinghis or her perioperrative plan of care. Allergies documented appropriately. Patient identifiers and consent correct. General Comments: Pt arrives amb to OPS room 203. Denies cough, CoVid or flu-like S/Sx. Has a pacemaker/defibrillator. Denies sleep apnea. Talked to CLinical coordinator Rep for Pacemaker/defib will be here by 9:30a. Finalized By: Veronique Kaminski RN Document Signatures Signed By: Veronique Kaminski RN 01/11/20 09:50 Veronique Kaminski RN 01/11/20 09:56 Unfinalized History Date/Time Username Reason for Unfinalizing Freetext Reason for Unfinalizing 01/11/20 09:55 [facility] - [facility]geon/Physician [id number] Report - Surgeon/Physician Preoperative diagnosis: Internal derangement [...] and the labrum at the biceps anchor. Ipassed the scope beneath the biceps and established an anterior port I placed a grasper on the biceps and pulled the slack out of the tendon and found the tendon to have a normal appearance. I hookedthe labrum and noted no tears or detachment. [...] where the spinal needle penetrated the cuff Idid not detect fraying or detachment. I then inspected the subacromial space and noted the medial edge of the acromion was developing a ridge which was clearly was impinging into the rotator cuff andobstructing the view of the acromioclavicular joint. Through an anterior portal and I used a 4 mm barrel bur and I reshape the undersurface of the acromium to be a type I acromium and I visualized the acromioclavicular joint there were arthritic changes in the acromioclavicular joint there were no spurs on the undersurface of the clavicle distally. Ut ilizing an ablator and then a 4 mm barrel bur I resected the distal portion of the clavicle ensuring that there was about a centimeter space between the 2 bones. The joint was irrigated and evacuated and the portals were closed with nylon suture. Sterile dressings were applied [Electronically Signed on: 01/11/2020 11:11 EST] Jose Mcgraw DO [Verified on: 01/11/2020 11:11 EST] Jose Mcgraw [facility]hillPatient Handouton 01-11-2020 Patient HandoutDRNapoleon SANDERS POST OPERATIVE SHOULDER INSTRUCTIONS SURGEONS WRITTEN [...] or concerns, please call the office at [phone] -Follow up as scheduledMarietta [facility] Hospital2019 Novel Coronavirus (CoVID-19), REGGIE LCon [id number]-CoV-2, REGGIE (COVID-19) LCNot DetectedNot White HospitalComment on above:Order Comment: [id number] Comment: This nucleic acid amplification test was developed and its performance characteristics determined by [employer]. Nucleic acid amplification tests include PCR and [...] detected) result in this assay. Performed At: [facility] [address] [facility], [place] [id number] Solitario Mathis MD Ph:[phone] By: #### [id number] ####[facility] (DEFAULT)[address] [place] [address] 24840Obpsddpm Note - Nurseon 04-86-8814BQI QnSpoke with pt and informed her to be here at 7am and NPO after MN, pt was also informed that she can not have any visitor or family with her at this point. Pt verbalizes understanding. [Electronically Signed on: 01/08/2020 12:36 EST] Leora Lemus RN [Verified on: 01/08/2020 12:36 EST] Leora Lemus RNMarietta Memorial HospitalProgress Note - Nurseon 01-07-2020 Progress Note - NurseNasal swab performed without complication. Patient tolerated well. Education given. Patient verbalized understanding. [Electronically Signed on: 01/07/2020 14:54 EST] Alisha Vidales RN [Verified on: 01/07/2020 14:54 EST] Alisha Vidales RNGerman Hospitaless Note - Nurseon 12-31-2019 Progress Note - NurseDr. Fish reviewed chart and no new orders received. [Electronically Signed on: 12/31/2019 10:53 EST] Cha Calloway RN [Verified on: 12/31/2019 10:53 EST] Brodie RN, Cha Mathis Will need pacemaker rep here day of surgery. Alisha shah. [Electronically Signed on: 12/31/2019 10:54 EST] Brodie RN, Cha ANoRegency Hospital Toledo.Auto Diff 1on 24-89-3282Quie Huntington %10 %Normal1-12Mag[facility]uder HospitalComment on above:Performed By: #### [id number], [id number] ####[facility] (DEFAULT)[address] [place] [address] 14942 Baso Abs#0.0 b61Ickwrz7.0-0.2[facility]uder HospitalComment on above:Performed By: #### [id number], [id number] ####[facility] (DEFAULT)[address] [place] [address] 48095Xoylyskhc/100 WBC (Bld)0.7 %Normal0.2-2.0[facility] Hospital Comment on above:Performed By: #### [id number], [id number] ####[facility] (DEFAULT)[address] [place], [place] [address]Eos Abs#0.1 u04Efqdsn4.0-0.4 [facility] HospitalComment on above:Performed By: #### [id number], [id number] ####[facility] (DEFAULT)[address] [place] [address] 45872 Eosinophils/100 WBC (Bld)1.7 %Normal0.9-4.0[facility] HospitalComment on above: Performed By: #### [id number], [id number] ####[facility] (DEFAULT)[address] [place] [address] 20357Dfsblwiuovj (Bld) [#/Vol]0.9 g82Wps6.3-2.9[facility]uder HospitalComment on above:Performed By: #### [id number], [id number] ####[facility] (DEFAULT)[address] [place] [address] 43519Seqvnlacmqi/100 WBC (Bld)18 %Arcmaf97-18Spodexgb HospitalComment on above:Performed By: #### [id number], [id number] ####[facility] (DEFAULT)[address] [place] [address] 56399Kyeb Abs#0.5 t34Ysgczf6.0-0.8M[facility] HospitalComment on above:Performed By: #### [id number], [id number] ####[facility] (DEFAULT)[address] [place] [address] 83333Dkqb Abs#3.8 r39Cgbdsc9.5-9.2[facility] HospitalComment on above:Performed By: #### [id number], [id number] ####[facility] (DEFAULT)[address] [place] [address] 85205Cipddlxsdfx/100 WBC (Bld)70 %Yevfrw04-82 [facility] HospitalComment on above:Performed By: #### [id number], [id number] ####[facility] (DEFAULT)[address] [place] [address] 27688GGM Standardon 28-22-1994bFGO Non AA>60[facility] HospitalComment on above:Performed By: #### [id number] ####[facility] (DEFAULT)[address] [place] [address] 10133lWLE AA>60[facility] HospitalComment on above:Result Comment: Chronic Kidney disease could be indicated at eGFRs of less than 60 ml/min/1.73m2. Kidney Failure is indicated at less than 15 ml/min/1.73m2 Performed By: #### [id number] ####[facility] (DEFAULT)[address] [place] [address] 02868Kclal gap [Moles/Vol]13.0 mmol/LNormal5.0-19.0 [facility] HospitalComment on above:Performed By: #### [id number] ####[facility] (DEFAULT)[address] [place] [address] 13765Aslsoki [Mass/Vol]9.3 mg/dLNormal8.9-10.3[facility] HospitalComment on above:Performed By: #### [id number] ####[facility] (DEFAULT)[address] [place] [address] 51496Zruxmjdo [Moles/Vol]100 mmol/YPdp718-907Zdgthahi HospitalComment on above: Performed By: #### [id number] ####[facility] (DEFAULT)[address] [place] [address] 19549XY4 [Moles/Vol]28 mmol/RTsogcr33-66Ssbpqnwm Hospital Comment on above:Performed By: #### [id number] ####[facility] (DEFAULT)[address] [place] [address] 47507Cgjfxehcbn [Mass/Vol]0.69 mg/dL Normal0.60-1.30[facility] HospitalComment on above:Performed By: #### [id number] ####[facility] (DEFAULT)[address] [place] [address] 42128Ogwhrag [Mass/Vol]87.0 mg/bYTdugju78.0-118.0[facility] HospitalComment on above:Performed By: #### [id number] ####[facility] (DEFAULT)[address] [place] [address] 25821Dxbifuldzq [Osmolality]277 mOsm/LMgerman hospital HospitalComment on above:Performed By: #### [id number] ####[facility] (DEFAULT)[address] [place] [address] 48803Vaeumlyma [Moles/Vol]3.9 mmol/LNormal3.6-5.1Mgerman hospital HospitalComment on above:Performed By: #### [id number] ####[facility] (DEFAULT)[address] [place] [address] 64784Zvntou [Moles/Vol]137.0 mmol/L Mmnnzd482.0-144.0[facility] HospitalComment on above:Performed By: #### [id number] ####[facility] (DEFAULT)[address] [place] [address] 97011Ocer nitrogen [Mass/Vol]23 mg/dLNormal8-26[facility] HospitalComment on above:Performed By: #### [id number] ####[facility] (DEFAULT)[address] [place] [address] 30584Xmza nitrogen/Creatinine [Mass ratio]33.0 mg/mgHigh4.6-16.2 [facility] CenterComment on above:Performed By: #### [id number] ####[facility] (DEFAULT)[address] [place] [address] 99284QKP w/ Auto Diffon 72-20-9680Jdenlhmjuqg distribution width (RBC) [Ratio]12.0 %Hxmcnq26.5-15.0 [facility] CenterComment on above:Performed By: #### [id number], [id number] ####[facility] (DEFAULT)[address] [place] [address] 15396Jibesxeajc (Bld) [Volume fraction]39.2 %Hiqnwf01.7-40.4[facility] HospitalComment on above: Performed By: #### [id number], [id number] ####[facility] (DEFAULT)[address] [place] [address] 34690Tytlpuvkwd (Bld) [Mass/Vol]13.4 g/nTFakzpg93.3-15.9 [facility] CenterComment on above:Performed By: #### [id number], [id number] ####[facility] (DEFAULT)[address] [place] [address] 77592Fnf Diff? AutoNormalSelect [facility] HospitalComment on above:Performed By: #### [id number], [id number] ####[facility] (DEFAULT)[address] [place] [address] 13094YXQ (RBC) [Entitic mass]31 vcTqdcly59-93Uaeeokzn HospitalComment on above:Performed By: #### [id number], [id number] ####[facility] (DEFAULT)[address] [place] [address] 37157OOUU (RBC) [Mass/Vol]34 g/aGItrjrt40-21Mtkhrmdy HospitalComment on above:Performed By: #### [id number], [id number] ####[facility] (DEFAULT)[address] [place] [address] 73802DNT (RBC) [Entitic vol]90 fL Lzzjeq71-897Yabdhpwc HospitalComment on above:Performed By: #### [id number], [id number] ####[facility] (DEFAULT)[address] [place] [address] 79376 Platelet mean volume (Bld) [Entitic vol]9.6 fLNormal6.3-10.2Mgerman hospital Hospital Comment on above:Performed By: #### [id number], [id number] ####[facility] (DEFAULT)[address] [place] [address] 50150Cpsgtxmjs (Bld) [#/Vol]220 x10 Sclhmt839-621Jedhrvuo HospitalComment on above:Performed By: #### [id number], [id number] ####[facility] (DEFAULT)[address] [place] [address] 43208 RBC (Bld) [#/Vol]4.36 g03Iwubbn1.70-5.30[facility] HospitalComment on above: Performed By: #### [id number], [id number] ####[facility] (DEFAULT)[address] [place] [address] 73155UUO (Bld) [#/Vol]5.4 j49Zudnvw5.5-10.5[facility] HospitalComment on above:Performed By: #### [id number], [id number] ####[facility] (DEFAULT)[address] [place] [address] 55268 Vital Signs Date TimeVital SignValuePerforming VwnkdroguVeykujgm87-16-1259 10:47-0400Body iberdq333.2 cmAngel Stewart MD Work Phone: [facility] HospitalHytsqmyrxq02-59-2199 10:47-0400Body mass index (BMI) [Ratio]21.14 kg/m2Angel Stewart MD Work Phone: noThree [facility] HealthcareIcibrfjyws18-07-2079 10:47-0400Body temperature 97.81 [degF]Angel Stewrat MD Work Phone: [facility] HospitalWzkynnouea05-26-1769 10:47-0400Body soedwa22.24 kgAngel Stewart MD Work Phone: [facility] HospitalXmfadegpjq59-00-0152 10:47-0400Diastolic blood eiulxrmv31 mm[Hg]Angel Stewart MD Work Phone: [facility] HospitalPgeogcxsib67-89-6708 10:47-0400Heart rate57 /min Angel Stewart MD Work Phone: [facility] HospitalKmzqrqvriy44-34-7595 10:47-0400Respiratory rate18 /minAngel Stewart MD Work Phone: [facility] HospitalJudamodlye79-26-1068 10:47-1190FjC0% (BldA) [Mass fraction]97 %Angel Stewart MD Work Phone: [facility] HospitalEeqokwnhce64-80-6164 10:47-0400Systolic blood ucieuyjc322 mm[Hg]Angel Stewart MD Work Phone: [facility] HospitalAgjqbsipnl35-50-2942 09:56-0500Body yzzaql433.2 cmAngel Stewart MD Work Phone: [facility] HospitalVrvamksomj24-22-3721 09:56-0500Body mass index (BMI) [Ratio]21.3 kg/m2Angel Stewart MD Work Phone: [facility] HospitalJolqgxlspl02-11-2125 09:56-0500Body temperature 97.11 [degF]Angel Stewart MD Work Phone: [facility] HospitalIetpshxqwa32-96-1653 09:56-0500Body aqytkt29.69 kgAngel Stewart MD Work Phone: [facility] HospitalPaxbtaohtk99-31-2719 09:56-0500Diastolic blood ffvkolct38 mm[Hg]Angel Stewart MD Work Phone: [facility] HospitalAxvvitbzmi94-23-0195 09:56-0500Heart rate79 /min Angel Stewart MD Work Phone: [phone] [place], [place] [address]Tskyadpikr54-79-5034 09:56-0500Respiratory rate22 /minMarc Terry AGUILAR Work Phone: noThree [facility] HealthcareBquvqcgwhm11-53-5525 09:56-0585WuQ3% (BldA) [Mass fraction]96 %Angel Stewart MD Work Phone: noThree [facility] HealthcareUfqxjnnfms43-39-8094 09:56-0500Systolic blood ryfpccxn100 mm[Hg]Angel Stewart MD Work Phone: noThree [facility] HealthcareGblrkyrlrp70-14-1822 15:30-0400Body reeinw833.18 cmMichael Blank Other [employer] Other 03-22-2023 15:30-0400Body mass index (BMI) [Ratio] 21.61 kg/u8Pijfyou Blank Other [employer] Other 03-22-2023 15:30-0400Body .3 [degF] Theron Carmen Other [employer] Other 03-22-2023 15:30-0400Body qjaunh58.6 kgMichael Blank Other [employer] Other 03-22-2023 15:30-0400Diastolic blood abkwscne50 mm[Hg] Theron Morales Other [employer] Other 03-22-2023 15:30-0400Systolic blood bdcfydwo643 mm[Hg] Theron Morales Other [employer] Other Encounters Encounter DateEncounter TypeCare ProviderFacilityStart: 12-30-2024 End: 03-91-5283Jnxiet flowsheetMateresa TINOCO Work Phone: NOIW [facility]icsStart: 12-30-2024 End: 84-70-5747Eotdns Valarie TINOCO Work Phone: noMS [facility]edicsStart: 12-30-2024 End: 92-49-6245xzieafoslmCHKTVLU J MEYERNot AvailableStart: 12-30-2024 End: 39-69-2817Nhoyam outpatient visit 15 minutesMateresa TINOCO Work Phone: NOMS [facility]opaedicsComment on above:Acute pain of right knee (Primary Dx); Pes anserinus bursitis of right kneeStart: 12-29-2024 End: 43-78-3520ffatyndziyCERQKettering Health – Soin Medical Centertart: 12-28-2024 End: 78-00-6054Yeujqu flowsheetMelissa Kelbley PTANOMS [facility] Start: 12-28-2024 End: 23-14-3424Kkzxzs flowsheetMelissa Kelbley PTAN[facility] Start: 12-28-2024 End: 04-56-3312axkzzvtfvuIrhellk Kelbley PTANOMS [facility] TherapyComment on above:Pain in right lower leg (Primary Dx)Start: 12-22-2024 End: 81-71-4737Dznabw flowsheetMelissa Kelbley PTANOM[facility] Start: 12-22-2024 End: 00-50-1702Vgjlyz flowsheetMelissa Kelbley PTAN[facility] Start: 12-22-2024 End: 09-43-5709aaisfprhrnPejonec Kelbley PTANOMS [facility] TherapyComment on above:Pain in right lower leg (Primary Dx)Start: 12-07-2024 End: 82-62-5020Tkggbt flowsheetMelissa Kelbley [facility] Start: 12-07-2024 End: 07-25-8218Rrkiar flowsheetMelissa Kelbley [facility] Start: 12-07-2024 End: 44-93-2606mipuzdngdhZyadhjy Kelbley PTANOMS [facility] TherapyComment on above:Pain in right lower leg (Primary Dx)Start: 12-03-2024 End: 06-04-4733Jsgfxj flowsheetMelissa Billie [facility]AN[facility] Start: 12-03-2024 End: 42-80-7328Gmqocs flowsheetMelissa Keltana [facility] Start: 12-03-2024 End: 26-76-1246sldgactsntCskpnpk Billie PTANOMS [facility] TherapyComment on above:Pain in right lower leg (Primary Dx)Start: 11-30-2024 End: 95-84-5444Midbsw flowsheetSammantha Rios PTNOMS [facility] Start: 11-30-2024 End: 50-68-2656Mvisqr flowsheetSammantha Rios PTNOMS [facility] Start: 11-30-2024 End: 53-53-5862xrtqksyjulPqnkfcsgx Rios PTNOMS [facility] Comment on above:Pain in right lower leg (Primary Dx)Start: 11-18-2024 End: 44-99-1046Bngthp Valarie TINOCO Work Phone: [facility]icsStart: 11-18-2024 End: 97-68-9347Pxssvg Valarie TINOCO Work Phone: [facility]icsStart: 11-18-2024 End: 91-38-8750qnoknbljxxTBYFXOA J MEYERNot AvailableStart: 11-18-2024 End: 71-48-3429Nrmhnv outpatient visit 25 minutesMateresa TINOCO Work Phone: [phone] [facility]opaedicsComment on above:Pain in right lower leg (Primary Dx); Acute pain of right kneeStart: 11-11-2024 End: 71-11-2405lnfohokpteWXZS [facility] Hospitaltart: 11-04-2024 End: 65-26-6364Xjosui Valarie TINOCO Work Phone: [facility]icsStart: 11-04-2024 End: 42-22-1151Fywhdo flowsRaisa TINOCO Work Phone: NOM[facility]opaedicsStart: 11-04-2024 End: 74-33-8932eijsbaoucnBSEHZWM J MEYERNot AvailableStart: 11-04-2024 End: 74-03-1020Wmpbun outpatient visit 15 minutesMateresa TINOCO Work Phone: [facility]edicsComment on above:Chronic pain of left thumb (Primary Dx); Osteoarthritis of carpometacarpal (CMC) joint of left thumb, unspecified osteoarthritis typeStart: 37-37-5104nqdojjsovcVQQCC [facility] Hospitaltart: 10-14-2024 End: 11-24-8422Ezdohm flowsRaisa TINOCO Work Phone: [facility]edicsStart: 10-14-2024 End: 87-71-3253Rpuosg flowsRaisa TINOCO Work Phone: [facility]edicsStart: 10-14-2024 End: 24-88-8845Rwwrej outpatient visit 25 minutesMasureshdanny TINOCO Work Phone: NOMS [facility]opaedicsComment on above:Arthritis of carpometacarpal (CMC) joint of right thumb (Primary Dx); Pain of right thumb; Finger pain, right; Finger pain, leftStart: 10-14-2024 End: 23-69-5875vxcvpnjkzuJSLEXZY J MEYERNot AvailableStart: 10-01-2024 End: 18-56-2769Ikaxvm flowsClarence Stewart MD Work Phone: NOPP CWM FMStart: 10-01-2024 End: 65-91-0373Dblddw David Stewart MD Work Phone: NOMS CWMelissa FMStart: 10-01-2024 End: 38-64-1136Ddrxqrj encounter Nahid Stewart MD Work Phone: [facility] Work Phone: Start: 10-01-2024 End: 92-82-6035Kdzwvc follow up visit related to original Daniel Stewart MD Work Phone: noms CWM FMComment on above:Medicare annual wellness visit, subsequent (Primary Dx); Upper respiratory tract infection, unspecified type; Cardiomyopathy, unspecified (HCC); Chronic obstructive pulmonary disease, unspecified (HCC)Start: 10-01-2024 End: 43-40-0160nqgtdmkoqySIPA NADERERNot AvailableStart: 50-58-6880yvgzurubki PAUL [facility] Hospitaltart: 07-22-2024 End: 08-40-4278Irdvadgra Result EncounterGeneric External Data ProviderNOFL External Department UnsolicitedStart: 07-22-2024 End: 18-38-7424Jipvogumz Result EncounterGeneric External Data ProviderNOFL External Department UnsolicitedStart: 07-22-2024 End: 50-02-5634jfbrrdiakfVMBWSalem Regional Medical Centertart: 05-06-2024 End: 75-17-5471xwcqiuksrvFTOBCincinnati Children's Hospital Medical Centertart: 03-20-3466pyfzpoczxuRJXQKettering Health – Soin Medical Centertart: 53-50-1943Uuubwqbiz for preprocedural cardiovascular examinationFirelands Regional Medical Centertart: 02-14-2024 End: 40-46-7763Bswpgv David Stewart MD Work Phone: noms CWM FMStart: 02-14-2024 End: 28-72-9411Kialjt David Stewart MD Work Phone: noms CWM FMStart: 02-14-2024 End: 39-08-1780Kuvbapwrn Result EncounterAngel Stewart MD Work Phone: noms External Department UnsolicitedStart: 02-14-2024 End: 54-99-8178Rmqjcp outpatient visit 25 minutesAngel Stewart MD Work Phone: noms [facility] FMComment on above:Dehydration (Primary Dx); Hypotension due to drugs; Viral cardiomyopathy (CMS/HCC); Encounter for long-term (current) use of medications; Acute kidney injury (CMS/HCC)Start: 02-14-2024 End: 53-11-1598dfvahfglwtZTCF NADERERNot AvailableStart: 02-11-2024 End: 59-38-5756tauzaaquddBKSKKettering Health – Soin Medical Centertart: 01-31-2024 End: 25-75-4758Dctqblkza Result EncounterAngel Stewart MD Work Phone: noms External Department UnsolicitedStart: 01-31-2024 End: 64-58-4215Tgfkwydmv Result EncounterAngel Stewart MD Work Phone: noms External Department UnsolicitedStart: 01-31-2024 ambulatoryCincinnati [facility] Centertart: 01-01-2024 End: 23-51-0196bpxbfbwomuCXWT P CHENEYProMedica Kaiser Foundation Hospitaltart: 12-18-2023 End: 82-82-5426rjqhsvdfwwXSHI P CHENEYProMedica Kaiser Foundation Hospitaltart: 12-17-2023 End: 48-21-7084Qlczcg Bharat Hoover SCHOOL PHOTOGRAPHER Work Phone: NOXJ CI ORTHOPAEDICSStart: 12-17-2023 End: 35-95-3897Zcqjkc Bharat Hoover SCHOOL PHOTOGRAPHER Work Phone: NOMS CI ORTHOPAEDICSStart: 12-17-2023 End: 19-52-8756Fdjucv outpatient visit 10 minutesOtf Hoover NP Work Phone: NOEC CI ORTHOPAEDICSComment on above:Traumatic hematoma of right knee, subsequent encounter (Primary Dx)Start: 12-04-2023 End: 14-88-5283rxhobomudvKHOXLVA WOBRIANIAKProMedica Kaiser Foundation Hospitaltart: 2023 End: 17-09-7386aehxhyrqlnBSBA P CHENEYProMedica Bates HospitalStart: 11-19-2023 End: 45-68-2753Yrncnk flowsRadames Hoover SCHOOL PHOTOGRAPHER Work Phone: NOCV CI ORTHOPAEDICSStart: 11-19-2023 End: 36-07-3574Syycjp flowsheetOtf Hoover SCHOOL PHOTOGRAPHER Work Phone: NOZO CI ORTHOPAEDICSStart: 11-19-2023 End: 95-85-7401Fkdbhc outpatient visit 10 minutesOtf Hoover SCHOOL PHOTOGRAPHER Work Phone: NOSH CI ORTHOPAEDICSComment on above:Traumatic hematoma of right knee, subsequent encounter (Primary Dx); Acute pain of right kneeStart: 11-14-2023 End: 27-94-3173Egyftldyl encounterJajasmin A Mariluz DO Work Phone: noms SWS ORTHOComment on above:Letter for School/Work Start: 11-13-2023 End: 93-62-7419mpdsfwrwcbHJZC P [facility] HOSPITALEYTriHealth Bethes[facility] HospitalStart: 11-06-2023 End: 20-05-2289cnanskbdlpYPDB P CHENEYProUniversity [facility] HospitalStart: 11-05-2023 End: 04-27-9872Tatqau Bharat Hoover NP Work Phone: NOMA CI ORTHOPAEDICSStart: 11-05-2023 End: 43-70-0938Blnhzn Bharat Hoover NP Work Phone: NOCN CI ORTHOPAEDICSStart: 11-05-2023 End: 24-79-5655Rreekh outpatient visit 10 minutesOtf Hoover SCHOOL PHOTOGRAPHER Work Phone: NOVZ CI ORTHOPAEDICSComment on above:Traumatic hematoma of right knee, subsequent encounter (Primary Dx); Acute pain of right kneeStart: 10-24-2023 End: 52-94-0022Zrxmoc flowsheetJose A Mariluz DO Work Phone: noms FB ORTHOPAEDICSStart: 10-24-2023 End: 09-46-0089Fjqlxm flowsheetJames A Mariluz DO Work Phone: noms FB ORTHOPAEDICSStart: 10-24-2023 End: 64-82-0475Thqfga outpatient visit 10 minutesJose Mcgraw DO Work Phone: noms FB ORTHOPAEDICSComment on above:Traumatic hematoma of right knee, initial encounter (Primary Dx); Acute pain of right kneeStart: 10-03-2023 End: 74-69-0829Bqotifxjx Result EncounterGeneric External Data ProviderNOMS External Department UnsolicitedStart: 10-03-2023 End: 22-12-0678Ltlcgubzb Result EncounterGeneric External Data ProviderNOMS External Department UnsolicitedStart: 80-95-6042Giwujzu encounter procedureJose Mcgraw DO Work Phone: noms HealthcareStart: 03-12-2023 End: 76-49-8001Jrnoxymbu Result EncounterGeneric External Data ProviderNOMS External Department UnsolicitedStart: 03-12-2023 End: 28-43-1305Xcqwgujva Result EncounterGeneric External Data ProviderNOMS External Department UnsolicitedStart: 05-24-2022 End: 05-01-6530qgcqucsharVAVBOR SAMSA .Facility:L3Xdaje: 05-16-2022 End: 00-57-3078wdftnensnzYjmfkcq Blank Other [facility] Aggregate Knowledge Other Start: 16-62-1291Qzocam outpatient new 45 minutes Theron Holland Infectious DiseaseStart: 04-03-2022 End: 94-07-2654jqmibcogmyUTNKFQ SAMSA .Facility:I7Immrt: 04-02-2022 End: 24-34-8352lxkfzzvozuUCQECN SAMSA .Facility:C4Nqijo: 03-14-2022 End: 27-36-7534zenilvgpohBFVFU BARAZIFacility:F6Slgvx: 10-03-2021 End: 13-62-3529cocczlrpbyQXPKCK SAMSA .Facility:X3Yuizs: 10-02-2021 End: 91-88-8741wlyohoghsmEXLQFO SAMSA .Facility:T8Dqzxq: 09-27-2021 End: 02-76-5218ijsoxridskODKUOPF D KATKOFacility:R8Ptzch: 09-04-2021 End: 42-24-1530wqpvhqiwanTR ANGEL A NADERERFacility:O7Chhvd: 06-06-2021 End: 24-49-3498dqjmoayhmlMP ANGEL Delfina NADERERFacility:G8Wjrqe: 06-05-2021 End: 45-37-3605bokhilasreWKHXKZ RODRIGUEZ .Facility:D2Cnfdm: 06-30-2020 End: 51-99-3631agmpmccsfoMLQH CHACKOFacility:[facility] Procedures DateProcedureProcedure DetailPerforming ClinicianStart: 30-91-9941Rfqpxhgdmbuson aspir&/inj major jt/bursa w/o usMatthew Elaina TINOCO Work Phone: Start: 81-64-0317Cdfeamyejx examination knee 1/2 views Juanita TINOCO Work Phone: Start: 89-14-3995Syxxtylwfidayz aspir&/inj small jt/bursa w/o usMattheholli TINOCO Work Phone: Start: 56-44-9508Lqywwosoyoaccr aspir&/inj small jt/bursa w/o usMattheholli TINOCO Work Phone: Start: 02-80-6583Gwprs fingr minimum 2 viewsMattdanny TINOCO Work Phone: Start: 43-23-3443Rsnuf fingr minimum 2 viewsMateresa TINOCO Work Phone: Start: 42-09-5014FOY CBC WITH AUTO DIFFGeneric External Data ProviderStart: 73-46-9036YSA CBC WITH AUTO DIFFMeganc Terry AGUILAR Work Phone: Start: 72-96-9708HK TOMOSYNTHESIS SCREENING BIMarc Terry GAUILAR Work Phone: Start: 06-87-6266MzovghcuedbRvdd Naderer MD Work Phone: Start: 75-53-0039WV ECHO DOPPLER COMPLETEGeneric External Data ProviderStart: 33-67-5493ZS CHEST 2VGeneric External Data Provider Start: 56-90-4252McvtgwjbxvbJrpas Huddleston DO Work Phone: Plan of Treatment DateCare ActivityDetailAuthorStart: 78-25-9629Gewkgzzfm for malignant neoplasm of colonNOMS HealthcareStart: 08-07-2026Medicare Annual Wellness (AWV)Medicare Annual Wellness (AWV)NOMS HealthcareStart: 80-22-6741Rnnjpslbj for malignant neoplasm of breastMammogramNOMS HealthcareStart: 12-30-2024 End: 88-84-4276Glncxoz encounter fhsrkcpim28/05/2025 9:00 AM EST [facility] [address] [place] [phone] Juanita Dowell PA [address] [place] [address] [facility]opaedicsStart: 12-24-2024 End: 94-09-3770fhgmuoiafz80/30/2025 10:00 AM EDT Treatment [facility] [address] [facility] [address] [place] [address] Chana Wise PTANOMS [facility] Physical TherapyStart: 12-22-2024 End: 73-61-0218kwqzblnecnIOXB [facility] TherapyComment on above:Arrived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
== END 2025-02-03 12:56 | disposition home or self-care (01) ==
LOC: MAMMO 12:55
PROVIDERS: PCP Family Medicine; Visit Provider Family Medicine
DX: Z12.31 Encounter for screening mammogram for malignant neoplasm of breast (principal)
CPT/HCPCS: 77063; 77067

== ENCOUNTER 2025-02-03 13:23 | Outpatient (OUT) | payer MEDICARE, SELFPAY ==
--- OUTSIDE RECORDS SUMMARY | 2025-02-03 13:34 | XMS_ITS | CCD ---
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 breasts are heterogeneously [...] M.D. Signed By: 01/31/24 1219 DD/ TD/TT: Cell Efficiency Supervisor: [facility] HOSPITALMessi HealthcareRadiology Study observation (narrative)[facility] TOMOSYNTHESIS SCREENING BIOrdered By: Radiologist Radiology on 72-74-6492[facility] Work Phone: ca ECHO DOPPLER COMPLETEon [phone] [phone] Cardiology Report Signed Patient: LEDA GORDON MR#: [id number] : 1950 Acct:[id number] Age/Sex: 72 / F ADM Date: 10/03/23 Loc: CARD Attending Dr: Amador Parkinson M.D. Ordering Physician: Amador Parkinson M.D. Date of Service: 10/03/23 Procedure(s): CA echo doppler complete Accession Number(s): [id number] cc: Amador Parkinson M.D.; Angel Stewart M.D. Patient Name: LEDA GORDON MR#: [id number] : 1950 Exam Date: 10/03/2023 Ordering Doctor: [...] content not included)...TBHRadiology, Radiologist, - 10/03/[address] [address] Cardiology Report Signed Patient: LEDA GORDON MR#: [id number] : 1950 Acct:[id number] Age/Sex: 72 / F ADM Date: 10/03/23 Loc: CARD Attending Dr: Amador Parkinson M.D. Ordering Physician: Amador Parkinson M.D. Date of Service: 10/03/23 Procedure(s): CA echo doppler complete Accession Number(s): [id number] cc: Amador Parkinson M.D.; Angel Stewart M.D. Patient Name: LEDA GORDON MR#: [id number] : 1950 Exam Date: 10/03/2023 Ordering Doctor: [...] AMEZCUA Signed By: 10/03/231957 DD/ 56 TD/TT: Cell Efficiency Supervisor: [place] HealthcareRadiology Study observation (narrative)[facility] ECHO DOPPLER COMPLETEOrdered By: Radiologist Radiology on 34-92-9601[facility] Work Phone: XR CHEST 2Von [phone] [address] XRay Report Signed Patient: LEDA GORDON MR#: [id number] : 1950 Acct:[id number] Age/Sex: 72 / F ADM Date: 03/12/23 Loc: RAD Attending Dr: Charles Tan D.O. Ordering Physician: Charles Tan D.O. Date of Service: 03/12/23 Procedure(s): XR chest 2V Accession Number(s): [id number] cc: Angel Stewart M.D.; Charles Tan D.O. The [place] [phone] Patient Name: LEDA GORDON MRN: [id number] date: 1950 Sex: F Assigned Patient Location: [facility] Current Patient Location: [facility] Accession/Order Number: [id number] Exam Date: 03/12/2023 12:13 Report Date: 03/12/2023 [...] Signed By: 03/12/23 1229 DD/ 1227 TD/TT: Cell Efficiency Supervisor:EDDadiology, Radiologist, - 03/12/[address] [address] XRay Report Signed Patient: LEDA GORDON MR#: [id number] : 1950 Acct:[id number] Age/Sex: 72 / F ADM Date: 03/12/23 Loc: RAD Attending Dr: Charles Tan D.O. Ordering Physician: Charles Tan D.O. Date of Service: 03/12/23 Procedure(s): XR chest 2V Accession Number(s): [id number] cc: Angel Stewart M.D.; Charles Tan D.O. The [address] [address] Patient Name: LEDA GORDON MRN: [id number] date: 1950 Sex: F Assigned Patient Location: [facility] Current Patient Location: [facility] Accession/Order Number: [id number] Exam Date: 03/12/2023 12:13 Report Date: 03/12/2023 [...] Signed By: 03/12/23 1229 DD/ 1227 TD/TT: Cell Efficiency Supervisor: [facility] HealthcareRadiology Study observation (narrative)[facility] CenterXR [facility] 2V Ordered By: Radiologist Radiology on 29-23-4494NNBTLafayette Regional Health Center Work Phone: ct CHEST HI RESOLUTIONon 93-85-4329YR CHEST HI RESOLUTIONEXAMINATION: CT CHEST HI RESOLUTION [...] Electronically authenticated by: TERRIE ROGERS Date: 2022-05-24 13:28NoSumma Health Wadsworth - Rittman Medical CenterFUNGAL CULTUREon 06-57-5729Ttgwnk (Mycology) CultureFinal reportAbDoctors HospitalComment on above:Performed By: #### CXFUN #### [facility] [address] [address] [address] Vimal Chambers StainFinal reportMercy HospitalComment on above:Performed By: #### CXFUN #### [facility] [address] [address] [address] Vimal Calzada 1CommentMercy HospitalComment on above:Result Comment: BAILEY/Calcofluor preparation: no fungus observed.Performed By: #### CXFUN #### [facility] [address] [address] [address] Vimal Calzada 1Candida albicansThe MetroHealth SystemCombeaumont hospital on above:Performed By: #### CXFUN #### [facility] [address] [address] [address] Vimal Calzada 2CmentThe MetroHealth SystemComment on above: Result Comment: Aspergillus terreus complexPerformed By: #### CXFUN #### [facility] [address] [address] [address] Vimal Calzada 3CgemaMarietta Osteopathic Clinicment on above: Result Comment: Aspergillus versicolorPerformed By: #### CXFUN #### [facility] [address] [address] [address] Vimal Lizarraga SPUTUMon 96-54-7806SJEGFAK SPUTUMCulture Observations: METHICILLIN RESISTANT STAPH AUREUS ISOLATED. [...] Rifampicin <=0.5 S F Trimethoprim/Sulfamethoxazole <=10 S FNormalSycamore Medical CenterComment on above:Performed By: #### SPUTCX ####[facility] [address] [place] [address]Dr. Vimal Zaragoza GRAM STAINon 56-31-2000ZJTKQBHN NormalSycamore Medical CenterCombeaumont hospital on above:Performed By: #### SPUTGS #### [facility] [address] [address] [address] Vimal JaramilloOIDSNormalThe [facility]aton Center HospitalComment on above:Performed By: #### SPUTGS #### [facility] [address] [address] [address] Celis ChangEPITHELIALS<25Mercy HospitalComment on above: Performed By: #### SPUTGS #### [facility] [address] [address] [address] Vimal HernandezFUNGAL ELEMENTSMercy HospitalComment on above: Performed By: #### SPUTGS #### [facility] [address] [address] [address] Vimal Fallon NEG BACILLIMercy HospitalComment on above: Performed By: #### SPUTGS #### [facility] [address] [place] [address] Dr. Vimal Fallon NEG DIPPLOCOCCIMercy HospitalComment on above: Performed By: #### SPUTGS #### [facility] [address] [address] [address] Vimal Fallon POS BACILLIChillicothe VA Medical Center HospitalComment on above: Performed By: #### SPUTGS #### [facility] [address] [place] [address] Dr. Vimal Fallon POSITIVE COCCIMODERATEMercy HospitalComment on above:Performed By: #### SPUTGS #### [facility] [address] [place] [address] Dr. Vimal Hernandez (Bld) [#/Vol]10*3/uLMercy HospitalCombeaumont hospital on above:Performed By: #### SPUTGS #### [facility] [address] [address] [address] Vimal Johansenvid-19 PCR (CVDTB)on 69-40-0255QRVM-CoV-2 (COVID-19) RNA REGGIE+probe Ql (Unsp spec)Not detectedNormalNOT DETECTEDSycamore Medical Center Comment on above:Result Comment: This test is not yet approved or cleared by the [place] FDA. When there are no FDA-approved or cleared tests available, and other criteria are met, FDA can make tests available under an emergency access mechanism called an Emergency Use Authorization (EUA). The EUA for this test is supported by the [place] of Health and Human Service's (HHS's) declaration [...] consistent with SARS-CoV-2.Performed By: #### CVDTBH #### [place] [address] [address] Vimal Mathis AND B AGon 96-73-7497UOGEHBPVTXDPJOhioHealth Shelby Hospital on above:Result Comment: Negative for Flu A protein angiten. Infection due to Flu A cannot be ruled out. FluA angiten in the sample may be below the detection limit of the test.Performed By: #### INFLUAB #### [facility] [address] [place] [address] Dr. Vimal CarterUBNEGJESSI [facility] on above: Result Comment: Negative for Flu B protein antigen. Infection due to Flu B cannot be ruled out. FluB antigen in the sample may be below the detection limit of the test.Performed By: #### INFLUAB #### [facility] [address] [place] [address] Dr. Vimal Mathis AGNegativeNormalNEGATIVE SEE COMMENTThe [facility] on above:Performed By: #### INFLUAB #### [facility] [address] [place] [address] Dr. Vimal Mondragon AGNegativeNormalNEGATIVE SEE COMMENTThe [facility] on above:Performed By: #### INFLUAB #### [facility] [id number] Vimal JadeCARDITim M/2D COMPLETEon 07-87-1948KZTJOSRCQU M/2D COMPLETE Patient: LEDA GORDON Exam Date: 03/14/2022 : 1950 Gender:F Ordering : ALEXEY BACON Admission #: [id number] Family : Order #: [id number] CLICK HERE TO VIEW EXAM ECHOCARDIOGRAM REPORT [...] by: Brianne Amezcua M.D. on 03/15/2022 at 10:43Mercy HospitalCULTURE SPUTUMon 24-17-7664IJIZNXQ SPUTUMCulture Observations: Mold identified by [facility] Isolate 1 Haemophilus Influenzae Heavy growth of Isolate 2 Aspergillus Fumigatus Light growth [facility] HospitalComment on above:Result Comment: Beta Lactamase -Performed By: #### SPUTCX ####[facility] [address] [place] [address]Dr. Vimal Zaragoza GRAM STAINon 10-02-2021 [facility] Hospital ToledoComment on above:Performed By: #### SPUTGS #### [facility] [address] [place], [place] [address] Dr. Vimal JaramilloOIDSMercy HospitalComment on above:Performed By: #### SPUTGS #### [facility] [address] [address] [address] Celis ChangEPITHELIALS<25Mercy HospitalComment on above: Performed By: #### SPUTGS #### [facility] [address] [place] [address] Dr. Vimal HernandezFUNGAL ELEMENTSMercy HospitalComment on above: Performed By: #### SPUTGS #### [facility] [address] [address] [address] Vimal Fallon NEG BACILLIFEMetroHealth Parma Medical CenterComment on above: Performed By: #### SPUTGS #### [facility] [address] [place] [address] Dr. Vimal Fallon NEG DIPPLOCOCCIMercy HospitalComment on above: Performed By: #### SPUTGS #### [facility] [address] [address] [address] Vimal Fallon POS BACILLIMercy HospitalComment on above: Performed By: #### SPUTGS #### [facility] [address] [place] [address] Dr. Vimal Fallon POSITIVE COCCIFEMetroHealth Parma Medical CenterComment on above:Performed By: #### SPUTGS #### [facility] [address] [place] [address] Dr. Vimal Hernandez (Bld) [#/Vol]10*3/uLMercy HospitalComment on above:Performed By: #### SPUTGS #### [facility] [address] [place] [address] Dr. Vimal HernandezXR CHEST 2 Von 01-63-4448LF CHEST 2 VEXAMINATION: XR CHEST 2 V [...] Electronically authenticated by: TERRIE ROGERS Date: 2021-10-02 14:49NormSelect Medical Specialty Hospital - Southeast OhioCovid-19 PCR (CVDTBH)on 75-61-7720NPYX-CoV-2 (COVID-19) RNA REGGIE+probe Ql (Unsp spec)DetectedCritically abnormalNOT DETECTEDThe [facility] HospitalComment on above:Result Comment: This test is not yet approved or cleared by the [place] FDA. When there are no FDA-approved or cleared tests available, and other criteria are met, FDA can make tests available under an emergency access mechanism called an Emergency Use Authorization (EUA). The EUA for this test is supported by the [employer] of Health and Human Service's declaration that [...] mayno longer be used).Performed By: #### CVDTBH ####[facility] [address] [address]Dr. Vimal Caraballo AUTO DIFFon 24-05-4133BVGD #0.0 103/ulNormal0.0-0.1Sycamore Medical CenterComment on above:Performed By: #### CBC #### [facility] [address] [address] [address] Vimal Richmondphils/100 WBC (Bld)0.6 %Normal0.2-2.0[facility] Comment on above:Performed By: #### CBC #### [facility] [address] [address] [address] Vimal Olivo #0.1 103/ulNormal0.0-0.7The [facility]as HospitalComment on above: Performed By: #### CBC #### [facility] [address] [address] [address] Vimal Alvaradoosinophils/100 WBC (Bld)1.4 %Normal0.9-7.0[facility] Comment on above:Performed By: #### CBC #### [facility] [address] [address] [address] Vimal Alvaradorythrocyte distribution width (RBC) [Ratio]11.9 %Onyogt21.0-15.0 The [facility]as HospitalComment on above:Performed By: #### CBC #### [facility] [address] [place] [address] Dr. Vimal HernandezHematocrit (Bld) [Volume fraction]39.2 %Uroegy27.0-48.0The [facility] HospitalComment on above:Performed By: #### CBC #### [facility] [address] [place] [address] Dr. Vimal HernandezHemoglobin (Bld) [Mass/Vol]13.2 g/rSSsufgd47.0-16.0The [facility] HospitalComment on above:Performed By: #### CBC #### [facility] [address] [place] [address] Dr. Vimal Vergara #0.03 10e3/ulNormal0.00-0.03The [facility] HospitalComment on above:Performed By: #### CBC #### [facility] [address] [place] [address] Dr. Vimal HernandezIG %0.4 %Normal0.0-0.5The [facility] HospitalComment on above: Performed By: #### CBC #### [facility] [address] [place] [address] Dr. Vimal TurpinH #1.1 103/ulCritically low1.2-3.8[facility] Comment on above:Performed By: #### CBC #### [facility] [address] [place] [address] Dr. Vimal Kellermphocytes/100 WBC (Bld)15.7 %Critically low20.5-60.0The [facility] Center HospitalComment on above:Performed By: #### CBC #### [facility] [address] [address] [address] Vimal Frost DIFF REQNONormalThe [facility]as HospitalComment on above: Performed By: #### CBC #### [facility] [address] [place] [address] Dr. Vimal Piedra (RBC) [Entitic mass]30.4 tfVfbyfo76.7-34.0The [facility] Center HospitalComment on above:Performed By: #### CBC #### [facility] [address] [place] [address] Dr. Vimal Piedra (RBC) [Mass/Vol]33.7 g/bFSgbtym64.9-35.2The [facility] HospitalComment on above:Performed By: #### CBC #### [facility] [address] [place] [address] Dr. Vimal Piedra (RBC) [Entitic vol]90.3 xEOcduel29.0-99.0The [facility]as HospitalComment on above:Performed By: #### CBC #### [facility] [address] [place] [address] Dr. Vimal Smith #0.7 103/ulNormal0.3-0.8The [facility]as HospitalComment on above:Performed By: #### CBC #### [facility] [address] [place] [address] Dr. Vimal Sánchezocytes/100 WBC (Bld)9.2 %Normal1.7-12.0[facility] Comment on above:Performed By: #### CBC #### [facility] [address] [place] [address] Dr. Vimal Wilder #5.2 103/ulNormal1.4-6.5The [facility]as HospitalComment on above:Performed By: #### CBC #### [facility] [address] [place] [address] Dr. Vimal Saeedutrophils/100 WBC (Bld)72.7 %Ygduid50.0-75.0The [facility]as HospitalComment on above:Performed By: #### CBC #### [facility] [address] [address] [address] Vimal HernandezPlatelet mean volume (Bld) [Entitic vol]10.0 fLNormal9.5-13.5The [facility] HospitalComment on above:Performed By: #### CBC #### [facility] [address] [address] [address] Vimal HernandezPLT207 103/dyFqyqoa330-279Pan [facility] HospitalComment on above: Performed By: #### CBC #### [facility] [address] [address] [address] Vimal HernandezRBC4.34 106/ulNormal4.20-5.40The [facility] HospitalComment on above:Performed By: #### CBC #### [facility] [address] [address] [address] Vimal HernandezWBC7.1 103/ulNormal4.0-11.0The [facility] HospitalComment on above: Performed By: #### CBC #### [facility] [address] [place] [address] Dr. Vimal Tsang CHEM 8 (BAS METB)on 18-15-0440Ahgiu gap [Moles/Vol]14.4 mmol/LNormalThe [facility]as HospitalComment on above:Performed By: #### BMP ####[facility] B[address] [place], [place] [address]Dr. Vimal HernandezCalcium [Mass/Vol]9.0 mg/dLNormal8.5-10.1The [facility] HospitalComment on above:Performed By: #### BMP ####[facility] [address] [place] [address] ChangChloride [Moles/Vol]102 mmol/LNormal 98-107The [facility] HospitalComment on above:Performed By: #### BMP ####[facility] [address] [place] [address] ChangCO2 [Moles/Vol]25.7 mmol/FXenrjt85.0-30.0The [facility] HospitalComment on above: Performed By: #### BMP ####[facility] Icf[address] [place], [place] [address]Dr.Yilan ChangCreatinine [Mass/Vol]0.81 mg/dLNormal 0.52-1.04The [facility] HospitalComment on above:Performed By: #### BMP ####[facility] H[address] [place], [place] [address]Dr. Yilan ChangEGFR-AF ANGOLAN>60Normal>=60The [facility] HospitalComment on above: Performed By: #### BMP ####[facility] [address] [place], [place] [address]Dr.Yilan ChangEGFR-NON AF ANGOLAN>60Normal>=60The [facility] HospitalComment on above:Performed By: #### BMP ####[facility] Bwas[address] [place], [place] [address]Dr.Yilan ChangGlucose [Mass/Vol]103 mg/pOYzzvuz35-315Zbj [facility] HospitalComment on above:Performed By: #### BMP ####[facility] Xeik[address]xf[address] [place], [place] [address]Dr.Yilan ChangPotassium [Moles/Vol]4.1 mmol/LNormal3.4-5.0The [facility] HospitalComment on above:Performed By: #### BMP ####[facility] Nom[address] [place], [place] [address]Dr.Yilan ChangSodium [Moles/Vol]138 mmol/RHedqpw401-924Uwa [facility] HospitalComment on above: Performed By: #### BMP ####[facility] [address]held[address] [place], [place] [address]Dr.Yilan ChangUrea nitrogen [Mass/Vol]24.0 mg/dL Critically high7.0-18.0The [facility] HospitalComment on above:Performed By: #### BMP ####[facility] Zhvc[address] [place], [place] [address]Dr. Yilan ChangUrea nitrogen/Creatinine [Mass ratio]29.6 mg/mgNormalThe [facility] HospitalComment on above:Performed By: #### BMP ####[facility] [address] [place], [place] [address]XvRitesh HernandezXR FINGER MIN 2 VIEWSon 37-72-9256NH FINGER MIN 2 VIEWSIMAGES REVIEWED: XR FINGER [...] Electronically authenticated by: OTF RUBALCAVA Date: 2021-06-05 17:36Mercy HospitalCardiovascular Lab Reporton 11-03-0801Qlzhqhzrddyqgw Lab Report [facility] [place] MR #: [id number] Physician: Amador Parkinson MD Department of Service Date: 06/30/2020 Medicine Birthdate: 1950 Division of Room #: 3AB [id number] Cardiology Adult Cardiovascular Services [place] [address] Cardiovascular Laboratory Report POCKET REVISION PROCEDURE NOTE DATE OF PROCEDURE: 06/30/2020 PERFORMING PHYSICIAN: Dr. Amador Parkinson CONSENT: Patient LOCATION: EP Lab PROCEDURE PERFORMED: 1. Pocket revision to evaluate for hematoma. INDICATIONS: 1. Pocket swelling/pain. 2. S/p POKER PROP PLAYER-D with underlying chronic AF and RVR. PROCEDURAL SEDATION: Versed and Fentanyl. Moderate sedation was administered by the sedation nurse under my supervision and noted in the CVL log. Intraprocedural face to face sedation time: 90min. Monitoring: Cardiac telemetry, Blood pressure, continuous pulse oxymetry. FLUROSCOPY: 0s PREPARATION: 69-year-old lady with a history of cardiomyopathy with a POKER PROP PLAYER-D [employer] device, had come in for [...] noted below. Device info: [employer] [place] CRTD A500Q model Serial #[id number] RAlead: Implanted on 07/14/2012 [employer] Tendril STS 2088TC-46 cms Serial # [id number] Sensin.9mV Threshold: 1.25V @ 0.4ms Impedance: 480 Ohms RV ICD lead: Implanted on 07/14/2012 [employer]ley Durata 7122Q-58 cms lead Serial# [id number] Sensing: >12 mV Threshold: 0.875 @ 0.5 millisecond Impedance: 530 Ohms LV lead: Implanted on 07/14/2012 Moseley quartet 1458Q-86 cms, Serial# [id number] Threshold: 1.125 V @ 0.4 ms Impedance: [...] Parkinson MD Date Trans: 06/30/2020 07:04 P/nixon DN_JN:[id number] cc: Angel Stewart M.D. [address] [facility] [address] Electronically Signed by: Amador Parkinson MD 07/13/2020 05:42 P Amador Parkinson MD Date Dict: 07/07/2020/09:22 A/Amador Parkinson MD Date Trans: 07/07/2020 09:47 A/nixon DN_JN:[id number] cc: Angel Stewart M.D. [address] [facility] [address]UkwootMxfCleveland Clinic Mentor HospitalCBC W/DIFFon 76-91-6500OZV IMM GRANS0.0 10*3/uLNormal0.0-0.2The [facility] NorthComment on above:Order Comment: No: Do not add to previous drawPerformed By: #### 55529 #### [facility] [address] [place] [address], USAABS NEUTROPHILS9.7 10*3/uLHigh1.6-7.6The [facility] NorthComment on above:Order Comment: No: Do not add to previous drawPerformed By: #### 43062 #### [facility] [address] [place] [address], USABasophils (Bld) [#/Vol]0.0 10*3/uLNormal0.0-0.2The [facility] NorthComment on above:Order Comment: No: Do not add to previous drawPerformed By: #### [id number] #### [facility] [address] [place] [address], USABasophils/100 WBC (Bld)0.2 %Normal0.0-1.0The [facility] NorthComment on above:Order Comment: No: Do not add to previous drawPerformed By: #### 68073 #### [facility] [address] [place] [address], USAEosinophils (Bld) [#/Vol]0.0 10*3/uLNormal0.0-0.5The [facility] NorthComment on above:Order Comment: No: Do not add to previous drawPerformed By: #### 21405 #### [facility] [address] [place] [address], USAEosinophils/100 WBC (Bld)0.1 %Normal0.0-6.0The [facility] NorthComment on above:Order Comment: No: Do not add to previous drawPerformed By: #### 69331 #### [facility] [address] [place] [address], USAErythrocyte distribution width (RBC) [Ratio]11.6 %Normal 11.5-15.0The [facility] NorthComment on above:Order Comment: No: Do not add to previous drawPerformed By: #### 36899 #### [facility] [address] [place] [address], USAHematocrit (Bld) [Volume fraction]32.4 %Low36.0-45.0The [facility] NorthComment on above:Order Comment: No: Do not add to previous drawPerformed By: #### 19662 #### [facility] [address] [place] [address], USAHemoglobin (Bld) [Mass/Vol]11.3 g/dLLow12.0-15.0The [facility] NorthComment on above:Order Comment: No: Do not add to previous drawPerformed By: #### 94302 #### [facility] [address] [place] [address], USAIMMATURE GRANS0.4 %Normal0.0-1.0The [facility] NorthComment on above:Order Comment: No: Do not add to previous draw Performed By: #### 77307 #### [facility] [address] [place] [address], USALymphocytes (Bld) [#/Vol]0.4 10*3/uLLow1.2-4.0The [facility] NorthComment on above:Order Comment: No: Do not add to previous drawPerformed By: #### 31462 #### [facility] [address] [place] [address], USALymphocytes/100 WBC (Bld)3.9 %Low20.0-45.0The [facility] NorthComment on above:Order Comment: No: Do not add to previous drawPerformed By: #### 43409 #### [facility] [address] [place] [address], [facility] CITYH (RBC) [Entitic mass]31.0 qcFiaqzf36.0-33.0The [facility] NorthComment on above:Order Comment: No: Do not add to previous drawPerformed By: #### 71423 #### [facility] [address] [place] [address], USAMCHC (RBC) [Mass/Vol]34.9 g/iNFcrsrr24.0-35.0The [facility] NorthComment on above:Order Comment: No: Do not add to previous drawPerformed By: #### 62480 #### [facility] [address] [place] [address], [facility]IAL MEDICAL CENTERMCV (RBC) [Entitic vol]89.0 pXAjegmn21.0-98.0The [facility] NorthComment on above:Order Comment: No: Do not add to previous drawPerformed By: #### [id number] #### [facility] [address] [place] [address], USAMonocytes (Bld) [#/Vol]0.9 10*3/uLNormal0.1-1.0The [facility] NorthComment on above:Order Comment: No: Do not add to previous drawPerformed By: #### [id number] #### [facility] [address] [place] [address], USAMONOS8.2 %Normal5.0-12.0The [facility] NorthComment on above:Order Comment: No: Do not add to previous drawPerformed By: #### [id number] #### [facility] [address] [place] [address], USANeutrophils/100 WBC (Bld)87.2 %High40.0-72.0The [facility] NorthComment on above:Order Comment: No: Do not add to previous drawPerformed By: #### [id number] #### [facility] [address] [place] [address], USANucleated RBC/100 WBC (Bld) [Ratio]0 %Normal0-0The [facility] NorthComment on above:Order Comment: No: Do not add to previous drawPerformed By: #### [id number] #### [facility] [address] [place] [address], USAPLAT [id number] 10*3/eBClqgkz662-754Opz [facility] NorthComment on above:Order Comment: No: Do not add to previous draw Performed By: #### [id number] #### [facility] [address] [facility] [place] [address], USARBC (Bld) [#/Vol]3.64 10*6/uLLow3.80-5.00The [facility] NorthComment on above:Order Comment: No: Do not add to previous drawPerformed By: #### [id number] #### [facility] [address] [facility] [place] [place] [address], [facility] MED[facility] CENTERWBC (Bld) [#/Vol]11.16 10*3/uLHigh4.00-10.60The [facility] NorthComment on above:Order Comment: No: Do not add to previous drawPerformed By: #### [id number] #### [facility] [address] [facility] [place] [address], USACHEST AND LATERALon 11-85-9851XYOOU AND [facility] Department of Radiology [address] [place] [id number] Patient Name: LEDA GORDON : 1950 Sex: F Age: Race: White Pt. Location: [address] [place] [address] Patient Status: O Ordered Date: 07/01/2020 8:40:00 [...] pneumothorax. Electronically signed: Rossy Baptiste. Transcribed by: [email or web address], User Resident: Electronically Signed by: ROSSY BAPTISTE @ 07/01/2020 10:14 AMNormalThe [facility] NorthComment on above:Order Comment: Check Pacemaker/AICD Lead PositionCBC W/DIFFon 40-04-9225NZA IMM GRANS0.0 10*3/uL Normal0.0-0.2The [facility] NorthComment on above:Order Comment: No: Do not add to previous drawPerformed By: #### [id number] #### [facility] [address] [place] [address], USAABS NEUTROPHILS9.3 10*3/uLHigh1.6-7.6The [facility] NorthComment on above:Order Comment: No: Do not add to previous drawPerformed By: #### [id number] #### [facility] [address] [place] [address], USABasophils (Bld) [#/Vol]0.0 10*3/uLNormal0.0-0.2The [facility] NorthComment on above:Order Comment: No: Do not add to previous drawPerformed By: #### [id number] #### [facility] [address] [place] [address], USABasophils/100 WBC (Bld)0.4 %Normal0.0-1.0The [facility] NorthComment on above:Order Comment: No: Do not add to previous drawPerformed By: #### [id number] #### [facility] [address] [place] [address], USAEosinophils (Bld) [#/Vol]0.0 10*3/uLNormal0.0-0.5The [facility] NorthComment on above:Order Comment: No: Do not add to previous drawPerformed By: #### [id number] #### [facility] [address] [address], USAEosinophils/100 WBC (Bld)0.1 %Normal0.0-6.0The [facility] NorthComment on above:Order Comment: No: Do not add to previous drawPerformed By: #### [id number] #### [facility] [address] [facility] [place] [address], USAErythrocyte distribution width (RBC) [Ratio]11.7 %Normal 11.5-15.0The [facility] NorthComment on above:Order Comment: No: Do not add to previous drawPerformed By: #### [id number] #### [facility] [address] [facility] [place] [address], USAHematocrit (Bld) [Volume fraction]34.8 %Low36.0-45.0The [facility] NorthComment on above:Order Comment: No: Do not add to previous drawPerformed By: #### [id number] #### [facility] [address] [facility] [place] [address], USAHemoglobin (Bld) [Mass/Vol]12.0 g/vUInlzst72.0-15.0The [facility] NorthComment on above:Order Comment: No: Do not add to previous drawPerformed By: #### [id number] #### [facility] [address] [place] [address], USAIMMATURE GRANS0.3 %Normal0.0-1.0The [facility] NorthComment on above:Order Comment: No: Do not add to previous draw Performed By: #### [id number] #### [facility] [address] [place] [address], USALymphocytes (Bld) [#/Vol]0.5 10*3/uLLow1.2-4.0The [facility] NorthComment on above:Order Comment: No: Do not add to previous drawPerformed By: #### [id number] #### [facility] [address] [place] [address], USALymphocytes/100 WBC (Bld)4.3 %Low20.0-45.0The [facility] NorthComment on above:Order Comment: No: Do not add to previous drawPerformed By: #### 91207 #### [facility] [address] [facility] [place] [address], [facility] (RBC) [Entitic mass]30.8 usRkwkom30.0-33.0The [facility] NorthComment on above:Order Comment: No: Do not add to previous drawPerformed By: #### 51695 #### [facility] [address] [place] [place] [address], [facility]HC (RBC) [Mass/Vol]34.5 g/rJPswaot77.0-35.0The [facility] NorthComment on above:Order Comment: No: Do not add to previous drawPerformed By: #### [id number] #### [facility] [address] [place] [address], [facility] (RBC) [Entitic vol]89.5 nNGtiths33.0-98.0The [facility] NorthComment on above:Order Comment: No: Do not add to previous drawPerformed By: #### 19531 #### [facility] [address] [place] [address], USAMonocytes (Bld) [#/Vol]0.7 10*3/uLNormal0.1-1.0The [facility] NorthComment on above:Order Comment: No: Do not add to previous drawPerformed By: #### 75991 #### [facility] [address] [place] [address], USAMONOS6.8 %Normal5.0-12.0The [facility] NorthComment on above:Order Comment: No: Do not add to previous drawPerformed By: #### 82739 #### [facility] [address] [place] [address], USANeutrophils/100 WBC (Bld)88.1 %High40.0-72.0The [facility] NorthComment on above:Order Comment: No: Do not add to previous drawPerformed By: #### 46980 #### [facility] [address] [place] [address], USANucleated RBC/100 WBC (Bld) [Ratio]0 %Normal0-0The [facility] NorthComment on above:Order Comment: No: Do not add to previous drawPerformed By: #### 53366 #### [facility] [address] [place] [address], USAPLAT LVB143 10*3/cKIwtetb750-808Umr [facility] NorthComment on above:Order Comment: No: Do not add to previous draw Performed By: #### [id number] #### [facility] [address] [place] [address], USARBC (Bld) [#/Vol]3.89 10*6/uLNormal3.80-5.00The [facility] NorthComment on above:Order Comment: No: Do not add to previous drawPerformed By: #### 33953 #### [facility] [address] [place] [address], [facility]IAL MED[facility] CENTERWBC (Bld) [#/Vol]10.57 10*3/uLNormal4.00-60The [facility] NorthComment on above:Order Comment: No: Do not add to previous drawPerformed By: #### 79561 #### [facility] [address] [place] [address], USACardiovascular Lab Reporton 40-23-1479Egbpcvsbynaubz Lab ReportUnClinton Memorial Hospital Patient Name: Leda Gordon [facility] MR #: [id number] Physician: Amador Parkinson MD Department of Service Date: 06/30/2020 Medicine Birthdate: 1950 Division of Room #: CC Cardiology Adult Cardiovascular Services [facility] [address] [place], [place] [address] Cardiovascular Laboratory Report PACEMAKER GENERATOR CHANGE POCKET REVISION PROCEDURE NOTE DATE OF PROCEDURE: 06/30/2020 PERFORMING PHYSICIAN: Dr. Amador Parkinson CONSENT: Patient LOCATION: EP Lab PROCEDURE PERFORMED: 1. Implant of new POKER PROP PLAYER-D generator ([employer]). 2. Explant of POKER PROP PLAYER-D generator ([place]ley/ [place]). 3. Pocket Revision to sub muscular implant. INDICATIONS: 1. S/p POKER PROP PLAYER-D with underlying chronic AF and RVR. 2. Device at EOL PROCEDURAL SEDATION: Versed and Fentanyl. Moderate sedation was administered by the sedation nurse under my supervision and noted in the CVL log. Intraprocedural face to face sedation time: 83min. Monitoring: Cardiac telemetry, Blood pressure, continuous pulse oxymetry. FLUROSCOPY: 31s/ 1mGray PREPARATION: 69-year-old lady with a history of cardiomyopathy with a POKER PROP PLAYER-D [place] device, has come in for [...] attached to a new [place]ose[place]/ [employer] [place] POKER PROP PLAYER-D generator and the leads tug tested. Pocket [...] device as noted below. [employer] [place] Moseley [place] CRTD A500Q model, serial #[id number]. The atrial lead is Moseley Tendril STS 2088TC 46 cm, serial number [id number], implanted on July 14, 2012. Atrial sensing is 1.9 mV, capture was 1.25 V at 0.4 milliseconds. Impedance was 480 ohms. The RV ICD lead is a Durata 7122Q 58 cm lead, serial number is [id number], implanted on July 14, 2012. The RV sensing is at a greater than 12 mV with RV threshold of 0.875 at 4.5 millisecond, impedance of 530 ohms. The LV lead is Moseley quartet 1458Q 86 cm lead, serial number [id number], implanted on july 14, 2012. Lead threshold was 1.125 V at 0.4 millisecond with the impedance of 1150 ohms. The various thresholds were checked and was noted the LV 1-2 had Device info: [place] Moseley [place] CRTD A500Q model Serial #[id number] RAlead: Implanted on 07/14/2012 M[place]ley Tendril STS 2088TC-46 cms Serial # [id number] Sensin.9mV Threshold: 1.25V @ 0.4ms Impedance: 480 Ohms RV ICD lead: Implanted on 07/14/2012 Moseley Durata 7122Q-58 cms lead Serial# [id number] Sensing: >12 mV Threshold: 0.875 @ 0.5 millisecond Impedance: 530 Ohms LV lead: Implanted on 07/14/2012 Moseley quartet 1458Q-86 cms, Serial# [id number] Threshold: 1.125 V @ 0.4 ms Impedance: [...] to 30 milliseco (more content not included)...NormalThe [facility] NorthConsent Formson 61-86-8877Ryzbmmr Forms [id number]#1.00[facility] History and Physicalon 27-55-0312Xxpatkl and Physical [id number]#1.00[facility] Coding Summaryon 21-05-1526Xvbpuo SummaryCODING DATE: 01/15/2020 [facility] STATUS: Home PAYOR: Medicare MC [...] By: Michelle Uribe Date Saved: 01/15/2020 12:41 [facility] HospitalCoding Summaryon 59-75-8813Zrewcb SummaryCODING DATE: 01/13/2020 [facility] STATUS: Home PAYOR: Medicare MC APC DESCRIPTION 5114 Level 4 Musculoskeletal Procedures ADMIT DX: REASON FOR VISIT DX: M24.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, left shoulder FINAL DX: PRINCIPAL: M19.012 Primary osteoarthritis, left shoulder SECONDARY: M25.812 Other specified joint disorders, left shoulder PYMT PROC APC STAT DESCRIPTION DOCTOR NAME DATE 92662 Arthroscopy, shoulder, Jose Mcgraw And 01/11/2020 surgical; distal claviculectomy including distal articular surface (Nicole procedure) LT Left side (used to identify procedures performed on the left side of the body) 96862 Arthroscopy, shoulder, Jose Mcgraw And 01/11/2020 surgical; debridement, limited LT Left side (used to identify procedures performed on the left side of the body) 38952 Injection(s), anesthetic Jose Mcgraw And 01/11/2020 agent(s) [...] Kirsten Mejia Revised Date Saved: 01/13/2020 07:44 [facility]Cons[facility] Formson 21-19-2343Jzwbaxo [id number]#1.00OTGTOhioHealth Grant Medical CenterDischarge Instructionson 48-53-7537Mgeinldgp Instructions [id number]#1.00[facility]GTHigh[facility] Hospital Medication Managementon 04-21-4688Jtodhoeugr Management [id number]#1.00[facility] Outside Recordson 12-40-2812Zbyntnj Records [id number]#1.00[facility] Telemetry Stripson 18-52-6672Erajkrnid Strips [id number]#1.00[facility] Anesthesia Noteon 91-14-3493Cedzxelcxe NotePatient: LEDA GORDON Age: 69 years Sex: [...] disease) case management patient / SNOMED CT 661571876 / Confirmed CHF (congestive heart failure) / SNOMED CT 77218642 / Confirmed Myopathy / SNOMED CT 750951203 / Confirmed Ventricular dysfunction / SNOMED CT 305490582 / Confirmed Histories Family History: No family history items have been selected or recorded. Procedure history: Anesthesia for transvenous insertion or replacement of pacing cardioverter- defibrillator (77061) on07/14/2012 at 61 Years. Cardiac pacemaker (22823558). Comments: 12/30/2019 13:18 Veronique Membreno RN 2013 Carpal tunnel release (161318438). Tonsillectomy (437275944). Comments: 12/30/2019 13:23 Veronique Membreno RN 1949's Biopsy of breast (998269135). Comments: 12/30/2019 13:24 Veronique Membreno RN X3 Social History Electronic Cigarette/Vaping Assessment Electronic Cigarette Use: Never. Alcohol Assessment Use: Current. Wine, 1-2 times per week Tobacco Assessment Former smoker, quit more than 30 days ago Tobacco Use:. 30 years ago 1 pk/week per day. Substance Abuse Assessment Substance use: Never. 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 Home/Environment Assessment Lives with Spouse. Home equipment: CPAP/BiPAP. . 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 Review / Management Laboratory Results Plan [place] Society of Anesthesiologists#(ASA) physical status classification: Class [...] [Verified on: 01/11/2020 10:45 EST] Yanick Edward MDAccess Hospital DaytonCoding Summaryon 00-41-5933Utpfjj SummaryCODING DATE: 01/11/2020 FINAL [facility] STATUS: Home PAYOR: Medicare ADMIT DX: [...] By: Michelle Uribe Date Saved: 01/11/2020 02:18 pmNCincinnati Children's Hospital Medical CenterInpatient Patient Summary on 49-05-8805Ihfegcofb [place] [address] Patient Discharge Instructions Name: LEDA GORDON Isidro : 1950 Patient Address: [address] [place] [address] Primary Care Provider: Name: ANGEL STEWART After you are discharged if you find you have any questions, please, call [phone] ext [phone] to speak to a nurse. Discharge Diagnosis: [...] contact the Mental Health & Recovery Board [facility] 17/09 Crisis Hotline -Text 4HOPE mr 479918. If you received any narcotics, sedation, or [...] business decisions or sign any legal documents [facility] would like to thank you for allowing us to assist you with your healthcare needs.The following includes patient education materials and information regarding your injury/illness. LEDA GORDON has been given the following list of follow-up instructions, prescriptions, and patient education materials: Follow-up Instructions With: Address: When: CECY CALIX [address], [address] [place] [address] Business (1) 01/20/2020 8:30 AM With: Address: When: ANGEL TERRY [address] [place], [place] [id number] Business (1) Medications During the course of [...] or concerns, please call the office at [phone] -Follow up as scheduled Viruses or Bacteria [...] Centers for Disease Control and Prevention October 2013[facility] MAGR Intraoperative Recordon 02-38-2951VPKW Intraoperative RecordMAGR Intra-Op Record Summary Primary Physician: Jose Mcgraw DO Finalized Date/Time: 01/11/20 13:13:05 Pt. Name: LEDA GORDON/Sex: 1950 FEMALE Med Rec #: [id number] Physician: Jose Mcgraw DO Financial #: [id number] Pt. Type: D Room/Bed: / Admit/Disch: 01/11/20 [...] Role Performed Surgeon - Primary Anesthesiologist of Commercial Technician Record Time In 01/11/20 09:47:00 01/11/20 09:47:00 01/11/20 09:47:00 Time Out 01/11/20 11:18:00 01/11/20 11:18:00 01/11/20 11:18:00 Procedure Arthroscopy Arthroscopy Arthroscopy Shoulder(Left, Shoulder) Shoulder(Left, Shoulder) Shoulder(Left, Shoulder) Last Modified By: Daniele SWANSON, Michelle Sanabria RN, Michelle Abel RN 01/11/20 11:35:12 01/11/20 11:35:12 01/11/20 11:35:12 Entry 4 Entry 5 Case Attendee Cathryn CURRICULUM AND ASSESSMENT COORDINATOR, Maru Yun CST Role Performed Scrub Personnel Lean Manager Time In 01/11/20 09:47:00 01/11/20 09:47:00 Time [...] Final Counts Michelle Sanabria RN, Performed By onefinestay, Mackenzie Final Count Time 01/11/20 11:00:00 Surgeon [...] Reason for Unfinalizing 01/11/20 13:12 RIYA Barry DocumentationNormalSalem [facility] Intraoperative RecordMAGR Intra-Op Record Summary Primary Physician: Finalized Date/Time: 01/11/20 09:50:05 Pt. Name: LEDA GORDON/Sex: 1950 FEMALE Med Rec #: [id number] Physician: Jose Mcgraw DO Financial #: [id number] Pt. Type: D Room/Bed: / Admit/Disch: 01/11/20 [...] Kaminski RN, Veronique Role Performed Anesthesiologist of Commercial Technician Commercial Technician Record Time In 01/11/20 09:18:00 01/11/20 09:18:00 [...] Signatures Signed By: Veronique Kaminski RN 01/11/20 09:50[facility] PACU Recordon [id number] PACU RecordMA PACU Record Summary Primary Physician: Jose Mcgraw DO Finalized Date/Time: 01/11/20 12:14:58 Pt. Name: LEDA GORDON/Sex: 1950 FEMALE Med Rec #: [id number] Physician: Jose Mcgraw DO Financial #: [id number] Pt. Type: D Room/Bed: / Admit/Disch: 01/11/20 07:00:00 - Institution: PACU Case Times MAGR Entry 1 In PACU I 01/11/20 11:17:00 Discharge from PACU 01/11/20 12:13:00 I Last Modified By: Naheed Ortega RN 01/11/20 12:12:54 Finalized By: Naheed Ortega RN Document Signatures Signed By: Naheed Ortega RN 01/11/20 12:14[facility] Postoperative Recordon [id number] Postoperative RecordMAGR Phase II Record Summary Primary Physician: Jose Mcgraw DO Finalized Date/Time: 01/11/20 13:34:54 Pt. Name: LEDA GORDON/Sex: 1950 FEMALE Med Rec #: [id number] Physician: Jose Mcgraw DO Financial #: [id number] Pt. Type: D Room/Bed: / Admit/Disch: 01/11/20 [...] Signatures Signed By: Veronique Kaminski RN 01/11/20 13:34[facility] Preoperative Recordon 97-87-3067NPPQ Preoperative RecordABRAZO [facility] Pre-Op Record Summary Primary Physician: Jose Mcgraw DO Finalized Date/Time: 01/11/20 09:56:53 Pt. Name: JACKIELEDA/Sex: 1950 FEMALE Med Rec #: [id number] Physician: Jose Mcgraw DO Financial #: [id number] Pt. Type: D Room/Bed: / Admit/Disch: 01/11/20 [...] Unfinalizing Freetext Reason for Unfinalizing 01/11/20 09:55 [facility]Oper[facility] - Surgeon/Physician 01-67-0732Zeooedjak Report - Surgeon/Physician Preoperative diagnosis: Internal derangement [...] [Verified on: 01/11/2020 11:11 EST] Jose Mcgraw [facility] CenterPatient Handouton 01-11-2020 Patient HandoutDRNapoleon SANDERS POST OPERATIVE [...] or concerns, please call the office at [phone] -Follow up as scheduledAccess [facility]2019 Novel Coronavirus (CoVID-19), REGGIE LCon 66-60-1134DDYS-CoV-2, REGGIE (COVID-19) LCNot DetectedNot [facility] Medical CenterComment on above:Order Comment: [id number] Comment: This nucleic acid amplification test was developed and its performance characteristics determined by [employer]. Nucleic acid amplification tests include PCR and [...] detected) result in this assay. Performed At: [facility] [address] [facility], [place] [id number] Solitario Mathis MD Ph:[phone] By: #### [id number] ####[facility] (DEFAULT)[address] [place] [address] 14324Quptekjy Note - Nurseon 32-93-3542PEO QnSpoke with pt and informed her to be here at 7am and NPO after MN, pt was also informed that she can not have any visitor or family with her at this point. Pt verbalizes understanding. [Electronically Signed on: 01/08/2020 12:36 EST] Leora Lemus RN [Verified on: 01/08/2020 12:36 EST] Leora Lemus RNAccess Hospital DaytonProgress Note - Nurseon 01-07-2020 Progress Note - NurseNasal swab performed without complication. Patient tolerated well. Education given. Patient verbalized understanding. [Electronically Signed on: 01/07/2020 14:54 EST] Alisha Vidales RN [Verified on: 01/07/2020 14:54 EST] Alisha Vidales RNSelect Medical Specialty Hospital - Cleveland-Fairhilless Note - Nurseon 12-31-2019 Progress Note - NurseDr. Fish reviewed chart and no new orders received. [Electronically Signed on: 12/31/2019 10:53 EST] Cha Calloway RN [Verified on: 12/31/2019 10:53 EST] Brodie RN, Cha Mathis Will need pacemaker rep here day of surgery. Alisha shah. [Electronically Signed on: 12/31/2019 10:54 EST] Brodie RN, Cha ANoUK Healthcare.Auto Diff 1on 74-63-2876Wibn [place] %10 %Normal1-12[facility] HospitalComment on above:Performed By: #### [id number], [id number] ####[facility] (DEFAULT)[address] [place] [address] Baso Abs#0.0 l72Pdsovn1.0-0.2[facility] HospitalComment on above:Performed By: #### [id number], [id number] ####[facility] (DEFAULT)[address] [place] [address] 32231Puwtikpaq/100 WBC (Bld)0.7 %Normal0.2-2.0[facility] Hospital Comment on above:Performed By: #### [id number], [id number] ####[facility] (DEFAULT)[address] [place], [place] [address]Eos Abs#0.1 v61Zkmlew6.0-0.4 [facility] HospitalComment on above:Performed By: #### [id number], [id number] ####[facility] (DEFAULT)[address] [place] [address] Eosinophils/100 WBC (Bld)1.7 %Normal0.9-4.0[facility] HospitalComment on above: Performed By: #### [id number], [id number] ####[facility] (DEFAULT)[address] [place] [address] 46762Wpldibzdccy (Bld) [#/Vol]0.9 g97Pgc4.3-2.9[facility] HospitalComment on above:Performed By: #### [id number], [id number] ####[facility] (DEFAULT)[address] [place] [address] 35177Dlunffbggya/100 WBC (Bld)18 %Ilqfcz15-23Nylsprij HospitalComment on above:Performed By: #### [id number], [id number] ####[facility] (DEFAULT)[address] [place] [address] 11974Hfsc Abs#0.5 b06Asjyyc7.0-0.8[facility] HospitalComment on above:Performed By: #### [id number], [id number] ####[facility] (DEFAULT)[address] [place] [address] 73331Swtx Abs#3.8 p07Ciilwt7.5-9.2[facility] HospitalComment on above:Performed By: #### [id number], [id number] ####[facility] (DEFAULT)[address] [place] [address] 25313Ktwjwylavwq/100 WBC (Bld)70 %Unqoel36-00 [facility] HospitalComment on above:Performed By: #### [id number], [id number] ####[facility] (DEFAULT)[address] [place] [address] 23524SSH Standardon 80-75-6818iPVA Non AA>60[facility] HospitalComment on above:Performed By: #### [id number] ####[facility] (DEFAULT)[address] [place] [address] 17245iZZD AA>60[facility] HospitalComment on above:Result Comment: Chronic Kidney disease could be indicated at eGFRs of less than 60 ml/min/1.73m2. Kidney Failure is indicated at less than 15 ml/min/1.73m2 Performed By: #### [id number] ####[facility] (DEFAULT)[address] [place] [address] 20145Idwxo gap [Moles/Vol]13.0 mmol/LNormal5.0-19.0 [facility] HospitalComment on above:Performed By: #### [id number] ####[facility] (DEFAULT)[address] [place] [address] 25473Mgtkbpt [Mass/Vol]9.3 mg/dLNormal8.9-10.3[facility] HospitalComment on above:Performed By: #### [id number] ####[facility] (DEFAULT)[address] [place] [address] 75730Ncmdpjwl [Moles/Vol]100 mmol/RNoe517-547Zgpmymyh HospitalComment on above: Performed By: #### [id number] ####[facility] (DEFAULT)[address] [place] [address] 71881RO1 [Moles/Vol]28 mmol/TRkhnnx19-80Rhkwnwrq Hospital Comment on above:Performed By: #### [id number] ####[facility] (DEFAULT)[address] [place] [address] 28604Knnxrbhffm [Mass/Vol]0.69 mg/dL Normal0.60-1.30[facility] HospitalComment on above:Performed By: #### [id number] ####[facility] (DEFAULT)[address] [place] [address] 41107Eubhwwx [Mass/Vol]87.0 mg/gOBkfmax66.0-118.0[facility] HospitalComment on above:Performed By: #### [id number] ####[facility] (DEFAULT)[address] [place] [address] 37745Gtjpthjeel [Osmolality]277 mOsm/LMregency hospital cle[facility] west HospitalComment on above:Performed By: #### [id number] ####[facility] (DEFAULT)[address] [place] [address] 18396Jvtmjyssa [Moles/Vol]3.9 mmol/LNormal3.6-5.1Mreg[facility] hospital [facility] HospitalComment on above:Performed By: #### [id number] ####[facility] (DEFAULT)[address] [place] [address] 13425Reillo [Moles/Vol]137.0 mmol/L Hvxfet948.0-144.0[facility] HospitalComment on above:Performed By: #### [id number] ####[facility] (DEFAULT)[address] [place] [address] 51807Kgrv nitrogen [Mass/Vol]23 mg/dLNormal8-26[facility] HospitalComment on above:Performed By: #### [id number] ####[facility] (DEFAULT)[address] [place] [address] 23612Yjqd nitrogen/Creatinine [Mass ratio]33.0 mg/mgHigh4.6-16.2 [facility] CenterComment on above:Performed By: #### [id number] ####[facility] (DEFAULT)[address] [place] [address] 98458BJW w/ Auto Diffon 87-94-4613Ugnnctsbwsu distribution width (RBC) [Ratio]12.0 %Fagirx92.5-15.0 [facility] CenterComment on above:Performed By: #### [id number], [id number] ####[facility] (DEFAULT)[address] [place] [address] 90636Qnnlkzgpqs (Bld) [Volume fraction]39.2 %Pmooze81.7-40.4[facility] HospitalComment on above: Performed By: #### [id number], [id number] ####[facility] (DEFAULT)[address] [place] [address] 82053Oocjihyeus (Bld) [Mass/Vol]13.4 g/pBDbolet76.3-15.9 [facility] CenterComment on above:Performed By: #### [id number], [id number] ####[facility] (DEFAULT)[address] [place] [address] 03074Btc Diff? AutoNormalChillicothe Va Medical Center HospitalComment on above:Performed By: #### [id number], [id number] ####[facility] (DEFAULT)[address] [place] [address] 45674VIQ (RBC) [Entitic mass]31 xzOllbpu51-16Galcoehh HospitalComment on above:Performed By: #### [id number], [id number] ####[facility] (DEFAULT)[address] [place] [address] 62023VAKQ (RBC) [Mass/Vol]34 g/hGSyjroh96-91Mdhgzomc HospitalComment on above:Performed By: #### [id number], [id number] ####[facility] (DEFAULT)[address] [place] [address] 88095AJE (RBC) [Entitic vol]90 fL Ygayhh30-870Earvzipi HospitalComment on above:Performed By: #### [id number], [id number] ####[facility] (DEFAULT)[address] [place] [address] 49475 Platelet mean volume (Bld) [Entitic vol]9.6 fLNormal6.3-10.2Mreg[facility] Hospital Comment on above:Performed By: #### [id number], [id number] ####[facility] (DEFAULT)[address] [place] [address] 27110Oynblhlye (Bld) [#/Vol]220 x10 Curatb387-499Oerppphu HospitalComment on above:Performed By: #### [id number], [id number] ####[facility] (DEFAULT)[address] [place] [address] 62820 RBC (Bld) [#/Vol]4.36 t83Iirucb1.70-5.30[facility] HospitalComment on above: Performed By: #### [id number], [id number] ####[facility] (DEFAULT)[address] [place] [address] 16040ILQ (Bld) [#/Vol]5.4 g95Bwkaqv0.5-10.5[facility] HospitalComment on above:Performed By: #### [id number], [id number] ####[facility] (DEFAULT)[address] [place] [address] 85415 Vital Signs Date TimeVital SignValuePerforming TnhbjjqoiTfsimwau68-71-4297 10:47-0400Body zgmuyi363.2 cmAngel Stewart MD Work Phone: [facility] CenterWgmygpdsiy29-28-4391 10:47-0400Body mass index (BMI) [Ratio]21.14 kg/m2Angel Stewart MD Work Phone: noHawthorn Children[facility] Psychiatric HospitalMxdynrwiop74-99-2727 10:47-0400Body temperature 97.81 [degF]Angel Stewart MD Work Phone: [facility] CenterPgwssywxzz15-73-5053 10:47-0400Body lpbtyd70.24 kgAngel Stewart MD Work Phone: [facility] CenterBesljvymsj75-55-7236 10:47-0400Diastolic blood qvhxlbok64 mm[Hg]Angel Stewart MD Work Phone: [facility] CenterGimcvfxdyi06-12-9897 10:47-0400Heart rate57 /min Angel Stewart MD Work Phone: [facility] CenterTcrjbvuemv51-77-0734 10:47-0400Respiratory rate18 /minAngel Stewart MD Work Phone: [facility] CenterPcmnqmjhnb73-67-4620 10:47-4334FhO6% (BldA) [Mass fraction]97 %Angel Stewart MD Work Phone: [facility] CenterYtmgkaegwk61-01-0381 10:47-0400Systolic blood cvyqrvae134 mm[Hg]Angel Stewart MD Work Phone: [facility] CenterKtkeqmeacy57-03-4503 09:56-0500Body .2 cmAngel Stewart MD Work Phone: [facility] CenterExizavuity25-02-5195 09:56-0500Body mass index (BMI) [Ratio]21.3 kg/m2Angel Stewart MD Work Phone: [facility] CenterFouuprfwup43-69-3015 09:56-0500Body temperature 97.11 [degF]Angel Stewart MD Work Phone: [facility] CenterYkwwsxokqh03-53-1709 09:56-0500Body .69 kgAngel Stewart MD Work Phone: [facility] CenterMpuowamvps63-68-4166 09:56-0500Diastolic blood lkuxxmaa79 mm[Hg]Angel Stewart MD Work Phone: [facility] CenterDkawnncwjx76-53-5270 09:56-0500Heart rate79 /min Angel Stewart MD Work Phone: [phone] [place], [place] [address]Afcilfreie14-69-9563 09:56-0500Respiratory rate22 /minMarc Terry AGUILAR Work Phone: noHawthorn Children's Psychiatric HospitalBwphsomwbd15-34-0918 09:56-4398CwI3% (BldA) [Mass fraction]96 %Angel Stewart MD Work Phone: noHawthorn Children[facility] Psychiatric HospitalNywckgcbah49-79-4731 09:56-0500Systolic blood mm[Hg]Angel Stewart MD Work Phone: noHawthorn Children's Psychiatric HospitalFnerqzfbho26-19-1196 15:30-0400Body schlje964.18 cmMichael Blank Other [employer] Other 03-22-2023 15:30-0400Body mass index (BMI) [Ratio] 21.61 kg/u4Rrmorae Blank Other [email or web address] Other 03-22-2023 15:30-0400Body .3 [degF] Theron Carmen Other [employer] Other 03-22-2023 15:30-0400Body .6 kgMichael Blank Other [email or web address] Other 03-22-2023 15:30-0400Diastolic blood rymplaeo45 mm[Hg] Theron Morales Other [email or web address] Other 03-22-2023 15:30-0400Systolic blood nlekzwjt399 mm[Hg] Theron Morales Other [email or web address] Other Encounters Encounter DateEncounter TypeCare ProviderFacilityStart: 12-30-2024 End: 92-12-8677Yghxbt flowsheetMateresa TINOCO Work Phone: NOKO [facility]opaedicsStart: 12-30-2024 End: 97-34-4063Fjfwiv Valarie TINOCO Work Phone: noMS [facility]opaedicsStart: 12-30-2024 End: 84-63-2317nrnzanllceVPVERRQ J MEYERNot AvailableStart: 12-30-2024 End: 98-24-5830Vberrv outpatient visit 15 minutesMateresa TINOCO Work Phone: NOMS [facility] OrthopaedicsComment on above:Acute pain of right knee (Primary Dx); Pes anserinus bursitis of right kneeStart: 12-29-2024 End: 21-31-0253gpyslwjxufJWAUMcKitrick Hospitaltart: 12-28-2024 End: 14-28-0657Lxmqub flowsheetMelissa Kelbley PTANOMS [facility] Start: 12-28-2024 End: 43-83-9274Cjezka flowsheetMelissa Kelbley PTANOMS [facility] Start: 12-28-2024 End: 88-98-4970jcgnnycqgqUtvknnw Kelbley PTANOMS [facility] Physical TherapyComment on above:Pain in right lower leg (Primary Dx)Start: 12-22-2024 End: 36-78-8413Djtape flowsheetMelissa Kelbley PTANOMS [facility] Start: 12-22-2024 End: 96-11-6851Ffdvjj flowsheetMelissa Kelbley PTANOM[facility] Start: 12-22-2024 End: 25-84-0099xwlcabidrcHzjccrs Kelbley PTANOMS [facility] TherapyComment on above:Pain in right lower leg (Primary Dx)Start: 12-07-2024 End: 97-54-0288Sfemzt flowsheetMelissa Kelbley PTAN[facility] Start: 12-07-2024 End: 62-16-1536Zrgvdt flowsheetMelissa Kelbley PTANOM[facility] Start: 12-07-2024 End: 33-46-2867zgvzyetttdNmwvral Kelbley PTANOMS [facility] TherapyComment on above:Pain in right lower leg (Primary Dx)Start: 12-03-2024 End: 31-83-0316Nrbued flowsheetMelissa Billie PTANOMS [facility] Start: 12-03-2024 End: 69-52-9664Dywcae flowsheetMelissa Keltana PTANOMS [facility] Start: 12-03-2024 End: 65-31-2234aofpgpsmvgYftkbga Billie PTANOMS [facility] TherapyComment on above:Pain in right lower leg (Primary Dx)Start: 11-30-2024 End: 12-89-7641Ylzoxo flowsheetSammantha Rios PTNOMS [facility] Start: 11-30-2024 End: 65-13-5013Omlojq flowsheetSammantha Rios PTNOMS [facility] Start: 11-30-2024 End: 53-55-9757ygjrcldwqfBwwoxqmou Rios PTNOMS [facility] Comment on above:Pain in right lower leg (Primary Dx)Start: 11-18-2024 End: 98-10-7547Cjgohz Valarie TINOCO Work Phone: N[facility]opaedicsStart: 11-18-2024 End: 86-29-5702Ohwmxw Valarie TINOCO Work Phone: N[facility]edicsStart: 11-18-2024 End: 59-06-7815esrvctdkoiQFLXQXK J MEYERNot AvailableStart: 11-18-2024 End: 75-68-8414Zwqxev outpatient visit 25 minutesMateresa TINOCO Work Phone: [phone] [facility] OrthopaedicsComment on above:Pain in right lower leg (Primary Dx); Acute pain of right kneeStart: 11-11-2024 End: 95-14-7262ssdvuicsndAKQU [facility] Healthtart: 11-04-2024 End: 77-31-1661Apphyn Valarie TINOCO Work Phone: N[facility]opaedicsStart: 11-04-2024 End: 76-78-5946Jphjwt flowsRaisa TINOCO Work Phone: NOMS [facility] OrthopaedicsStart: 11-04-2024 End: 05-24-6206sxplrshbjjSDYPBNO J MEYERNot AvailableStart: 11-04-2024 End: 95-41-8120Rlpwoo outpatient visit 15 minutesMateresa TINOCO Work Phone: NOMS [facility] OrthopaedicsComment on above:Chronic pain of left thumb (Primary Dx); Osteoarthritis of carpometacarpal (CMC) joint of left thumb, unspecified osteoarthritis typeStart: 45-79-0446ndudtkwzxhKNHEN [facility] Hospitaltart: 10-14-2024 End: 24-12-3760Ycmdrv flowsRaisa TINOCO Work Phone: N[facility]opaedicsStart: 10-14-2024 End: 21-33-1348Qbtawc flowsRaisa TINOCO Work Phone: N[facility]opaedicsStart: 10-14-2024 End: 32-13-5280Qtjkym outpatient visit 25 minutesMasureshdanny TINOCO Work Phone: NOMS [facility] OrthopaedicsComment on above:Arthritis of carpometacarpal (CMC) joint of right thumb (Primary Dx); Pain of right thumb; Finger pain, right; Finger pain, leftStart: 10-14-2024 End: 15-74-8087zzfdhugcljMJXGSBU J MEYERNot AvailableStart: 10-01-2024 End: 13-00-7756Pgbjgy flowsClarence Stewart MD Work Phone: NOKS CWM FMStart: 10-01-2024 End: 21-99-6896Rhkjld David Stewart MD Work Phone: NOMS CWMelissa FMStart: 10-01-2024 End: 30-05-7133Vlckhzi encounter Nahid Stewart MD Work Phone: [facility] Work Phone: Start: 10-01-2024 End: 01-93-6527Llbbyh follow up visit related to original Daniel Stewart MD Work Phone: noms CWM FMComment on above:Medicare annual wellness visit, subsequent (Primary Dx); Upper respiratory tract infection, unspecified type; Cardiomyopathy, unspecified (HCC); Chronic obstructive pulmonary disease, unspecified (HCC)Start: 10-01-2024 End: 73-31-2203qrxhugltedOWJS NADERERNot AvailableStart: 83-34-7222minhzkgnbp PAUL [facility] Healthtart: 07-22-2024 End: 51-09-9109Qrjhydxwq Result EncounterGeneric External Data ProviderNOWV External Department UnsolicitedStart: 07-22-2024 End: 91-54-4766Mgtfoktjp Result EncounterGeneric External Data ProviderNOWV External Department UnsolicitedStart: 07-22-2024 End: 19-02-1623dopindwzanOYLNTrinity Health System West Campustart: 05-06-2024 End: 51-31-9375hxutkzpcbtPQRWKettering Health – Soin Medical Centertart: 55-00-6366tuxildreppAMXNMcKitrick Hospitaltart: 31-86-9190Ouvpddoya for preprocedural cardiovascular examinationWilson Street Hospitaltart: 02-14-2024 End: 51-50-8682Csflhp David Stewart MD Work Phone: noms CWM FMStart: 02-14-2024 End: 55-89-5292Iiugzy David Stewart MD Work Phone: noms CWM FMStart: 02-14-2024 End: 88-46-2964Rxocubndb Result EncounterAngel Stewart MD Work Phone: noms External Department UnsolicitedStart: 02-14-2024 End: 83-80-5160Qcoqhu outpatient visit 25 minutesAngel Stewart MD Work Phone: noms [facility] FMComment on above:Dehydration (Primary Dx); Hypotension due to drugs; Viral cardiomyopathy (CMS/HCC); Encounter for long-term (current) use of medications; Acute kidney injury (CMS/HCC)Start: 02-14-2024 End: 14-02-7727tyiaitilbuLYDB NADERERNot AvailableStart: 02-11-2024 End: 47-59-6115fplhhgcjwhDQNBMcKitrick Hospitaltart: 01-31-2024 End: 67-95-0087Pqufxbkeo Result EncounterAngel Stewart MD Work Phone: noms External Department UnsolicitedStart: 01-31-2024 End: 54-37-0638Yxddnssky Result EncounterAngel Stewart MD Work Phone: noms External Department UnsolicitedStart: 01-31-2024 ambulatoryKettering Health – Soin Medical Centertart: 01-01-2024 End: 23-71-9335kzliztanfgTYRC P CHENEYProMedica Paradise Valley Hospitaltart: 12-18-2023 End: 52-80-9377ypjvphvxoaYNLC P CHENEYProMedica Paradise Valley Hospitaltart: 12-17-2023 End: 19-96-6670Orzzvo Bharat Hoover HL7 INTERFACE DEVELOPER Work Phone: NOZV [facility] ORTHOPAEDICSStart: 12-17-2023 End: 61-96-5832Ptnnno Bharat Hoover HL7 INTERFACE DEVELOPER Work Phone: NOMS CI ORTHOPAEDICSStart: 12-17-2023 End: 60-67-8802Wmrivy outpatient visit 10 minutesOtf Hoover NP Work Phone: NOCV CI ORTHOPAEDICSComment on above:Traumatic hematoma of right knee, subsequent encounter (Primary Dx)Start: 12-04-2023 End: 89-96-3245fjypwkwrwmNIBUVKT WOBRIANIAKProMedica Paradise Valley Hospitaltart: 2023 End: 11-79-2044aaykxutjqcFWVQ P CHENEYProMedica [facility] HospitalStart: 11-19-2023 End: 57-98-4151Mmelur flowsRadames Hoover HL7 INTERFACE DEVELOPER Work Phone: NONH CI ORTHOPAEDICSStart: 11-19-2023 End: 47-63-0912Xbfgor flowsheetOtf Hoover HL7 INTERFACE DEVELOPER Work Phone: NOVF CI ORTHOPAEDICSStart: 11-19-2023 End: 18-64-2418Xipdpn outpatient visit 10 minutesOtf Hoover HL7 INTERFACE DEVELOPER Work Phone: NOAF CI ORTHOPAEDICSComment on above:Traumatic hematoma of right knee, subsequent encounter (Primary Dx); Acute pain of right kneeStart: 11-14-2023 End: 82-13-9282Hvqsuthdc encounterJajasmin A Mariluz DO Work Phone: noms SWS ORTHOComment on above:Letter for School/Work Start: 11-13-2023 End: 75-19-1885ccrfsaonucTSVV P [facility] HAMILTONEYHarrison [facility] Hospital HospitalStart: 11-06-2023 End: 09-89-5878tnpbppgosrIRTJ P CHENEYProKettering Health Greene Memorial HospitalStart: 11-05-2023 End: 27-40-6510Zeclzl Bharat Hoover NP Work Phone: NOOP CI ORTHOPAEDICSStart: 11-05-2023 End: 53-73-8678Lpbiei Bharat Hoover NP Work Phone: NOYO CI ORTHOPAEDICSStart: 11-05-2023 End: 97-81-2646Gwznxu outpatient visit 10 minutesOtf Hoover HL7 INTERFACE DEVELOPER Work Phone: NOLU CI ORTHOPAEDICSComment on above:Traumatic hematoma of right knee, subsequent encounter (Primary Dx); Acute pain of right kneeStart: 10-24-2023 End: 52-99-3397Vhqpni flowsheetJose A Mariluz DO Work Phone: noms FB ORTHOPAEDICSStart: 10-24-2023 End: 74-41-6465Dziafg flowsheetJames A Mariluz DO Work Phone: noms FB ORTHOPAEDICSStart: 10-24-2023 End: 70-01-0506Siwqnm outpatient visit 10 minutesJose Mcgraw DO Work Phone: noms FB ORTHOPAEDICSComment on above:Traumatic hematoma of right knee, initial encounter (Primary Dx); Acute pain of right kneeStart: 10-03-2023 End: 01-17-0889Wupxwukik Result EncounterGeneric External Data ProviderNOMS External Department UnsolicitedStart: 10-03-2023 End: 85-42-0117Znuevbxib Result EncounterGeneric External Data ProviderNOMS External Department UnsolicitedStart: 15-69-6049Suvfcrg encounter procedureJose Mcgraw DO Work Phone: noms HealthcareStart: 03-12-2023 End: 81-52-9215Yuohwsucy Result EncounterGeneric External Data ProviderNOMS External Department UnsolicitedStart: 03-12-2023 End: 51-72-8534Qnnmrkvgn Result EncounterGeneric External Data ProviderNOMS External Department UnsolicitedStart: 05-24-2022 End: 12-98-1361rpnopckoqjSJZPLC SAMSA .Facility:J0Xgfsm: 05-16-2022 End: 22-62-2788syiyhhnijbDowrgjy Blank Other [facility] [employer] Other Start: 56-15-0599Jyopan outpatient new 45 minutes Theron Holland Infectious DiseaseStart: 04-03-2022 End: 04-19-9370vizetnsdynYFTCLY SAMSA .Facility:M9Fyqzf: 04-02-2022 End: 66-72-7203exfvxgtqqzPVRRFY SAMSA .Facility:X9Fiset: 03-14-2022 End: 19-44-2270wjhggpzxqjEPYYS BARAZIFacility:Y6Ydppy: 10-03-2021 End: 15-38-8029rzgvwoelndCKLXOS SAMSA .Facility:N8Atbbr: 10-02-2021 End: 78-63-7643eisngkkwtzAUKYYQ SAMSA .Facility:K4Jledu: 09-27-2021 End: 55-51-7331jysunnmucqVXYRQTV D KATKOFacility:F1Huhsd: 09-04-2021 End: 79-38-8197ylptdcfmhsGD ANGEL A NADERERFacility:N9Cwljb: 06-06-2021 End: 90-99-9278feutmvdkicSA ANGEL Delfina NADERERFacility:H9Izmqy: 06-05-2021 End: 80-53-2482xiktmxqlikEWVJZQ RODRIGUEZ .Facility:M6Azlhq: 06-30-2020 End: 64-71-1929ormedrsozoDOXY CHACKOFacility:[facility] Procedures DateProcedureProcedure DetailPerforming ClinicianStart: 99-65-3581Aszxmoatajtqbv aspir&/inj major jt/bursa w/o usMatthew Elaina TINOCO Work Phone: Start: 72-78-5898Dkgfxhzsjx examination knee 1/2 views Juanita TINOCO Work Phone: Start: 80-44-0336Ojjmgraampvmem aspir&/inj small jt/bursa w/o usMattheholli TINOCO Work Phone: Start: 77-99-8574Oivkgtfbsagfxe aspir&/inj small jt/bursa w/o usMattheholli TINOCO Work Phone: Start: 33-02-2392Hikye fingr minimum 2 viewsMattdanny TINOCO Work Phone: Start: 01-55-7230Ojovp fingr minimum 2 viewsMateresa TINOCO Work Phone: Start: 27-81-7892SAF CBC WITH AUTO DIFFGeneric External Data ProviderStart: 81-43-6434ACH CBC WITH AUTO DIFFMeganc Terry AGUILAR Work Phone: Start: 96-77-3715MT TOMOSYNTHESIS SCREENING BIMarc Terry AGUILAR Work Phone: Start: 16-77-0914GrlpxgvfxrvPvsa Naderer MD Work Phone: Start: 94-72-9800MD ECHO DOPPLER COMPLETEGeneric External Data ProviderStart: 49-15-1692AY CHEST 2VGeneric External Data Provider Start: 67-23-6966PsuhxugbmkbXvdif Huddleston DO Work Phone: Plan of Treatment DateCare ActivityDetailAuthorStart: 37-26-1721Gsfqooqis for malignant neoplasm of colonNOMS HealthcareStart: 08-07-2026Medicare Annual Wellness (AWV)Medicare Annual Wellness (AWV)NOMS HealthcareStart: 40-34-0677Awtjccaiw for malignant neoplasm of breastMammogramNOMS HealthcareStart: 12-30-2024 End: 13-33-8793Jljzloy encounter gbgslwceu40/05/2025 9:00 AM EST [facility] [address] [place] [phone] Juanita Dowell PA [address] [place] [phone] [facility]icsStart: 12-24-2024 End: 45-57-9753zignzpmkce05/30/2025 10:00 AM EDT Treatment [facility] [address] [facility] [[email or web address]] [address] [place] [address] Chana Wise PTANOMS [facility] TherapyStart: 12-22-2024 End: 63-67-1379fjlumoewpzLAEH [facility] TherapyComment on above:Arrived Start: 12-07-2024 End: 76-76-7834mmtszwmoho50/13/2025 12:30 PM EDT Treatment [facility] [address] [place] [address] Chana Wise PTANOMS [facility] TherapyStart: 12-03-2024 End: 13-40-4951trmpubadnp12/09/2025 10:00 AM EDT Treatment [facility] [address] [place] [address] Billie ChanaSUNI Physical TherapyStart: 11-18-2024 End: 97-13-8115Cnohlmp encounter bihdozbua41/24/2025 9:00 AM EDT Office Visit [facility] [address] [place] [phone] Juanita Dowell PA [address] [place] [facility] [phone] [facility] OrthopaedicsStart: 32-27-4126IETML-19 Vaccine ( season)COVID-19 Vaccine ()NOM HealthcareStart: 01-78-6563Cmffitwvt vaccinationInfluenza Vaccine (#1)[facility] HealthcareStart: 10-14-2024 End: 75-97-8378Lowmvin encounter lmjueepue04/20/2025 8:30 AM EDT Office Visit [facility] [address] [facility] [place] [phone] Juanita Dowell PA [address] [place] [phone] Arthritis of carpometacarpal (CMC) joint of right thumb (Primary Dx); Pain of right thumbNOMethodist Hospital - Main Campus OrthopaedicsComment on above: Arthritis of carpometacarpal (CMC) joint of right thumb (Primary Dx); Pain of right thumbStart: 10-01-2024 End: 11-73-0468Mlanwcc encounter nwwylfryc38/07/2025 10:30 AM EDT Office [facility] [address] [place] [address] Angel Stewart MD [address] [place] [address] [facility] FMComment on above:ArrivedStart: 05-10-2025Medicare Annual Wellness (AWV)Medicare Annual Wellness (AWV)NOMS HealthcareStart: 02-14-2024 End: 84-85-0027Nrxtt metabolic 1998 panel - Serum or PlasmaBasic metabolic panel Lab Routine Encounter for long-term (current) use of medications Expected: (Approximate), Expires: 02/13/2025NOMS HealthcareComment on above: Expected: 02/14/2024 (Approximate), Expires: 02/13/2025Start: 02-14-2024 End: 66-72-4682WNI W Auto Differential panel - BloodCBC and differential Lab Routine Encounter for long-term (current) use of medications Expected: 01/26 (Approximate), Expires: 02/13/2025NOWV Healthcare Work Phone: Comment on above:Expected: 02/14/2024 (Approximate), Expires: 02/13/2025Start: 02-14-2024 End: 62-42-4322Btipnzh encounter xweaycftu19/20/2024 10:00 AM EST Office Visit [facility] [address] [place] [address] Angel Stewart MD [address] [place] [id number] ArrivedNOMS CWM FMComment on above:ArrivedStart: 52-71-5389Yuwhklzke for malignant neoplasm of breastMammogramNOMS HealthcareStart: 12-17-2023 End: 98-24-4859Tboyxpy encounter cbnrgdder20/22/2024 9:15 AM EDT Office Visit [facility] [address] [place] [id number] Otf Hoover, [employer] DEVELOPER [address] [place] [address] [facility]ICSStart: 11-19-2023 End: 39-13-4721Edvywsv encounter procedureNOMS CI ORTHOPAEDICSComment on above: ArrivedStart: 11-05-2023 End: 94-78-0368Euysojn encounter procedureNOMS CI ORTHOPAEDICSComment on above: ArrivedStart: 91-69-9123Zzpmyapcs vaccinationInfluenza Vaccine (#1)[facility] HealthcareStart: 10-24-2023 End: 27-02-1847Obbqydp encounter qdgrkyglk75/29/2024 1:00 PM EDT [facility] [address] [place] [address] Jose Mcgraw, DO [address] [facility] [address] [place] [address] Traumatic hematoma of right knee, initial encounter (Primary Dx); Acute pain of right kneeNOMS FB ORTHOPAEDICSComment on above:Traumatic hematoma of right knee, initial encounter (Primary Dx); Acute pain of right kneeStart: 92-15-3138LIrC/Tdap/Td Vaccines (2 - Td or Tdap) DTaP/Tdap/Td Vaccines (2 - Td or Tdap)[facility] HealthcareStart: 06-21-7088Hjxdbdgxb B Vaccines (2 of 3 - 19+ 3-dose series)Hepatitis B Vaccines (2 of 3 - 19+ 3-dose series)[facility] HealthcareStart: 09-25-1951Medicare Annual Wellness (AWV)Medicare Annual Wellness (AWV)NOMS HealthcareStart: 44-69-8720Uyzpuxpji for malignant neoplasm of colonNOMS Healthcare Immunizations Immunization DateImmunizationNotesCare IcyittvpBwzprllq34-35-2464nhluaeedv virus vaccine, unspecified formulationAngel Stewart MD Work Phone: NOWV Nobntieuhx37-51-3338Bvckbjbhi, Seasonal, Quadrivalent, AdjuvantedJames Mariluz DO Work Phone: noHawthorn Children's Psychiatric HospitalDrnpzcunmx91-68-9104mikxhrhzw virus vaccine, unspecified formulationChemames Mariluz DO Work Phone: NOWV Svtvqqhhum57-00-2958Nbvsunfiq, Seasonal, Quadrivalent, AdjuvantedJames Mariluz DO Work Phone: NOWV Kzhwefwovu20-93-9627qaghgedan virus vaccine, unspecified formulationSelect [facility]ty [facility] DO Work Phone: [facility] CenterDekfwqojee31-47-7816Gayzfqqsf, Seasonal, Quadrivalent, AdjuvantedSelect Specialty Hospital [facility] DO Work Phone: [facility] CenterZrhfbrjdgy34-68-0844zqzjwbbmvdka polysaccharide vaccine, 23 valentSelect Specialty Hospital - [facility] DO Work Phone: [facility] CenterGxvkzhkinq54-41-9614fmkklwpdh, injectable, quadrivalent, preservative freeSelect Specialty Hospital - [facility] DO Work Phone: [facility] CenterMugktihvsg68-79-0198ryrtlckbp, high dose seasonal, preservative-freeSelect Specialty [facility] DO Work Phone: [phone] [place], [place] [address]Guyscftgnh20-89-8618vdyqwztyrifk conjugate vaccine, 13 valentSelect Specialty Hospital - [facility] DO Work Phone: [phone] [place], [place] [address]Vvutsdkoac68-97-7373Dvqlbpsx trivalent influenza vaccine, adjuvanted, preservative freeSelect [facility]ty [facility] DO Work Phone: [phone] [place], [place] [address]Hdkvmkqrvo70-92-8072xxidjwalr, injectable, quadrivalent, preservative freeSelect [facility]ty [facility] DO Work Phone: [phone] [place], [place] [address]Ahgpqruuwd54-09-4624rvciqwtwd, injectable, quadrivalent, preservative freeSelect Specialty [facility] DO Work Phone: [phone] [place], [place] [address]Gmvyhceoai15-52-4366cnduzw vaccine recombinant Jose Longview DO Work Phone: [phone] [place], [place] [address]Ifhjmirsuy56-07-5605witmnv vaccine recombinant Jose Longview DO Work Phone: [phone] [place], [place] [address]Ftwfwpdvko15-31-4535xtsnzuetd A vaccine, adult dosageSelect Specialty [facility] DO Work Phone: [phone] [place], [place] [address]Eznmfotfep20-16-6367bndtpepzg A vaccine, adult dosageSelect Specialty Hospital - [facility] DO Work Phone: [facility] CenterKxqdbezixv27-60-3564xyrdnkdra, injectable, quadrivalent, preservative freeSelect Specialty [facility] DO Work Phone: [facility] CenterGnemkhepiy45-47-5702jjhoibk capsular polysaccharide vaccineSelect Specialty Hospital [facility] DO Work Phone: [facility] CenterYempwvzenf85-12-0926kppgnv fever vaccineSelect Specialty Hospital [facility] DO Work Phone: [place] [address]Zhluseejao48-87-3233jhkolqhzu, injectable, quadrivalent, preservative freeSelect Specialty [facility] DO Work Phone: [facility] CenterJbapiuiexy72-10-2241ylfxfulxz, high dose seasonal, preservative-freeSelect Specialty [facility] DO Work Phone: [facility] CenterXywutavjqz83-71-9844pnxsrpdsl, injectable, quadrivalent, preservative freeSelect Specialty [facility] DO Work Phone: [facility] CenterBmmflyfiqn67-54-5637ffpbvxm toxoid, reduced diphtheria toxoid, and acellular pertussis vaccine, adsorbedSelect Specialty Hospital - [facility] DO Work Phone: [facility] CenterNjtqernyqu25-29-7980vzqjfcttr virus vaccine, unspecified formulationSelect Specialty [facility] DO Work Phone: [facility] CenterKedjlkngux37-90-6768dybwixemiwgmn ACWY vaccine, unspecified formulationSelect Specialty [facility] DO Work Phone: [facility] CenterMnuyssstyp35-89-0197jbvhqrqzk virus vaccineSelect Specialty Hospital - [facility] DO Work Phone: [facility] CenterZklqbvekfg10-64-3973xqgtsniah B vaccine, adult dosageSelect Specialty Hospital - [facility] DO Work Phone: [facility] Payers DatePayer CategoryPayerPolicy [id number] MEDICARE ADVANTAGE [id number] 2022Medicare [id number] [id number] 2.16.840.1.190856.3.579.2.647 [id number] 2.16.840.1.596528.3.57[id number] 2.16.840.1.711654.3.57[id number] 2.16.840.1.389561.3.57[id number] 2.16.840.1.167837.3.579.[id number] 2.16.840.1.432023.3.579.[id number] 2.16.840.1.442251.3.57[id number] 2.16.840.1.566220.3.57[id number] 2.16.840.1.730967.3.57[id number] 2.16.840.1.120340.3.57[id number] 2.16.840.1.916628.3.57[id number] 2.16.840.1.251487.3.57[id number] 2.16840.1.577885.3.579.[id number] 2.16840.1.377458.3.57[id number] 2.16840.1.199935.3.579.2.018[id number] 2.16840.1.634015.3.579.[id number] 2.16840.1.996067.3.57[id number] 2.16840.1.447780.3.57[id number] 2.840.1.495139.3.57[id number] 2.840.1.112712.3.57[id number] 2.840.1.738889.3.579.2.4[id number] 2.840.1.642262.3.579.[id number] 2.16840.1.259843.3.579.2.933366-09-7932Ogjdelr20134050 2.16840.1.474563.3.579.2.[id number] 2.16840.1.196977.3.579.[id number] 2.16840.1.012547.3.579.2.454[id number] 2.0.1.153421.3.57[id number] 2..0.1.298521.3.57[id number] 2..0.1.523411.3.579.2.00[id number] 2.0.1.319656.3.579.2.09[id number] 2.0.1.071108.3.579.2.1259Private Health UkjqptnaeCBQX5IYN Social History DateTypeDetailFacilityUnknown if ever smokedNocedar county memorial hospital [employer] Other Start: 06-30-2023 End: 08-92-6684Epl Assigned At BirthNOWV HealthcareStart: 06-26-2023 End: 75-10-5664Ldahxeg smoking status NHISEx-smokerNOMS Healthcare End: 79-37-9153Myyyabm of tobacco useCurrent smokerNOMS Healthcare End: 78-79-0576Oorlgtn of tobacco useCigarette SmokerNOMS HealthcareStart: 06-26-2023 End: 24-14-5058Tdxocod use and exposureSmokeless tobacco non-userNOMS Healthcare Start: 11-19-2023 End: 75-67-4633Xinhddvsr beverage intakeCurrent drinker of alcohol (finding)NOMS HealthcareStart: 06-30-2023 End: 41-59-3876Dupkjhs of Social functionNOMS HealthcareDo you belong to any clubs or organizations such as scientologist groups, unions, fraternal or athletic herbert ups, or school groups?YesNOMS HealthcareAre you now , , , , never or living with a partner?MarriedNOMS HealthcareHow often to you have a drink containing alcohol?2-4 times a monthNOMS HealthcareHow many standard drinks containing alcohol do you have on a typical day?1 or 2NOMS HealthcareHow often do you have 6 or more drinks on 1 occasion?NeverLafayette Regional Health CenterStart: 68-61-8219Aoe hard is it for you to pay for the very basics like food, housing, medical care, and heatingNot hard at allNOWV HealthcareDo you feel stress - tense, restless, nervous, or anxious, or unable to sleep at night because yourmind is troubled all the time - these days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 Angel Stewart MD [address] [place] [address] [facility]11/12/24Team MemberRelationshipSpecialtyStart DateEnd Date Angel Stewart MD [address] [place] [address] PCP - Aet08/26/23 Angel Stewart MD [address] [place] [address] PCP - [facility]11/12/24Team MemberRelationshipSpecialtyStart DateEnd Date Angel Stewart MD [address] [place] [address] PCP - [facility]08/26/23 Angel Stewart MD [address] [place] [address] PCP - [facility]11/12/24Team MemberRelationshipSpecialtyStart DateEnd Date Angel Stewart MD [address] [place] [address] PCP - [facility]08/26/23 Angel Stewart MD [address] [place] [address] PCP - [facility]11/12/24 Reason for Visit (unrecogniz ed section [...] BE BASED ON THE PRIMARY CLINICAL RECORDS. [facility] [employer] [facility]. provides no warranty or guarantee of the accuracy or completeness of information in this document.
[2025-02-04 16:09] LABS: IgG, Subclass 1 606 mg/dL (248-810); IgG, Subclass 2 265 mg/dL (130-555); IgG, Subclass 3 57 mg/dL (15-102); IgG, Subclass 4 14 mg/dL (2-96)
== END 2025-02-03 13:24 | disposition home or self-care (01) ==
LOC: LAB 13:28
PROVIDERS: PCP Family Medicine; Visit Provider Internal Medicine
DX: J98.8 Other specified respiratory disorders (principal); Z12.31 Encounter for screening mammogram for malignant neoplasm of breast
CPT/HCPCS: 36415; 77063; 77067; 82784; 82785; 82787

== ENCOUNTER 2025-02-09 08:29 | Outpatient (OUT) | payer MEDICARE, SELFPAY ==
--- OUTSIDE RECORDS SUMMARY | 2023-10-17 04:00 | XMS_ITS ---
Author Organization [facility] in [place] Address [address] [place] [address] Care Team Providers Care Drafter Tool Design Name Role Phone Indu AGUILAR, Angel Primary Care Provider Unavailab Visnhu Ford Unavailable [phone] REASON FOR VISIT 1YEAR-COPD/CT Encounters Encounter Location Date Provider Diagnosis Pulmonary Medicine [address] [address] 10/17/2023 Vishnu Allen Plan Of Treatment No Information Progress Notes * Samina MEJIA KDOB:1950 (74 yo F)Acc No.[id number]:10/17/2023 UNLOCKED PROGRESS NOTE Follow Up Patient: Samina PARRISH :?NOAM RossOB:1950???Age:72 Y ???Sex:FemaleDate:4Phone:[phone]:[address] [place] [id number]:Angel Griggs MD Subjective: * Chief Complaints: * 1 . 1YEAR-COPD/CT. * Medical History: Objective: * Vitals: Assessment: Plan: * Treatment: * * Electronic signature of Vishnu Allen DO on 02/09/2025 at 08:31 AM ESTSign off status: PendingVisit Status:?OFF CANC (OFFICE CANCEL) * Provider: Brijesh Allen DO Date: 0 10/17/2023 Generated for Printing/Faxing/eTransmitting on:?02/09/2025 08:31 AM EST
--- OUTSIDE RECORDS SUMMARY | 2024-12-30 08:30 | XMS_ITS ---
Author Organization [facility] in [place] Address [address] [place] [address] Care Team Providers Care Oxidized Finish Plater Name Role Phone Angel Griggs MD Primary Care Provider Unavailab Vishnu Ford Unavailable [phone] REASON FOR VISIT 1 year Asthma/ADAMA Encounters Encounter Location Date Provider Diagnosis Pulmonary Medicine [place] [address] [place] [address] 12/30/2024 Vishnu Allen Plan Of Treatment No Information Progress Notes * Samina MEJIA KDOB:1950 (74 yo F)Acc No.[id number]:12/30/2024 UNLOCKED PROGRESS NOTE Follow Up Patient: Samina PARRISH :?NOAM RossOB:1950???Age:74 Y ???Sex:FemaleDate:12/30/2024Phone:[phone]:[address] [place] [address]Pcp:Angel Griggs MD Subjective: * Chief Complaints: * 1 . 1 year Asthma/ADAMA. * Medical History: Objective: * Vitals: Assessment: Plan: * Treatment: * * Electronic signature of Vishnu Allen DO on 02/09/2025 at 08:30 AM ESTSign off status: PendingVisit Status:?OFF CANC (OFFICE CANCEL) * Provider: Brijesh Aleln DO Date: 03/01/2024 Generated for Printing/Faxing/eTransmitting on:?02/09/2025 08:30 AM EST
--- OUTSIDE RECORDS SUMMARY | 2025-02-09 08:31 | XMS_ITS | Patient Health Record ---
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 Unit Name Role Phone Angel Griggs MD Primary Care Provider Unavailab lee TiffanyVishnu Unavailable [phone] Allergies Allergen (clinical drug ingredient) Drug/Non Drug Allergy documented on EMR Reaction Allergy Type Onset Date Status CogentinHallucinationsDrug AllergyActiveCompazineHallucinationsDrug Allergy Active Results Component Value Reference Range Notes IgG, Subclasses(1-4) (Not ye t reviewed by provider) Interpretation: Performing Lab: Notes/Report: [facility] , Immunoglobulin G, Qn, Serum 2590 828-2290 mg/d L IgG, Subclass 5349930-432 mg/dLIgG, Subclass 6572701-234 mg/dLIgG, Subclass 357 15-102 mg/dLIgG, Subclass 4142-96 mg/dL Performed at: - [facility] [address] [id number] Waiter: Ad Linda PhD, Phone: [phone] Performing Lab:see note - [facility] Reason For Referral No Information Medications Medication SIG (Take, Route, Frequency, Duration) Notes Start Date End Date Status Fluticasone Propionate 50 MCG/ACT Nasal; Duratio n: 30 Days ActiveFLUoxetine HCl 40 MGOral; Duration: 90 DaysActiveLosartan Potassium 25 MG Oral; Duration: 90 DaysActiveFurosemide 20 MGOral; Duration: 90 DaysActiveWixela Inhub 250-50 MCG/ACT 1 puff Inhalation BID; Duration: 90 days Rinse after use 09/25/2023Not-TakingFasenra Pen 30 MG/MLas directed SubcutaneousActiveBactrim DS 800-160 MG1 tablet Orally BID; Duration: 10 days03/18/2023ctiveZOLMitriptan 5 MGOral; Duration: 5 DaysActiveAlbuterol Sulfate HFA 108 (90 Base) MCG/ACT2 puffs as needed for SOB Inhalation every 4 hrs; Duration: 30 daysActiveOmeprazole 20 MGOral; Duration: 90 DaysActiveMetoprolol Succinate ER 25 MGOral; Duration: 90 DaysActiveSymbicort 160-4.5 MCG/ACT1 puff as needed Inhalation every 4 hrsActive traZODone HCl 50 MGOral; Duration: 90 DaysActiveSpironolactone 25 MGOral; Duration: 90 DaysActiveAzithromycin 250 MGTake 2 tablets on the first day, and take 1 tablet on the remaining 4 days Orally daily; Duration: 5 days02/04/2024 ActivepredniSONE 20 MG 3 tabs x 3 days, 2 tabs x 3 days, 1 tab x 3 days Orally Once a day; Duration: 9 days Take with food 02/04/2024ctive Immunizations Vaccine Route Administration Date Status Comme nts Flu, Fluad (21431) 65 yrs + High Dose Seasonal (9542-5915) Unknown 11/10/2023 Administered Flu, Fluad (00410) 65 yrs+, single-dose syringe (4062-9725)Wofqvrk3612/03/2021 AdministeredFlu, Fluad (65250) 65 yrs+, single-dose syringe (0269-3509)Unknown 3AdministeredPneumococcal (Pneumovax 23)Duhzfsy6611/14/2020dministered Pneumococcal (Prevnar 13)Bedmher8409/23/20199892AplxvttjtmsmZJEQ-KZL-6 (COVID 19 Pfizer 30mcg/0.3mL)Ducqbrw9501/11/2021dministeredTdap (Boostrix)Laugxxf0009/30/2014 AdministeredZOSTER (SHINGLES) VACCINE (HZV)Qggvkix5810/08/2017Administered Social History Tobacco Use: Social History Observation Description Date Details (start date - stop date) Former Smoker NA - NA Tobacco Use/Smoking Question Answer Notes Patient is a former smoker Additional Findings: Tobacco Myo-XfmfKy-uogew cigarette smoker (1-9/day)Tobacco Control (Standard) Question Answer Notes Tobacco use: Former smoker How long has it been since you last smoked?Greater than 10 yearsAdditional Findings: Tobacco gcc-lmriYx-kxerq cigarette smoker (1-9/day) Problems Problem Type SNOMED Code ICD Code Onset Dates Problem Status W/U Status Risk Notes Problem Long-term current us e of inhaled steroid (017527025) penitentiary (current) use of inhaled steroids (Z79.51) ActiveconfirmedProblemCardiomyopathy (79457253)Cardiomyopathy (I42.9)Active confirmedProblemCOPD - Chronic obstructive pulmonary disease (75642975)COPD (chronic obstructive pulmonary disease) (J44.9)ActiveconfirmedProblemObstructive sleep apnea syndrome (91735377)ADAMA (obstructive sleep apnea) (G47.33)Active confirmedProblemDaytime sleep (930939928)Daytime hypersomnolence (G47.19)Active confirmedProblemHistory of MRSA infection of lungs (Z86.14)Activeconfirmed ProblemAllergic rhinitis caused by pollen (99812598)Seasonal allergic rhinitis due to pollen (J30.1)ActiveconfirmedProblemInfection due to Stenotrophomonas maltophilia (A49.8)ActiveconfirmedProblemEosinophilic asthma (310104745) 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)ActiveconfirmedProblemHistory of pneumonia (376033516)History of Haemophilus influenzae pneumonia (Z87.01)Activeconfirmed Encounters Encounter Location Date Provider Diagnosis Pulmonary Medicine [place] [address] [place] [address] 02/12/2024 [facility] [address] [place] [address] [address] [place] [address] [facility] [address] [place] [address] Of [facility] Pending Test Test Name Order Date IgG, Subclasses(1-4) 02/03/2025 Insurance Providers Payer Name Payer Address Payer Phone Subscriber Number Group Number Insured Name Patient Relationship to Insured Coverage Start Date Coverage End Date [employer] MEDICARE [address] [place] [id number] Samina Lucero Self - patient is the [...] catracho Z87.01 History of tobacco abuse Z87.891 penitentiary (current) use of inhaled stero ids Z79.51 Exposure to industrial fumes Z77.098 Eosinophilic asthma J82.83 Infection due to Stenotrophomonas maltop hilia A49.8 Daytime hypersomnolence G47.19 Surgical History Surgery Date(Month/Year) cardiac pacemeker 2013 carpal tunnel release-right breast tqvxsiBbnzsyxkeseb01/16/2023
--- OUTSIDE RECORDS SUMMARY | 2025-02-09 08:31 | XMS_ITS | Encounter Summary ---
Author Organization [facility] Address [address], [address] [place] [address] Care Team Providers Care School Manager Name Role Phone Angel Griggs MD Primary Care Provider + Encounter Details DateTypeDepartmentCare Team (Latest Contact Info)Pvuskbpxhtx99/12/2025Orders Only [facility] Pulmonology [address] [place], [place] [id number] Rodrigo Mcclure MA Recurrent respiratory infection Social History Tobacco UseTypesPacks/DayYears UsedDateSmoking Tobacco: FormerCigarettes0.510 1973 - 1983Smokeless Tobacco: NeverAUDIT-CAnswerDate RecordedQ1: How often do you have a drink containing alcohol?Never12/22/2024verage Number of DrinksNot on file12/22/2024Frequency of Binge DrinkingNot on file12/22/2024 CommentsUnknownSex and Gender InformationValueDate RecordedSex Assigned at Sszzgc0311/30/2024 2:51 PM EDTLegal QrjSfrjzc32/10/2013 5:58 PM ESTGender Identity Tfrjvw5811/30/2024 2:51 PM EDTSexual UrkzzfzlvihQhilsbmn63/06/2025 2:51 PM EDT documented as of this encounter Plan of Treatment DateTypeDepartmentCare Team (Latest Contact Info)Yafblmocyek73/06/2026 2:00 PM ESTOffice Visit [facility] [address] [place] [address] Vishnu Allen DO [address] [place] [address] 3 [place] F/U FOR Asthma, cavitary lung disease.documented as of this encounter Procedures Procedure NamePriorityDate/TimeAssociated DiagnosisCommentsIMMUNOGLOBULINS, MMDLOFKHEPCGFrirrce49/10/2025 8:43 AM ESTIMMUNOGLOBULIN G SUBCLASSESRoutine 02/03/2025 8:43 AM ESTdocumented in this encounter Results * Immunoglobulins, Quantitative (02/03/2025 8:43 AM EST)Specimen (Source) Anatomical Location / LateralityCollection Method / VolumeCollection Time Received TimeBLOOD SPECIMEN / Unknown Narrative Authorizing ProviderResult TypeResult StatusVishnu Allen DOCHEMISTRY ORDERABLES Edited Result - Final * Immunoglobulin G Subclasses (02/03/2025 8:43 AM EST)Specimen (Source) Anatomical Location / LateralityCollection Method / VolumeCollection Time Received TimeBLOOD SPECIMEN / Unknown Narrative Authorizing ProviderResult TypeResult StatusAtrium [facility] DOIMMUNOLOGY ORDERABLES Final Result documented in this encounter Visit Diagnoses Diagnosis Recurrent respiratory infection Other diseases of respiratory system, not elsewhere classified documented in this encounter Additional Health Concerns AssessmentNoted TimeA fall risk assessment has been completed for the patient 12/22/2024 2:21 PM EDTdocumented as of this encounter Care Teams Team MemberRelationshipSpecialtyStart DateEnd Date Angel Griggs MD [address] [place] [address] PCP - GeneralFamily Odcdozev64/6/25documented as of this encounter
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
--- OUTSIDE RECORDS SUMMARY | 2025-02-09 08:31 | XMS_ITS | Clinical Summary ---
Author Organization [employer] s tem Address [id number] [place] [address] Care Team Providers Care Cisco Network Architect Name Role Phone Unavailable Primary Care Provider Unavailabl e Allergies Active AllergyReactionsCriticalityNoted DateCommentsBenztropineHallucinations 8780Afcgbfipjsqaui13/11/2024 Medications MedicationSigDispense QuantityRefillsLast FilledStart DateEnd DateStatus losartan (COZAAR) 25 mg tablet Take 1 tablet (25 mg total) by mouth in the morning.Active furosemide (LASIX) 20 mg tablet Take 1 tablet (20 mg total) by mouth daily.Active metoprolol succinate XL (TOPROL XL) 25 mg 24 hr tablet Take 1 tablet (25 mg total) by mouth in the morning.Active spironolactone (ALDACTONE) 25 mg tablet Take 1 tablet (25 mg total) by mouth in the morning. Take 1/2 tab daily.Active omeprazole (PriLOSEC) 20 mg capsule Take 1 capsule (20 mg total) by mouth in the morning.Active fluticasone propion-salmeteroL (ADVAIR) 100-50 mcg/dose DISKUS Inhale 1 puff in the morning and 1 puff before bedtime.Active traZODone (DESYREL) 50 mg tablet Take 1 tablet (50 mg total) by mouth nightly. Take 1/2 tab at bedtimeActive ZOLMitriptan (ZOMIG-ZMT) 5 mg disintegrating tablet Dissolve 1 tablet (5 mg total) on tongue once as needed for migraine. May repeat in 2 hours if unresolved. Do not exceed 10 mg in 24 hours.Active loratadine (CLARITIN) 10 mg tablet Take 1 tablet (10 mg total) by mouth in the morning.Active albuterol (PROVENTIL HFA;VENTOLIN HFA) 90 mcg/actuation inhaler Inhale 2 puffs every 6 (six) hours as needed for wheezing.Active lutein-zeaxanthin 20-4 mg capsule Take 1 tablet by mouth in the morning. Lutein 4mg/zeaxanthin 8mg.Active FLUoxetine (PROzac) 40 mg capsule Take 1 capsule every day by oral route for 30 days.05/09/2023ctive Active Problems ProblemNoted DateDiagnosed DateSkin ulcer of knee, right, with fat layer exposed 12/04/2023Traumatic hematoma of right knee11/06/2023Other sjepvxuhzup10/16/2024 Allergic rhinitis due to bnvzdz6107/05/20235001Hzjfqgkwamnq86/10/2024hronic left shoulder pain07/05/2023hronic migraine without aura without status migrainosus, not dwhstsqexzr10/10/9107Rofxytqawqwg31/10/2024Eosinophilic pxxgkh3707/05/2023 Osteopenia of multiple sites07/05/2023ersistent xpjgbikg02/10/2024ecurrent depressive disorder, current episode mild07/05/2023OE (dyspnea on exertion) 02/27/2022 Overview (11/06/2023): Last Assessment & Plan: -has noticed this more with going up stairs which is new for her -will evaluate with echo, last one was 01/2020 (refer to above) Obstructive sleep apnea dibappda13/03/2023 Overview (11/06/2023): Last Assessment & Plan: -uses cpap machine nightly, continue use Qgigqubcoywt01/06/2014 Overview (11/06/2023): RESPONDING TO CELI Chronic obstructive pulmonary twgquuc4412/26/2012 Overview (11/06/2023): Last Assessment & Plan: Symptoms stable and follow with pulmonlogy. Last Assessment & Plan: COPD is stable, has had more of a cough with more phlegm recently -will follow up with echo assess heart function -continue management with photographic process screen maker Congestive heart cofabju2501/03/2012 Overview (11/06/2023): Last Assessment & Plan: Congestive [...] beginning new medication which is reasonable Cough01/03/2012Primary fgenigogxmguma18/08/2012 Overview (11/06/2023): NON-ISCHEMIC Family History Medical HistoryRelationNameCommentsHeart diseaseFatherRelationNameStatusComments FatherDeceasedMotherDeceased Social History Tobacco UseTypesPacks/DayYears UsedDateSmoking Tobacco: NeverSmokeless Tobacco: Never Tobacco Cessation:Counseling Given: Not Answered ChildcareAnswerDate TirhxemsIdhflqrmzNffzibn77/12/2019EmploymentAnswerDate HwlmgtpmBzewjpscydJyzyeyc95/12/2019Hunger ScreeningAnswerDate RecordedWithin the past 12 months we worried whether our food would run out before we got money to buy more.Never True12/04/2023Within the past 12 months the food we bought just didn't last and we didn't have money to get more.Never True12/04/2023 CommentsUnknownSex and Gender InformationValueDate RecordedSex Assigned at Not on fileLegal BtnArrwzm48/06/2015 11:36 AM EDTGender IdentityNot on file Sexual OrientationNot on file Last Filed Vital Signs Vital SignReadingTime TakenCommentsBlood Qcartqmc419/7801/01/2024 9:05 AM EST Hbvjy743001/01/2024 9:05 AM BWFTcujxjanrid14.7 ??C (98 ??F)01/01/2024 9:05 AM EST Respiratory Jozk2131 10:58 AM EDTOxygen Saturation--Inhaled Oxygen Concentration--Ekpnyb47.7 kg (136 lb)11/06/2023 1:38 PM EDTHeight--Body Mass Index-- Plan of Treatment Health MaintenanceDue DateLast DoneCommentsDepression Vrcuzqqhm89/25/1964Adult BMI Bfcejqcac94/25/1970RSV ( or age 60+ yrs) (1 - Risk 60-74 years 1- dose series)2011Fall Risk Ltihlslaf36/25/2017DTaP,Tdap and Td Vaccines (2 - Td or Tdap)COVID-19 Vaccine ( season)2024 01/11/2021, 06/22/2020, 06/01/2020Influenza Vbcncle55/01/703433/, 11/15/2022, 12/03/2021, Additional history existsTobacco Efcaypdai00/06/2025 01/01/2024Zoster (Shingles) HwbmitgPccoalmip50/14/2018, 06/25/2017 Medical Devices Not on file Insurance
--- OUTSIDE RECORDS SUMMARY | 2025-02-09 08:31 | XMS_ITS | Clinical Summary ---
Author Organization [facility] Address [address], [address] [place] [address] Care Team Providers Care Lab Rep Name Role Phone Angel Griggs MD Primary Care Provider + Allergies Active AllergyReactionsCriticalityNoted DateCommentsBenztropineHallucinations, Other (See Comments),EcpsGsm5402/12/2014 Other Reaction(s): other, Unknown PhenothiazinesOther (See Comments),Teftgyruoriwfd44/19/2014 Other Reaction(s): Other Medications MedicationSigDispense QuantityRefillsLast FilledStart DateEnd DateStatus FASENRA PEN 30 MG/ML SOAJ Inject 1 mL into the skin every 8 weeksActive budesonide-formoterol (SYMBICORT) 160-4.5 MCG/ACT AERO Inhale 2 puffs into the lungs 2 times dailyActive FLUoxetine (PROZAC) 40 MG capsule Take 1 capsule by mouth dailyActive fluticasone (FLONASE) 50 MCG/ACT nasal spray 2 sprays by Nasal route dailyActive furosemide (LASIX) 20 MG tablet Take 1 tablet by mouth every morningActive losartan (COZAAR) 25 MG tablet Take 1 tablet by mouth dailyActive metoprolol succinate (TOPROL XL) 25 MG extended release tablet Take 1 tablet by mouth dailyActive omeprazole (PRILOSEC) 20 MG delayed release capsule Take 1 capsule by mouth DailyActive voriconazole (VFEND) 200 MG tablet Take 1 tablet by mouth 2 times daily5Active traZODone (DESYREL) 50 MG tablet Take 1 tablet by mouth nightly at bedtime.Active spironolactone (ALDACTONE) 25 MG tablet Take 1 tablet by mouth dailyActive loratadine (CLARITIN) 10 MG tablet Take 1 tablet by mouth daily as neededActive ZOLMitriptan (ZOMIG) 5 MG tablet Take 1 tablet by mouth as needed for MigraineActive albuterol sulfate HFA (PROVENTIL;VENTOLIN;PROAIR) 108 (90 Base) MCG/ACT inhaler Indications:Eosinophilic asthmaInhale 2 puffs into the lungs every 4 hours as needed for Shortness of Breath 51 g 5Active fluticasone-salmeterol (ADVAIR) 250-50 MCG/ACT AEPB diskus inhaler Indications:Eosinophilic asthmaInhale 1 puff into the lungs 2 times daily May dispense Advair, Wixela, or generic - whichever is covered. Rinse after use. 3 each 5Active Active Problems ProblemNoted DateDiagnosed DateRecurrent respiratory sjebyzioo88/30/2025 Eosinophilic asthma Assessment & Plan (12/22/2024 5:04 PM EDT): Patient has been on Fasenra and does feel there is benefit from it. She continues to remain on Advair 250. She denies any adverse effects. She was encouraged to use albuterol as needed. Orders: albuterol sulfate HFA (PROVENTIL;VENTOLIN;PROAIR) 108 (90 Base) MCG/ACT inhaler; Inhale 2 puffs into the lungs every 4 hours as needed for Shortness of Breath fluticasone-salmeterol (ADVAIR) 250-50 MCG/ACT AEPB diskus inhaler; Inhale 1 puff into the lungs 2 times daily May dispense Advair, Wixela, or generic - whichever is covered. Rinse after use. ADAMA (obstructive sleep apnea) Assessment & Plan (12/22/2024 5:04 PM EDT): A sbou-fb-gqzm encounter was performed with the patient today in order to document continued need for positive airway pressure (PAP). -DME: Chaudhary -PSG 07/04/2015; AHI: 8 -Compliance was reviewed from 11/22/2024 - 12/21/2024 -Total days used: (93%) -Total of all days >4 hours of use: (90%) -Current mode & pressures: AirSense 11 AutoSet CPAP 6cmH2O -Residual AHI: 0.7 -Air leak 95th percentile: 0L/min -Mask/harness fitting: No complaints -Sleep quality: Sleeps well -Daytime hypersomnolence: Decreased from baseline -Recommendations: She is doing well with the CPAP and has no complaints. She is regularly cleaning her mask & tubing. Continue current settings. -This documentation authorizes that the patient's DME may request to renew, reorder, and/or replacetubing, mask, filter, any other associated supplies, and the PAP device (if applicable). Cavitary lung disease Assessment & Plan (12/22/2024 5:04 PM EDT): Plan as above. Ordering HRCT to see if there is any worsening of underlying disease and/or development of bronchiectasis. 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 COPD (chronic obstructive pulmonary disease) Assessment & Plan (12/22/2024 5:04 PM EDT): Asthma-COPD overlap History of tobacco abuse Assessment & Plan (12/22/2024 5:04 PM EDT): The patient was evaluated for low-dose CT (LDCT) for lung cancer screening. Current Medicare-accepted eligibility criteria were reviewed. - Age 50-77 years: Patient's age = 74 y.o. - Asymptomatic (no signs or symptoms of lung cancer): Yes - Tobacco Use Smoking status: Former Packs/day: 0.00 Years: 0.5 packs/day for 10.0 years (5.0 ttl pk-yrs) Types: Cigarettes Start date: 1973 Quit date: 1983 Years since quittin.8 Smokeless tobacco: Never Based on the above, she is not candidate for LDCT screening. History of MRSA infection of lungs Assessment & Plan (12/22/2024 5:04 PM EDT): Patient has a history of repeated positive cultures, sometimes polymicrobial, of both bacteria and fungi. I reviewed her old records, including prior cultures, bronchoscopy, ID consult, and imaging. She saw ID, Dr. Morales, on 05/17/2022 who believes the Aspergillus versicolor was not causing any clinical disease. Sputum from 12/01/2024 once again shows MRSA and Stenotrophomonas maltophilia, as well a s light growth of fungus. She was started on voriconazole for the fungus, but no further antibiotics for the MRSA or Stenotrophomonas. She continues to have a cough, but believes it is improving. With similar cultures returning, this may be colonization. Regarding fungus, it is typically not treated from a sputum sample. Is difficult to say if any of these organisms is the cause of, or contributing to, her current symptoms. She does not appear acutely ill on examination, and other than a harsh cough, the lungs are clear. I discussed with the patient that I believe the MRSA and Stenotrophomonas represent colonization orupper airway organisms opposed to actual infection in the lungs. I do not feel that she needs treated with any antibiotics at this current time -Staphylococcus aureus is already resistant to methicillin, and additional antibiotic use may promote pain-resistance. Last imaging was CT chest 11/22/2022. She did have cavitary lesions, though the radiologist questioned cystic bronchiectasis. If this is bronchiectasis, it could explain the productive cough and repeated positive cultures. Additionally, having the symptoms occur despite Fasenra therapy suggests a different process other than asthma as a cause. I suggested repeating a CT chest to assess the cavitary/cystic lesions. With questional bronchiectasis, ordering HRCT (which was last done April 2022). Patient requested imaging to be done it [facility] as she lives in [place]. If HRCT suggest bronchiectasis, the plan of care will need to be shifted towards management of bronchiectasis including pulmonary toilet and other modalities. 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 Suspect colonization. Encounters DateTypeDepartmentCare DjfmJbybzncjhxj10/12/2025Orders Only [facility] Pulmonology [address] [place] [address] Rodrigo Mcclure MA Recurrent respiratory hjoqokghc38/10/2025bstract [facility] Pulmonology [address] [place] [address] Vishnu Allen DO 12/24/2024Telephone 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; Chronic obstructive pulmonary disease, unspecified COPD type (HCC); History of tobacco abuse12/14/2024Telephone [facility] Pulmonology [address] [address] Vishnu Allen DO Other12/04/2024bstract [facility] Pulmonology [address] [place] [address] Vishnu Allen DO from Last 3 Months Family History Medical HistoryRelationNameCommentsCOPDFatherDiabetes type 2FatherHeart Disease FatherHypertensionFatherAnemia, UnspecifiedMotherHeart DiseaseMotherRelationName StatusCommentsFatherMother Social History Tobacco UseTypesPacks/DayYears UsedDateSmoking Tobacco: FormerCigarettes0.510 1973 - 1983Smokeless Tobacco: Never Tobacco Cessation:Counseling Given: Not Answered AUDIT-CAnswerDate RecordedQ1: How often do you have a drink containing alcohol? Never12/22/2024verage Number of DrinksNot on file12/22/2024Frequency of Binge DrinkingNot on file12/22/2024CommentsUnknownSex and Gender Information ValueDate RecordedSex Assigned at JzrocGgmctw87/06/2025 2:51 PM EDTLegal Sex Xxeygy2404/06/2012 5:58 PM ESTGender WfreukauQbdvnt94/06/2025 2:51 PM EDTSexual QujzdzqyweeFbxptced70/06/2025 2:51 PM EDT Last Filed Vital Signs Vital SignReadingTime TakenCommentsBlood Ylykivwd447/6812/22/2024 2:08 PM EDT Uskza740512/22/2024 2:08 PM GZNWmmcgvhndec46.4 ??C (97.5 ??F)12/22/2024 2:08 PM EDTRespiratory Yiog0928 2:08 PM EDTOxygen Ufneklgptk81%12/22/2024 2:08 PM EDTon room airInhaled Oxygen Concentration--Nbmcnw04.1 kg (137 lb)12/22/2024 2:08 PM VMYFfamio689.2 cm (5' 7 )12/22/2024 2:08 PM EDTBody Mass Index21.46 12/22/2024 2:08 PM EDT Plan of Treatment DateTypeDepartmentCare Team (Latest Contact Info)Ephwhrudwby26/06/2026 2:00 PM ESTOffice Visit [facility] Pulmonology [address] [place] [address] [address] [place] [address] [place] [address] [place] [address] [address] [place] [id number] 3 MO F/U FOR Asthma, cavitary lung disease.Health MaintenanceDue DateLast Done CommentsDepression Fyktte7511/20/1963Hepatitis C thshkk5511/19/1969Breast cancer ghosak2311/20/19911493Puoyec45/25/4527Yfqwrvzjosq62/25/1997FIT/FOBT: Average risk 11/19/1996Sigmoidoscopy/CT osvfcmkcbbuq18/25/1997DEXA (modify frequency per FRAX score)11/19/2006Respiratory Syncytial Virus (RSV) or age 60 yrs+ (1 - Risk 60-74 years 1-dose series)2011nnual Wellness Visit (Medicare Advantage)02/26/2024DTaP/Tdap/Td vaccine (2 - Td or Tdap)/07/2014 COVID-19 Vaccine ( - season)5103/13/2020, 06/22/2020, 06/01/2020olorectal Cancer Hltjvm5407/14/2026Fecal-DNA (Cologuard): Average risk /, 02/01/2019Meningococcal (ACWY) vaccineAged Out11/25/2012No longer eligible based on patient's age to complete this topicHepatitis A vaccine Aged Out05/10/2017, 10/18/2016No longer eligible based on patient's age to complete this topicShingles qruzdhgZzjlwotzh90/14/2018, 06/25/2017, 11/25/2012 Pneumococcal 50+ years VpzexoxPaxtffdhy16/20/2021, 09/23/2019Flu vaccine Nwridvhpg77/24/2025, 11/10/2023, 11/15/2022, Additional history existsHepatitis B vaccineAged OutNo longer eligible based on patient's age to complete this topicHib vaccineAged OutNo longer eligible based on patient's age to complete this topicMeningococcal B vaccineAged OutNo longer eligible based on patient's age to complete this topicPolio vaccineAged OutNo longer eligible based on patient's age to complete this topic Procedures Procedure NamePriorityDate/TimeAssociated DiagnosisCommentsIMMUNOGLOBULINS, XDGUMXGIKHJMZlrccmi13/10/2025 8:43 AM ESTIMMUNOGLOBULIN G SUBCLASSESRoutine 02/03/2025 8:43 AM ESTfrom Last 3 Months Results * Immunoglobulins, Quantitative (02/03/2025 8:43 AM EST)Specimen (Source) Anatomical Location / LateralityCollection Method / VolumeCollection Time Received TimeBLOOD SPECIMEN / Unknown Narrative Authorizing ProviderResult TypeResult StatusOlymp[facility] Center DOCHEMISTRY ORDERABLES Edited Result - Final * Immunoglobulin G Subclasses (02/03/2025 8:43 AM EST)Specimen (Source) Anatomical Location / LateralityCollection Method / VolumeCollection Time Received TimeBLOOD SPECIMEN / Unknown Narrative Authorizing ProviderResult TypeResult StatusNatvonda Allen DOIMMUNOLOGY ORDERABLES Final Result from Last 3 Months Insurance * Guarantor: Nic JosemarthaAccount TypeRelation to PatientDate of BirthPhone Billing AddressPersonal/HfprrcRxeo75/25/1951 [address] [phone] Advance Directives NameRelationshipHealthcare Agent RelationshipCommunicationRodney Elia Primary Decision Maker* * * Care Teams Team MemberRelationshipSpecialtyStart DateEnd Date Angel Griggs MD [address] [place] [address] PCP - GeneralFamily Nbmerdpt66/6/25
--- NOTE | 2025-02-09 08:40 | CT_ITS ---
The [address] [address] Patient Name: LEDA MEJIA MRN: [id number] date: 1950 Sex: F Assigned Patient Location: CT Current Patient Location: CT Accession/Order Number: [id number] Exam Date: 02/09/2025 08:45 Report Date: 02/09/2025 12:12 At the request of: CHARLES TAN DO Procedure: CT chest high res HIGH-RESOLUTION CT CHEST WITHOUT CONTRAST COMPARISON: 11/22/2022 and 05/24/2022 CLINICAL DATA: History of MRSA infection, cavitary lung disease and tobacco use. Chronic cough. Spiral axial unenhanced images were obtained through the chest. Images were reconstructed at 1 mm sections at 10 mm increments. Patient was also scanned in prone position with high-resolution technique. Images were reviewed using both narrow and wide window settings. This CT exam was performed using one or more following dose reduction techniques: Automated exposure control, adjustment of the mA and/or kV according to patient size, or use of iterative reconstruction technique. There is a left-sided pacemaker with associated streak artifact. The heart is within normal limits for size. There is a trace amount of pericardial fluid. No aortic aneurysm is seen. There are similar nonpathologic mediastinal lymph nodes. There are no acute bony findings. There is similar apical scarring that extends along the posterior aspect of the upper lungs. Additional scarring and/or atelectasis is seen, greatest at the bases. There is no new focal consolidation, pleural effusion or pneumothorax. There is still a tiny cluster of nodules at the lingula measuring up to 3 mm in size. There are increasing tiny clustered nodules at the posterior lateral left lower lobe. There is a developing 14 - 15 mm pleural-based density at the anterior left lower lobe. There is a developing irregular 9 mm opacity within the left lower lobe on axial image 204 of series 4. There is also an irregular developing opacity at the right lower lobe measuring approximately 12 mm in greatest dimension in the coronal plane on axial image 62. Reticular nodular changes seen previously at the right middle lobe have improved. The tiny cavitary areas versus cystic bronchiectasis at the lateral right lung base are unchanged. No significant interstitial or obstructive lung disease is identified. Limited cuts through the upper abdomen show no contributory findings. CT/CT chest high res IMPRESSION: DEVELOPING IRREGULAR LOWER LOBE OPACITIES AND INCREASING CLUSTERED LEFT LOWER LOBE NODULES. THESE FINDINGS MAY BE INFECTIOUS OR INFLAMMATORY. FOLLOW-UP IS RECOMMENDED TO ASSESS FOR RESOLUTION AND/OR STABILITY. ADDITIONAL SIMILAR PARENCHYMAL CHANGES. NO DEVELOPING LYMPHADENOPATHY. Impression dictated by: Cass Thomas M.D. 02/09/2025 12:12 PM Dictation Location: [place] [address] Electronically authenticated by: [id number] Y Date: 02/09/2025 12:12
== END 2025-02-09 08:30 | disposition home or self-care (01) ==
LOC: CT 08:29
PROVIDERS: PCP Family Medicine; Visit Provider Internal Medicine
DX: J98.4 Other disorders of lung (principal); Z86.14 Personal history of Methicillin resistant Staphylococcus aureus infection; R91.8 Other nonspecific abnormal finding of lung field
CPT/HCPCS: 71250